=== PATIENT | male | born 1970 | race Caucasian/White ===

== ENCOUNTER 2016-05-30 11:37 | Inpatient (IN) | payer BC ==
[2016-05-30 11:38] VITALS: BMI 31.3
[2016-05-30] MEDS ORDERED: Albuterol-Ipratrop 3 mg / 0.5 (3 ml) UD ONE ×2 (11:45→20:19)
[2016-05-30] MEDS ORDERED: Sodium Chloride 0.9% 1,000 ML IV STA (12:03)
[2016-05-30] MEDS ORDERED: Sodium Chloride 0.9% 1,000 ML ONE (12:06)
--- NOTE | 2016-05-30 12:09 | C.PDOC ---
History Of Present Illness Patient is a 46 y/o male, whose PMHx includes asthma, and diabetes, presents to the ED for evaluation of increased shortness of breath associated with cough for the last 2 weeks but worse today. Pt reports being seen by patcher who prescribed Prednisone, Albuterol, nebulizer treatment without any relief. Patient denies any lower extremity pain/swelling, recent travel, recent surgery , chest pain, fever, chills, or any other associated symptoms at this time. Patient was at [facility] 2 weeks ago for same. At that time, diagnosed with likely bronchospasm. D dimer at that time negative. He was mildly tachycardic at 110 bpm and afebrile. Today arrives febrile and tachycardic to 130 although took albuterol just prior to arrival. Patient also noted to have FS 400+, states usually 100-200 at baseline. States takes metformin and levemir as usual. Has not checked his fingerstick in 4 days because he "doesn't care when I'm feeling like this." Time Seen by Provider: 05/30/16 11:44 Chief Complaint (Nursing): Shortness Of Breath History Per: Patient History/Exam Limitations: no limitations Onset/Duration Of Symptoms: Days (2 weeks) Current Symptoms Are (Timing): Still Present Exacerbating Factor(s): Coughing Current Respiratory Medications: Albuterol, Prednisone Associated Symptoms: denies: Fever, Chills, Sweating, Chest Pain, Bloody Cough, Heart Racing, Leg/Calf Pain, Ankle/Leg Swelling, Dizziness, Light-headedness, Anxiety, Tingling In Hands Or Face, Musle Spasms In Hands Or Feet Recent travel outside of the [place]: No Additional History Per: Patient Past Medical History Reviewed: Historical Data, Nursing Documentation, Vital Signs Vital Signs: Last Vital Signs Temp 100.5 F H 05/30/16 11:48 Pulse 139 H 05/30/16 11:48 Resp 37 H 05/30/16 12:10 BP 140/86 05/30/16 11:48 Pulse Ox 97 05/30/16 15:12 - Medical History PMH: Asthma, Diabetes, HTN - [facility] Procedures APPLICATION OF SPLINT (10/13/12) INJECT/INFUSE NEC (08/13/13) NEBULIZER THERAPY (07/22/14) Family History: States: No Known Family Hx - Social History Hx Tobacco Use: No Hx Alcohol Use: Yes Hx Substance Use: No - Immunization History Hx Tetanus Toxoid Vaccination: No Hx Influenza Vaccination: Yes Hx Pneumococcal Vaccination: No Review Of Systems Except As Marked, All Systems Reviewed And Found Negative. Constitutional: Negative for: Fever, Chills Cardiovascular: Negative for: Chest Pain, Palpitations, Light Headedness Respiratory: Positive for: Cough, Shortness of Breath. Negative for: Hemoptysis , Wheezing Physical Exam - Physical Exam Additional Physical Exam Comments: Constitutional: In some respiratory distress. Head: Normocephalic. Atraumatic. Eyes: PERRL. ENT: Moist mucous membranes. Neck: Supple. Cardiovascular: Tachycardic. Radial pulse 2+ bilaterally. Chest: No tenderness. Respiratory: Clear to auscultation bilaterally. Tachypneic. Coughing intermittently. GI: Soft. Nontender. Nondistended. Back: No CVA tenderness. Musculoskeletal: No tenderness or swelling of extremities. Skin: No rash. Neurologic: Alert, no focal deficit. ED Course And Treatment - Laboratory Results Result Diagrams: 05/30/16 12:16 05/30/16 12:16 O2 Sat by Pulse Oximetry: 97 Critical Care Time - Critical Care Note Total Time (in mins): 45 Documented critical care: time excludes all time spent performing seperately billable procedures. Medical Decision Making Medical Decision Making: Differential diagnosis: asthma exacerbation vs. PE vs. DKA vs. Pneumonia vs. Bronchospasm Progress note: Labs, chest CT, EKG ordered and reviewed. Patient was treated with IV fluids, and Tylenol 650mg PO in the ED. EKG: Sinus tachycardia at 132bpm. No ST elevation. Normal intervals. Chest CT Findings: Right lung: Diffuse increased prominence of the interstitium with a somewhat mosaic attenuation which may represent underlying pulmonary edema. Mild atelectasis in the right middle lobe. More prominent consolidation and atelectasis in the right lower lobe. 6 millimeter pulmonary nodule the right lower lobe superiorly. Left lung: Diffuse increased prominence of the interstitium with a somewhat mosaic attenuation which may represent underlying pulmonary edema. Linear atelectatic changes within the posterior aspect of the left upper lobe. More focal consolidative changes in atelectasis in the left lower lobe. Trachea thru central airways are patent. No significant axillary adenopathy. Thyroid is grossly preserved. No significant prevascular lymph nodes. Shotty right peritracheal lymph nodes. No significant hilar adenopathy. Trace fluid and/or thickening along the anterior pericardium. Heart is otherwise preserved. Coronary calcifications are noted. Prominent spleen. Small hiatal hernia. Nonobstructive right renal calculi for example a prominent calculus measures 4 millimeters in the upper pole. Degenerative changes in the spine. Impression: 1. Right lung: Diffuse increased prominence of the interstitium with a somewhat mosaic attenuation which may represent underlying pulmonary edema. Mild atelectasis in the right middle lobe. More prominent consolidation and atelectasis in the right lower lobe. 6 millimeter pulmonary nodule the right lower lobe superiorly. 2. Left lung: Diffuse increased prominence of the interstitium with a somewhat mosaic attenuation which may represent underlying pulmonary edema. Linear atelectatic changes within the posterior aspect of the left upper lobe. More focal consolidative changes in atelectasis in the left lower lobe. 3. Trace fluid and/or thickening along the anterior pericardium. Heart is otherwise preserved. 4. Nonobstructive right renal calculi for example a prominent calculus measures 4 millimeters in the upper pole. Will start on antibiotics for consolidations. DKA ruled out. ProBNP normal and patient feels better after 1 L bolus, not worse, unlikely CHF. D dimer at last visit normal, unlikely PE. Patient requires admission, Dr. Knight accepts to medicine investment professional service. Disposition Discussed With : Domingo Knight Doctor Will See Patient In The: Hospital - Disposition Disposition: HOSPITALIZED Disposition Time: 14:13 Condition: GUARDED - POA Core Measure Indicators: Pneumonia - Clinical Impression Clinical Impression: Pneumonia - Scribe Statement The provider has reviewed the documentation as recorded by the Manolo Knight Provider Attestation: All medical record entries made by the Manolo were at my direction and personally dictated by me. I have reviewed the chart and agree that the record accurately reflects my personal performance of the history, physical exam, medical decision making, and the department course for this patient. I have also personally directed, reviewed, and agree with the discharge instructions and disposition.
[2016-05-30 12:28] LABS: CHLORIDE 93 mmol/L (98-107); POTASSIUM 4.3 mmol/L (3.6-5.2); SODIUM 129 mmol/L (132-148)
[2016-05-30 12:30] LABS: AST/SGOT 14 U/L (17-59); BILIRUBIN,TOTAL 0.8 mg/dL (0.2-1.3); CARBON DIOXIDE 20 mmol/L (22-30); GFR AFRICAN-AMERICAN > 60; TOTAL PROTEIN 7.1 g/dL (6.3-8.3)
[2016-05-30 12:31] LABS: ALKALINE PHOSPHATASE 113 U/L (38-126); ALT/SGPT 21 U/L (21-72); BASO % 0.3 % (0.0-2.0); BLOOD UREA NITROGEN 16 mg/dL (9-20); CALCIUM 8.8 mg/dl (8.6-10.4); EOS # 0.1 K/uL (0.0-0.7); EOS % 0.8 % (0.0-4.0); HEMATOCRIT 43.3 % (35.0-51.0); LYMPH # 0.5 K/uL (1.0-4.3); LYMPH % 4.2 % (20.0-40.0); MEAN CELL VOLUME 83.4 fL (80.0-94.0); MEAN CORPUSCULAR HGB CONC 32.4 g/dL (33.0-37.0); MEAN PLATELET VOLUME 7.8 fL (7.2-11.7); MONO # 0.5 K/uL (0.0-0.8); MONO % 4.2 % (0.0-10.0); PLATELET COUNT 181 K/uL (130-400); RED CELL DISTRIBUTION WIDTH 14.3 % (11.5-14.5); WHITE BLOOD COUNT 11.6 K/uL (4.8-10.8)
[2016-05-30 12:37] LABS: ABG ALLEN TEST A; DRAW SITE RRA
[2016-05-30 12:40] LABS: INR 0.9
[2016-05-30 12:51] LABS: GLUCOSE,RANDOM 508 mg/dL (75-110)
[2016-05-30 13:08] LABS: BASOPHIL 1 % (0-2); NEUTROPHIL 87 % (50-75); TOTAL CELLS COUNTED 100
[2016-05-30 13:20] LABS: RBC URINE 5 /hpf (0-3); URINE BILIRUBIN NEGATIVE (NEGATIVE); URINE BLOOD 1+ (NEGATIVE); URINE COLOR Yellow (YELLOW); URINE GLUCOSE (UA) 3+ mg/dL (Normal); URINE KETONE 1+ mg/dL (NEGATIVE); URINE LEUKOCYTE ESTERASE NEG Leu/uL (Negative); URINE PROTEIN 1+ mg/dL (NEGATIVE); URINE UROBILINOGEN NORMAL mg/dL (0.2-1.0); WBC URINE 1 /hpf (0-5)
--- NOTE | 2016-05-30 14:03 | CT ---
CT chest History: Dyspnea. Right-sided chest pain. Comparison: None available. Technique: Multiple contiguous axial images were performed through the chest without the use of intravenous contrast. Subsequently, sagittal and coronal reformatted images were obtained. Findings: Right lung: Diffuse increased prominence of the interstitium with a somewhat mosaic attenuation which may represent underlying pulmonary edema. Mild atelectasis in the right middle lobe. More prominent consolidation and atelectasis in the right lower lobe. 6 millimeter pulmonary nodule the right lower lobe superiorly. Left lung: Diffuse increased prominence of the interstitium with a somewhat mosaic attenuation which may represent underlying pulmonary edema. Linear atelectatic changes within the posterior aspect of the left upper lobe. More focal consolidative changes in atelectasis in the left lower lobe. Trachea thru central airways are patent. No significant axillary adenopathy. Thyroid is grossly preserved. No significant prevascular lymph nodes. Shotty right peritracheal lymph nodes. No significant hilar adenopathy. Trace fluid and/or thickening along the anterior pericardium. Heart is otherwise preserved. Coronary calcifications are noted. Prominent spleen. Small hiatal hernia. Nonobstructive right renal calculi for example a prominent calculus measures 4 millimeters in the upper pole. Degenerative changes in the spine. Impression: 1. Right lung: Diffuse increased prominence of the interstitium with a somewhat mosaic attenuation which may represent underlying pulmonary edema. Mild atelectasis in the right middle lobe. More prominent consolidation and atelectasis in the right lower lobe. 6 millimeter pulmonary nodule the right lower lobe superiorly. 2. Left lung: Diffuse increased prominence of the interstitium with a somewhat mosaic attenuation which may represent underlying pulmonary edema. Linear atelectatic changes within the posterior aspect of the left upper lobe. More focal consolidative changes in atelectasis in the left lower lobe. 3. Trace fluid and/or thickening along the anterior pericardium. Heart is otherwise preserved. 4. Nonobstructive right renal calculi for example a prominent calculus measures 4 millimeters in the upper pole.
[2016-05-30] MEDS ORDERED: Azithromycin 500 MG in Sodium Chloride 0.9% 250 ML IVPB STA (14:22)
[2016-05-30] MEDS: Azithromycin 500mg/250ML NS 250 ML IVPB SCH (15:44)
[2016-05-30] MEDS ORDERED: Enoxaparin 40 mg Syringe ONE (15:47)
[2016-05-30] MEDS ORDERED: Pantoprazole 40 mg EC Tab PO ONE (15:47)
[2016-05-30] MEDS: Pantoprazole 40 mg EC Tab PO SCH (16:00)
[2016-05-30] MEDS: Enoxaparin 40 mg Syringe SC SCH (16:00)
[2016-05-30] MEDS: (Novolog) Insulin Aspart, Recombinant 100 u/ml 10 ml vial SC SCH ×2 (16:01→22:34)
[2016-05-30] MEDS ORDERED: (Novolog) Insulin Aspart, Recombinant 100 u/ml 10 ml vial ONE (16:04)
--- NOTE | 2016-05-30 17:35 | CP.PCM.HP ---
History of Present Illness - History of Present Illness History of Present Illness: 46-year-old male patient whose past medical histories includes asthma, diabetes presents to the ED for evaluation of increased shortness of breath associated with cough for the last 2 weeks but worse today. Patient reports being seen by boiler out who prescribed prednisone, albuterol, nebulizer treatment without any relief. Patient denies any lower extremity pain/swelling, recent travel, recent surgery, chest pain, fever, chills or any other associated symptoms at this time. [facility]. At that time, diagnosed with likely bronchospasm. D dimer at that time negative. He was mildly tachycardic at 110 bpm and afebrile. Today he arrives febrile and tachycardic to 130 although took albuterol just prior to arrival. Patient also noted to have FS 400+, states usually 110s-100 at baseline. States takes metformin and Levemir as usual. Has not checked his fingerstick in 4 days because he does not care when I am feeling like this. Present on Admission - Present on Admission Any Indicators Present on Admission: No Past Patient History - Past Social History Smoking Status: Never Smoked - CARDIAC Hx Hypertension: Yes - PULMONARY Hx Asthma: Yes - ENDOCRINE/METABOLIC Hx Diabetes Mellitus Type 2: Yes - PSYCHIATRIC Hx Substance Use: No Meds Home Medications: Home Medication List Medication Instructions Recorded Confirmed Type Azithromycin [Zithromax] 1,200 mg PO QWK #8 tab 06/07/16 Rx Efavirenz/Emtricitabine/Teno 1 tab PO DAILY #30 tab 06/07/16 Rx [Atripla 600 MG-200 MG-300 MG] Insulin Aspart, Recombinant 14 unit SC AC #0 unit 06/07/16 Rx [Novolog] Insulin Glargine, Recombina 50 unit SC HS #2 packet 06/07/16 Rx [Lantus] SITagliptin [Januvia] 100 mg PO DAILY #30 tab 06/07/16 Rx Fluconazole [Diflucan] 100 mg PO DAILY #30 tab 06/10/16 Rx Fludrocortisone [Florinef] 0.1 mg PO BID #60 tab 06/10/16 Rx Mag&Al/Simet/Diphen/Lido [First 2 ml PO Q6H #1 bottle 06/10/16 Rx Magic Mouthwash] Sulfamethoxazole/Trimethoprim 1 tab PO DAILY #30 tab 06/10/16 Rx [Bactrim DS 800 mg-160 mg] metFORMIN [glucOPHAGE] 500 mg PO BID #60 tab 06/10/16 Rx Allergies/Adverse Reactions: Allergies Allergy/AdvReac Type Severity Reaction Status Date / Time iodine Allergy RASH Verified 05/19/16 13:15 Results - Vital Signs Recent Vital Signs: Last Vital Signs Temp 100.5 F H 05/30/16 11:48 Pulse 139 H 05/30/16 11:48 Resp 37 H 05/30/16 12:10 BP 140/86 05/30/16 11:48 Pulse Ox 97 05/30/16 15:23 - Labs Result Diagrams: 06/10/16 08:33 06/10/16 08:33 Labs: Laboratory Results - last 24 hr 05/30/16 15:58 POC Glucose (mg/dL) 484 H* Assessment & Plan - Assessment and Plan (Free Text) Plan: pulmnodule work up as out pt as pt has 6mm nodule needs owkr up and made aware coul dbe cncerr rocephin zithromax solumedrol/advair/duoneb iv lasix cardio pulm geovany same gi and dvt prophylxis
[2016-05-30] MEDS ORDERED: MethylPREDNISolone 40 mg Vial ONE (19:26)
[2016-05-30] MEDS: MethylPREDNISolone 40 mg Vial IVP SCH ×2 (19:28→23:00)
[2016-05-30] MEDS: Fluticasone-Salmeterol 250-50mcg Diskus INH SCH (19:38)
[2016-05-30] MEDS: Albuterol-Ipratrop 3 mg / 0.5 (3 ml) UD INH SCH (20:23)
[2016-05-30] MEDS ORDERED: (Novolog) Insulin Aspart, Recombinant 100 u/ml 10 ml vial SC ONE (23:14)
[2016-05-31] MEDS: (Novolog) Insulin Aspart, Recombinant 100 u/ml 10 ml vial SC SCH ×5 (01:44→21:42)
[2016-05-31] MEDS: Albuterol-Ipratrop 3 mg / 0.5 (3 ml) UD INH SCH ×4 (01:54→19:16)
[2016-05-31] MEDS: MethylPREDNISolone 40 mg Vial IVP SCH ×3 (06:05→21:40)
--- NOTE | 2016-05-31 08:15 | CP.PCM.PN ---
Subjective - Date & Time of Evaluation Date of Evaluation: 05/31/16 Time of Evaluation: 08:25 - Subjective Subjective: Dr. Ghassan Knight service: Patient seen and examined in room. He complains of chronic cough and chronic asthma for which he sees a pulmonoligst in [place]. He has a scheduled appointment tomorrow for as well. He is here for worsening cough and shortness of breath. He also complains of wheezing and chest tightness. He has nebulizer treatment at home and a albuterol inhaler. He says the coughing is worse at night. He denies any history of intubation or ICU admission due to asthma. Objective - Vital Signs/Intake and Output Vital Signs (last 24 hours): Temp Pulse Resp BP Pulse Ox 98.1 F 101 H 20 155/81 H 96 05/31/16 05:00 05/31/16 05:00 05/31/16 05:00 05/31/16 05:00 05/31/16 05:00 - Medications Medications: Current Medications Albuterol/Ipratropium (Duoneb 3 Mg/0.5 Mg (3 Ml) Ud) 3 ml INH RQ6 [facility] Last Admin: 05/31/16 01:54 Dose: 3 ml Enoxaparin Sodium (Lovenox) 40 mg SC DAILY [facility] Last Admin: 05/30/16 16:00 Dose: 40 mg Furosemide (Lasix) 40 mg IVP DAILY [facility] Azithromycin (Zithromax 500mg In Ns Addvantage) 250 mls @ 167 mls/hr IVPB Q24H [facility] Last Admin: 05/30/16 15:44 Dose: Not Given Ceftriaxone Sodium 1 gm/ (Dextrose) 100 mls @ 50 mls/30 min IVPB DAILY [facility] Insulin Aspart (Novolog) 0 unit SC Q6 [facility] PRN Reason: Protocol Last Admin: 05/31/16 06:05 Dose: 4 unit Methylprednisolone (Solu-Medrol) 40 mg IVP Q8 [facility] Last Admin: 05/31/16 06:05 Dose: 40 mg Pantoprazole Sodium (Protonix Ec Tab) 40 mg PO DAILY [facility] Last Admin: 05/30/16 16:00 Dose: 40 mg Pneumococcal Polyvalent Vaccine (Pneumovax 23 Vaccine) 0.5 ml IM .ONCE ONE Stop: 06/02/16 10:01 Fluticasone/Salmeterol (Advair Diskus 250/50) 1 puff INH RQ12 [facility] Last Admin: 05/30/16 19:38 Dose: 1 puff - Labs Labs: PT 10.4 SECONDS (9.7-12.2) 05/30/16 12:16 INR 0.9 05/30/16 12:16 APTT 25 SECONDS (21-34) 05/30/16 12:16 - Constitutional Appears: Non-toxic, No Acute Distress - Head Exam Head Exam: ATRAUMATIC, NORMAL INSPECTION - Eye Exam Eye Exam: Normal appearance - Respiratory Exam Respiratory Exam: Decreased Breath Sounds, Clear to Ausculation Bilateral. absent: Rales, Rhonchi, Wheezes - Cardiovascular Exam Cardiovascular Exam: REGULAR RHYTHM, RRR, +S1, +S2. absent: Gallop, Rubs - GI/Abdominal Exam GI & Abdominal Exam: Soft, Normal Bowel Sounds. absent: Tenderness - Extremities Exam Extremities Exam: Normal Inspection. absent: Pedal Edema - Back Exam Back Exam: NORMAL INSPECTION - Psychiatric Exam Psychiatric exam: Normal Affect, Normal Mood - Skin Skin Exam: Normal Color Assessment and Plan - Assessment and Plan (Free Text) Assessment: Assessment: 1. Pneumonia - pulmonary edma CT scan shows infiltrates or pulmonary edema most likely not cardiac, since his BNP is wnl. Dr. Gan consulted Patient on IV antibiotics for now 2. Chronic Asthma Continue current inhaled Adviar, Singular, and Doneb 3ml q6H, continue IV steroids, patient will follow up with Dr. Gan after discharge 3. Uncontrolled DM Increased Metformin to 1000mg bid and also added Lantus 20 units HS, his hbg a1c is 13.5. Dr. Joanna Linares is consulted, diet education and counseling. continue accu checks with medium protocol sliding scale insulin. 4. Prophylatic measure Lovenox and protonix
[2016-05-31] MEDS: Enoxaparin 40 mg Syringe SC SCH (09:35)
[2016-05-31] MEDS: Pantoprazole 40 mg EC Tab PO SCH (09:35)
[2016-05-31] MEDS ORDERED: cefTRIAXone IV 1 gm in Dextros 1 GM in Dextrose 5% In Water 50 ML IVPB SCH (10:00)
[2016-05-31] MEDS: cefTRIAXone IV 1 gm in Dextros 50 ML IVPB SCH (10:55)
[2016-05-31] MEDS ORDERED: (Novolog) Insulin Aspart, Recombinant 100 u/ml 10 ml vial SC SCH ×3 (11:30→14:25)
[2016-05-31] MEDS: Promethazine/Cod 6.25mg-10mg/5ml Syr UD PO PRN ×2 (12:25→21:41)
--- NOTE | 2016-05-31 13:47 | CP.PCM.PN ---
Subjective - Date & Time of Evaluation Date of Evaluation: 05/31/16 Time of Evaluation: 08:45 - Subjective Subjective: Pt is a 46yo M concerned about a 6 mm pulmonary nodule seen on CT and also concerned that prior treatment of his asthma is not sufficient and specificaly that steroid use in prior treatment is aggravating his sugar values and worsening his DM. Patient currently complains of cough sometime productive and sometimes not with congestion that has persisted for 2 weeks since a prior visit to the [place] ED for simaler symptoms. Pt has a history of allergy testing showing allergies to a variety of triggers such as dust, dog, cats, etc. Asthma exacerbations used to be limited to Sep-November but are now continual. Patient denies SOB, fevers and chills, chest pain, papitations, and abdominal pain. PSH: lower back surgery PMH: DM, HtN, asthma Smoking hx: none Objective - Vital Signs/Intake and Output Vital Signs (last 24 hours): Temp Pulse Resp BP Pulse Ox 98.1 F 106 H 20 126/84 97 05/31/16 07:07 05/31/16 07:07 05/31/16 07:07 05/31/16 07:07 05/31/16 07:07 - Medications Medications: Current Medications Albuterol/Ipratropium (Duoneb 3 Mg/0.5 Mg (3 Ml) Ud) 3 ml INH RQ6 [facility] Last Admin: 05/31/16 08:37 Dose: 3 ml Enoxaparin Sodium (Lovenox) 40 mg SC DAILY [facility] Last Admin: 05/31/16 09:35 Dose: 40 mg Azithromycin (Zithromax 500mg In Ns Addvantage) 250 mls @ 167 mls/hr IVPB Q24H [facility] Last Admin: 05/30/16 15:44 Dose: Not Given Ceftriaxone Sodium (Rocephin Iv 1 Gm Duplex) 50 mls @ 50 mls/30 min IVPB Q24H [facility] Last Admin: 05/31/16 10:55 Dose: 50 mls/30 min Insulin Aspart (Novolog) 0 unit SC ACHS [facility] PRN Reason: Protocol Last Admin: 05/31/16 12:18 Dose: 10 unit Insulin Glargine (Lantus) 20 unit SC HS [facility] Metformin HCl (Glucophage) 1,000 mg PO BIDCC [facility] Methylprednisolone (Solu-Medrol) 40 mg IVP Q8 [facility] Last Admin: 05/31/16 06:05 Dose: 40 mg Montelukast Sodium (Singulair) 10 mg PO HS [facility] Pantoprazole Sodium (Protonix Ec Tab) 40 mg PO DAILY [facility] Last Admin: 05/31/16 09:35 Dose: 40 mg Pneumococcal Polyvalent Vaccine (Pneumovax 23 Vaccine) 0.5 ml IM .ONCE ONE Stop: 06/02/16 10:01 Promethazine HCl/Codeine (Phenergan/Codeine Oral Syrup) 5 ml PO Q4 PRN PRN Reason: Cough Last Admin: 05/31/16 12:25 Dose: 5 ml Fluticasone/Salmeterol (Advair Diskus 250/50) 1 puff INH RQ12 [facility] Last Admin: 05/30/16 19:38 Dose: 1 puff - Labs Labs: PT 10.4 SECONDS (9.7-12.2) 05/30/16 12:16 INR 0.9 05/30/16 12:16 APTT 25 SECONDS (21-34) 05/30/16 12:16
--- NOTE | 2016-05-31 13:50 | CP.PCM.CON ---
History of Present Illness - History of Present Illness History of Present Illness: Pt is a 46yo M concerned about a 6 mm pulmonary nodule seen on CT and also concerned that prior treatment of his asthma is not sufficient and specifically that steroid use in prior treatment is aggravating his sugar values and worsening his DM. Patient currently complains of cough sometime productive and sometimes not with congestion that has persisted for 2 weeks since a prior visit to the [facility] for similar symptoms. Pt has a history of allergy testing showing allergies to a variety of triggers such as dust, dog, cats, etc. Asthma exacerbations used to be limited to Sep-November but are now continual. Patient denies SOB, fevers and chills, chest pain, palpitations, and abdominal pain. PSH: lower back surgery PMH: DM, HtN, asthma Smoking hx: none Review of Systems - Constitutional Constitutional: absent: Chills, Fever - Cardiovascular Cardiovascular: absent: Chest Pain, Leg Edema - Respiratory Respiratory: Cough, Chest Congestion, Excessive Mucous Production (mostly non- productive). absent: Dyspnea, Hemoptysis - Gastrointestinal Gastrointestinal: absent: Abdominal Pain Past Patient History - Past Medical History & Family History Past Medical History?: Yes - Past Social History Smoking Status: Never Smoked - CARDIAC Hx Cardiac Disorders: Yes Hx Hypertension: Yes - PULMONARY Hx Respiratory Disorders: Yes Hx Asthma: Yes - NEUROLOGICAL Hx Neurological Disorder: No - HEENT Hx HEENT Problems: No - RENAL Hx Chronic Kidney Disease: No - ENDOCRINE/METABOLIC Hx Endocrine Disorders: Yes Hx Diabetes Mellitus Type 2: Yes - HEMATOLOGICAL/ONCOLOGICAL Hx Blood Disorders: No - INTEGUMENTARY Hx Dermatological Problems: No - MUSCULOSKELETAL/RHEUMATOLOGICAL Hx Musculoskeletal Disorders: No Hx Falls: No - GASTROINTESTINAL Hx Gastrointestinal Disorders: No - GENITOURINARY/GYNECOLOGICAL Hx Genitourinary Disorders: No - PSYCHIATRIC Hx Psychophysiologic Disorder: No Hx Substance Use: No - SURGICAL HISTORY Hx Surgeries: No - ANESTHESIA Hx Anesthesia: No Meds Allergies/Adverse Reactions: Allergies Allergy/AdvReac Type Severity Reaction Status Date / Time iodine Allergy RASH Verified 05/19/16 13:15 - Medications Medications: Current Medications Albuterol/Ipratropium (Duoneb 3 Mg/0.5 Mg (3 Ml) Ud) 3 ml INH RQ6 [facility] Last Admin: 05/31/16 08:37 Dose: 3 ml Enoxaparin Sodium (Lovenox) 40 mg SC DAILY [facility] Last Admin: 05/31/16 09:35 Dose: 40 mg Azithromycin (Zithromax 500mg In Ns Addvantage) 250 mls @ 167 mls/hr IVPB Q24H [facility] Last Admin: 05/30/16 15:44 Dose: Not Given Ceftriaxone Sodium (Rocephin Iv 1 Gm Duplex) 50 mls @ 50 mls/30 min IVPB Q24H [facility] Last Admin: 05/31/16 10:55 Dose: 50 mls/30 min Insulin Aspart (Novolog) 0 unit SC ACHS [facility] PRN Reason: Protocol Last Admin: 05/31/16 12:18 Dose: 10 unit Insulin Glargine (Lantus) 20 unit SC HS [facility] Metformin HCl (Glucophage) 1,000 mg PO BIDCC [facility] Methylprednisolone (Solu-Medrol) 40 mg IVP Q8 [facility] Last Admin: 05/31/16 06:05 Dose: 40 mg Montelukast Sodium (Singulair) 10 mg PO HS [facility] Pantoprazole Sodium (Protonix Ec Tab) 40 mg PO DAILY [facility] Last Admin: 05/31/16 09:35 Dose: 40 mg Pneumococcal Polyvalent Vaccine (Pneumovax 23 Vaccine) 0.5 ml IM .ONCE ONE Stop: 06/02/16 10:01 Promethazine HCl/Codeine (Phenergan/Codeine Oral Syrup) 5 ml PO Q4 PRN PRN Reason: Cough Last Admin: 05/31/16 12:25 Dose: 5 ml Fluticasone/Salmeterol (Advair Diskus 250/50) 1 puff INH RQ12 [facility] Last Admin: 05/30/16 19:38 Dose: 1 puff Physical Exam - Constitutional Appears: Well, No Acute Distress - Head Exam Head Exam: ATRAUMATIC, NORMOCEPHALIC - Respiratory Exam Respiratory Exam: Rales, NORMAL BREATHING PATTERN. absent: Clear to Auscultation Bilateral, Rhonchi, Wheezes - Cardiovascular Exam Cardiovascular Exam: Tachycardia, +S1, +S2. absent: Systolic Murmur - Extremities Exam Extremities exam: Positive for: pedal edema (no leg edema) - Neurological Exam Neurological exam: Alert, Oriented x3 - Psychiatric Exam Psychiatric exam: Normal Affect, Normal Mood - Skin Skin Exam: Dry, Intact, Normal Color, Warm Results - Vital Signs Recent Vital Signs: Last Vital Signs Temp 98.1 F 05/31/16 07:07 Pulse 106 H 05/31/16 07:07 Resp 20 05/31/16 07:07 BP 126/84 05/31/16 07:07 Pulse Ox 97 05/31/16 07:07 - Labs Result Diagrams: 06/02/16 06:30 06/02/16 06:30 Labs: Laboratory Results - last 24 hr 05/30/16 05/30/16 05/30/16 15:58 17:43 21:52 POC Glucose (mg/dL) 484 H* 431 H* 440 H* Hemoglobin A1c 05/31/16 05/31/16 05/31/16 01:32 05:57 11:20 POC Glucose (mg/dL) 369 H 343 H Hemoglobin A1c 13.5 H 05/31/16 11:42 POC Glucose (mg/dL) 439 H* Hemoglobin A1c Assessment & Plan (1) Asthma exacerbation Assessment and Plan: 05-30-[address]: R: Increased prominence of interstitial with mosaic pattern suggestive of pulmonary edema, middle and lower lobe consolidation/atelectasis, 6mm pulmonary nodule; L: Increased prominence of interstitial with mosaic pattern suggestive of pulmonary edema, L lobe consolidations Recommend follow-up screening to look for nodule growth CBC with differential; follow eosinophil count IgE labs Mycoplasma and Legionella serology and labs Continue Advair, Duoneb, solumedrol Continue diphenhydramine and begin phenergan/codeine Begin Singlair Continue Rocephin and Zithromax Continue to monitor for SOB, fevers, and productive cough Status: Chronic Priority: High (2) Nodule of right lung Status: Acute Priority: Low
[2016-05-31 14:01] LABS: BASO % 0.4 % (0.0-2.0); HEMATOCRIT 44.2 % (35.0-51.0); LYMPH # 0.4 K/uL (1.0-4.3); LYMPH % 3.5 % (20.0-40.0); MEAN CELL VOLUME 84.9 fL (80.0-94.0); MEAN CORPUSCULAR HEMOGLOBIN 27.2 pg (27.0-31.0); MEAN CORPUSCULAR HGB CONC 32.1 g/dL (33.0-37.0); MEAN PLATELET VOLUME 7.9 fL (7.2-11.7); MONO # 0.4 K/uL (0.0-0.8); MONO % 3.3 % (0.0-10.0); PLATELET COUNT 185 K/uL (130-400); RED CELL DISTRIBUTION WIDTH 14.4 % (11.5-14.5); WHITE BLOOD COUNT 12.2 K/uL (4.8-10.8)
[2016-05-31] MEDS: Fluticasone-Salmeterol 250-50mcg Diskus INH SCH ×2 (14:07→19:16)
[2016-05-31 14:09] LABS: CHLORIDE 94 mmol/L (98-107)
[2016-05-31 14:10] LABS: POTASSIUM 4.9 mmol/L (3.6-5.2); SODIUM 128 mmol/L (132-148)
[2016-05-31 14:12] LABS: ALB/GLOB RATIO 0.9 (1.0-2.1); ALKALINE PHOSPHATASE 95 U/L (38-126); AST/SGOT 13 U/L (17-59); BILIRUBIN,TOTAL 0.5 mg/dL (0.2-1.3); BLOOD UREA NITROGEN 21 mg/dL (9-20); CARBON DIOXIDE 17 mmol/L (22-30); GFR AFRICAN-AMERICAN > 60; TOTAL PROTEIN 7.2 g/dL (6.3-8.3)
[2016-05-31 14:13] LABS: ALT/SGPT 17 U/L (21-72); CALCIUM 8.8 mg/dl (8.6-10.4); MAGNESIUM 1.7 mg/dL (1.6-2.3); PHOSPHOROUS 4.4 mg/dL (2.5-4.5)
[2016-05-31] MEDS ORDERED: (Novolin R) Insulin Human Regular 100 units/ml vial SC ONE (14:23)
[2016-05-31 14:44] LABS: NEUTROPHIL 91 % (50-75); TOTAL CELLS COUNTED 100
[2016-05-31 14:47] LABS: GLUCOSE,RANDOM 609 mg/dL (75-110)
[2016-05-31] MEDS: Sodium Chloride 0.9% 1,000 ML IV SCH (16:43)
[2016-05-31] MEDS: Azithromycin 500mg/250ML NS 250 ML IVPB SCH (16:44)
--- NOTE | 2016-05-31 17:52 | CON ---
DATE: 05/31/2016 ROOM: 651. HISTORY OF PRESENT ILLNESS: This is a 46-year-old male with known history of type 2 insulin-requirin g diabetes, presenting here with progressive shortness of breath and with acute exacerbation of asthm atic bronchitis and is now being referred for diabetic evaluation and management because of recent hy perglycemic accelerations especially with the intercurrent IV steroid therapy as given. PAST MEDICAL HISTORY: History of type 2 insulin-requiring diabetes on a combination of Levemir and m etformin therapy as noted, history of hypertensive cardiovascular disease and dyslipidemia, history o f chronic asthma that was apparently worse in the last year or so with a recent exacerbation about 2 weeks ago and was seen at the [facility] Emergency Room and sent home. However, at this time 2 weeks later, he has had recurrence of the same and progressive shortness of breath prompting this evaluation and admission in [facility] He has been on oral steroids on the outpatient as noted. FAMILY HISTORY: Positive for hypertension and heart disease. 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 No known subs tance use. He has a supportive family otherwise. REVIEW OF SYSTEMS: As mentioned above, admits to generalized body weakness with easy fatigability an d tiredness and suboptimal energy level. Also, admits to episodic dizziness and lightheadedness. No chest pains or palpitations, but admits to progressive shortness of breath initially on exertion and then at rest with paroxysmal nocturnal dyspnea. His oral intake has been variable with nausea, dysp epsia and vague upper abdominal pains. Also, admits to marked polyuria and nocturia over the last fe w days as noted. PHYSICAL EXAMINATION: GENERAL: This is an average built male in no apparent distress. VITAL SIGNS: Blood pressure of 140/70, pulse of 100 beats per minute and regular, temperature 100, r espirations 20. Height is 5 feet 6 inches, weight is 180 pounds. HEENT: Head normocephalic. Eyes anicteric with pink conjunctivae. Fundoscopy not possible at this time. Ears, nose and throat otherwise normal. NECK: Supple. Thyroid gland is normal size. No carotid bruits or cervical adenopathy. CARDIOPULMONARY: Some adynamic precordium. S1, S2 is rapid and regular. LUNGS: Show scattered rhonchi. ABDOMEN: Flat, soft with positive bowel sounds. EXTREMITIES: No peripheral edema. Pulses are +2 bilaterally. LABORATORY DATA: The glucose levels today have ranged from 343 to 369 and 439 mg/dL. His chemistrie s showed a BUN of 21, sodium 128, potassium 4.9, chloride 94, CO2 17, glucose 609 and creatinine 0.9. His hemoglobin A1c is 13.5%, which is quite elevated and indicative of very poor outpatient metabol ic control of his diabetic condition even prior to this admission. ASSESSMENT: This is a 46-year-old male with uncontrolled and decompensated type 2 insulin-requiring diabetes, presenting here with acute exacerbation of asthmatic bronchitis and a recent pulmonary nodu le. He has been started on IV steroid therapy with expected marked hyperglycemic accelerations. Als o, biochemical evidence of dehydration with prerenal azotemia and spurious hyponatremia and also rakesh y metabolic acidosis as noted thereof. PLAN OF MANAGEMENT: We will start him right away on vigorous IV hydration with normal saline at 1000 mL to run at 125 mL per hour on a continuous maintenance infusion and will obtain serial chemistries and supplement accordingly as needed. This will be given to replenish his fluid and electrolyte los ses from the increased osmotic diuresis from the recent marked hyperglycemic accelerations as noted t hereof. We will also start him on a more physiologic insulin regimen with a combination of a basal a nd bolus insulin dosing with Lantus to be given as 30 units subQ at bedtime daily to start tonight. We will also add NovoLog and give 14 units subQ t.i.d. before meals to start at dinnertime today as o rdered. We will modify the coverage scale to obviate hypoglycemia and detailed orders have been give n. We will obtain serial chemistries and supplement accordingly as needed. We will also initiate di abetic education and dietary instructions at the time of this admission as he clearly will have to go home on insulin therapy considering the markedly elevated A1c levels and the recent metabolic decomp ensation. We will obtain baseline thyroid studies and a lipid panel and also serial chemistries and will supplement accordingly as needed. We will follow. Joanna Linares MD cc: [id number] TT: 05/31/2016 17:51:41 Confirmation # [id number] Dictation # [id number] mn
--- NOTE | 2016-05-31 18:34 | CARD ---
APPROVED REPORT EKG Measurement Heart [id number] <Conclusion> Sinus tachycardia Early repolarization. Abnormal ECG
--- NOTE | 2016-05-31 18:56 | CP.PCM.PN ---
Subjective - Date & Time of Evaluation Date of Evaluation: 05/31/16 Time of Evaluation: 15:20 - Subjective Subjective: clinicaly same Objective - Vital Signs/Intake and Output Vital Signs (last 24 hours): Temp Pulse Resp BP Pulse Ox 98 F 115 H 20 146/90 96 05/31/16 16:43 05/31/16 16:43 05/31/16 16:43 05/31/16 16:43 05/31/16 16:43 Intake and Output: 05/31/16 05/31/16 06:59 18:59 Intake Total 450 Balance 450 - Medications Medications: Current Medications Albuterol/Ipratropium (Duoneb 3 Mg/0.5 Mg (3 Ml) Ud) 3 ml INH RQ6 [facility] Last Admin: 05/31/16 14:09 Dose: 3 ml Enoxaparin Sodium (Lovenox) 40 mg SC DAILY [facility] Last Admin: 05/31/16 09:35 Dose: 40 mg Azithromycin (Zithromax 500mg In Ns Addvantage) 250 mls @ 167 mls/hr IVPB Q24H [facility] Last Admin: 05/31/16 16:44 Dose: 167 mls/hr Ceftriaxone Sodium (Rocephin Iv 1 Gm Duplex) 50 mls @ 50 mls/30 min IVPB Q24H [facility] Last Admin: 05/31/16 10:55 Dose: 50 mls/30 min Sodium Chloride (Sodium Chloride 0.9%) 1,000 mls @ 125 mls/hr IV .Q8H [facility] Last Admin: 05/31/16 16:43 Dose: 125 mls/hr Insulin Aspart (Novolog) 14 unit SC AC [facility] Last Admin: 05/31/16 16:41 Dose: 14 unit Insulin Aspart (Novolog) 0 unit SC ACHS [facility] PRN Reason: Protocol Last Admin: 05/31/16 16:42 Dose: 6 unit Insulin Glargine (Lantus) 30 unit SC HS [facility] Metformin HCl (Glucophage) 1,000 mg PO BIDCC [facility] Last Admin: 05/31/16 16:49 Dose: 1,000 mg Methylprednisolone (Solu-Medrol) 40 mg IVP Q8 [facility] Last Admin: 05/31/16 14:35 Dose: 40 mg Montelukast Sodium (Singulair) 10 mg PO HS [facility] Pantoprazole Sodium (Protonix Ec Tab) 40 mg PO DAILY [facility] Last Admin: 05/31/16 09:35 Dose: 40 mg Pneumococcal Polyvalent Vaccine (Pneumovax 23 Vaccine) 0.5 ml IM .ONCE ONE Stop: 06/02/16 10:01 Promethazine HCl/Codeine (Phenergan/Codeine Oral Syrup) 5 ml PO Q4 PRN PRN Reason: Cough Last Admin: 05/31/16 12:25 Dose: 5 ml Fluticasone/Salmeterol (Advair Diskus 250/50) 1 puff INH RQ12 [facility] Last Admin: 05/31/16 14:07 Dose: 1 puff - Labs Labs: 05/31/16 13:54 05/31/16 13:54 PT 10.4 SECONDS (9.7-12.2) 05/30/16 12:16 INR 0.9 05/30/16 12:16 APTT 25 SECONDS (21-34) 05/30/16 12:16 - Constitutional Appears: Well - Head Exam Head Exam: ATRAUMATIC, NORMAL INSPECTION, NORMOCEPHALIC - Eye Exam Eye Exam: EOMI, Normal appearance, PERRL Pupil Exam: NORMAL ACCOMODATION, PERRL - ENT Exam ENT Exam: Mucous Membranes Moist, Normal Exam - Neck Exam Neck Exam: Full ROM, Normal Inspection. absent: Lymphadenopathy - Respiratory Exam Respiratory Exam: Decreased Breath Sounds - Cardiovascular Exam Cardiovascular Exam: REGULAR RHYTHM, +S1, +S2 - GI/Abdominal Exam GI & Abdominal Exam: Soft, Diminished Bowel Sounds - Rectal Exam Rectal Exam: Deferred Assessment and Plan - Assessment and Plan (Free Text) Plan: geovany rocephin zithromax iv lasix follwoupwith consultation labs and med reviewed
[2016-05-31] MEDS ORDERED: (Lantus) Insulin Glargine, Recombinant SC SCH ×3 (22:00)
--- NOTE | 2016-05-31 22:42 | CP.PCM.CON ---
History of Present Illness - History of Present Illness History of Present Illness: 46 Male admitted for dyspnea likely secondary to Asthma Check ECHO and ProBNP Will follow Review Of Systems Except As Marked, All Systems Reviewed And Found Negative. Constitutional: Negative for: Fever, Chills Cardiovascular: Negative for: Chest Pain, Palpitations, Light Headedness Respiratory: Positive for:Shortness of Breath. Negative for: Hemoptysis, Wheezing Physical Exam - Physical Exam Additional Physical Exam Comments: Constitutional: In some respiratory distress. Head: Normocephalic. Atraumatic. Eyes: PERRL. ENT: Moist mucous membranes. Neck: Supple. Cardiovascular: Tachycardic. Radial pulse 2+ bilaterally. Chest: No tenderness. Respiratory: Clear to auscultation bilaterally. GI: Soft. Nontender. Nondistended. Back: No CVA tenderness. Musculoskeletal: No tenderness or swelling of extremities. Skin: No rash. Neurologic: Alert, no focal deficit. Past Patient History - Past Medical History & Family History Past Medical History?: Yes - Past Social History Smoking Status: Never Smoked - CARDIAC Hx Cardiac Disorders: Yes Hx Hypertension: Yes - PULMONARY Hx Respiratory Disorders: Yes Hx Asthma: Yes - NEUROLOGICAL Hx Neurological Disorder: No - HEENT Hx HEENT Problems: No - RENAL Hx Chronic Kidney Disease: No - ENDOCRINE/METABOLIC Hx Endocrine Disorders: Yes Hx Diabetes Mellitus Type 2: Yes - HEMATOLOGICAL/ONCOLOGICAL Hx Blood Disorders: No - INTEGUMENTARY Hx Dermatological Problems: No - MUSCULOSKELETAL/RHEUMATOLOGICAL Hx Musculoskeletal Disorders: No Hx Falls: No - GASTROINTESTINAL Hx Gastrointestinal Disorders: No - GENITOURINARY/GYNECOLOGICAL Hx Genitourinary Disorders: No - PSYCHIATRIC Hx Psychophysiologic Disorder: No Hx Substance Use: No - SURGICAL HISTORY Hx Surgeries: No - ANESTHESIA Hx Anesthesia: No Meds Home Medications: Home Medication List Medication Instructions Recorded Confirmed Type Azithromycin [Zithromax] 1,200 mg PO QWK #8 tab 06/07/16 Rx Efavirenz/Emtricitabine/Teno 1 tab PO DAILY #30 tab 06/07/16 Rx [Atripla 600 MG-200 MG-300 MG] Insulin Aspart, Recombinant 14 unit SC AC #0 unit 06/07/16 Rx [Novolog] Insulin Glargine, Recombina 50 unit SC HS #2 packet 06/07/16 Rx [Lantus] SITagliptin [Januvia] 100 mg PO DAILY #30 tab 06/07/16 Rx metFORMIN [glucOPHAGE] 500 mg PO BID #30 tab 06/07/16 Rx Allergies/Adverse Reactions: Allergies Allergy/AdvReac Type Severity Reaction Status Date / Time iodine Allergy RASH Verified 05/19/16 13:15 - Medications Medications: Current Medications Albuterol/Ipratropium (Duoneb 3 Mg/0.5 Mg (3 Ml) Ud) 3 ml INH RQ6 [facility] Last Admin: 05/31/16 19:16 Dose: 3 ml Enoxaparin Sodium (Lovenox) 40 mg SC DAILY [facility] Last Admin: 05/31/16 09:35 Dose: 40 mg Azithromycin (Zithromax 500mg In Ns Addvantage) 250 mls @ 167 mls/hr IVPB Q24H [facility] Last Admin: 05/31/16 16:44 Dose: 167 mls/hr Ceftriaxone Sodium (Rocephin Iv 1 Gm Duplex) 50 mls @ 50 mls/30 min IVPB Q24H [facility] Last Admin: 05/31/16 10:55 Dose: 50 mls/30 min Sodium Chloride (Sodium Chloride 0.9%) 1,000 mls @ 125 mls/hr IV .Q8H [facility] Last Admin: 05/31/16 16:43 Dose: 125 mls/hr Insulin Aspart (Novolog) 14 unit SC AC [facility] Last Admin: 05/31/16 16:41 Dose: 14 unit Insulin Aspart (Novolog) 0 unit SC ACHS [facility] PRN Reason: Protocol Last Admin: 05/31/16 21:42 Dose: Not Given Insulin Glargine (Lantus) 30 unit SC HS [facility] Last Admin: 05/31/16 21:41 Dose: 30 units Metformin HCl (Glucophage) 1,000 mg PO BIDCC [facility] Last Admin: 05/31/16 16:49 Dose: 1,000 mg Methylprednisolone (Solu-Medrol) 40 mg IVP Q8 [facility] Last Admin: 05/31/16 21:40 Dose: 40 mg Montelukast Sodium (Singulair) 10 mg PO HS [facility] Last Admin: 05/31/16 21:41 Dose: 10 mg Pantoprazole Sodium (Protonix Ec Tab) 40 mg PO DAILY [facility] Last Admin: 05/31/16 09:35 Dose: 40 mg Pneumococcal Polyvalent Vaccine (Pneumovax 23 Vaccine) 0.5 ml IM .ONCE ONE Stop: 06/02/16 10:01 Promethazine HCl/Codeine (Phenergan/Codeine Oral Syrup) 5 ml PO Q4 PRN PRN Reason: Cough Last Admin: 05/31/16 21:41 Dose: 5 ml Fluticasone/Salmeterol (Advair Diskus 250/50) 1 puff INH RQ12 [facility] Last Admin: 05/31/16 19:16 Dose: 1 puff Results - Vital Signs Recent Vital Signs: Last Vital Signs Temp 99 F 05/31/16 22:06 Pulse 108 H 05/31/16 22:06 Resp 20 05/31/16 22:06 BP 142/81 05/31/16 22:06 Pulse Ox 96 05/31/16 22:06 - Labs Result Diagrams: 06/08/16 06:11 06/08/16 06:11 Labs: Laboratory Results - last 24 hr 05/31/16 05/31/16 05/31/16 01:32 05:57 11:20 WBC RBC Hgb Hct MCV MCH MCHC RDW Plt Count MPV Neut % (Auto) Lymph % (Auto) [place] % (Auto) Eos % (Auto) Baso % (Auto) Neut # Lymph # [place] # Eos # Baso # Neutrophils % (Manual) Band Neutrophils % Lymphocytes % (Manual) Monocytes % (Manual) Platelet Estimate Ovalocytes Sodium Potassium Chloride Carbon Dioxide Anion Gap BUN Creatinine Est GFR ( Amer) Est GFR (Non-Af Amer) POC Glucose (mg/dL) 369 H 343 H Random Glucose Hemoglobin A1c 13.5 H Calcium Phosphorus Magnesium Total Bilirubin AST ALT Alkaline Phosphatase Total Protein Albumin Globulin Albumin/Globulin Ratio Ur L.pneumophila Ag Mycoplasma pneumon IgM 05/31/16 05/31/16 05/31/16 11:42 13:05 13:54 WBC 12.2 H RBC 5.21 Hgb 14.2 Hct 44.2 MCV 84.9 MCH 27.2 MCHC 32.1 L RDW 14.4 Plt Count 185 MPV 7.9 Neut % (Auto) 92.8 H Lymph % (Auto) 3.5 L [place] % (Auto) 3.3 Eos % (Auto) 0.0 Baso % (Auto) 0.4 Neut # 11.3 H Lymph # 0.4 L [place] # 0.4 Eos # 0.0 Baso # 0.0 Neutrophils % (Manual) 91 H Band Neutrophils % 1 Lymphocytes % (Manual) 6 L Monocytes % (Manual) 2 Platelet Estimate Normal Ovalocytes Slight Sodium 128 L Potassium 4.9 Chloride 94 L Carbon Dioxide 17 L Anion Gap 22 H BUN 21 H Creatinine 0.9 Est GFR ( Amer) > 60 Est GFR (Non-Af Amer) > 60 POC Glucose (mg/dL) 439 H* Random Glucose 609 H* Hemoglobin A1c Calcium 8.8 Phosphorus 4.4 Magnesium 1.7 Total Bilirubin 0.5 AST 13 L ALT 17 L Alkaline Phosphatase 95 Total Protein 7.2 Albumin 3.5 Globulin 3.7 Albumin/Globulin Ratio 0.9 L Ur L.pneumophila Ag Negative Mycoplasma pneumon IgM Negative 05/31/16 05/31/16 16:30 21:18 WBC RBC Hgb Hct MCV MCH MCHC RDW Plt Count MPV Neut % (Auto) Lymph % (Auto) [place] % (Auto) Eos % (Auto) Baso % (Auto) Neut # Lymph # [place] # Eos # Baso # Neutrophils % (Manual) Band Neutrophils % Lymphocytes % (Manual) Monocytes % (Manual) Platelet Estimate Ovalocytes Sodium Potassium Chloride Carbon Dioxide Anion Gap BUN Creatinine Est GFR ( Amer) Est GFR (Non-Af Amer) POC Glucose (mg/dL) 428 H* 260 H Random Glucose Hemoglobin A1c Calcium Phosphorus Magnesium Total Bilirubin AST ALT Alkaline Phosphatase Total Protein Albumin Globulin Albumin/Globulin Ratio Ur L.pneumophila Ag Mycoplasma pneumon IgM Assessment & Plan - Assessment and Plan (Free Text) Assessment: (1) Tachycardia Status: On Cardizem Improving (2) Pneumonia Assessment & Plan: Mgt as per pulmonary Status: Acute (3) Asthma exacerbation Status: Chronic (4) Nodule of right lung Status: Acute (5) HIV (human immunodeficiency virus infection) Status: Acute
[2016-06-01] MEDS: Albuterol-Ipratrop 3 mg / 0.5 (3 ml) UD INH SCH ×4 (01:08→19:04)
[2016-06-01] MEDS: Sodium Chloride 0.9% 1,000 ML IV SCH ×5 (02:36→21:36)
[2016-06-01] MEDS: MethylPREDNISolone 40 mg Vial IVP SCH ×2 (06:13→14:11)
[2016-06-01 06:18] LABS: BASO % 0.3 % (0.0-2.0); HEMATOCRIT 40.9 % (35.0-51.0); LYMPH # 0.5 K/uL (1.0-4.3); LYMPH % 4.4 % (20.0-40.0); MEAN CELL VOLUME 84.2 fL (80.0-94.0); MEAN CORPUSCULAR HEMOGLOBIN 27.7 pg (27.0-31.0); MEAN CORPUSCULAR HGB CONC 32.9 g/dL (33.0-37.0); MEAN PLATELET VOLUME 7.7 fL (7.2-11.7); MONO # 0.6 K/uL (0.0-0.8); MONO % 4.9 % (0.0-10.0); PLATELET COUNT 172 K/uL (130-400); RED CELL DISTRIBUTION WIDTH 14.3 % (11.5-14.5); WHITE BLOOD COUNT 12.3 K/uL (4.8-10.8)
[2016-06-01 06:35] LABS: CHLORIDE 95 mmol/L (98-107)
[2016-06-01 06:36] LABS: POTASSIUM 4.7 mmol/L (3.6-5.2); SODIUM 136 mmol/L (132-148)
[2016-06-01 06:37] LABS: GFR AFRICAN-AMERICAN > 60
[2016-06-01 06:38] LABS: ALKALINE PHOSPHATASE 74 U/L (38-126); ALT/SGPT 18 U/L (21-72); AST/SGOT 12 U/L (17-59); BILIRUBIN,TOTAL 0.7 mg/dL (0.2-1.3); BLOOD UREA NITROGEN 21 mg/dL (9-20); CARBON DIOXIDE 25 mmol/L (22-30); GLUCOSE,RANDOM 328 mg/dL (75-110); TOTAL PROTEIN 6.4 g/dL (6.3-8.3)
[2016-06-01 06:39] LABS: CALCIUM 8.1 mg/dl (8.6-10.4); MAGNESIUM 1.8 mg/dL (1.6-2.3); PHOSPHOROUS 4.7 mg/dL (2.5-4.5)
[2016-06-01] MEDS: Fluticasone-Salmeterol 250-50mcg Diskus INH SCH ×2 (07:48→19:04)
[2016-06-01 08:17] LABS: NEUTROPHIL 94 % (50-75); TOTAL CELLS COUNTED 100
[2016-06-01] MEDS: (Novolog) Insulin Aspart, Recombinant 100 u/ml 10 ml vial SC SCH ×7 (08:17→21:46)
[2016-06-01] MEDS: cefTRIAXone IV 1 gm in Dextros 50 ML IVPB SCH (09:52)
[2016-06-01] MEDS: Pantoprazole 40 mg EC Tab PO SCH (09:52)
[2016-06-01] MEDS: Enoxaparin 40 mg Syringe SC SCH (09:53)
--- NOTE | 2016-06-01 10:29 | CP.PCM.PN ---
Subjective - Date & Time of Evaluation Date of Evaluation: 06/01/16 Time of Evaluation: 14:00 - Subjective Subjective: clinically same Objective - Vital Signs/Intake and Output Vital Signs (last 24 hours): Temp Pulse Resp BP Pulse Ox 98.0 F 96 H 18 150/80 95 06/01/16 07:07 06/01/16 07:07 06/01/16 07:07 06/01/16 07:07 06/01/16 07:07 Intake and Output: 06/01/16 06/01/16 06:59 18:59 Intake Total 2300 Balance 2300 - Medications Medications: Current Medications Albuterol/Ipratropium (Duoneb 3 Mg/0.5 Mg (3 Ml) Ud) 3 ml INH RQ6 [facility] Last Admin: 06/01/16 07:48 Dose: 3 ml Enoxaparin Sodium (Lovenox) 40 mg SC DAILY [facility] Last Admin: 06/01/16 09:53 Dose: 40 mg Azithromycin (Zithromax 500mg In Ns Addvantage) 250 mls @ 167 mls/hr IVPB Q24H [facility] Last Admin: 05/31/16 16:44 Dose: 167 mls/hr Ceftriaxone Sodium (Rocephin Iv 1 Gm Duplex) 50 mls @ 50 mls/30 min IVPB Q24H [facility] Last Admin: 06/01/16 09:52 Dose: 50 mls/30 min Sodium Chloride (Sodium Chloride 0.9%) 1,000 mls @ 125 mls/hr IV .Q8H [facility] Last Admin: 06/01/16 09:56 Dose: Not Given Insulin Aspart (Novolog) 14 unit SC AC [facility] Last Admin: 06/01/16 08:17 Dose: 14 unit Insulin Aspart (Novolog) 0 unit SC ACHS [facility] PRN Reason: Protocol Last Admin: 06/01/16 08:19 Dose: 4 unit Insulin Glargine (Lantus) 30 unit SC HS [facility] Last Admin: 05/31/16 21:41 Dose: 30 units Metformin HCl (Glucophage) 1,000 mg PO BIDCC [facility] Last Admin: 06/01/16 08:42 Dose: 1,000 mg Methylprednisolone (Solu-Medrol) 40 mg IVP Q8 [facility] Last Admin: 06/01/16 06:13 Dose: 40 mg Montelukast Sodium (Singulair) 10 mg PO HS [facility] Last Admin: 05/31/16 21:41 Dose: 10 mg Pantoprazole Sodium (Protonix Ec Tab) 40 mg PO DAILY [facility] Last Admin: 06/01/16 09:52 Dose: 40 mg Pneumococcal Polyvalent Vaccine (Pneumovax 23 Vaccine) 0.5 ml IM .ONCE ONE Stop: 06/02/16 10:01 Promethazine HCl/Codeine (Phenergan/Codeine Oral Syrup) 5 ml PO Q4 PRN PRN Reason: Cough Last Admin: 05/31/16 21:41 Dose: 5 ml Fluticasone/Salmeterol (Advair Diskus 250/50) 1 puff INH RQ12 [facility] Last Admin: 06/01/16 07:48 Dose: 1 puff - Labs Labs: 06/01/16 06:07 06/01/16 06:07 PT 10.4 SECONDS (9.7-12.2) 05/30/16 12:16 INR 0.9 05/30/16 12:16 APTT 25 SECONDS (21-34) 05/30/16 12:16 - Constitutional Appears: Well - Head Exam Head Exam: ATRAUMATIC, NORMAL INSPECTION, NORMOCEPHALIC - Eye Exam Eye Exam: EOMI, Normal appearance, PERRL Pupil Exam: NORMAL ACCOMODATION, PERRL - ENT Exam ENT Exam: Mucous Membranes Moist, Normal Exam - Neck Exam Neck Exam: Full ROM, Normal Inspection. absent: Lymphadenopathy - Respiratory Exam Respiratory Exam: Decreased Breath Sounds - Cardiovascular Exam Cardiovascular Exam: REGULAR RHYTHM, +S1, +S2 - GI/Abdominal Exam GI & Abdominal Exam: Soft, Diminished Bowel Sounds - Rectal Exam Rectal Exam: Deferred Assessment and Plan - Assessment and Plan (Free Text) Plan: geovany same pt stil has ocugh coti iv roecphine izthormax iv antibiotic as ordered diclucan and als on steroid folowuptih dr. strauss and pulm
--- NOTE | 2016-06-01 15:08 | CP.PCM.PN ---
Subjective - Date & Time of Evaluation Date of Evaluation: 06/01/16 Time of Evaluation: 10:15 - Subjective Subjective: Pt was seen and examined at bedside in no acute distress. Overall he feels "ok. " Cough persists, is non-productive, and is exacerbated by stress. Pt denies fevers and chills, SOB, sputum, chest pain, and palpitations. Objective - Vital Signs/Intake and Output Vital Signs (last 24 hours): Temp Pulse Resp BP Pulse Ox 98.0 F 103 H 18 150/80 95 06/01/16 07:07 06/01/16 08:00 06/01/16 07:07 06/01/16 07:07 06/01/16 07:07 Intake and Output: 06/01/16 06/01/16 06:59 18:59 Intake Total 2300 Balance 2300 - Medications Medications: Current Medications Albuterol/Ipratropium (Duoneb 3 Mg/0.5 Mg (3 Ml) Ud) 3 ml INH RQ6 [facility] Last Admin: 06/01/16 13:39 Dose: 3 ml Enoxaparin Sodium (Lovenox) 40 mg SC DAILY [facility] Last Admin: 06/01/16 09:53 Dose: 40 mg Ceftriaxone Sodium (Rocephin Iv 1 Gm Duplex) 50 mls @ 50 mls/30 min IVPB Q24H [facility] Last Admin: 06/01/16 09:52 Dose: 50 mls/30 min Sodium Chloride (Sodium Chloride 0.9%) 1,000 mls @ 125 mls/hr IV .Q8H [facility] Last Admin: 06/01/16 09:56 Dose: Not Given Azithromycin 500 mg/ Sodium (Chloride) 250 mls @ 167 mls/hr IVPB Q24H [facility] Insulin Aspart (Novolog) 14 unit SC AC [facility] Last Admin: 06/01/16 12:32 Dose: 14 unit Insulin Aspart (Novolog) 0 unit SC ACHS [facility] PRN Reason: Protocol Last Admin: 06/01/16 12:34 Dose: 4 unit Insulin Glargine (Lantus) 30 unit SC HS [facility] Last Admin: 05/31/16 21:41 Dose: 30 units Metformin HCl (Glucophage) 1,000 mg PO BIDCC [facility] Last Admin: 06/01/16 08:42 Dose: 1,000 mg Methylprednisolone (Solu-Medrol) 40 mg IVP Q8 [facility] Last Admin: 06/01/16 14:11 Dose: 40 mg Montelukast Sodium (Singulair) 10 mg PO HS [facility] Last Admin: 05/31/16 21:41 Dose: 10 mg Pantoprazole Sodium (Protonix Ec Tab) 40 mg PO DAILY [facility] Last Admin: 06/01/16 09:52 Dose: 40 mg Pneumococcal Polyvalent Vaccine (Pneumovax 23 Vaccine) 0.5 ml IM .ONCE ONE Stop: 06/02/16 10:01 Promethazine HCl/Codeine (Phenergan/Codeine Oral Syrup) 5 ml PO Q4 PRN PRN Reason: Cough Last Admin: 05/31/16 21:41 Dose: 5 ml Fluticasone/Salmeterol (Advair Diskus 250/50) 1 puff INH RQ12 [facility] Last Admin: 06/01/16 07:48 Dose: 1 puff - Labs Labs: 06/01/16 06:07 06/01/16 06:07 PT 10.4 SECONDS (9.7-12.2) 05/30/16 12:16 INR 0.9 05/30/16 12:16 APTT 25 SECONDS (21-34) 05/30/16 12:16 - Constitutional Appears: Well, No Acute Distress - Head Exam Head Exam: ATRAUMATIC, NORMOCEPHALIC - Respiratory Exam Respiratory Exam: Rhonchi (bilateral LL), NORMAL BREATHING PATTERN. absent: Decreased Breath Sounds, Clear to Ausculation Bilateral, Prolonged Expiratory Phase, Rales, Wheezes, Respiratory Distress - Cardiovascular Exam Cardiovascular Exam: Tachycardia, +S1, +S2. absent: Murmur - Neurological Exam Neurological Exam: Alert, Awake, Oriented x3 - Psychiatric Exam Psychiatric exam: Normal Affect, Normal Mood - Skin Skin Exam: Dry, Intact, Normal Color, Warm Assessment and Plan (1) Asthma exacerbation Assessment & Plan: 05-30-[address]: R: Increased prominence of interstitial with mosaic pattern suggestive of pulmonary edema, middle and lower lobe consolidation/atelectasis, 6mm pulmonary nodule; L: Increased prominence of interstitial with mosaic pattern suggestive of pulmonary edema, L lobe consolidations Recommend follow-up screening to look for nodule growth Ordered ECHO follow results Mycoplasma and Legionella serology and labs negative CBC with differential; eosinophil count normal IgE labs normal result of 10 Continue Advair, Duoneb, solumedrol Continue diphenhydramine and begin phenergan/codeine Begin [place] Continue Rocephin and Zithromax Continue to monitor for SOB, fevers, and productive cough Status: Chronic (2) Nodule of right lung Status: Acute
[2016-06-01] MEDS: Azithromycin 500 MG in Sodium Chloride 0.9% 250 ML IVPB SCH (15:56)
[2016-06-01] MEDS: Promethazine/Cod 6.25mg-10mg/5ml Syr UD PO PRN ×2 (16:04→21:44)
--- NOTE | 2016-06-01 17:38 | CP.PCM.PN ---
Subjective - Date & Time of Evaluation Date of Evaluation: 06/01/16 Time of Evaluation: 08:00 - Subjective Subjective: Medicine Progress Note- Dr. Karine Knight's service: Patient seen and examined at bedside this AM. Patient states he is breathing better compared to admission. He has respiratory treatment on this AM and has no complaints. He admits cough has improved. Denies chest pain, fevers, chills, nausea. Objective - Vital Signs/Intake and Output Vital Signs (last 24 hours): Temp Pulse Resp BP Pulse Ox 98.3 F 109 H 20 156/95 H 95 06/01/16 16:47 06/01/16 16:47 06/01/16 16:47 06/01/16 16:47 06/01/16 16:47 Intake and Output: 06/01/16 06/01/16 06:59 18:59 Intake Total 2300 1300 Balance 2300 1300 - Medications Medications: Current Medications Albuterol/Ipratropium (Duoneb 3 Mg/0.5 Mg (3 Ml) Ud) 3 ml INH RQ6 [facility] Last Admin: 06/01/16 13:39 Dose: 3 ml Enoxaparin Sodium (Lovenox) 40 mg SC DAILY [facility] Last Admin: 06/01/16 09:53 Dose: 40 mg Ceftriaxone Sodium (Rocephin Iv 1 Gm Duplex) 50 mls @ 50 mls/30 min IVPB Q24H [facility] Last Admin: 06/01/16 09:52 Dose: 50 mls/30 min Sodium Chloride (Sodium Chloride 0.9%) 1,000 mls @ 125 mls/hr IV .Q8H [facility] Last Admin: 06/01/16 16:18 Dose: Not Given Azithromycin 500 mg/ Sodium (Chloride) 250 mls @ 167 mls/hr IVPB Q24H [facility] Last Admin: 06/01/16 15:56 Dose: 167 mls/hr Insulin Aspart (Novolog) 14 unit SC AC [facility] Last Admin: 06/01/16 12:32 Dose: 14 unit Insulin Aspart (Novolog) 0 unit SC ACHS [facility] PRN Reason: Protocol Last Admin: 06/01/16 12:34 Dose: 4 unit Insulin Glargine (Lantus) 40 unit SC HS [facility] Metformin HCl (Glucophage) 1,000 mg PO BIDCC [facility] Last Admin: 06/01/16 16:00 Dose: 1,000 mg Methylprednisolone (Solu-Medrol) 40 mg IVP Q8 [facility] Last Admin: 06/01/16 14:11 Dose: 40 mg Montelukast Sodium (Singulair) 10 mg PO HS [facility] Last Admin: 05/31/16 21:41 Dose: 10 mg Pantoprazole Sodium (Protonix Ec Tab) 40 mg PO DAILY [facility] Last Admin: 06/01/16 09:52 Dose: 40 mg Pneumococcal Polyvalent Vaccine (Pneumovax 23 Vaccine) 0.5 ml IM .ONCE ONE Stop: 06/02/16 10:01 Promethazine HCl/Codeine (Phenergan/Codeine Oral Syrup) 5 ml PO Q4 PRN PRN Reason: Cough Last Admin: 06/01/16 16:04 Dose: 5 ml Fluticasone/Salmeterol (Advair Diskus 250/50) 1 puff INH RQ12 [facility] Last Admin: 06/01/16 07:48 Dose: 1 puff - Labs Labs: 06/01/16 06:07 06/01/16 06:07 PT 10.4 SECONDS (9.7-12.2) 05/30/16 12:16 INR 0.9 05/30/16 12:16 APTT 25 SECONDS (21-34) 05/30/16 12:16 - Constitutional Appears: No Acute Distress - Head Exam Head Exam: NORMAL INSPECTION, NORMOCEPHALIC - Eye Exam Eye Exam: EOMI, Normal appearance - ENT Exam ENT Exam: Mucous Membranes Moist - Respiratory Exam Respiratory Exam: Clear to Ausculation Bilateral, NORMAL BREATHING PATTERN - Cardiovascular Exam Cardiovascular Exam: REGULAR RHYTHM, +S1, +S2 - GI/Abdominal Exam GI & Abdominal Exam: Soft. absent: Distended, Tenderness - Extremities Exam Extremities Exam: Full ROM, Normal Capillary Refill - Neurological Exam Neurological Exam: Alert, Awake, Oriented x3 - Psychiatric Exam Psychiatric exam: Normal Mood - Skin Skin Exam: Dry, Warm Assessment and Plan (1) Pneumonia Assessment & Plan: CT scan shows infiltrates or pulmonary edema Dr. Gan consulted- help appreciated Rocephin IVPB Azithromycin IVPB Status: Acute (2) Asthma exacerbation Assessment & Plan: Continue current management: Advair Singular Duoneb 3ml q6H Decrease IV steroids from 40 mg IVP 8H to Q12H. Patient will follow up with Dr. Gan after discharge Status: Chronic (3) Uncontrolled diabetes mellitus Assessment & Plan: Hgb a1c is 13.5. Endo-Dr. Joanna Linares is consulted diet education and counseling. Metformin to 1000mg BID added Lantus 20 units HS added Novolog 14 units AC continue accu checks with medium protocol sliding scale insulin. Status: Acute (4) Prophylactic measure Assessment & Plan: Lovenox SC daily Protonix daily All management as per Dr. Karine Knight. Status: Acute
[2016-06-01] MEDS ORDERED: MethylPREDNISolone 40 mg Vial IVP SCH (17:45)
[2016-06-01] MEDS: (Lantus) Insulin Glargine, Recombinant SC SCH (21:37)
--- NOTE | 2016-06-01 22:20 | CP.PCM.PN ---
Subjective - Date & Time of Evaluation Date of Evaluation: 06/01/16 Time of Evaluation: 11:10 - Subjective Subjective: Patient seen and evaluated Normal proBNP Unlikely CHF Pulmonay mgt Review Of Systems Except As Marked, All Systems Reviewed And Found Negative. Constitutional: Negative for: Fever, Chills Cardiovascular: Negative for: Chest Pain, Palpitations, Light Headedness Respiratory: Positive for:Shortness of Breath. Negative for: Hemoptysis, Wheezing Physical Exam - Physical Exam Additional Physical Exam Comments: Constitutional: In some respiratory distress. Head: Normocephalic. Atraumatic. Eyes: PERRL. ENT: Moist mucous membranes. Neck: Supple. Cardiovascular: Tachycardic. Radial pulse 2+ bilaterally. Chest: No tenderness. Respiratory: Clear to auscultation bilaterally. GI: Soft. Nontender. Nondistended. Back: No CVA tenderness. Musculoskeletal: No tenderness or swelling of extremities. Skin: No rash. Neurologic: Alert, no focal deficit. Objective - Vital Signs/Intake and Output Vital Signs (last 24 hours): Temp Pulse Resp BP Pulse Ox 98.3 F 109 H 20 156/95 H 95 06/01/16 16:47 06/01/16 16:47 06/01/16 16:47 06/01/16 16:47 06/01/16 16:47 Intake and Output: 06/01/16 06/02/16 18:59 06:59 Intake Total 1300 Balance 1300 - Medications Medications: Current Medications Albuterol/Ipratropium (Duoneb 3 Mg/0.5 Mg (3 Ml) Ud) 3 ml INH RQ6 [facility] Last Admin: 06/01/16 19:04 Dose: 3 ml Enoxaparin Sodium (Lovenox) 40 mg SC DAILY [facility] Last Admin: 06/01/16 09:53 Dose: 40 mg Fluconazole (Diflucan) 100 mg PO DAILY [facility] Last Admin: 06/01/16 21:43 Dose: 100 mg Ceftriaxone Sodium (Rocephin Iv 1 Gm Duplex) 50 mls @ 50 mls/30 min IVPB Q24H [facility] Last Admin: 06/01/16 09:52 Dose: 50 mls/30 min Sodium Chloride (Sodium Chloride 0.9%) 1,000 mls @ 125 mls/hr IV .Q8H [facility] Last Admin: 06/01/16 21:36 Dose: 125 mls/hr Azithromycin 500 mg/ Sodium (Chloride) 250 mls @ 167 mls/hr IVPB Q24H [facility] Last Admin: 06/01/16 15:56 Dose: 167 mls/hr Insulin Aspart (Novolog) 14 unit SC AC [facility] Last Admin: 06/01/16 18:07 Dose: 14 unit Insulin Aspart (Novolog) 0 unit SC ACHS [facility] PRN Reason: Protocol Last Admin: 06/01/16 21:46 Dose: Not Given Insulin Glargine (Lantus) 40 unit SC HS [facility] Last Admin: 06/01/16 21:37 Dose: 40 units Metformin HCl (Glucophage) 1,000 mg PO BIDCC [facility] Last Admin: 06/01/16 16:00 Dose: 1,000 mg Methylprednisolone (Solu-Medrol) 40 mg IVP Q12H [facility] Montelukast Sodium (Singulair) 10 mg PO HS [facility] Last Admin: 06/01/16 21:55 Dose: 10 mg Pantoprazole Sodium (Protonix Ec Tab) 40 mg PO DAILY [facility] Last Admin: 06/01/16 09:52 Dose: 40 mg Pneumococcal Polyvalent Vaccine (Pneumovax 23 Vaccine) 0.5 ml IM .ONCE ONE Stop: 06/02/16 10:01 Promethazine HCl/Codeine (Phenergan/Codeine Oral Syrup) 5 ml PO Q4 PRN PRN Reason: Cough Last Admin: 06/01/16 21:44 Dose: 5 ml Fluticasone/Salmeterol (Advair Diskus 250/50) 1 puff INH RQ12 [facility] Last Admin: 06/01/16 19:04 Dose: 1 puff - Labs Labs: 06/01/16 06:07 06/01/16 06:07 PT 10.4 SECONDS (9.7-12.2) 05/30/16 12:16 INR 0.9 05/30/16 12:16 APTT 25 SECONDS (21-34) 05/30/16 12:16 Assessment and Plan - Assessment and Plan (Free Text) Assessment: (1) Tachycardia Status: On Cardizem Improving (2) Pneumonia Assessment & Plan: Mgt as per pulmonary Status: Acute (3) Asthma exacerbation Status: Chronic (4) Nodule of right lung Status: Acute (5) HIV (human immunodeficiency virus infection) Status: Acute
--- NOTE | 2016-06-01 22:44 | CARD ---
APPROVED REPORT EXAM: Two-dimensional and M-mode echocardiogram with Doppler and color Doppler. Other Information Quality : AverageRhythm : NSR INDICATION Dyspnea RISK FACTORS Hypertension Diabetes M-Mode DIMENSIONS RVDd1.08 (2.1-3.2cm)Left Atrium (MM)4.46 (2.5-4.0cm) IVSd0.83 (0.7-1.1cm)Aortic Root3.25 (2.2-3.7cm) LVDd4.06 (4.0-5.6cm)Aortic Cusp Exc.2.40 (1.5-2.0cm) PWd1.21 (0.7-1.1cm)FS (%) 31 % LVDs2.81 (2.0-3.8cm)LVEF (%)59 (>50%) Aortic Valve AoV Peak Vnkbbdnm253.8cm/Delilah Peak GR.7mmHg Mitral Valve MV E Szgtejqv83.5cm/sMV A Jgvqxnxf195.3cm/sE/A ratio0.7 TDI E/Lateral E'0.0E/Medial E'0.0 Tricuspid Valve TR Peak Ziytafoh328kw/sTR Peak Gr.[id number] LEFT VENTRICLE The left ventricle is normal size. There is normal left ventricular wall thickness. Left ventricle systolic function is normal. The Ejection Fraction is 65-70%. There is normal LV segmental wall motion. Transmitral Doppler flow pattern is Grade I-abnormal relaxation pattern. There is no ventricular septal defect visualized. RIGHT VENTRICLE The right ventricle is normal size. The right ventricular systolic function is normal. ATRIA The left atrium size is normal. The right atrium size is normal. AORTIC VALVE The aortic valve is tri-cuspid. No aortic regurgitation is present. There is no aortic valvular stenosis. MITRAL VALVE The mitral valve is normal in structure. There is no evidence of mitral valve prolapse. There is no mitral valve regurgitation noted. TRICUSPID VALVE The tricuspid valve is normal in structure. There is trace tricuspid regurgitation. Right ventricular systolic pressure is estimated at less than 30 mmHg. There is no pulmonary hypertension. PULMONIC VALVE The pulmonary valve is normal in structure. There is no pulmonic valvular regurgitation. GREAT VESSELS The IVC is normal in size and collapses >50% with inspiration. PERICARDIAL EFFUSION There is no pericardial effusion. <Conclusion> Left ventricle systolic function is normal. The Ejection Fraction is 65-70%. Transmitral Doppler flow pattern is Grade I-abnormal relaxation pattern.
[2016-06-02] MEDS: Albuterol-Ipratrop 3 mg / 0.5 (3 ml) UD INH SCH ×4 (01:43→19:13)
[2016-06-02] MEDS: MethylPREDNISolone 40 mg Vial IVP SCH ×2 (02:01→14:14)
[2016-06-02] MEDS: Promethazine/Cod 6.25mg-10mg/5ml Syr UD PO PRN ×3 (03:14→20:50)
[2016-06-02] MEDS: Sodium Chloride 0.9% 1,000 ML IV SCH ×4 (05:37→18:30)
[2016-06-02 06:39] LABS: BASO % 0.2 % (0.0-2.0); EOS % 0.1 % (0.0-4.0); HEMATOCRIT 39.8 % (35.0-51.0); LYMPH # 0.3 K/uL (1.0-4.3); LYMPH % 3.2 % (20.0-40.0); MEAN CELL VOLUME 83.9 fL (80.0-94.0); MEAN CORPUSCULAR HEMOGLOBIN 27.8 pg (27.0-31.0); MEAN CORPUSCULAR HGB CONC 33.1 g/dL (33.0-37.0); MEAN PLATELET VOLUME 7.8 fL (7.2-11.7); MONO # 0.4 K/uL (0.0-0.8); MONO % 3.9 % (0.0-10.0); NRBC % 0.1 % (0.0-2.0); PLATELET COUNT 149 K/uL (130-400); RED CELL DISTRIBUTION WIDTH 14.4 % (11.5-14.5); WHITE BLOOD COUNT 9.8 K/uL (4.8-10.8)
[2016-06-02] MEDS: Fluticasone-Salmeterol 250-50mcg Diskus INH SCH (07:28)
[2016-06-02 07:31] LABS: CHLORIDE 100 mmol/L (98-107); SODIUM 134 mmol/L (132-148)
[2016-06-02 07:32] LABS: POTASSIUM 4.4 mmol/L (3.6-5.2)
[2016-06-02 07:33] LABS: BILIRUBIN,TOTAL 0.6 mg/dL (0.2-1.3); GFR AFRICAN-AMERICAN > 60
[2016-06-02 07:34] LABS: ALB/GLOB RATIO 0.9 (1.0-2.1); ALKALINE PHOSPHATASE 65 U/L (38-126); AST/SGOT 12 U/L (17-59); BLOOD UREA NITROGEN 16 mg/dL (9-20); CARBON DIOXIDE 24 mmol/L (22-30); GLUCOSE,RANDOM 292 mg/dL (75-110)
[2016-06-02 07:35] LABS: ALT/SGPT 13 U/L (21-72); CALCIUM 8.3 mg/dl (8.6-10.4); MAGNESIUM 1.8 mg/dL (1.6-2.3)
--- NOTE | 2016-06-02 07:44 | PN ---
DATE: 06/01/2016 This is a 46-year-old male with , has got bronchitis and started on transient IV steroids with Solu-Medrol 40 mg every 8 hours at bedtime daily to start tonight. hypoglycemia. We will continue the current insulin drip at this time. He was with once the IV s teroids are tapered down and discontinued. We will also initiate diabetic education and dietary inst ructions at the time of this admission, to include insulin self-administration will continue wi th the oral hypoglycemic therapy 1 g b.i.d. as ordered . Joanna Linares MD cc: [phone] TT: 06/01/2016 18:27:36 Confirmation # [id number] Dictation # [id number]
--- NOTE | 2016-06-02 07:47 | CP.PCM.PN ---
<Bronson Up - Last Filed: 06/02/16 15:03> Subjective - Date & Time of Evaluation Date of Evaluation: 06/02/16 Time of Evaluation: 07:00 - Subjective Subjective: Medicine Note- Dr. Knight's service Patient was seen and examined at bedside. Patient reports that he still has a chronic dry cough and that he feels it hasn't really changed much from admission. Otherwise, he has no acute complaints. No events overnight, per nursing. Objective - Vital Signs/Intake and Output Vital Signs (last 24 hours): Temp Pulse Resp BP Pulse Ox 98.3 F 79 20 140/82 95 06/01/16 23:10 06/02/16 04:20 06/01/16 23:10 06/01/16 23:10 06/01/16 23:10 Intake and Output: 06/02/16 06/02/16 06:59 18:59 Intake Total 2175 Output Total 2125 Balance 50 - Medications Medications: Current Medications Albuterol/Ipratropium (Duoneb 3 Mg/0.5 Mg (3 Ml) Ud) 3 ml INH RQ6 [facility] Last Admin: 06/02/16 07:28 Dose: 3 ml Enoxaparin Sodium (Lovenox) 40 mg SC DAILY [facility] Last Admin: 06/01/16 09:53 Dose: 40 mg Fluconazole (Diflucan) 100 mg PO DAILY [facility] Last Admin: 06/01/16 21:43 Dose: 100 mg Ceftriaxone Sodium (Rocephin Iv 1 Gm Duplex) 50 mls @ 50 mls/30 min IVPB Q24H [facility] Last Admin: 06/01/16 09:52 Dose: 50 mls/30 min Sodium Chloride (Sodium Chloride 0.9%) 1,000 mls @ 125 mls/hr IV .Q8H [facility] Last Admin: 06/02/16 05:37 Dose: 125 mls/hr Azithromycin 500 mg/ Sodium (Chloride) 250 mls @ 167 mls/hr IVPB Q24H [facility] Last Admin: 06/01/16 15:56 Dose: 167 mls/hr Insulin Aspart (Novolog) 14 unit SC AC [facility] Last Admin: 06/01/16 18:07 Dose: 14 unit Insulin Aspart (Novolog) 0 unit SC ACHS [facility] PRN Reason: Protocol Last Admin: 06/01/16 21:46 Dose: Not Given Insulin Glargine (Lantus) 40 unit SC [facility] Last Admin: 06/01/16 21:37 Dose: 40 units Metformin HCl (Glucophage) 1,000 mg PO BIDCC [facility] Last Admin: 06/01/16 16:00 Dose: 1,000 mg Methylprednisolone (Solu-Medrol) 40 mg IVP Q12H [facility] Last Admin: 06/02/16 02:01 Dose: 40 mg Montelukast Sodium (Singulair) 10 mg PO [facility] Last Admin: 06/01/16 21:55 Dose: 10 mg Pantoprazole Sodium (Protonix Ec Tab) 40 mg PO DAILY [facility] Last Admin: 06/01/16 09:52 Dose: 40 mg Pneumococcal Polyvalent Vaccine (Pneumovax 23 Vaccine) 0.5 ml IM .ONCE ONE Stop: 06/02/16 10:01 Promethazine HCl/Codeine (Phenergan/Codeine Oral Syrup) 5 ml PO Q4 PRN PRN Reason: Cough Last Admin: 06/02/16 03:14 Dose: 5 ml Fluticasone/Salmeterol (Advair Diskus 250/50) 1 puff INH RQ12 [facility] Last Admin: 06/02/16 07:28 Dose: 1 puff - Labs Labs: 06/02/16 06:30 06/02/16 06:30 PT 10.4 SECONDS (9.7-12.2) 05/30/16 12:16 INR 0.9 05/30/16 12:16 APTT 25 SECONDS (21-34) 05/30/16 12:16 - Constitutional Appears: Non-toxic, No Acute Distress - Head Exam Head Exam: ATRAUMATIC, NORMAL INSPECTION, NORMOCEPHALIC - Eye Exam Pupil Exam: NORMAL ACCOMODATION, PERRL - ENT Exam ENT Exam: Mucous Membranes Moist - Respiratory Exam Respiratory Exam: Clear to Ausculation Bilateral, NORMAL BREATHING PATTERN. absent: Prolonged Expiratory Phase, Rales, Rhonchi, Wheezes - Cardiovascular Exam Cardiovascular Exam: REGULAR RHYTHM, +S1, +S2 - GI/Abdominal Exam GI & Abdominal Exam: Soft, Normal Bowel Sounds. absent: Tenderness, Diminished Bowel Sounds, Hypoactive Bowel Sounds - Extremities Exam Extremities Exam: Normal Capillary Refill, Normal Inspection - Neurological Exam Neurological Exam: Alert, Awake, Oriented x3 - Psychiatric Exam Psychiatric exam: Normal Affect, Normal Mood - Skin Skin Exam: Dry, Intact, Normal Color, Warm Assessment and Plan - Assessment and Plan (Free Text) Assessment: (1) Pneumonia Assessment & Plan: CT scan - R lung- diffuse increased prominence of the interstitium with a somewhat moisaic attenuation- may be pulmonary edema. mild atelectasis in RLL. 6mm pulm nodule in R LL superiorly. L lung- diffuse increased prominence of the interstitium with a somewhat mosaic attenuation which may represent underlying pulmonary edema. More focal consolidative changes in atelectasis in LLL. Trace fluid/thickening along anterior pericardium. WBC- 9.8 Dr. Gan consulted- help appreciated consult cardio- Dr. Johnathon Chowdhury IVPB day #3 Azithromycin IVPB day #3 echo- 05/31/16- LV systolic function is normal, EF is 65-70% BNP normal Legionella and Mycoplasma negative Status: Acute (2) Asthma exacerbation Assessment & Plan: Continue current management: Advair Singulair 10mg Duoneb 3ml q6H Continue IV steroids at 40mg IVP Q12h Patient will follow up with Dr. Gna after discharge Status: Chronic (3) HIV positive Assessment & Plan: HIV 1 and 2 antibody screen- reactive Consult ID- Dr. Pena (4) Uncontrolled diabetes mellitus Assessment & Plan: Hgb a1c is 13.5. Endo-Dr. Joanna Linares is consulted diet education and counseling. Metformin to 1000mg BID Continue Lantus 40U HS Continue Novolog 14U AC continue accu checks with medium protocol sliding scale insulin. Status: Acute (5) Prophylactic measure Assessment & Plan: Lovenox SC daily Protonix daily All management as per Dr. Karine Knight. Status: Acute <Domingo Knight S - Last Filed: 06/02/16 21:55> Objective - Vital Signs/Intake and Output Vital Signs (last 24 hours): Temp Pulse Resp BP Pulse Ox 98.4 F 113 H 20 171/97 H 96 06/02/16 15:48 06/02/16 15:48 06/02/16 15:48 06/02/16 15:48 06/02/16 15:48 Intake and Output: 06/02/16 06/03/16 18:59 06:59 Intake Total 1300 Output Total 1200 Balance 100 - Medications Medications: Current Medications Albuterol/Ipratropium (Duoneb 3 Mg/0.5 Mg (3 Ml) Ud) 3 ml INH RQ6 [facility] Last Admin: 06/02/16 19:13 Dose: 3 ml Efavirenz/Emtricitabine/Tenofovir (Atripla 600 Mg-200 Mg-300 Mg) 1 tab PO DAILY [facility] Enoxaparin Sodium (Lovenox) 40 mg SC DAILY [facility] Last Admin: 06/02/16 10:57 Dose: 40 mg Fluconazole (Diflucan) 100 mg PO DAILY [facility] Last Admin: 06/02/16 10:57 Dose: 100 mg Azithromycin 500 mg/ Sodium (Chloride) 250 mls @ 167 mls/hr IVPB Q24H [facility] Last Admin: 06/02/16 16:58 Dose: 167 mls/hr Sodium Chloride (Sodium Chloride 0.9%) 1,000 mls @ 75 mls/hr IV .[id number] [facility] Last Admin: 06/02/16 18:30 Dose: 75 mls/hr Ceftriaxone Sodium 2 gm/ (Sodium Chloride) 100 mls @ 100 mls/hr IVPB Q24H [facility] Insulin Aspart (Novolog) 14 unit SC AC [facility] Last Admin: 06/02/16 17:46 Dose: 14 unit Insulin Aspart (Novolog) 0 unit SC ACHS [facility] PRN Reason: Protocol Last Admin: 06/02/16 17:49 Dose: Not Given Insulin Glargine (Lantus) 40 unit SC HS [facility] Last Admin: 06/01/16 21:37 Dose: 40 units Metformin HCl (Glucophage) 1,000 mg PO BIDCC [facility] Last Admin: 06/02/16 17:46 Dose: 1,000 mg Methylprednisolone (Solu-Medrol) 40 mg IVP Q12H [facility] Last Admin: 06/02/16 14:14 Dose: 40 mg Montelukast Sodium (Singulair) 10 mg PO HS [facility] Last Admin: 06/01/16 21:55 Dose: 10 mg Pantoprazole Sodium (Protonix Ec Tab) 40 mg PO DAILY [facility] Last Admin: 06/02/16 10:57 Dose: 40 mg Pneumococcal Polyvalent Vaccine (Pneumovax 23 Vaccine) 0.5 ml IM .ONCE ONE Stop: 06/04/16 10:01 Promethazine HCl/Codeine (Phenergan/Codeine Oral Syrup) 5 ml PO Q4 PRN PRN Reason: Cough Last Admin: 06/02/16 20:50 Dose: 5 ml Trimethoprim/Sulfamethoxazole (Bactrim Ds Tab) 1 tab PO Q6H [facility] Last Admin: 06/02/16 20:50 Dose: 1 tab - Labs Labs: 06/02/16 06:30 06/02/16 06:30 PT 10.4 SECONDS (9.7-12.2) 05/30/16 12:16 INR 0.9 05/30/16 12:16 APTT 25 SECONDS (21-34) 05/30/16 12:16 Attending/Attestation - Attestation I have personally seen and examined this patient.: Yes I have fully participated in the care of the patient.: Yes I have reviewed all pertinent clinical information, including history, physical exam and plan: Yes Notes (Text): 06/02/16 21:55 case seen and discussed with staff and resident mx as ordered
[2016-06-02] MEDS: (Novolog) Insulin Aspart, Recombinant 100 u/ml 10 ml vial SC SCH ×7 (08:25→22:24)
[2016-06-02 08:43] LABS: NEUTROPHIL 85 % (50-75); TOTAL CELLS COUNTED 100
[2016-06-02] MEDS ORDERED: Pneumococcal 23-Valent Vaccine IM ONE (10:00)
[2016-06-02] MEDS: Enoxaparin 40 mg Syringe SC SCH (10:57)
[2016-06-02] MEDS: Pantoprazole 40 mg EC Tab PO SCH (10:57)
[2016-06-02] MEDS: cefTRIAXone IV 1 gm in Dextros 50 ML IVPB SCH (10:58)
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
[2016-06-02] MEDS: Azithromycin 500 MG in Sodium Chloride 0.9% 250 ML IVPB SCH (16:58)
--- NOTE | 2016-06-02 17:19 | PN ---
DATE: 06/02/2016 ROOM: 651. SUBJECTIVE: This is a 46-year-old male with acute exacerbation of asthmatic bronchitis and currently on IV steroid therapy with supervening hyperglycemic accelerations as expected thereof, and the late glucose levels today have ranged from 253-272 mg/dL. It was 327 at bedtime last night. The late t chemistry showed a BUN of 16, sodium 134, potassium 4.4, chloride 100, CO2 24, glucose 292, and cre atinine 0.6. So, at this time, we will continue the modified basal and bolus insulin regimen to allow for dose equ ilibration and keep him on the NovoLog at 14 units subcutaneous t.i.d. before meals as ordered. We w ill also continue the basal insulin with Lantus given as 40 units subcutaneous at bedtime daily as gi nils. We will continue the low-dose correction scale using NovoLog insulin as ordered. We will titra te incrementally as indicated to optimize metabolic control. As his IV steroids are tapered down and discontinued, then we will adjust his insulin dose regimen accordingly. We will follow. Joanna Linares MD cc: [id number] TT: 06/02/2016 17:18:31 Confirmation # [id number] Dictation # [id number] terra
--- NOTE | 2016-06-02 18:07 | CP.PCM.PN ---
Subjective - Date & Time of Evaluation Date of Evaluation: 06/02/16 Time of Evaluation: 14:00 - Subjective Subjective: clinically same Objective - Vital Signs/Intake and Output Vital Signs (last 24 hours): Temp Pulse Resp BP Pulse Ox 98.4 F 113 H 20 171/97 H 96 06/02/16 15:48 06/02/16 15:48 06/02/16 15:48 06/02/16 15:48 06/02/16 15:48 Intake and Output: 06/02/16 06/02/16 06:59 18:59 Intake Total 2175 1300 Output Total 2125 1200 Balance 50 100 - Medications Medications: Current Medications Albuterol/Ipratropium (Duoneb 3 Mg/0.5 Mg (3 Ml) Ud) 3 ml INH RQ6 [facility] Last Admin: 06/02/16 13:11 Dose: 3 ml Enoxaparin Sodium (Lovenox) 40 mg SC DAILY [facility] Last Admin: 06/02/16 10:57 Dose: 40 mg Fluconazole (Diflucan) 100 mg PO DAILY [facility] Last Admin: 06/02/16 10:57 Dose: 100 mg Ceftriaxone Sodium (Rocephin Iv 1 Gm Duplex) 50 mls @ 50 mls/30 min IVPB Q24H [facility] Last Admin: 06/02/16 10:58 Dose: 50 mls/30 min Azithromycin 500 mg/ Sodium (Chloride) 250 mls @ 167 mls/hr IVPB Q24H [facility] Last Admin: 06/02/16 16:58 Dose: 167 mls/hr Sodium Chloride (Sodium Chloride 0.9%) 1,000 mls @ 75 mls/hr IV .[id number] [facility] Insulin Aspart (Novolog) 14 unit SC AC [facility] Last Admin: 06/02/16 17:46 Dose: 14 unit Insulin Aspart (Novolog) 0 unit SC ACHS [facility] PRN Reason: Protocol Last Admin: 06/02/16 17:49 Dose: Not Given Insulin Glargine (Lantus) 40 unit SC HS [facility] Last Admin: 06/01/16 21:37 Dose: 40 units Metformin HCl (Glucophage) 1,000 mg PO BIDCC [facility] Last Admin: 06/02/16 17:46 Dose: 1,000 mg Methylprednisolone (Solu-Medrol) 40 mg IVP Q12H [facility] Last Admin: 06/02/16 14:14 Dose: 40 mg Montelukast Sodium (Singulair) 10 mg PO HS [facility] Last Admin: 06/01/16 21:55 Dose: 10 mg Pantoprazole Sodium (Protonix Ec Tab) 40 mg PO DAILY [facility] Last Admin: 06/02/16 10:57 Dose: 40 mg Pneumococcal Polyvalent Vaccine (Pneumovax 23 Vaccine) 0.5 ml IM .ONCE ONE Stop: 06/04/16 10:01 Promethazine HCl/Codeine (Phenergan/Codeine Oral Syrup) 5 ml PO Q4 PRN PRN Reason: Cough Last Admin: 06/02/16 08:39 Dose: 5 ml - Labs Labs: 06/02/16 06:30 06/02/16 06:30 PT 10.4 SECONDS (9.7-12.2) 05/30/16 12:16 INR 0.9 05/30/16 12:16 APTT 25 SECONDS (21-34) 05/30/16 12:16 - Constitutional Appears: Well - Head Exam Head Exam: ATRAUMATIC, NORMAL INSPECTION, NORMOCEPHALIC - Eye Exam Eye Exam: EOMI, Normal appearance, PERRL Pupil Exam: NORMAL ACCOMODATION, PERRL - ENT Exam ENT Exam: Mucous Membranes Moist, Normal Exam - Neck Exam Neck Exam: Full ROM, Normal Inspection. absent: Lymphadenopathy - Respiratory Exam Respiratory Exam: Decreased Breath Sounds - Cardiovascular Exam Cardiovascular Exam: REGULAR RHYTHM, +S1, +S2 - GI/Abdominal Exam GI & Abdominal Exam: Soft, Diminished Bowel Sounds - Rectal Exam Rectal Exam: Deferred Assessment and Plan (1) Nodule of right lung Status: Acute (2) Pneumonia Status: Acute (3) Prophylactic measure Status: Acute (4) Uncontrolled diabetes mellitus Status: Acute (5) Cough due to bronchospasm Status: Acute (6) Asthma exacerbation Status: Chronic (7) HIV (human immunodeficiency virus infection) Status: Acute - Assessment and Plan (Free Text) Plan: hiv postive pt hs oral thrush c onsult pulm consult cardio consult myco and legionella neg geovany iv antibitoc as ordered followup ith 6mm nodule as ordered
--- NOTE | 2016-06-02 18:29 | CP.PCM.CON ---
History of Present Illness - History of Present Illness History of Present Illness: 46 y/o male, whose PMHx includes asthma, and diabetes, presents to the ED for evaluation of increased shortness of breath associated with cough for the last 2 weeks Pt reports being seen by project manager process development who prescribed Prednisone, Albuterol, nebulizer treatment without any relief. . Patient was at [facility] 2 weeks ago for same. At that time, diagnosed with likely bronchospasm. Referred for ID eval of + HIV test in setting of pneumonia ? 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 [employer] - Medical History PMH: Asthma, Diabetes, HTN - [facility] Procedures APPLICATION OF SPLINT (10/13/12) INJECT/INFUSE NEC (08/13/13) NEBULIZER THERAPY (07/22/14) Review of Systems - Constitutional Constitutional: Malaise - EENT Eyes: absent: As Per HPI, Blind Spots, Blurred Vision, Change in Vision, Decreased Night Vision, Diplopia, Discharge, Dry Eye, Exophthalmos, Floaters, Irritation, Itchy Eyes, Loss of Peripheral Vision, Pain, Photophobia, Requires Corrective Lenses, Sees Flashes, Spots in Vision, Tunnel Vision, Other Visual Disturbances, Loss of Vision, Other Ears: absent: As Per HPI, Decreased Hearing, Ear Discharge, Ear Pain, Tinnitus, Abnormal Hearing, Disequilibrium, Dizziness, Other Nose/Mouth/Throat: absent: As Per HPI, Epistaxis, Nasal Congestion, Nasal Discharge, Nasal Obstruction, Nasal Trauma, Nose Pain, Post Nasal Drip, Sinus Pain, Sinus Pressure, Bleeding Gums, Change in Voice, Dental Pain, Dry Mouth, Dysphagia, Halitosis, Hoarsness, Lip Swelling, Mouth Lesions, Mouth Pain, Odynophagia, Sore Throat, Throat Swelling, Tongue Swelling, Facial Pain, Neck Pain, Neck Mass, Other - Cardiovascular Cardiovascular: absent: As Per HPI, Acrocyanosis, Chest Pain, Chest Pain at Rest , Chest Pain with Activity, Claudication, Diaphoresis, Dyspnea, Dyspnea on Exertion, Edema, Irregular Heart Rhythm, Pain Radiating to Arm/Neck/Jaw, Leg Edema, Leg Ulcers, Lightheadedness, Orthopnea, Palpitations, Paroxysmal Nocturnal Dyspnea, Pedal Edema, Radiating Pain, Rapid Heart Rate, Slow Heart Rate, Syncope, Other - Respiratory Respiratory: As Per HPI, Cough, Dyspnea, Dyspnea on Exertion. absent: Hemoptysis - Gastrointestinal Gastrointestinal: absent: As Per HPI, Abdominal Pain, Belching, Bloating, Change in Bowel Habits, Change in Stool Character, Coffee Ground Emesis, Constipation, Cramping, Diarrhea, Dyspepsia, Dysphagia, Early Satiety, Excessive Flatus, Fecal Incontinence, Heartburn, Hematemesis, Hematochezia, Loose Stools, Melena, Nausea, Odynophagia, Temesmus, Vomiting, Other - Genitourinary Genitourinary: absent: As Per HPI, Change in Urinary Stream, Difficulty Urinating, Dysuria, Flank Pain, Hematuria, Pyuria, Nocturia, Urinary Incontinence, Urinary Frequency, Urinary Hesitance, Urinary Urgency, Voiding Freq/Small Amts, Freq UTI, Hx Renal/Bladder Calculi, Hx /Renal Surgery, Bladder Distension, Other - Musculoskeletal Musculoskeletal: absent: As Per HPI, Abnormal Gait, Arthralgias, Atrophy, Back Pain, Deformity, Joint Swelling, Limited Range of Motion, Loss of Height, Muscle Cramps, Muscle Weakness, Myalgias, Neck Pain, Numbness, Radiating Pain into Limb, Stiffness, Tingling, Other - Integumentary Integumentary: absent: As Per HPI, Acne, Alopecia, Bleeding Lesions, Change in Hair, Change in Nails, Change in Pigmentation, Changing Lesions, Dry Skin, Erythema, Furuncle, Hirsutism, Lesions, New Lesions, Non-Healing Lesions, Photosensitivity, Pruritus, Rash, Skin Pain, Skin Ulcer, Sores, Striae, Swelling , Unusual Bruising, Wounds, Jaundice, Other - Neurological Neurological: absent: As Per HPI, Abnormal Gait, Abnormal Hearing, Abnormal Movements, Abnormal Speech, Behavioral Changes, Burning Sensations, Confusion, Convulsions, Disequilibrium, Dizziness, Numbness, Focal Weakness, Frequent Falls , Headaches, Lack of Coordination, Loss of Vision, Memory Loss, Paresthesias, Radicular Pain, Restless Legs, Sensory Deficit, Syncope, Tingling, Tremor, Vertigo, Weakness, Other Visual Disturbances, Other - Psychiatric Psychiatric: absent: As Per HPI, Abnormal Sleep Pattern, Anhedonia, Anxiety, Auditory Hallucinations, Behavioral Changes, Change in Appetite, Change in Libido, Confusion, Depression, Difficulty Concentrating, Hallucinations, Homicidal Ideation, Hopelessness, Irritability, Memory Loss, Mood Swings, Panic Attacks, Paranoia, Suicidal Ideation, Visual Hallucinations, Tactile Hallucinations, Other - Endocrine Endocrine: As Per HPI - Hematologic/Lymphatic Hematologic: absent: As Per HPI, Easy Bleeding, Easy Bruising, Lymphadenopathy, Other Past Patient History - Past Medical History & Family History Past Medical History?: Yes - Past Social History Smoking Status: Never Smoked - CARDIAC Hx Cardiac Disorders: Yes Hx Hypertension: Yes - PULMONARY Hx Respiratory Disorders: Yes Hx Asthma: Yes - NEUROLOGICAL Hx Neurological Disorder: No - HEENT Hx HEENT Problems: No - RENAL Hx Chronic Kidney Disease: No - ENDOCRINE/METABOLIC Hx Endocrine Disorders: Yes Hx Diabetes Mellitus Type 2: Yes - HEMATOLOGICAL/ONCOLOGICAL Hx Blood Disorders: No - INTEGUMENTARY Hx Dermatological Problems: No - MUSCULOSKELETAL/RHEUMATOLOGICAL Hx Musculoskeletal Disorders: No Hx Falls: No - GASTROINTESTINAL Hx Gastrointestinal Disorders: No - GENITOURINARY/GYNECOLOGICAL Hx Genitourinary Disorders: No - PSYCHIATRIC Hx Psychophysiologic Disorder: No Hx Substance Use: No - SURGICAL HISTORY Hx Surgeries: No - ANESTHESIA Hx Anesthesia: No Meds Allergies/Adverse Reactions: Allergies Allergy/AdvReac Type Severity Reaction Status Date / Time iodine Allergy RASH Verified 05/19/16 13:15 - Medications Medications: Current Medications Albuterol/Ipratropium (Duoneb 3 Mg/0.5 Mg (3 Ml) Ud) 3 ml INH RQ6 [facility] Last Admin: 06/02/16 13:11 Dose: 3 ml Enoxaparin Sodium (Lovenox) 40 mg SC DAILY [facility] Last Admin: 06/02/16 10:57 Dose: 40 mg Fluconazole (Diflucan) 100 mg PO DAILY [facility] Last Admin: 06/02/16 10:57 Dose: 100 mg Ceftriaxone Sodium (Rocephin Iv 1 Gm Duplex) 50 mls @ 50 mls/30 min IVPB Q24H [facility] Last Admin: 06/02/16 10:58 Dose: 50 mls/30 min Azithromycin 500 mg/ Sodium (Chloride) 250 mls @ 167 mls/hr IVPB Q24H [facility] Last Admin: 06/02/16 16:58 Dose: 167 mls/hr Sodium Chloride (Sodium Chloride 0.9%) 1,000 mls @ 75 mls/hr IV .[id number] [facility] Insulin Aspart (Novolog) 14 unit SC AC [facility] Last Admin: 06/02/16 17:46 Dose: 14 unit Insulin Aspart (Novolog) 0 unit SC [facility] PRN Reason: Protocol Last Admin: 06/02/16 17:49 Dose: Not Given Insulin Glargine (Lantus) 40 unit SC [facility] Last Admin: 06/01/16 21:37 Dose: 40 units Metformin HCl (Glucophage) 1,000 mg PO BIDCC [facility] Last Admin: 06/02/16 17:46 Dose: 1,000 mg Methylprednisolone (Solu-Medrol) 40 mg IVP Q12H [facility] Last Admin: 06/02/16 14:14 Dose: 40 mg Montelukast Sodium (Singulair) 10 mg PO [facility] Last Admin: 06/01/16 21:55 Dose: 10 mg Pantoprazole Sodium (Protonix Ec Tab) 40 mg PO DAILY [facility] Last Admin: 06/02/16 10:57 Dose: 40 mg Pneumococcal Polyvalent Vaccine (Pneumovax 23 Vaccine) 0.5 ml IM .ONCE ONE Stop: 06/04/16 10:01 Promethazine HCl/Codeine (Phenergan/Codeine Oral Syrup) 5 ml PO Q4 PRN PRN Reason: Cough Last Admin: 06/02/16 08:39 Dose: 5 ml Physical Exam - Constitutional Appears: In Acute Distress Additional comments: anxious - Head Exam Head Exam: ATRAUMATIC, NORMAL INSPECTION, NORMOCEPHALIC - Eye Exam Eye Exam: PERRL. absent: Scleral icterus - ENT Exam ENT Exam: Mucous Membranes Dry, Normal External Ear Exam - Neck Exam Neck exam: Negative for: Lymphadenopathy, Thyromegaly - Respiratory Exam Respiratory Exam: Decreased Breath Sounds, Rales, Rhonchi - Cardiovascular Exam Cardiovascular Exam: Tachycardia, REGULAR RHYTHM, +S1, +S2 - GI/Abdominal Exam GI & Abdominal Exam: Diminished Bowel Sounds, Soft. absent: Guarding, Rigid, Tenderness - Rectal Exam Rectal Exam: Deferred - Exam Exam: NORMAL INSPECTION - Back Exam Back exam: absent: CVA tenderness (L), CVA tenderness (R) - Neurological Exam Neurological exam: Alert, CN II-XII Intact, Oriented x3, Reflexes Normal - Psychiatric Exam Psychiatric exam: Anxious, Depressed - Skin Skin Exam: Dry, Intact Results - Vital Signs Recent Vital Signs: Last Vital Signs Temp 98.4 F 06/02/16 15:48 Pulse 113 H 06/02/16 15:48 Resp 20 04/12/17 15:48 BP 171/97 H 06/02/16 15:48 Pulse Ox 96 06/02/16 15:48 - Labs Result Diagrams: 06/02/16 06:30 06/02/16 06:30 Labs: Laboratory Results - last 24 hr 06/01/16 06/02/16 06/02/16 21:09 06:14 06:30 WBC 9.8 RBC 4.74 Hgb 13.2 Hct 39.8 MCV 83.9 MCH 27.8 MCHC 33.1 RDW 14.4 Plt Count 149 MPV 7.8 Neut % (Auto) 92.6 H Lymph % (Auto) 3.2 L [place] % (Auto) 3.9 Eos % (Auto) 0.1 Baso % (Auto) 0.2 Neut # 9.0 H Lymph # 0.3 L [place] # 0.4 Eos # 0.0 Baso # 0.0 Neutrophils % (Manual) 85 H Band Neutrophils % 6 H Lymphocytes % (Manual) 3 L Monocytes % (Manual) 6 Platelet Estimate Normal Ovalocytes Slight Sodium 134 Potassium 4.4 Chloride 100 Carbon Dioxide 24 Anion Gap 15 BUN 16 Creatinine 0.6 L Est GFR ( Amer) > 60 Est GFR (Non-Af Amer) > 60 POC Glucose (mg/dL) 327 H 272 H Random Glucose 292 H Calcium 8.3 L Magnesium 1.8 Total Bilirubin 0.6 AST 12 L ALT 13 L D Alkaline Phosphatase 65 Total Protein 6.0 L Albumin 2.9 L Globulin 3.2 Albumin/Globulin Ratio 0.9 L HIV 1&2 Antibody Screen Reactive H 06/02/16 11:19 WBC RBC Hgb Hct MCV MCH MCHC RDW Plt Count MPV Neut % (Auto) Lymph % (Auto) [place] % (Auto) Eos % (Auto) Baso % (Auto) Neut # Lymph # [place] # Eos # Baso # Neutrophils % (Manual) Band Neutrophils % Lymphocytes % (Manual) Monocytes % (Manual) Platelet Estimate Ovalocytes Sodium Potassium Chloride Carbon Dioxide Anion Gap BUN Creatinine Est GFR ( Amer) Est GFR (Non-Af Amer) POC Glucose (mg/dL) 253 H Random Glucose Calcium Magnesium Total Bilirubin AST ALT Alkaline Phosphatase Total Protein Albumin Globulin Albumin/Globulin Ratio HIV 1&2 Antibody Screen Assessment & Plan (1) Nodule of right lung Status: Acute Priority: Low (2) Pneumonia Status: Acute (3) Uncontrolled diabetes mellitus Status: Acute (4) Cough due to bronchospasm Status: Acute (5) Asthma exacerbation Status: Chronic Priority: High - Assessment and Plan (Free Text) Assessment: await t cell subsets add bactrim PO may need bronchoscopy
[2016-06-02] MEDS ORDERED: Tmp-Smz 800 mg-160 mg DS Tab PO SCH (18:45)
[2016-06-02] MEDS: Promethazine DM 6.25 mg-15 mg/5 ml Syrup PO SCH (22:23)
[2016-06-02] MEDS: cefTRIAXone 2 GM in Sodium Chloride 0.9% 100 ML IVPB SCH (22:24)
[2016-06-02] MEDS: (Lantus) Insulin Glargine, Recombinant SC SCH (22:30)
--- NOTE | 2016-06-02 22:50 | CP.PCM.PN ---
Subjective - Date & Time of Evaluation Date of Evaluation: 06/02/16 Time of Evaluation: 16:15 - Subjective Subjective: Patient with improved breathing ECHO: Normal EF Pro BNP normal Non cardiac dyspnea medical management Review Of Systems Except As Marked, All Systems Reviewed And Found Negative. Constitutional: Negative for: Fever, Chills Cardiovascular: Negative for: Chest Pain, Palpitations, Light Headedness Respiratory: Positive for:Shortness of Breath. Negative for: Hemoptysis, Wheezing Physical Exam - Physical Exam Additional Physical Exam Comments: Constitutional: In some respiratory distress. Head: Normocephalic. Atraumatic. Eyes: PERRL. ENT: Moist mucous membranes. Neck: Supple. Cardiovascular: Tachycardic. Radial pulse 2+ bilaterally. Chest: No tenderness. Respiratory: Clear to auscultation bilaterally. GI: Soft. Nontender. Nondistended. Back: No CVA tenderness. Musculoskeletal: No tenderness or swelling of extremities. Skin: No rash. Neurologic: Alert, no focal deficit. Objective - Vital Signs/Intake and Output Vital Signs (last 24 hours): Temp Pulse Resp BP Pulse Ox 98.4 F 113 H 20 171/97 H 96 06/02/16 15:48 06/02/16 15:48 06/02/16 15:48 06/02/16 15:48 06/02/16 15:48 Intake and Output: 06/02/16 06/03/16 18:59 06:59 Intake Total 1300 Output Total 1200 Balance 100 - Medications Medications: Current Medications Albuterol/Ipratropium (Duoneb 3 Mg/0.5 Mg (3 Ml) Ud) 3 ml INH RQ6 [facility] Last Admin: 06/02/16 19:13 Dose: 3 ml Efavirenz/Emtricitabine/Tenofovir (Atripla 600 Mg-200 Mg-300 Mg) 1 tab PO DAILY [facility] Enoxaparin Sodium (Lovenox) 40 mg SC DAILY [facility] Last Admin: 06/02/16 10:57 Dose: 40 mg Fluconazole (Diflucan) 100 mg PO DAILY [facility] Last Admin: 06/02/16 10:57 Dose: 100 mg Azithromycin 500 mg/ Sodium (Chloride) 250 mls @ 167 mls/hr IVPB Q24H [facility] Last Admin: 06/02/16 16:58 Dose: 167 mls/hr Sodium Chloride (Sodium Chloride 0.9%) 1,000 mls @ 75 mls/hr IV .[id number] [facility] Last Admin: 06/02/16 18:30 Dose: 75 mls/hr Ceftriaxone Sodium 2 gm/ (Sodium Chloride) 100 mls @ 100 mls/hr IVPB Q24H [facility] Last Admin: 06/02/16 22:24 Dose: 100 mls/hr Insulin Aspart (Novolog) 14 unit SC AC [facility] Last Admin: 06/02/16 17:46 Dose: 14 unit Insulin Aspart (Novolog) 0 unit SC ACHS [facility] PRN Reason: Protocol Last Admin: 06/02/16 22:24 Dose: Not Given Insulin Glargine (Lantus) 40 unit SC HS [facility] Last Admin: 06/02/16 22:30 Dose: Not Given Metformin HCl (Glucophage) 1,000 mg PO BIDCC [facility] Last Admin: 06/02/16 17:46 Dose: 1,000 mg Methylprednisolone (Solu-Medrol) 40 mg IVP Q12H [facility] Last Admin: 06/02/16 14:14 Dose: 40 mg Montelukast Sodium (Singulair) 10 mg PO [facility] Last Admin: 06/02/16 22:29 Dose: 10 mg Pantoprazole Sodium (Protonix Ec Tab) 40 mg PO DAILY [facility] Last Admin: 06/02/16 10:57 Dose: 40 mg Pneumococcal Polyvalent Vaccine (Pneumovax 23 Vaccine) 0.5 ml IM .ONCE ONE Stop: 06/04/16 10:01 Promethazine HCl/Codeine (Phenergan/Codeine Oral Syrup) 5 ml PO Q4 PRN PRN Reason: Cough Last Admin: 06/02/16 20:50 Dose: 5 ml Promethazine HCl/Dextromethorphan (Phenergan Dm Syrup) 5 ml PO Q6H [facility] Stop: 06/07/16 22:01 Last Admin: 06/02/16 22:23 Dose: Not Given Trimethoprim/Sulfamethoxazole (Bactrim Ds Tab) 1 tab PO Q6H [facility] Last Admin: 06/02/16 20:50 Dose: 1 tab - Labs Labs: 06/02/16 06:30 06/02/16 06:30 PT 10.4 SECONDS (9.7-12.2) 05/30/16 12:16 INR 0.9 05/30/16 12:16 APTT 25 SECONDS (21-34) 05/30/16 12:16 Assessment and Plan - Assessment and Plan (Free Text) Assessment: (1) Tachycardia Status: On Cardizem Improving (2) Pneumonia Assessment & Plan: Mgt as per pulmonary Status: Acute (3) Asthma exacerbation Status: Chronic (4) Nodule of right lung Status: Acute (5) HIV (human immunodeficiency virus infection) Status: Acute
[2016-06-03] MEDS: Albuterol-Ipratrop 3 mg / 0.5 (3 ml) UD INH SCH ×4 (01:51→19:52)
[2016-06-03] MEDS: Promethazine/Cod 6.25mg-10mg/5ml Syr UD PO PRN ×4 (02:29→20:35)
[2016-06-03] MEDS: Tmp-Smz 800 mg-160 mg DS Tab PO SCH ×4 (02:30→21:55)
[2016-06-03] MEDS: MethylPREDNISolone 40 mg Vial IVP SCH ×2 (02:30→14:27)
[2016-06-03] MEDS: Promethazine DM 6.25 mg-15 mg/5 ml Syrup PO SCH ×4 (04:00→21:58)
[2016-06-03] MEDS: Sodium Chloride 0.9% 1,000 ML IV SCH ×2 (06:25→20:33)
[2016-06-03 06:28] LABS: BASO % 0.2 % (0.0-2.0); EOS % 0.3 % (0.0-4.0); HEMATOCRIT 41.7 % (35.0-51.0); LYMPH # 0.4 K/uL (1.0-4.3); LYMPH % 5.2 % (20.0-40.0); MEAN CELL VOLUME 83.8 fL (80.0-94.0); MEAN CORPUSCULAR HEMOGLOBIN 27.4 pg (27.0-31.0); MEAN CORPUSCULAR HGB CONC 32.7 g/dL (33.0-37.0); MEAN PLATELET VOLUME 7.8 fL (7.2-11.7); MONO # 0.3 K/uL (0.0-0.8); MONO % 4.7 % (0.0-10.0); PLATELET COUNT 141 K/uL (130-400); WHITE BLOOD COUNT 7.1 K/uL (4.8-10.8)
[2016-06-03 07:39] LABS: CHLORIDE 103 mmol/L (98-107); POTASSIUM 4.3 mmol/L (3.6-5.2); SODIUM 135 mmol/L (132-148)
[2016-06-03 07:41] LABS: BILIRUBIN,TOTAL 0.5 mg/dL (0.2-1.3); CARBON DIOXIDE 23 mmol/L (22-30); GFR AFRICAN-AMERICAN > 60
[2016-06-03 07:42] LABS: ALB/GLOB RATIO 0.9 (1.0-2.1); ALKALINE PHOSPHATASE 55 U/L (38-126); ALT/SGPT 13 U/L (21-72); AST/SGOT 15 U/L (17-59); BLOOD UREA NITROGEN 14 mg/dL (9-20); CALCIUM 8.4 mg/dl (8.6-10.4); GLUCOSE,RANDOM 198 mg/dL (75-110); TOTAL PROTEIN 6.2 g/dL (6.3-8.3)
[2016-06-03 08:25] LABS: EOSINOPHIL 2 % (0-4); NEUTROPHIL 81 % (50-75); TOTAL CELLS COUNTED 100
[2016-06-03] MEDS: (Novolog) Insulin Aspart, Recombinant 100 u/ml 10 ml vial SC SCH ×7 (08:40→21:57)
[2016-06-03] MEDS: Pantoprazole 40 mg EC Tab PO SCH (09:58)
[2016-06-03] MEDS: Efavirenz/Emtricitabine/Teno 1 TAB PO SCH (09:59)
[2016-06-03] MEDS: Enoxaparin 40 mg Syringe SC SCH (09:59)
--- NOTE | 2016-06-03 10:38 | CP.PCM.PN ---
<Bronson Up - Last Filed: 06/03/16 15:02> Subjective - Date & Time of Evaluation Date of Evaluation: 06/03/16 Time of Evaluation: 09:00 - Subjective Subjective: Medicine Note- Dr. Knight's service Patient was seen and examined at bedside. Patient reports his cough appears slightly improved from previous day. Patient is anxious about his newly diagnosed HIV. Answered questions about treatment plan. No events overnight per nursing. Objective - Vital Signs/Intake and Output Vital Signs (last 24 hours): Temp Pulse Resp BP Pulse Ox 98.5 F 111 H 17 160/90 H 95 06/03/16 07:15 06/03/16 08:00 06/03/16 07:15 06/03/16 07:40 06/03/16 07:15 Intake and Output: 06/03/16 06/03/16 06:59 18:59 Intake Total 1800 Output Total 1600 Balance 200 - Medications Medications: Current Medications Albuterol/Ipratropium (Duoneb 3 Mg/0.5 Mg (3 Ml) Ud) 3 ml INH RQ6 [facility] Last Admin: 06/03/16 07:17 Dose: 3 ml Efavirenz/Emtricitabine/Tenofovir (Atripla 600 Mg-200 Mg-300 Mg) 1 tab PO DAILY [facility] Last Admin: 06/03/16 09:59 Dose: 1 tab Enoxaparin Sodium (Lovenox) 40 mg SC DAILY [facility] Last Admin: 06/03/16 09:59 Dose: 40 mg Fluconazole (Diflucan) 100 mg PO DAILY [facility] Last Admin: 06/03/16 09:58 Dose: 100 mg Azithromycin 500 mg/ Sodium (Chloride) 250 mls @ 167 mls/hr IVPB Q24H [facility] Last Admin: 06/02/16 16:58 Dose: 167 mls/hr Sodium Chloride (Sodium Chloride 0.9%) 1,000 mls @ 75 mls/hr IV .[id number] [facility] Last Admin: 06/03/16 06:25 Dose: 75 mls/hr Ceftriaxone Sodium 2 gm/ (Sodium Chloride) 100 mls @ 100 mls/hr IVPB Q24H [facility] Last Admin: 06/02/16 22:24 Dose: 100 mls/hr Insulin Aspart (Novolog) 14 unit SC AC [facility] Last Admin: 06/03/16 08:40 Dose: 14 unit Insulin Aspart (Novolog) 0 unit SC [facility] PRN Reason: Protocol Last Admin: 06/03/16 08:41 Dose: Not Given Insulin Glargine (Lantus) 40 unit SC [facility] Last Admin: 06/02/16 22:30 Dose: Not Given Metformin HCl (Glucophage) 1,000 mg PO BIDCC [facility] Last Admin: 06/03/16 08:41 Dose: 1,000 mg Methylprednisolone (Solu-Medrol) 40 mg IVP Q12H [facility] Last Admin: 06/03/16 02:30 Dose: 40 mg Montelukast Sodium (Singulair) 10 mg PO [facility] Last Admin: 06/02/16 22:29 Dose: 10 mg Pantoprazole Sodium (Protonix Ec Tab) 40 mg PO DAILY [facility] Last Admin: 06/03/16 09:58 Dose: 40 mg Pneumococcal Polyvalent Vaccine (Pneumovax 23 Vaccine) 0.5 ml IM .ONCE ONE Stop: 06/04/16 10:01 Promethazine HCl/Codeine (Phenergan/Codeine Oral Syrup) 5 ml PO Q4 PRN PRN Reason: Cough Last Admin: 06/03/16 08:48 Dose: 5 ml Promethazine HCl/Dextromethorphan (Phenergan Dm Syrup) 5 ml PO Q6H [facility] Stop: 06/07/16 22:01 Last Admin: 06/03/16 04:00 Dose: Not Given Trimethoprim/Sulfamethoxazole (Bactrim Ds Tab) 1 tab PO Q6H [facility] Last Admin: 06/03/16 09:58 Dose: 1 tab - Labs Labs: 06/03/16 06:05 06/03/16 06:05 PT 10.4 SECONDS (9.7-12.2) 05/30/16 12:16 INR 0.9 05/30/16 12:16 APTT 25 SECONDS (21-34) 05/30/16 12:16 - Constitutional Appears: Non-toxic, No Acute Distress - Head Exam Head Exam: ATRAUMATIC, NORMAL INSPECTION, NORMOCEPHALIC - Eye Exam Pupil Exam: NORMAL ACCOMODATION, PERRL - ENT Exam ENT Exam: Mucous Membranes Moist - Neck Exam Neck Exam: Normal Inspection - Respiratory Exam Respiratory Exam: Clear to Ausculation Bilateral, NORMAL BREATHING PATTERN. absent: Prolonged Expiratory Phase, Rales, Rhonchi, Wheezes - Cardiovascular Exam Cardiovascular Exam: REGULAR RHYTHM, +S1, +S2 - GI/Abdominal Exam GI & Abdominal Exam: Soft, Normal Bowel Sounds. absent: Tenderness, Diminished Bowel Sounds, Hernia, Hyperactive Bowel Sounds, Hypoactive Bowel Sounds - Extremities Exam Extremities Exam: Normal Capillary Refill, Normal Inspection - Neurological Exam Neurological Exam: Alert, Awake, Oriented x3 - Psychiatric Exam Psychiatric exam: Normal Affect, Normal Mood - Skin Skin Exam: Dry, Intact, Normal Color, Warm Assessment and Plan - Assessment and Plan (Free Text) Assessment: (1) Pneumonia Assessment & Plan: CT scan - R lung- diffuse increased prominence of the interstitium with a somewhat moisaic attenuation- may be pulmonary edema. mild atelectasis in RLL. 6mm pulm nodule in R LL superiorly. L lung- diffuse increased prominence of the interstitium with a somewhat mosaic attenuation which may represent underlying pulmonary edema. More focal consolidative changes in atelectasis in LLL. Trace fluid/thickening along anterior pericardium. WBC- 9.8 Dr. Gan consulted- help appreciated consult cardio- Dr. Johnathon Chowdhury IVPB day #4 Azithromycin IVPB day #4 Started on Bactrim DS 1 tab PO Q6h day #1 Continue Singulair 10mg PO HS echo- 05/31/16- LV systolic function is normal, EF is 65-70% BNP normal Legionella and Mycoplasma negative Status: Acute (2) Asthma exacerbation Assessment & Plan: Continue current management: Advair Singulair 10mg Duoneb 3ml q6H Continue IV steroids at 40mg IVP Q12h Patient will follow up with Dr. Gan after discharge Status: Chronic (3) HIV positive Assessment & Plan: HIV 1 and 2 antibody screen- reactive Consult ID- Dr. Pena f/u HIV 1/2 AG/ab f/U CD3/CD4/CD8 Started on Atripla 600/200/300mg 1 tab PO Daily Started on Bactrim DS 1 tab PO Q6h day #1 (4) Uncontrolled diabetes mellitus Assessment & Plan: Hgb a1c is 13.5. Endo-Dr. Joanna Linares is consulted diet education and counseling. Metformin to 1000mg BID Continue Lantus 40U HS Continue Novolog 14U AC continue accu checks with medium protocol sliding scale insulin. Status: Acute (5) Oral Thrush Assessment & Plan: Diflucan 100mg PO Daily Status: Acute (6) Prophylactic measure Assessment & Plan: Lovenox SC daily Protonix daily All management as per Dr. Karine Knight. Status: Acute <Domingo Knight S - Last Filed: 06/03/16 19:09> Subjective - Date & Time of Evaluation Date of Evaluation: 06/03/16 Objective - Vital Signs/Intake and Output Vital Signs (last 24 hours): Temp Pulse Resp BP Pulse Ox 98.5 F 112 H 20 134/91 H 93 L 06/03/16 15:41 06/03/16 15:41 06/03/16 15:41 06/03/16 15:41 06/03/16 15:41 Intake and Output: 06/03/16 06/04/16 18:59 06:59 Intake Total 1100 Balance 1100 - Medications Medications: Current Medications Albuterol/Ipratropium (Duoneb 3 Mg/0.5 Mg (3 Ml) Ud) 3 ml INH RQ6 [facility] Last Admin: 06/03/16 13:08 Dose: 3 ml Efavirenz/Emtricitabine/Tenofovir (Atripla 600 Mg-200 Mg-300 Mg) 1 tab PO DAILY [facility] Last Admin: 06/03/16 09:59 Dose: 1 tab Enoxaparin Sodium (Lovenox) 40 mg SC DAILY [facility] Last Admin: 06/03/16 09:59 Dose: 40 mg Fluconazole (Diflucan) 100 mg PO DAILY [facility] Last Admin: 06/03/16 09:58 Dose: 100 mg Azithromycin 500 mg/ Sodium (Chloride) 250 mls @ 167 mls/hr IVPB Q24H [facility] Last Admin: 06/03/16 16:39 Dose: 167 mls/hr Sodium Chloride (Sodium Chloride 0.9%) 1,000 mls @ 75 mls/hr IV .[id number] [facility] Last Admin: 06/03/16 06:25 Dose: 75 mls/hr Ceftriaxone Sodium 2 gm/ (Sodium Chloride) 100 mls @ 100 mls/hr IVPB Q24H [facility] Last Admin: 06/02/16 22:24 Dose: 100 mls/hr Insulin Aspart (Novolog) 14 unit SC AC [facility] Last Admin: 06/03/16 16:46 Dose: 14 unit Insulin Aspart (Novolog) 0 unit SC ACHS [facility] PRN Reason: Protocol Last Admin: 06/03/16 16:46 Dose: Not Given Insulin Glargine (Lantus) 50 unit SC [facility] Metformin HCl (Glucophage) 1,000 mg PO BIDCC [facility] Last Admin: 06/03/16 08:41 Dose: 1,000 mg Methylprednisolone (Solu-Medrol) 40 mg IVP Q12H [facility] Last Admin: 06/03/16 14:27 Dose: 40 mg Montelukast Sodium (Singulair) 10 mg PO HS [facility] Last Admin: 06/02/16 22:29 Dose: 10 mg Pantoprazole Sodium (Protonix Ec Tab) 40 mg PO DAILY [facility] Last Admin: 06/03/16 09:58 Dose: 40 mg Pneumococcal Polyvalent Vaccine (Pneumovax 23 Vaccine) 0.5 ml IM .ONCE ONE Stop: 06/04/16 10:01 Promethazine HCl/Codeine (Phenergan/Codeine Oral Syrup) 5 ml PO Q4 PRN PRN Reason: Cough Last Admin: 06/03/16 12:53 Dose: 5 ml Promethazine HCl/Dextromethorphan (Phenergan Dm Syrup) 5 ml PO Q6H [facility] Stop: 06/07/16 22:01 Last Admin: 06/03/16 16:41 Dose: 5 ml Sitagliptin Phosphate (Januvia) 100 mg PO DAILY [facility] Trimethoprim/Sulfamethoxazole (Bactrim Ds Tab) 1 tab PO Q6H [facility] Last Admin: 06/03/16 14:34 Dose: 1 tab - Labs Labs: 06/03/16 06:05 06/03/16 06:05 PT 10.4 SECONDS (9.7-12.2) 05/30/16 12:16 INR 0.9 05/30/16 12:16 APTT 25 SECONDS (21-34) 05/30/16 12:16 Assessment and Plan (1) Nodule of right lung Status: Acute (2) Pneumonia Status: Acute (3) Prophylactic measure Status: Acute (4) Uncontrolled diabetes mellitus Status: Acute (5) Cough due to bronchospasm Status: Acute (6) Asthma exacerbation Status: Chronic (7) HIV (human immunodeficiency virus infection) Status: Acute Attending/Attestation - Attestation I have personally seen and examined this patient.: Yes I have fully participated in the care of the patient.: Yes I have reviewed all pertinent clinical information, including history, physical exam and plan: Yes Notes (Text): 06/03/16 19:09 case seen and discussed with staff and resident mx as discussed..
--- NOTE | 2016-06-03 13:58 | CP.PCM.PN ---
Subjective - Date & Time of Evaluation Date of Evaluation: 06/03/16 Time of Evaluation: 08:20 - Subjective Subjective: Pt was seen and examined at bedside. Complains of continued cough with a little yellow sputum produced. Pt denies SOB, chest pain, palpitations, hemoptosis, and fever or chills Objective - Vital Signs/Intake and Output Vital Signs (last 24 hours): Temp Pulse Resp BP Pulse Ox 98.5 F 111 H 17 160/90 H 95 06/03/16 07:15 06/03/16 08:00 06/03/16 07:15 06/03/16 07:40 06/03/16 07:15 Intake and Output: 06/03/16 06/03/16 06:59 18:59 Intake Total 1800 Output Total 1600 Balance 200 - Medications Medications: Current Medications Albuterol/Ipratropium (Duoneb 3 Mg/0.5 Mg (3 Ml) Ud) 3 ml INH RQ6 [facility] Last Admin: 06/03/16 13:08 Dose: 3 ml Efavirenz/Emtricitabine/Tenofovir (Atripla 600 Mg-200 Mg-300 Mg) 1 tab PO DAILY [facility] Last Admin: 06/03/16 09:59 Dose: 1 tab Enoxaparin Sodium (Lovenox) 40 mg SC DAILY [facility] Last Admin: 06/03/16 09:59 Dose: 40 mg Fluconazole (Diflucan) 100 mg PO DAILY [facility] Last Admin: 06/03/16 09:58 Dose: 100 mg Azithromycin 500 mg/ Sodium (Chloride) 250 mls @ 167 mls/hr IVPB Q24H [facility] Last Admin: 06/02/16 16:58 Dose: 167 mls/hr Sodium Chloride (Sodium Chloride 0.9%) 1,000 mls @ 75 mls/hr IV .[id number] [facility] Last Admin: 06/03/16 06:25 Dose: 75 mls/hr Ceftriaxone Sodium 2 gm/ (Sodium Chloride) 100 mls @ 100 mls/hr IVPB Q24H [facility] Last Admin: 06/02/16 22:24 Dose: 100 mls/hr Insulin Aspart (Novolog) 14 unit SC AC [facility] Last Admin: 06/03/16 12:48 Dose: 14 unit Insulin Aspart (Novolog) 0 unit SC ACHS [facility] PRN Reason: Protocol Last Admin: 06/03/16 08:41 Dose: Not Given Insulin Glargine (Lantus) 40 unit SC [facility] Last Admin: 06/02/16 22:30 Dose: Not Given Metformin HCl (Glucophage) 1,000 mg PO BIDCC [facility] Last Admin: 06/03/16 08:41 Dose: 1,000 mg Methylprednisolone (Solu-Medrol) 40 mg IVP Q12H [facility] Last Admin: 06/03/16 02:30 Dose: 40 mg Montelukast Sodium (Singulair) 10 mg PO [facility] Last Admin: 06/02/16 22:29 Dose: 10 mg Pantoprazole Sodium (Protonix Ec Tab) 40 mg PO DAILY [facility] Last Admin: 06/03/16 09:58 Dose: 40 mg Pneumococcal Polyvalent Vaccine (Pneumovax 23 Vaccine) 0.5 ml IM .ONCE ONE Stop: 06/04/16 10:01 Promethazine HCl/Codeine (Phenergan/Codeine Oral Syrup) 5 ml PO Q4 PRN PRN Reason: Cough Last Admin: 06/03/16 12:53 Dose: 5 ml Promethazine HCl/Dextromethorphan (Phenergan Dm Syrup) 5 ml PO Q6H [facility] Stop: 06/07/16 22:01 Last Admin: 06/03/16 10:00 Dose: Not Given Trimethoprim/Sulfamethoxazole (Bactrim Ds Tab) 1 tab PO Q6H [facility] Last Admin: 06/03/16 09:58 Dose: 1 tab - Labs Labs: 06/03/16 06:05 06/03/16 06:05 PT 10.4 SECONDS (9.7-12.2) 05/30/16 12:16 INR 0.9 05/30/16 12:16 APTT 25 SECONDS (21-34) 05/30/16 12:16 - Constitutional Appears: Well, No Acute Distress - Head Exam Head Exam: ATRAUMATIC, NORMOCEPHALIC - Respiratory Exam Respiratory Exam: Rhonchi (RLL), NORMAL BREATHING PATTERN. absent: Clear to Ausculation Bilateral, Prolonged Expiratory Phase, Rales, Wheezes, Respiratory Distress - Cardiovascular Exam Cardiovascular Exam: Tachycardia, +S1, +S2. absent: Murmur - Neurological Exam Neurological Exam: Alert, Awake, Oriented x3 - Psychiatric Exam Psychiatric exam: Anxious (consistent with recent HIV diagnosis), Depressed, Normal Affect, Normal Mood - Skin Skin Exam: Dry, Intact, Normal Color, Warm Assessment and Plan (1) Asthma exacerbation Assessment & Plan: 05-30-[address]: R: Increased prominence of interstitial with mosaic pattern suggestive of pulmonary edema, middle and lower lobe consolidation/atelectasis, 6mm pulmonary nodule; L: Increased prominence of interstitial with mosaic pattern suggestive of pulmonary edema, L lobe consolidations Recommend follow-up screening to look for nodule growth 06-02-16 ECHO: EF between 65-70%, normal ventricular function, grade 1 abnormal relaxation pattern 06-02-16 Positive HIV test Mycoplasma and Legionella serology and labs negative CBC with differential; eosinophil count normal IgE labs normal result of 10 Continue Duoneb, solumedrol Continue phenergan/codeine Continue Singlair Continue Rocephin and Zithromax Begin HIV management in accordance with ID (Started on Atripla 600/200/300mg 1 tab PO Daily, Started on Bactrim DS 1 tab PO Q6h day #1); PCP unlikely based on clinical exam CD3, CD4, and CD8 testing in progress; will follow result Continue to monitor for SOB, fevers, and productive cough Status: Chronic (2) Nodule of right lung Status: Acute
[2016-06-03] MEDS: Azithromycin 500 MG in Sodium Chloride 0.9% 250 ML IVPB SCH (16:39)
--- NOTE | 2016-06-03 17:21 | CP.PCM.PN ---
Subjective - Date & Time of Evaluation Date of Evaluation: 06/03/16 Time of Evaluation: 09:00 - Subjective Subjective: still coughing and short of breath denies fever alert/ oriented anxious viral load and T cells pending Objective - Vital Signs/Intake and Output Vital Signs (last 24 hours): Temp Pulse Resp BP Pulse Ox 98.5 F 112 H 20 134/91 H 93 L 06/03/16 15:41 06/03/16 15:41 06/03/16 15:41 06/03/16 15:41 06/03/16 15:41 Intake and Output: 06/03/16 06/03/16 06:59 18:59 Intake Total 1800 1100 Output Total 1600 Balance 200 1100 - Medications Medications: Current Medications Albuterol/Ipratropium (Duoneb 3 Mg/0.5 Mg (3 Ml) Ud) 3 ml INH RQ6 [facility] Last Admin: 06/03/16 13:08 Dose: 3 ml Efavirenz/Emtricitabine/Tenofovir (Atripla 600 Mg-200 Mg-300 Mg) 1 tab PO DAILY [facility] Last Admin: 06/03/16 09:59 Dose: 1 tab Enoxaparin Sodium (Lovenox) 40 mg SC DAILY [facility] Last Admin: 06/03/16 09:59 Dose: 40 mg Fluconazole (Diflucan) 100 mg PO DAILY [facility] Last Admin: 06/03/16 09:58 Dose: 100 mg Azithromycin 500 mg/ Sodium (Chloride) 250 mls @ 167 mls/hr IVPB Q24H [facility] Last Admin: 06/03/16 16:39 Dose: 167 mls/hr Sodium Chloride (Sodium Chloride 0.9%) 1,000 mls @ 75 mls/hr IV .[id number] [facility] Last Admin: 06/03/16 06:25 Dose: 75 mls/hr Ceftriaxone Sodium 2 gm/ (Sodium Chloride) 100 mls @ 100 mls/hr IVPB Q24H [facility] Last Admin: 06/02/16 22:24 Dose: 100 mls/hr Insulin Aspart (Novolog) 14 unit SC AC [facility] Last Admin: 06/03/16 16:46 Dose: 14 unit Insulin Aspart (Novolog) 0 unit SC ACHS [facility] PRN Reason: Protocol Last Admin: 06/03/16 16:46 Dose: Not Given Insulin Glargine (Lantus) 50 unit SC HS [facility] Metformin HCl (Glucophage) 1,000 mg PO BIDCC [facility] Last Admin: 06/03/16 08:41 Dose: 1,000 mg Methylprednisolone (Solu-Medrol) 40 mg IVP Q12H [facility] Last Admin: 06/03/16 14:27 Dose: 40 mg Montelukast Sodium (Singulair) 10 mg PO [facility] Last Admin: 06/02/16 22:29 Dose: 10 mg Pantoprazole Sodium (Protonix Ec Tab) 40 mg PO DAILY [facility] Last Admin: 06/03/16 09:58 Dose: 40 mg Pneumococcal Polyvalent Vaccine (Pneumovax 23 Vaccine) 0.5 ml IM .ONCE ONE Stop: 06/04/16 10:01 Promethazine HCl/Codeine (Phenergan/Codeine Oral Syrup) 5 ml PO Q4 PRN PRN Reason: Cough Last Admin: 06/03/16 12:53 Dose: 5 ml Promethazine HCl/Dextromethorphan (Phenergan Dm Syrup) 5 ml PO Q6H [facility] Stop: 06/07/16 22:01 Last Admin: 06/03/16 16:41 Dose: 5 ml Sitagliptin Phosphate (Januvia) 100 mg PO DAILY [facility] Trimethoprim/Sulfamethoxazole (Bactrim Ds Tab) 1 tab PO Q6H [facility] Last Admin: 06/03/16 14:34 Dose: 1 tab - Labs Labs: 06/03/16 06:05 06/03/16 06:05 PT 10.4 SECONDS (9.7-12.2) 05/30/16 12:16 INR 0.9 05/30/16 12:16 APTT 25 SECONDS (21-34) 05/30/16 12:16 - Constitutional Appears: Non-toxic, Chronically Ill - Head Exam Head Exam: NORMOCEPHALIC - Eye Exam Eye Exam: PERRL. absent: Scleral icterus - ENT Exam ENT Exam: Mucous Membranes Dry - Neck Exam Neck Exam: absent: Lymphadenopathy - Respiratory Exam Respiratory Exam: Decreased Breath Sounds, Rales, Rhonchi - Cardiovascular Exam Cardiovascular Exam: Tachycardia, REGULAR RHYTHM, +S1, +S2 - GI/Abdominal Exam GI & Abdominal Exam: Distended, Soft. absent: Tenderness - Rectal Exam Rectal Exam: Deferred - Exam Exam: NORMAL INSPECTION - Extremities Exam Extremities Exam: absent: Calf Tenderness, Pedal Edema - Back Exam Back Exam: absent: CVA tenderness (L), CVA tenderness (R) - Neurological Exam Neurological Exam: Alert, Awake, Oriented x3 - Psychiatric Exam Psychiatric exam: Anxious, Depressed - Skin Skin Exam: Dry, Intact Assessment and Plan (1) Nodule of right lung Status: Acute (2) Pneumonia Status: Acute (3) Uncontrolled diabetes mellitus Status: Acute (4) Cough due to bronchospasm Status: Acute (5) Asthma exacerbation Status: Chronic
--- NOTE | 2016-06-03 18:50 | CP.PCM.PN ---
Subjective - Date & Time of Evaluation Date of Evaluation: 06/03/16 Time of Evaluation: 14:00 - Subjective Subjective: c/o ocugh Objective - Vital Signs/Intake and Output Vital Signs (last 24 hours): Temp Pulse Resp BP Pulse Ox 98.5 F 112 H 20 134/91 H 93 L 06/03/16 15:41 06/03/16 15:41 06/03/16 15:41 06/03/16 15:41 06/03/16 15:41 Intake and Output: 06/03/16 06/03/16 06:59 18:59 Intake Total 1800 1100 Output Total 1600 Balance 200 1100 - Medications Medications: Current Medications Albuterol/Ipratropium (Duoneb 3 Mg/0.5 Mg (3 Ml) Ud) 3 ml INH RQ6 [facility] Last Admin: 06/03/16 13:08 Dose: 3 ml Efavirenz/Emtricitabine/Tenofovir (Atripla 600 Mg-200 Mg-300 Mg) 1 tab PO DAILY [facility] Last Admin: 06/03/16 09:59 Dose: 1 tab Enoxaparin Sodium (Lovenox) 40 mg SC DAILY [facility] Last Admin: 06/03/16 09:59 Dose: 40 mg Fluconazole (Diflucan) 100 mg PO DAILY [facility] Last Admin: 06/03/16 09:58 Dose: 100 mg Azithromycin 500 mg/ Sodium (Chloride) 250 mls @ 167 mls/hr IVPB Q24H [facility] Last Admin: 06/03/16 16:39 Dose: 167 mls/hr Sodium Chloride (Sodium Chloride 0.9%) 1,000 mls @ 75 mls/hr IV .[id number] [facility] Last Admin: 06/03/16 06:25 Dose: 75 mls/hr Ceftriaxone Sodium 2 gm/ (Sodium Chloride) 100 mls @ 100 mls/hr IVPB Q24H [facility] Last Admin: 06/02/16 22:24 Dose: 100 mls/hr Insulin Aspart (Novolog) 14 unit SC AC [facility] Last Admin: 06/03/16 16:46 Dose: 14 unit Insulin Aspart (Novolog) 0 unit SC ACHS [facility] PRN Reason: Protocol Last Admin: 06/03/16 16:46 Dose: Not Given Insulin Glargine (Lantus) 50 unit SC HS [facility] Metformin HCl (Glucophage) 1,000 mg PO BIDCC [facility] Last Admin: 06/03/16 08:41 Dose: 1,000 mg Methylprednisolone (Solu-Medrol) 40 mg IVP Q12H [facility] Last Admin: 06/03/16 14:27 Dose: 40 mg Montelukast Sodium (Singulair) 10 mg PO HS [facility] Last Admin: 06/02/16 22:29 Dose: 10 mg Pantoprazole Sodium (Protonix Ec Tab) 40 mg PO DAILY [facility] Last Admin: 06/03/16 09:58 Dose: 40 mg Pneumococcal Polyvalent Vaccine (Pneumovax 23 Vaccine) 0.5 ml IM .ONCE ONE Stop: 06/04/16 10:01 Promethazine HCl/Codeine (Phenergan/Codeine Oral Syrup) 5 ml PO Q4 PRN PRN Reason: Cough Last Admin: 06/03/16 12:53 Dose: 5 ml Promethazine HCl/Dextromethorphan (Phenergan Dm Syrup) 5 ml PO Q6H [facility] Stop: 06/07/16 22:01 Last Admin: 06/03/16 16:41 Dose: 5 ml Sitagliptin Phosphate (Januvia) 100 mg PO DAILY [facility] Trimethoprim/Sulfamethoxazole (Bactrim Ds Tab) 1 tab PO Q6H [facility] Last Admin: 06/03/16 14:34 Dose: 1 tab - Labs Labs: 06/03/16 06:05 06/03/16 06:05 PT 10.4 SECONDS (9.7-12.2) 05/30/16 12:16 INR 0.9 05/30/16 12:16 APTT 25 SECONDS (21-34) 05/30/16 12:16 Assessment and Plan (1) Asthma exacerbation Status: Chronic (2) Cough due to bronchospasm Status: Acute (3) Pneumonia Status: Acute (4) Prophylactic measure Status: Acute (5) Nodule of right lung Status: Acute (6) Uncontrolled diabetes mellitus Status: Acute (7) HIV (human immunodeficiency virus infection) Status: Acute - Assessment and Plan (Free Text) Plan: id cnsult for pneumolni an adhhiv mx geovany pulm and cardio followup colnti iv steroid adn iv antibitoic
--- NOTE | 2016-06-03 19:12 | PN ---
DATE: 06/03/2016 LOCATION: Room 651. This is a 46-year-old male with recent acute exacerbation of asthmatic bronchitis with persistent bro nchorrhea and respiratory insufficiency and has been started on IV steroid therapy with supervening h yperglycemic accelerations as noted thereof. His latest chemistries include a BUN of 14, sodium 135, potassium 4.3, chloride 103, CO2 23, glucose 198 and creatinine 0.6. His glucose levels have ranged from 205 to 279 mg/dL. So at this time, we will modify his basal insulin and increase Lantus to 50 units subQ at bedtime daily to start tonight. We will also continue the NovoLog given as 14 units ortez bQ t.i.d. before meals as ordered. We will continue the low-dose correction scale using NovoLog insu haven as given a.c. and at bedtime. We will continue also the oral hypoglycemic drug therapy with metf ormin given as 1000 mg b.i.d. We will add Januvia given as 100 mg once daily in the morning as order ed. We will obtain serial chemistries and supplement accordingly as needed. We will follow. Joanna Linares MD cc: [phone] TT: 06/03/2016 19:11:58 Confirmation # [id number] Dictation # [id number] jn
[2016-06-03] MEDS: cefTRIAXone 2 GM in Sodium Chloride 0.9% 100 ML IVPB SCH (20:27)
[2016-06-03] MEDS ORDERED: (Lantus) Insulin Glargine, Recombinant SC SCH (22:00)
[2016-06-04] MEDS: Albuterol-Ipratrop 3 mg / 0.5 (3 ml) UD INH SCH ×4 (01:47→19:38)
[2016-06-04] MEDS: Tmp-Smz 800 mg-160 mg DS Tab PO SCH ×4 (02:36→22:18)
[2016-06-04] MEDS: MethylPREDNISolone 40 mg Vial IVP SCH (02:37)
[2016-06-04] MEDS: Promethazine/Cod 6.25mg-10mg/5ml Syr UD PO PRN ×5 (02:37→22:21)
[2016-06-04] MEDS: Promethazine DM 6.25 mg-15 mg/5 ml Syrup PO SCH (04:07)
[2016-06-04 06:23] LABS: BASO % 0.3 % (0.0-2.0); EOS # 0.1 K/uL (0.0-0.7); EOS % 0.8 % (0.0-4.0); HEMATOCRIT 43.1 % (35.0-51.0); LYMPH # 0.3 K/uL (1.0-4.3); LYMPH % 4.9 % (20.0-40.0); MEAN CELL VOLUME 83.5 fL (80.0-94.0); MEAN CORPUSCULAR HEMOGLOBIN 27.7 pg (27.0-31.0); MEAN CORPUSCULAR HGB CONC 33.1 g/dL (33.0-37.0); MEAN PLATELET VOLUME 7.8 fL (7.2-11.7); MONO # 0.4 K/uL (0.0-0.8); MONO % 5.4 % (0.0-10.0); PLATELET COUNT 124 K/uL (130-400); RED CELL DISTRIBUTION WIDTH 13.9 % (11.5-14.5); WHITE BLOOD COUNT 6.8 K/uL (4.8-10.8)
[2016-06-04 07:27] LABS: CHLORIDE 104 mmol/L (98-107)
[2016-06-04 07:28] LABS: POTASSIUM 4.2 mmol/L (3.6-5.2); SODIUM 134 mmol/L (132-148)
[2016-06-04] MEDS: (Novolog) Insulin Aspart, Recombinant 100 u/ml 10 ml vial SC SCH ×7 (07:30→22:19)
[2016-06-04 07:31] LABS: ALB/GLOB RATIO 0.9 (1.0-2.1); ALKALINE PHOSPHATASE 58 U/L (38-126); ALT/SGPT 16 U/L (21-72); AST/SGOT 12 U/L (17-59); BILIRUBIN,TOTAL 0.5 mg/dL (0.2-1.3); BLOOD UREA NITROGEN 15 mg/dL (9-20); CALCIUM 8.5 mg/dl (8.6-10.4); CARBON DIOXIDE 21 mmol/L (22-30); GFR AFRICAN-AMERICAN > 60; GLUCOSE,RANDOM 148 mg/dL (75-110); TOTAL PROTEIN 6.6 g/dL (6.3-8.3)
[2016-06-04 08:25] LABS: NEUTROPHIL 84 % (50-75); TOTAL CELLS COUNTED 100
[2016-06-04 08:26] LABS: LARGE PLATELETS PRESENT
[2016-06-04] MEDS ORDERED: Pneumococcal 23-Valent Vaccine IM ONE (10:00)
[2016-06-04 10:14] LABS: MAGNESIUM 1.9 mg/dL (1.6-2.3); PHOSPHOROUS 3.3 mg/dL (2.5-4.5)
[2016-06-04] MEDS: Efavirenz/Emtricitabine/Teno 1 TAB PO SCH (10:54)
[2016-06-04] MEDS: Pantoprazole 40 mg EC Tab PO SCH (10:55)
[2016-06-04] MEDS: Enoxaparin 40 mg Syringe SC SCH (10:55)
--- NOTE | 2016-06-04 10:57 | CP.PCM.PN ---
Subjective - Date & Time of Evaluation Date of Evaluation: 06/04/16 Time of Evaluation: 08:00 - Subjective Subjective: Patient seen and examined. Cough and shortness of breath much improved Afebrile in no acute distress Denies any chest pain Seen by infectious disease Objective - Vital Signs/Intake and Output Vital Signs (last 24 hours): Temp Pulse Resp BP Pulse Ox 98.7 F 110 H 20 143/93 H 94 L 06/04/16 08:20 06/04/16 08:20 06/04/16 08:20 06/04/16 08:20 06/04/16 08:20 Intake and Output: 06/04/16 06/04/16 06:59 18:59 Intake Total 600 Output Total 600 Balance 0 - Medications Medications: Current Medications Albuterol/Ipratropium (Duoneb 3 Mg/0.5 Mg (3 Ml) Ud) 3 ml INH RQ6 [facility] Last Admin: 06/04/16 08:08 Dose: 3 ml Efavirenz/Emtricitabine/Tenofovir (Atripla 600 Mg-200 Mg-300 Mg) 1 tab PO DAILY [facility] Last Admin: 06/03/16 09:59 Dose: 1 tab Enoxaparin Sodium (Lovenox) 40 mg SC DAILY [facility] Last Admin: 06/03/16 09:59 Dose: 40 mg Fluconazole (Diflucan) 100 mg PO DAILY [facility] Last Admin: 06/03/16 09:58 Dose: 100 mg Azithromycin 500 mg/ Sodium (Chloride) 250 mls @ 167 mls/hr IVPB Q24H [facility] Last Admin: 06/03/16 16:39 Dose: 167 mls/hr Sodium Chloride (Sodium Chloride 0.9%) 1,000 mls @ 75 mls/hr IV .[id number] [facility] Last Admin: 06/03/16 20:33 Dose: 75 mls/hr Ceftriaxone Sodium 2 gm/ (Sodium Chloride) 100 mls @ 100 mls/hr IVPB Q24H [facility] Last Admin: 06/03/16 20:27 Dose: 100 mls/hr Insulin Aspart (Novolog) 14 unit SC AC [facility] Last Admin: 06/04/16 08:41 Dose: 14 unit Insulin Aspart (Novolog) 0 unit SC ACHS [facility] PRN Reason: Protocol Last Admin: 06/04/16 07:30 Dose: Not Given Insulin Glargine (Lantus) 50 unit SC [facility] Last Admin: 06/03/16 21:55 Dose: 50 units Metformin HCl (Glucophage) 1,000 mg PO BIDCC [facility] Last Admin: 06/04/16 08:41 Dose: 1,000 mg Methylprednisolone (Solu-Medrol) 40 mg IVP Q12H [facility] Last Admin: 06/04/16 02:37 Dose: 40 mg Montelukast Sodium (Singulair) 10 mg PO [facility] Last Admin: 06/03/16 21:54 Dose: 10 mg Pantoprazole Sodium (Protonix Ec Tab) 40 mg PO DAILY [facility] Last Admin: 06/03/16 09:58 Dose: 40 mg Pneumococcal Polyvalent Vaccine (Pneumovax 23 Vaccine) 0.5 ml IM .ONCE ONE Stop: 06/05/16 10:01 Promethazine HCl/Codeine (Phenergan/Codeine Oral Syrup) 5 ml PO Q4 PRN PRN Reason: Cough Last Admin: 06/04/16 08:41 Dose: 5 ml Promethazine HCl/Dextromethorphan (Phenergan Dm Syrup) 5 ml PO Q6H [facility] Stop: 06/07/16 22:01 Last Admin: 06/04/16 04:07 Dose: Not Given Sitagliptin Phosphate (Januvia) 100 mg PO DAILY [facility] Trimethoprim/Sulfamethoxazole (Bactrim Ds Tab) 1 tab PO Q6H [facility] Last Admin: 06/04/16 08:53 Dose: 1 tab - Labs Labs: 06/04/16 06:13 06/04/16 06:13 PT 10.4 SECONDS (9.7-12.2) 05/30/16 12:16 INR 0.9 05/30/16 12:16 APTT 25 SECONDS (21-34) 05/30/16 12:16 - Head Exam Head Exam: ATRAUMATIC, NORMOCEPHALIC - Eye Exam Eye Exam: Normal appearance - ENT Exam ENT Exam: Mucous Membranes Moist - Neck Exam Neck Exam: Normal Inspection - Respiratory Exam Respiratory Exam: Rales - Cardiovascular Exam Cardiovascular Exam: REGULAR RHYTHM - GI/Abdominal Exam GI & Abdominal Exam: Soft, Normal Bowel Sounds - Extremities Exam Extremities Exam: Normal Inspection - Neurological Exam Neurological Exam: Alert, Oriented x3 Assessment and Plan (1) Pneumonia Assessment & Plan: Continue antibiotics as per infectious disease and follow up chest x-ray Stop intravenous steroids and start by mouth prednisone Status: Acute (2) Asthma exacerbation Status: Chronic (3) Nodule of right lung Status: Acute (4) HIV (human immunodeficiency virus infection) Status: Acute
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
--- NOTE | 2016-06-04 12:55 | PN ---
DATE: 06/04/2016 ROOM: 651 This is a 46-year-old male with recent acute exacerbation of COPD and asthmatic bronchitis, currently on IV steroid therapy with supervening hyperglycemic accelerations as noted thereof. His glycemic levels are fluctuating, but much improved at this time and have ranged from 172-239 mg/d L. It was 173-209 last night at bedtime. His latest chemistry showed a BUN of 15, sodium 134, potas sium 4.2, chloride 104, CO2 21, glucose 148 and creatinine 0.7. His hemoglobin A1c is 13.5%, which i s clearly elevated and indicative of suboptimal metabolic control of his diabetic condition even prio r to this admission. So at this time, he is still undergoing IV steroid therapy for control of his bronchospasm and underl yuval pneumonia as noted thereof. So for now, we will continue the same basal and bolus insulin regim en to allow for dose equilibration and keep him on the metformin at 1000 mg b.i.d. with Lantus at 50 units subQ at bedtime daily and NovoLog at 14 units subQ t.i.d. before meals. ADDENDUM: He has been taken off IV steroid therapy and switched over to prednisone at 20 mg once griffin ly as ordered. So over the next few hours, we will be titrating and lowering his insulin regimen acc ordingly. We will follow. Joanna Linares MD cc: [phone] TT: 06/04/2016 12:55:02 Confirmation # [id number] Dictation # [id number] en
--- NOTE | 2016-06-04 13:18 | RAD ---
HISTORY: pneumonia COMPARISON: . Comparison made with CT scan chest dated 05/30/2016. TECHNIQUE: Chest PA and lateral FINDINGS: LUNGS: Poor inspiration with low lung volumes, mild crowded bronchovascular markings and mild bibasilar atelectasis. . Previously described coarse interstitial markings less well seen on this exam as compared to high-resolution CT scan. Questionable tiny left-sided effusion PLEURA: No significant pleural effusion identified. No pneumothorax apparent. CARDIOVASCULAR: Normal. OSSEOUS STRUCTURES: Minor multilevel degenerative spondylosis of the thoracic spine. . VISUALIZED UPPER ABDOMEN: Normal. OTHER FINDINGS: None. IMPRESSION: Poor inspiration with low lung volumes, mild crowded bronchovascular markings and mild bibasilar atelectasis. . Previously described coarse interstitial markings less well seen on this exam as compared to high-resolution CT scan. Questionable tiny left-sided effusion
--- NOTE | 2016-06-04 13:30 | CP.PCM.PN ---
Subjective - Date & Time of Evaluation Date of Evaluation: 06/04/16 Time of Evaluation: 10:20 - Subjective Subjective: clinically same Objective - Vital Signs/Intake and Output Vital Signs (last 24 hours): Temp Pulse Resp BP Pulse Ox 98.7 F 110 H 20 143/93 H 94 L 06/04/16 08:20 06/04/16 08:20 06/04/16 08:20 06/04/16 08:20 06/04/16 08:20 Intake and Output: 06/04/16 06/04/16 06:59 18:59 Intake Total 600 Output Total 600 Balance 0 - Medications Medications: Current Medications Albuterol/Ipratropium (Duoneb 3 Mg/0.5 Mg (3 Ml) Ud) 3 ml INH RQ6 [facility] Last Admin: 06/04/16 13:22 Dose: 3 ml Efavirenz/Emtricitabine/Tenofovir (Atripla 600 Mg-200 Mg-300 Mg) 1 tab PO DAILY [facility] Last Admin: 06/04/16 10:54 Dose: 1 tab Enoxaparin Sodium (Lovenox) 40 mg SC DAILY [facility] Last Admin: 06/04/16 10:55 Dose: 40 mg Fluconazole (Diflucan) 100 mg PO DAILY [facility] Last Admin: 06/04/16 10:55 Dose: 100 mg Azithromycin 500 mg/ Sodium (Chloride) 250 mls @ 167 mls/hr IVPB Q24H [facility] Last Admin: 06/03/16 16:39 Dose: 167 mls/hr Sodium Chloride (Sodium Chloride 0.9%) 1,000 mls @ 75 mls/hr IV .[id number] [facility] Last Admin: 06/03/16 20:33 Dose: 75 mls/hr Ceftriaxone Sodium 2 gm/ (Sodium Chloride) 100 mls @ 100 mls/hr IVPB Q24H [facility] Last Admin: 06/03/16 20:27 Dose: 100 mls/hr Insulin Aspart (Novolog) 14 unit SC AC [facility] Last Admin: 06/04/16 12:45 Dose: 14 unit Insulin Aspart (Novolog) 0 unit SC ACHS [facility] PRN Reason: Protocol Last Admin: 06/04/16 12:49 Dose: Not Given Insulin Glargine (Lantus) 50 unit SC HS [facility] Last Admin: 06/03/16 21:55 Dose: 50 units Metformin HCl (Glucophage) 1,000 mg PO BIDCC [facility] Last Admin: 06/04/16 08:41 Dose: 1,000 mg Montelukast Sodium (Singulair) 10 mg PO HS [facility] Last Admin: 06/03/16 21:54 Dose: 10 mg Pantoprazole Sodium (Protonix Ec Tab) 40 mg PO DAILY [facility] Last Admin: 06/04/16 10:55 Dose: 40 mg Pneumococcal Polyvalent Vaccine (Pneumovax 23 Vaccine) 0.5 ml IM .ONCE ONE Stop: 06/05/16 10:01 Prednisone (Prednisone Tab) 20 mg PO DAILY [facility] Last Admin: 06/04/16 11:26 Dose: 20 mg Promethazine HCl/Codeine (Phenergan/Codeine Oral Syrup) 5 ml PO Q4 PRN PRN Reason: Cough Last Admin: 06/04/16 08:41 Dose: 5 ml Sitagliptin Phosphate (Januvia) 100 mg PO DAILY [facility] Last Admin: 06/04/16 10:54 Dose: 100 mg Trimethoprim/Sulfamethoxazole (Bactrim Ds Tab) 1 tab PO Q6H [facility] Last Admin: 06/04/16 08:53 Dose: 1 tab - Labs Labs: 06/04/16 06:13 06/04/16 06:13 PT 10.4 SECONDS (9.7-12.2) 05/30/16 12:16 INR 0.9 05/30/16 12:16 APTT 25 SECONDS (21-34) 05/30/16 12:16 - Constitutional Appears: Well - Head Exam Head Exam: ATRAUMATIC, NORMAL INSPECTION, NORMOCEPHALIC - Eye Exam Eye Exam: EOMI, Normal appearance, PERRL Pupil Exam: NORMAL ACCOMODATION, PERRL - ENT Exam ENT Exam: Mucous Membranes Moist, Normal Exam - Neck Exam Neck Exam: Full ROM, Normal Inspection. absent: Lymphadenopathy - Respiratory Exam Respiratory Exam: Decreased Breath Sounds - Cardiovascular Exam Cardiovascular Exam: REGULAR RHYTHM, +S1, +S2 - GI/Abdominal Exam GI & Abdominal Exam: Soft, Diminished Bowel Sounds - Rectal Exam Rectal Exam: Deferred Assessment and Plan (1) Asthma exacerbation Status: Chronic (2) Cough due to bronchospasm Status: Acute (3) Pneumonia Status: Acute (4) Prophylactic measure Status: Acute (5) Nodule of right lung Status: Acute (6) Uncontrolled diabetes mellitus Status: Acute (7) HIV (human immunodeficiency virus infection) Status: Acute - Assessment and Plan (Free Text) Plan: s/p seen by dr. emperatriz armenta same pulm cardio follwoup labs adn med reviewed geovany as ordered
[2016-06-04] MEDS: Sodium Chloride 0.9% 1,000 ML IV SCH ×2 (13:47→13:53)
[2016-06-04] MEDS: Azithromycin 500 MG in Sodium Chloride 0.9% 250 ML IVPB SCH (17:22)
--- NOTE | 2016-06-04 18:24 | CP.PCM.PN ---
Subjective - Date & Time of Evaluation Date of Evaluation: 06/04/16 Time of Evaluation: 08:00 - Subjective Subjective: still SOB needs to cont IV rx rales right base may need FOB await pulm Objective - Vital Signs/Intake and Output Vital Signs (last 24 hours): Temp Pulse Resp BP Pulse Ox 98.2 F 100 H 20 159/105 H 96 06/04/16 16:00 06/04/16 16:00 06/04/16 16:00 06/04/16 16:00 06/04/16 16:00 Intake and Output: 06/04/16 06/04/16 06:59 18:59 Intake Total 600 1100 Output Total 600 Balance 0 1100 - Medications Medications: Current Medications Albuterol/Ipratropium (Duoneb 3 Mg/0.5 Mg (3 Ml) Ud) 3 ml INH RQ6 [facility] Last Admin: 06/04/16 13:22 Dose: 3 ml Efavirenz/Emtricitabine/Tenofovir (Atripla 600 Mg-200 Mg-300 Mg) 1 tab PO DAILY [facility] Last Admin: 06/04/16 10:54 Dose: 1 tab Enoxaparin Sodium (Lovenox) 40 mg SC DAILY [facility] Last Admin: 06/04/16 10:55 Dose: 40 mg Fluconazole (Diflucan) 100 mg PO DAILY [facility] Last Admin: 06/04/16 10:55 Dose: 100 mg Azithromycin 500 mg/ Sodium (Chloride) 250 mls @ 167 mls/hr IVPB Q24H [facility] Last Admin: 06/04/16 17:22 Dose: 167 mls/hr Sodium Chloride (Sodium Chloride 0.9%) 1,000 mls @ 75 mls/hr IV .[id number] [facility] Last Admin: 06/04/16 13:53 Dose: 75 mls/hr Ceftriaxone Sodium 2 gm/ (Sodium Chloride) 100 mls @ 100 mls/hr IVPB Q24H [facility] Last Admin: 06/03/16 20:27 Dose: 100 mls/hr Insulin Aspart (Novolog) 14 unit SC AC [facility] Last Admin: 06/04/16 17:23 Dose: 14 unit Insulin Aspart (Novolog) 0 unit SC ACHS [facility] PRN Reason: Protocol Last Admin: 06/04/16 17:31 Dose: Not Given Insulin Glargine (Lantus) 50 unit SC HS [facility] Last Admin: 06/03/16 21:55 Dose: 50 units Metformin HCl (Glucophage) 1,000 mg PO BIDCC [facility] Last Admin: 06/04/16 17:23 Dose: 1,000 mg Montelukast Sodium (Singulair) 10 mg PO HS [facility] Last Admin: 06/03/16 21:54 Dose: 10 mg Pantoprazole Sodium (Protonix Ec Tab) 40 mg PO DAILY [facility] Last Admin: 06/04/16 10:55 Dose: 40 mg Pneumococcal Polyvalent Vaccine (Pneumovax 23 Vaccine) 0.5 ml IM .ONCE ONE Stop: 06/05/16 10:01 Prednisone (Prednisone Tab) 20 mg PO DAILY [facility] Last Admin: 06/04/16 11:26 Dose: 20 mg Promethazine HCl/Codeine (Phenergan/Codeine Oral Syrup) 5 ml PO Q4 PRN PRN Reason: Cough Last Admin: 06/04/16 17:23 Dose: 5 ml Sitagliptin Phosphate (Januvia) 100 mg PO DAILY [facility] Last Admin: 06/04/16 10:54 Dose: 100 mg Trimethoprim/Sulfamethoxazole (Bactrim Ds Tab) 1 tab PO Q6H [facility] Last Admin: 06/04/16 14:37 Dose: 1 tab - Labs Labs: 06/04/16 06:13 06/04/16 06:13 PT 10.4 SECONDS (9.7-12.2) 05/30/16 12:16 INR 0.9 05/30/16 12:16 APTT 25 SECONDS (21-34) 05/30/16 12:16 - Constitutional Appears: Non-toxic - Head Exam Head Exam: NORMOCEPHALIC - Eye Exam Eye Exam: PERRL. absent: Scleral icterus - ENT Exam ENT Exam: Mucous Membranes Dry - Neck Exam Neck Exam: absent: Lymphadenopathy - Respiratory Exam Respiratory Exam: Decreased Breath Sounds - Cardiovascular Exam Cardiovascular Exam: REGULAR RHYTHM, +S1, +S2 - GI/Abdominal Exam GI & Abdominal Exam: Distended, Soft. absent: Tenderness - Rectal Exam Rectal Exam: Deferred - Exam Exam: NORMAL INSPECTION - Extremities Exam Extremities Exam: absent: Pedal Edema - Back Exam Back Exam: absent: CVA tenderness (L), CVA tenderness (R) - Neurological Exam Neurological Exam: Alert, Awake, Oriented x3 - Psychiatric Exam Psychiatric exam: Normal Mood - Skin Skin Exam: Dry Assessment and Plan (1) Nodule of right lung Status: Acute (2) Pneumonia Status: Acute (3) Uncontrolled diabetes mellitus Status: Acute (4) Cough due to bronchospasm Status: Acute (5) Asthma exacerbation Status: Chronic
[2016-06-04] MEDS: cefTRIAXone 2 GM in Sodium Chloride 0.9% 100 ML IVPB SCH (20:47)
[2016-06-04] MEDS: (Lantus) Insulin Glargine, Recombinant SC SCH (22:18)
[2016-06-05] MEDS: Tmp-Smz 800 mg-160 mg DS Tab PO SCH ×5 (02:20→22:00)
[2016-06-05 07:05] LABS: CHLORIDE 101 mmol/L (98-107); POTASSIUM 3.9 mmol/L (3.6-5.2); SODIUM 134 mmol/L (132-148)
[2016-06-05 07:07] LABS: ALB/GLOB RATIO 0.9 (1.0-2.1); ALKALINE PHOSPHATASE 60 U/L (38-126); AST/SGOT 14 U/L (17-59); BILIRUBIN,TOTAL 0.8 mg/dL (0.2-1.3); CARBON DIOXIDE 25 mmol/L (22-30); GFR AFRICAN-AMERICAN > 60; TOTAL PROTEIN 6.2 g/dL (6.3-8.3)
[2016-06-05 07:08] LABS: ALT/SGPT 18 U/L (21-72); BLOOD UREA NITROGEN 16 mg/dL (9-20); CALCIUM 8.2 mg/dl (8.6-10.4); GLUCOSE,RANDOM 143 mg/dL (75-110)
[2016-06-05 07:16] LABS: BASO % 0.4 % (0.0-2.0); EOS # 0.2 K/uL (0.0-0.7); EOS % 3.3 % (0.0-4.0); HEMATOCRIT 44.1 % (35.0-51.0); LYMPH # 0.6 K/uL (1.0-4.3); LYMPH % 8.7 % (20.0-40.0); MEAN CELL VOLUME 83.6 fL (80.0-94.0); MEAN CORPUSCULAR HEMOGLOBIN 27.5 pg (27.0-31.0); MEAN CORPUSCULAR HGB CONC 32.9 g/dL (33.0-37.0); MEAN PLATELET VOLUME 8.2 fL (7.2-11.7); MONO # 0.5 K/uL (0.0-0.8); MONO % 7.5 % (0.0-10.0); NRBC % 0.2 % (0.0-2.0); PLATELET COUNT 107 K/uL (130-400); RED CELL DISTRIBUTION WIDTH 14.3 % (11.5-14.5); WHITE BLOOD COUNT 6.4 K/uL (4.8-10.8)
[2016-06-05] MEDS ORDERED: (Novolog) Insulin Aspart, Recombinant 100 u/ml 10 ml vial SC SCH (07:30)
[2016-06-05] MEDS: (Novolog) Insulin Aspart, Recombinant 100 u/ml 10 ml vial SC SCH ×4 (08:05→21:36)
[2016-06-05 09:21] LABS: % CD3 (MATURE T CELL) 67 Percent (57-85)
[2016-06-05 09:23] LABS: EOSINOPHIL 3 % (0-4); NEUTROPHIL 83 % (50-75); TOTAL CELLS COUNTED 100
[2016-06-05] MEDS ORDERED: Pneumococcal 23-Valent Vaccine IM ONE (10:00)
--- NOTE | 2016-06-05 10:23 | CP.PCM.PN ---
Subjective - Date & Time of Evaluation Date of Evaluation: 06/05/16 Time of Evaluation: 10:00 - Subjective Subjective: clinically same Objective - Vital Signs/Intake and Output Vital Signs (last 24 hours): Temp Pulse Resp BP Pulse Ox 98.3 F 94 H 18 117/62 98 06/05/16 08:14 06/05/16 08:14 06/05/16 08:14 06/05/16 08:14 06/05/16 08:14 Intake and Output: 06/05/16 06/05/16 06:59 18:59 Intake Total 240 Balance 240 - Medications Medications: Current Medications Efavirenz/Emtricitabine/Tenofovir (Atripla 600 Mg-200 Mg-300 Mg) 1 tab PO DAILY [facility] Last Admin: 06/04/16 10:54 Dose: 1 tab Enoxaparin Sodium (Lovenox) 40 mg SC DAILY [facility] Last Admin: 06/04/16 10:55 Dose: 40 mg Fluconazole (Diflucan) 100 mg PO DAILY [facility] Last Admin: 06/04/16 10:55 Dose: 100 mg Azithromycin 500 mg/ Sodium (Chloride) 250 mls @ 167 mls/hr IVPB Q24H [facility] Last Admin: 06/04/16 17:22 Dose: 167 mls/hr Ceftriaxone Sodium 2 gm/ (Sodium Chloride) 100 mls @ 100 mls/hr IVPB Q24H [facility] Last Admin: 06/04/16 20:47 Dose: 100 mls/hr Insulin Aspart (Novolog) 0 unit SC ACHS [facility] PRN Reason: Protocol Last Admin: 06/05/16 08:05 Dose: Not Given Insulin Aspart (Novolog) 8 unit SC AC [facility] Insulin Glargine (Lantus) 30 unit SC HS [facility] Last Admin: 06/04/16 22:18 Dose: Not Given Metformin HCl (Glucophage) 1,000 mg PO BIDCC [facility] Last Admin: 06/05/16 08:20 Dose: 1,000 mg Montelukast Sodium (Singulair) 10 mg PO HS [facility] Last Admin: 06/04/16 22:17 Dose: 10 mg Pantoprazole Sodium (Protonix Ec Tab) 40 mg PO DAILY [facility] Last Admin: 06/04/16 10:55 Dose: 40 mg Prednisone (Prednisone Tab) 20 mg PO DAILY [facility] Last Admin: 06/04/16 11:26 Dose: 20 mg Promethazine HCl/Codeine (Phenergan/Codeine Oral Syrup) 5 ml PO Q4 PRN PRN Reason: Cough Last Admin: 06/04/16 22:21 Dose: 5 ml Sitagliptin Phosphate (Januvia) 100 mg PO DAILY [facility] Last Admin: 06/04/16 10:54 Dose: 100 mg Trimethoprim/Sulfamethoxazole (Bactrim Ds Tab) 1 tab PO Q6H [facility] Last Admin: 06/05/16 02:20 Dose: 1 tab - Labs Labs: 06/05/16 06:28 06/05/16 06:28 PT 10.4 SECONDS (9.7-12.2) 05/30/16 12:16 INR 0.9 05/30/16 12:16 APTT 25 SECONDS (21-34) 05/30/16 12:16 - Constitutional Appears: Well - Head Exam Head Exam: ATRAUMATIC, NORMAL INSPECTION, NORMOCEPHALIC - Eye Exam Eye Exam: EOMI, Normal appearance, PERRL Pupil Exam: NORMAL ACCOMODATION, PERRL - ENT Exam ENT Exam: Mucous Membranes Moist, Normal Exam - Neck Exam Neck Exam: Full ROM, Normal Inspection. absent: Lymphadenopathy - Respiratory Exam Respiratory Exam: Decreased Breath Sounds - Cardiovascular Exam Cardiovascular Exam: REGULAR RHYTHM, +S1, +S2 - GI/Abdominal Exam GI & Abdominal Exam: Soft, Diminished Bowel Sounds - Rectal Exam Rectal Exam: Deferred Assessment and Plan (1) Nodule of right lung Status: Acute (2) Pneumonia Status: Acute (3) Prophylactic measure Status: Acute (4) Uncontrolled diabetes mellitus Status: Acute (5) Cough due to bronchospasm Status: Acute (6) Asthma exacerbation Status: Chronic (7) HIV (human immunodeficiency virus infection) Status: Acute
[2016-06-05] MEDS: Efavirenz/Emtricitabine/Teno 1 TAB PO SCH (10:58)
[2016-06-05] MEDS: Pantoprazole 40 mg EC Tab PO SCH (10:58)
[2016-06-05] MEDS: Promethazine/Cod 6.25mg-10mg/5ml Syr UD PO PRN ×2 (10:59→17:54)
[2016-06-05] MEDS: Enoxaparin 40 mg Syringe SC SCH (10:59)
--- NOTE | 2016-06-05 13:11 | PN ---
DATE: 06/05/2016 ROOM: 651 This is a 46-year-old male with recent acute exacerbation of asthmatic bronchitis and has been switch ed over now from IV steroids to oral steroid therapy as noted. His insulin regimen also has been tap ered down and his glucose levels today have improved and have ranged from 96 to 146 and 184 mg/dL. H is latest chemistries include a BUN of 16, sodium 134, potassium 3.9, chloride 101, CO2 25, glucose 1 43 and creatinine 0.8. So, at this time, we will continue the modified basal and bolus insulin regim en to allow for dose equilibration and keep him on the Lantus given as 30 units subQ at bedtime daily as ordered. We will also continue the low-dose correction scale using NovoLog insulin as given. Hi s NovoLog 8 units before meals was actually held today and we will observe his glycemic fluctuations and restart him on a much lower dose as indicated. We will continue also the Januvia given as 100 mg daily and metformin 1000 mg b.i.d. We will titrate incrementally as indicated to optimize metabolic control. We will follow. Joanna Linares MD cc: [id number] TT: 06/05/2016 13:11:27 Confirmation # [id number] Dictation # [id number]
--- NOTE | 2016-06-05 13:21 | CP.PCM.PN ---
Subjective - Date & Time of Evaluation Date of Evaluation: 06/05/16 Time of Evaluation: 07:00 - Subjective Subjective: CD4 < 20 likely infected over 7 years may need FOB/BAL poor prognosis consider pulm re-eval Objective - Vital Signs/Intake and Output Vital Signs (last 24 hours): Temp Pulse Resp BP Pulse Ox 98.3 F 94 H 18 117/62 98 06/05/16 08:14 06/05/16 08:14 06/05/16 08:14 06/05/16 08:14 06/05/16 08:14 Intake and Output: 06/05/16 06/05/16 06:59 18:59 Intake Total 240 Balance 240 - Medications Medications: Current Medications Efavirenz/Emtricitabine/Tenofovir (Atripla 600 Mg-200 Mg-300 Mg) 1 tab PO DAILY [facility] Last Admin: 06/05/16 10:58 Dose: 1 tab Enoxaparin Sodium (Lovenox) 40 mg SC DAILY [facility] Last Admin: 06/05/16 10:59 Dose: 40 mg Fluconazole (Diflucan) 100 mg PO DAILY [facility] Last Admin: 06/05/16 10:58 Dose: 100 mg Azithromycin 500 mg/ Sodium (Chloride) 250 mls @ 167 mls/hr IVPB Q24H [facility] Last Admin: 06/04/16 17:22 Dose: 167 mls/hr Ceftriaxone Sodium 2 gm/ (Sodium Chloride) 100 mls @ 100 mls/hr IVPB Q24H [facility] Last Admin: 06/04/16 20:47 Dose: 100 mls/hr Insulin Aspart (Novolog) 0 unit SC ACHS [facility] PRN Reason: Protocol Last Admin: 06/05/16 12:21 Dose: Not Given Insulin Aspart (Novolog) 8 unit SC AC [facility] Last Admin: 06/05/16 08:22 Dose: Not Given Insulin Glargine (Lantus) 30 unit SC HS [facility] Last Admin: 06/04/16 22:18 Dose: Not Given Metformin HCl (Glucophage) 1,000 mg PO BIDCC [facility] Last Admin: 06/05/16 08:20 Dose: 1,000 mg Montelukast Sodium (Singulair) 10 mg PO HS [facility] Last Admin: 06/04/16 22:17 Dose: 10 mg Pantoprazole Sodium (Protonix Ec Tab) 40 mg PO DAILY [facility] Last Admin: 06/05/16 10:58 Dose: 40 mg Prednisone (Prednisone Tab) 20 mg PO DAILY [facility] Last Admin: 06/05/16 10:58 Dose: 20 mg Promethazine HCl/Codeine (Phenergan/Codeine Oral Syrup) 5 ml PO Q4 PRN PRN Reason: Cough Last Admin: 06/05/16 10:59 Dose: 5 ml Sitagliptin Phosphate (Januvia) 100 mg PO DAILY [facility] Last Admin: 06/05/16 10:58 Dose: 100 mg Trimethoprim/Sulfamethoxazole (Bactrim Ds Tab) 1 tab PO Q6H [facility] Last Admin: 06/05/16 09:58 Dose: 1 tab - Labs Labs: 06/05/16 06:28 06/05/16 06:28 PT 10.4 SECONDS (9.7-12.2) 05/30/16 12:16 INR 0.9 05/30/16 12:16 APTT 25 SECONDS (21-34) 05/30/16 12:16 - Constitutional Appears: Toxic, In Acute Distress - Head Exam Head Exam: NORMOCEPHALIC - Eye Exam Eye Exam: PERRL. absent: Scleral icterus - ENT Exam ENT Exam: Mucous Membranes Dry, Normal External Ear Exam - Neck Exam Neck Exam: absent: Lymphadenopathy - Respiratory Exam Respiratory Exam: Decreased Breath Sounds, Rales, Rhonchi - Cardiovascular Exam Cardiovascular Exam: REGULAR RHYTHM, +S1, +S2 - GI/Abdominal Exam GI & Abdominal Exam: Distended, Soft. absent: Tenderness - Rectal Exam Rectal Exam: Deferred - Exam Exam: NORMAL INSPECTION - Extremities Exam Extremities Exam: absent: Calf Tenderness, Pedal Edema - Back Exam Back Exam: absent: CVA tenderness (L), CVA tenderness (R) Assessment and Plan (1) Nodule of right lung Status: Acute (2) Pneumonia Status: Acute (3) Uncontrolled diabetes mellitus Status: Acute (4) Cough due to bronchospasm Status: Acute (5) Asthma exacerbation Status: Chronic
[2016-06-05] MEDS: cefTRIAXone 2 GM in Sodium Chloride 0.9% 100 ML IVPB SCH (17:50)
--- NOTE | 2016-06-05 20:02 | CP.PCM.PN ---
Subjective - Date & Time of Evaluation Date of Evaluation: 06/05/16 Time of Evaluation: 19:35 - Subjective Subjective: Patient seen and examined. Lying comfortably in no acute distress Patient states this is much improved Chest x-ray reviewed from yesterday Afebrile no Chest pain Objective - Vital Signs/Intake and Output Vital Signs (last 24 hours): Temp Pulse Resp BP Pulse Ox 99.4 F 132 H 22 145/102 H 94 L 06/05/16 15:36 06/05/16 15:36 06/05/16 15:36 06/05/16 15:36 06/05/16 15:36 - Medications Medications: Current Medications Diltiazem HCl (Cardizem) 30 mg PO Q8 [facility] Last Admin: 06/05/16 17:45 Dose: 30 mg Efavirenz/Emtricitabine/Tenofovir (Atripla 600 Mg-200 Mg-300 Mg) 1 tab PO DAILY [facility] Last Admin: 06/05/16 10:58 Dose: 1 tab Enoxaparin Sodium (Lovenox) 40 mg SC DAILY [facility] Last Admin: 06/05/16 10:59 Dose: 40 mg Fluconazole (Diflucan) 100 mg PO DAILY [facility] Last Admin: 06/05/16 10:58 Dose: 100 mg Azithromycin 500 mg/ Sodium (Chloride) 250 mls @ 167 mls/hr IVPB Q24H [facility] Last Admin: 06/04/16 17:22 Dose: 167 mls/hr Ceftriaxone Sodium 2 gm/ (Sodium Chloride) 100 mls @ 100 mls/hr IVPB Q24H [facility] Last Admin: 06/05/16 17:50 Dose: 100 mls/hr Insulin Aspart (Novolog) 0 unit SC ACHS [facility] PRN Reason: Protocol Last Admin: 06/05/16 17:00 Dose: 4 unit Insulin Aspart (Novolog) 8 unit SC AC [facility] Last Admin: 06/05/16 08:22 Dose: Not Given Insulin Glargine (Lantus) 30 unit SC HS [facility] Last Admin: 06/04/16 22:18 Dose: Not Given Metformin HCl (Glucophage) 1,000 mg PO BIDCC [facility] Last Admin: 06/05/16 17:46 Dose: 1,000 mg Montelukast Sodium (Singulair) 10 mg PO HS [facility] Last Admin: 06/04/16 22:17 Dose: 10 mg Pantoprazole Sodium (Protonix Ec Tab) 40 mg PO DAILY [facility] Last Admin: 06/05/16 10:58 Dose: 40 mg Prednisone (Prednisone Tab) 20 mg PO DAILY [facility] Last Admin: 06/05/16 10:58 Dose: 20 mg Promethazine HCl/Codeine (Phenergan/Codeine Oral Syrup) 5 ml PO Q4 PRN PRN Reason: Cough Last Admin: 06/05/16 17:54 Dose: 5 ml Sitagliptin Phosphate (Januvia) 100 mg PO DAILY [facility] Last Admin: 06/05/16 10:58 Dose: 100 mg Trimethoprim/Sulfamethoxazole (Bactrim Ds Tab) 1 tab PO Q6H [facility] Last Admin: 06/05/16 17:45 Dose: 1 tab - Labs Labs: 06/05/16 06:28 06/05/16 06:28 PT 10.4 SECONDS (9.7-12.2) 05/30/16 12:16 INR 0.9 05/30/16 12:16 APTT 25 SECONDS (21-34) 05/30/16 12:16 - Constitutional Appears: No Acute Distress - Head Exam Head Exam: ATRAUMATIC, NORMOCEPHALIC - Eye Exam Eye Exam: Normal appearance - ENT Exam ENT Exam: Mucous Membranes Moist - Neck Exam Neck Exam: Normal Inspection - Respiratory Exam Respiratory Exam: Clear to Ausculation Bilateral - Cardiovascular Exam Cardiovascular Exam: REGULAR RHYTHM - GI/Abdominal Exam GI & Abdominal Exam: Soft, Normal Bowel Sounds - Extremities Exam Extremities Exam: Normal Inspection - Neurological Exam Neurological Exam: Alert, Oriented x3 Assessment and Plan (1) Pneumonia Assessment & Plan: Chest x-ray with improving infiltrate Continue antibiotics per ID Continue nebulizer treatment taper Steroids Status: Acute (2) Asthma exacerbation Status: Chronic (3) Nodule of right lung Status: Acute (4) HIV (human immunodeficiency virus infection) Status: Acute
--- NOTE | 2016-06-05 20:35 | CP.PCM.PN ---
Subjective - Date & Time of Evaluation Date of Evaluation: 06/05/16 Time of Evaluation: 18:00 - Subjective Subjective: Patient with tachycardia HR ranging in 120s Will add Cardizem 30 Q8 Review Of Systems Except As Marked, All Systems Reviewed And Found Negative. Constitutional: Negative for: Fever, Chills Cardiovascular: Negative for: Chest Pain, Palpitations, Light Headedness Respiratory: Positive for:Shortness of Breath. Negative for: Hemoptysis, Wheezing Physical Exam - Physical Exam Additional Physical Exam Comments: Constitutional: In some respiratory distress. Head: Normocephalic. Atraumatic. Eyes: PERRL. ENT: Moist mucous membranes. Neck: Supple. Cardiovascular: Tachycardic. Radial pulse 2+ bilaterally. Chest: No tenderness. Respiratory: Clear to auscultation bilaterally. GI: Soft. Nontender. Nondistended. Back: No CVA tenderness. Musculoskeletal: No tenderness or swelling of extremities. Skin: No rash. Neurologic: Alert, no focal deficit. Objective - Vital Signs/Intake and Output Vital Signs (last 24 hours): Temp Pulse Resp BP Pulse Ox 99.4 F 128 H 22 145/102 H 94 L 06/05/16 15:36 06/05/16 17:00 06/05/16 15:36 06/05/16 15:36 06/05/16 15:36 - Medications Medications: Current Medications Diltiazem HCl (Cardizem) 30 mg PO Q8 [facility] Last Admin: 06/05/16 17:45 Dose: 30 mg Efavirenz/Emtricitabine/Tenofovir (Atripla 600 Mg-200 Mg-300 Mg) 1 tab PO DAILY [facility] Last Admin: 06/05/16 10:58 Dose: 1 tab Enoxaparin Sodium (Lovenox) 40 mg SC DAILY [facility] Last Admin: 06/05/16 10:59 Dose: 40 mg Fluconazole (Diflucan) 100 mg PO DAILY [facility] Last Admin: 06/05/16 10:58 Dose: 100 mg Azithromycin 500 mg/ Sodium (Chloride) 250 mls @ 167 mls/hr IVPB Q24H [facility] Last Admin: 06/04/16 17:22 Dose: 167 mls/hr Ceftriaxone Sodium 2 gm/ (Sodium Chloride) 100 mls @ 100 mls/hr IVPB Q24H [facility] Last Admin: 06/05/16 17:50 Dose: 100 mls/hr Insulin Aspart (Novolog) 0 unit SC ACHS [facility] PRN Reason: Protocol Last Admin: 06/05/16 17:00 Dose: 4 unit Insulin Aspart (Novolog) 8 unit SC AC [facility] Last Admin: 06/05/16 08:22 Dose: Not Given Insulin Glargine (Lantus) 30 unit SC HS [facility] Last Admin: 06/04/16 22:18 Dose: Not Given Metformin HCl (Glucophage) 1,000 mg PO BIDCC [facility] Last Admin: 06/05/16 17:46 Dose: 1,000 mg Montelukast Sodium (Singulair) 10 mg PO HS [facility] Last Admin: 06/04/16 22:17 Dose: 10 mg Pantoprazole Sodium (Protonix Ec Tab) 40 mg PO DAILY [facility] Last Admin: 06/05/16 10:58 Dose: 40 mg Prednisone (Prednisone Tab) 20 mg PO DAILY [facility] Last Admin: 06/05/16 10:58 Dose: 20 mg Promethazine HCl/Codeine (Phenergan/Codeine Oral Syrup) 5 ml PO Q4 PRN PRN Reason: Cough Last Admin: 06/05/16 17:54 Dose: 5 ml Sitagliptin Phosphate (Januvia) 100 mg PO DAILY [facility] Last Admin: 06/05/16 10:58 Dose: 100 mg Trimethoprim/Sulfamethoxazole (Bactrim Ds Tab) 1 tab PO Q6H [facility] Last Admin: 06/05/16 17:45 Dose: 1 tab - Labs Labs: 06/05/16 06:28 06/05/16 06:28 PT 10.4 SECONDS (9.7-12.2) 05/30/16 12:16 INR 0.9 05/30/16 12:16 APTT 25 SECONDS (21-34) 05/30/16 12:16 Assessment and Plan - Assessment and Plan (Free Text) Assessment: (1) Tachycardia Status: On Cardizem Improving (2) Pneumonia Assessment & Plan: Mgt as per pulmonary Status: Acute (3) Asthma exacerbation Status: Chronic (4) Nodule of right lung Status: Acute (5) HIV (human immunodeficiency virus infection) Status: Acute
[2016-06-05] MEDS: Azithromycin 500 MG in Sodium Chloride 0.9% 250 ML IVPB SCH (21:54)
[2016-06-05] MEDS: (Lantus) Insulin Glargine, Recombinant SC SCH (22:05)
[2016-06-06] MEDS: Tmp-Smz 800 mg-160 mg DS Tab PO SCH ×4 (03:00→22:00)
[2016-06-06 06:23] LABS: BASO % 0.4 % (0.0-2.0); EOS # 0.2 K/uL (0.0-0.7); EOS % 4.3 % (0.0-4.0); HEMATOCRIT 44.4 % (35.0-51.0); LYMPH # 0.5 K/uL (1.0-4.3); LYMPH % 10.8 % (20.0-40.0); MEAN CELL VOLUME 83.8 fL (80.0-94.0); MEAN CORPUSCULAR HEMOGLOBIN 27.5 pg (27.0-31.0); MEAN CORPUSCULAR HGB CONC 32.8 g/dL (33.0-37.0); MEAN PLATELET VOLUME 7.5 fL (7.2-11.7); MONO # 0.4 K/uL (0.0-0.8); MONO % 7.5 % (0.0-10.0); NRBC % 0.1 % (0.0-2.0); RED CELL DISTRIBUTION WIDTH 13.9 % (11.5-14.5); WHITE BLOOD COUNT 5.1 K/uL (4.8-10.8)
[2016-06-06 06:39] LABS: CHLORIDE 101 mmol/L (98-107); POTASSIUM 4.2 mmol/L (3.6-5.2); SODIUM 133 mmol/L (132-148)
[2016-06-06 06:41] LABS: ALB/GLOB RATIO 0.9 (1.0-2.1); AST/SGOT 11 U/L (17-59); BILIRUBIN,TOTAL 0.7 mg/dL (0.2-1.3); CARBON DIOXIDE 23 mmol/L (22-30); GFR AFRICAN-AMERICAN > 60; TOTAL PROTEIN 6.5 g/dL (6.3-8.3)
[2016-06-06 06:42] LABS: ALKALINE PHOSPHATASE 63 U/L (38-126); ALT/SGPT 15 U/L (21-72); BLOOD UREA NITROGEN 19 mg/dL (9-20); CALCIUM 8.1 mg/dl (8.6-10.4); GLUCOSE,RANDOM 118 mg/dL (75-110)
[2016-06-06] MEDS: (Novolog) Insulin Aspart, Recombinant 100 u/ml 10 ml vial SC SCH ×4 (07:56→21:38)
--- NOTE | 2016-06-06 09:34 | CP.PCM.PN ---
Subjective - Date & Time of Evaluation Date of Evaluation: 06/06/16 Time of Evaluation: 17:00 - Subjective Subjective: clinically same cough improved Objective - Vital Signs/Intake and Output Vital Signs (last 24 hours): Temp Pulse Resp BP Pulse Ox 98.3 F 122 H 20 132/78 97 06/06/16 07:29 06/06/16 07:29 06/06/16 07:29 06/06/16 07:29 06/05/16 23:10 Intake and Output: 06/06/16 06/06/16 06:59 18:59 Intake Total 1270 Output Total 400 Balance 870 - Medications Medications: Current Medications Diltiazem HCl (Cardizem) 30 mg PO Q8 [facility] Last Admin: 06/06/16 05:27 Dose: 30 mg Efavirenz/Emtricitabine/Tenofovir (Atripla 600 Mg-200 Mg-300 Mg) 1 tab PO DAILY [facility] Last Admin: 06/05/16 10:58 Dose: 1 tab Enoxaparin Sodium (Lovenox) 40 mg SC DAILY [facility] Last Admin: 06/05/16 10:59 Dose: 40 mg Fluconazole (Diflucan) 100 mg PO DAILY [facility] Last Admin: 06/05/16 10:58 Dose: 100 mg Azithromycin 500 mg/ Sodium (Chloride) 250 mls @ 167 mls/hr IVPB Q24H [facility] Last Admin: 06/05/16 21:54 Dose: 167 mls/hr Ceftriaxone Sodium 2 gm/ (Sodium Chloride) 100 mls @ 100 mls/hr IVPB Q24H [facility] Last Admin: 06/05/16 17:50 Dose: 100 mls/hr Insulin Aspart (Novolog) 0 unit SC ACHS [facility] PRN Reason: Protocol Last Admin: 06/06/16 07:56 Dose: Not Given Insulin Aspart (Novolog) 8 unit SC AC [facility] Last Admin: 06/05/16 08:22 Dose: Not Given Insulin Glargine (Lantus) 30 unit SC HS [facility] Last Admin: 06/05/16 22:05 Dose: 30 unit Metformin HCl (Glucophage) 1,000 mg PO BIDCC [facility] Last Admin: 06/06/16 08:50 Dose: 1,000 mg Montelukast Sodium (Singulair) 10 mg PO HS [facility] Last Admin: 06/05/16 22:00 Dose: 10 mg Pantoprazole Sodium (Protonix Ec Tab) 40 mg PO DAILY [facility] Last Admin: 06/05/16 10:58 Dose: 40 mg Prednisone (Prednisone Tab) 20 mg PO DAILY [facility] Last Admin: 06/05/16 10:58 Dose: 20 mg Promethazine HCl/Codeine (Phenergan/Codeine Oral Syrup) 5 ml PO Q4 PRN PRN Reason: Cough Last Admin: 06/05/16 17:54 Dose: 5 ml Sitagliptin Phosphate (Januvia) 100 mg PO DAILY [facility] Last Admin: 06/05/16 10:58 Dose: 100 mg Trimethoprim/Sulfamethoxazole (Bactrim Ds Tab) 1 tab PO Q6H [facility] Last Admin: 06/06/16 03:00 Dose: 1 tab - Labs Labs: 06/06/16 06:00 06/06/16 06:00 PT 10.4 SECONDS (9.7-12.2) 05/30/16 12:16 INR 0.9 05/30/16 12:16 APTT 25 SECONDS (21-34) 05/30/16 12:16 - Constitutional Appears: Well - Head Exam Head Exam: ATRAUMATIC, NORMAL INSPECTION, NORMOCEPHALIC - Eye Exam Eye Exam: EOMI, Normal appearance, PERRL Pupil Exam: NORMAL ACCOMODATION, PERRL - ENT Exam ENT Exam: Mucous Membranes Moist, Normal Exam - Neck Exam Neck Exam: Full ROM, Normal Inspection. absent: Lymphadenopathy - Respiratory Exam Respiratory Exam: Decreased Breath Sounds, Rales - Cardiovascular Exam Cardiovascular Exam: REGULAR RHYTHM, +S1, +S2 - GI/Abdominal Exam GI & Abdominal Exam: Distended, Soft, Diminished Bowel Sounds - Rectal Exam Rectal Exam: Deferred Assessment and Plan (1) Asthma exacerbation Status: Chronic (2) Cough due to bronchospasm Status: Acute (3) Pneumonia Status: Acute (4) Prophylactic measure Status: Acute (5) Nodule of right lung Status: Acute (6) Uncontrolled diabetes mellitus Status: Acute (7) HIV (human immunodeficiency virus infection) Status: Acute - Assessment and Plan (Free Text) Plan: discharge on hold as pt may need bal as still coughing geovany same folow up with consultations
[2016-06-06] MEDS: Efavirenz/Emtricitabine/Teno 1 TAB PO SCH (10:45)
[2016-06-06] MEDS: Pantoprazole 40 mg EC Tab PO SCH (10:45)
[2016-06-06] MEDS: Enoxaparin 40 mg Syringe SC SCH (10:47)
[2016-06-06] MEDS: Promethazine/Cod 6.25mg-10mg/5ml Syr UD PO PRN (12:51)
[2016-06-06] MEDS: Azithromycin 500 MG in Sodium Chloride 0.9% 250 ML IVPB SCH (15:52)
--- NOTE | 2016-06-06 17:45 | PN ---
DATE: 06/06/2016 ROOM: 651 This is a 46-year-old male with uncontrolled type 2 insulin-requiring diabetes and has been switched over from IV steroids to oral steroids at this time with improved glycemic profile as noted. His lat est chemistries showed a BUN of 19, sodium 133, potassium 4.2, chloride 101, CO2 23, glucose 118 and creatinine 0.8. His glucose levels have ranged from 116-233 mg/dL. At this time, we will continue t he same basal and bolus insulin regimen as given to allow for dose equilibration and keep him on Henry Log at the lower dose of 6 units subQ t.i.d. before meals as ordered. We will continue the Lantus gi nils as 30 units subQ at bedtime daily as ordered. We will continue the low-dose correction scale usi ng NovoLog insulin as given. We will follow and advise accordingly. Joanna Linares MD cc: [id number] TT: 06/06/2016 17:44:44 Confirmation # [id number] Dictation # [id number] terra
[2016-06-06] MEDS: cefTRIAXone 2 GM in Sodium Chloride 0.9% 100 ML IVPB SCH (19:16)
--- NOTE | 2016-06-06 20:20 | CP.PCM.PN ---
Subjective - Date & Time of Evaluation Date of Evaluation: 06/06/16 Time of Evaluation: 10:05 - Subjective Subjective: Patient seen and examined. Lying comfortably in no acute distress Patient states this is much improved Chest x-ray reviewed from yesterday Afebrile no Chest pain Objective - Vital Signs/Intake and Output Vital Signs (last 24 hours): Temp Pulse Resp BP Pulse Ox 99.4 F 132 H 22 145/102 H 94 L 06/05/16 15:36 06/05/16 15:36 06/05/16 15:36 06/05/16 15:36 06/05/16 15:36 - Medications Medications: Current Medications Diltiazem HCl (Cardizem) 30 mg PO Q8 [facility] Last Admin: 06/05/16 17:45 Dose: 30 mg Efavirenz/Emtricitabine/Tenofovir (Atripla 600 Mg-200 Mg-300 Mg) 1 tab PO DAILY [facility] Last Admin: 06/05/16 10:58 Dose: 1 tab Enoxaparin Sodium (Lovenox) 40 mg SC DAILY [facility] Last Admin: 06/05/16 10:59 Dose: 40 mg Fluconazole (Diflucan) 100 mg PO DAILY [facility] Last Admin: 06/05/16 10:58 Dose: 100 mg Azithromycin 500 mg/ Sodium (Chloride) 250 mls @ 167 mls/hr IVPB Q24H [facility] Last Admin: 06/04/16 17:22 Dose: 167 mls/hr Ceftriaxone Sodium 2 gm/ (Sodium Chloride) 100 mls @ 100 mls/hr IVPB Q24H [facility] Last Admin: 06/05/16 17:50 Dose: 100 mls/hr Insulin Aspart (Novolog) 0 unit SC ACHS [facility] PRN Reason: Protocol Last Admin: 06/05/16 17:00 Dose: 4 unit Insulin Aspart (Novolog) 8 unit SC AC [facility] Last Admin: 06/05/16 08:22 Dose: Not Given Insulin Glargine (Lantus) 30 unit SC HS [facility] Last Admin: 06/04/16 22:18 Dose: Not Given Metformin HCl (Glucophage) 1,000 mg PO BIDCC [facility] Last Admin: 06/05/16 17:46 Dose: 1,000 mg Montelukast Sodium (Singulair) 10 mg PO HS [facility] Last Admin: 06/04/16 22:17 Dose: 10 mg Pantoprazole Sodium (Protonix Ec Tab) 40 mg PO DAILY [facility] Last Admin: 06/05/16 10:58 Dose: 40 mg Prednisone (Prednisone Tab) 20 mg PO DAILY [facility] Last Admin: 06/05/16 10:58 Dose: 20 mg Promethazine HCl/Codeine (Phenergan/Codeine Oral Syrup) 5 ml PO Q4 PRN PRN Reason: Cough Last Admin: 06/05/16 17:54 Dose: 5 ml Sitagliptin Phosphate (Januvia) 100 mg PO DAILY [facility] Last Admin: 06/05/16 10:58 Dose: 100 mg Trimethoprim/Sulfamethoxazole (Bactrim Ds Tab) 1 tab PO Q6H [facility] Last Admin: 06/05/16 17:45 Dose: 1 tab - Labs Labs: 06/05/16 06:28 06/05/16 06:28 PT 10.4 SECONDS (9.7-12.2) 05/30/16 12:16 INR 0.9 05/30/16 12:16 APTT 25 SECONDS (21-34) 05/30/16 12:16 - Constitutional Appears: No Acute Distress - Head Exam Head Exam: ATRAUMATIC, NORMOCEPHALIC - Eye Exam Eye Exam: Normal appearance - ENT Exam ENT Exam: Mucous Membranes Moist - Neck Exam Neck Exam: Normal Inspection - Respiratory Exam Respiratory Exam: Clear to Ausculation Bilateral - Cardiovascular Exam Cardiovascular Exam: REGULAR RHYTHM - GI/Abdominal Exam GI & Abdominal Exam: Soft, Normal Bowel Sounds - Extremities Exam Extremities Exam: Normal Inspection - Neurological Exam Neurological Exam: Alert, Oriented x3 Objective - Vital Signs/Intake and Output Vital Signs (last 24 hours): Temp Pulse Resp BP Pulse Ox 97.9 F 117 H 20 134/85 96 06/06/16 15:53 06/06/16 15:53 06/06/16 15:53 06/06/16 15:53 06/06/16 15:53 - Medications Medications: Current Medications Diltiazem HCl (Cardizem) 90 mg PO Q8 [facility] Efavirenz/Emtricitabine/Tenofovir (Atripla 600 Mg-200 Mg-300 Mg) 1 tab PO DAILY [facility] Last Admin: 06/06/16 10:45 Dose: 1 tab Fluconazole (Diflucan) 100 mg PO DAILY [facility] Last Admin: 06/06/16 10:47 Dose: 100 mg Azithromycin 500 mg/ Sodium (Chloride) 250 mls @ 167 mls/hr IVPB Q24H [facility] Last Admin: 06/06/16 15:52 Dose: 167 mls/hr Ceftriaxone Sodium 2 gm/ (Sodium Chloride) 100 mls @ 100 mls/hr IVPB Q24H [facility] Last Admin: 06/06/16 19:16 Dose: 100 mls/hr Insulin Aspart (Novolog) 6 unit SC AC [facility] Insulin Aspart (Novolog) 0 unit SC ACHS [facility] PRN Reason: Protocol Last Admin: 06/06/16 18:05 Dose: 2 unit Insulin Glargine (Lantus) 30 unit SC HS [facility] Last Admin: 06/05/16 22:05 Dose: 30 unit Metformin HCl (Glucophage) 1,000 mg PO BIDCC [facility] Last Admin: 06/06/16 17:30 Dose: 1,000 mg Montelukast Sodium (Singulair) 10 mg PO HS [facility] Last Admin: 06/05/16 22:00 Dose: 10 mg Pantoprazole Sodium (Protonix Ec Tab) 40 mg PO DAILY [facility] Last Admin: 06/06/16 10:45 Dose: 40 mg Prednisone (Prednisone Tab) 20 mg PO DAILY [facility] Last Admin: 06/06/16 10:45 Dose: 20 mg Promethazine HCl/Codeine (Phenergan/Codeine Oral Syrup) 5 ml PO Q4 PRN PRN Reason: Cough Last Admin: 06/06/16 12:51 Dose: 5 ml Sitagliptin Phosphate (Januvia) 100 mg PO DAILY [facility] Last Admin: 06/06/16 10:45 Dose: 100 mg Trimethoprim/Sulfamethoxazole (Bactrim Ds Tab) 1 tab PO Q6H [facility] Last Admin: 06/06/16 14:43 Dose: 1 tab - Labs Labs: 06/06/16 06:00 06/06/16 06:00 PT 10.4 SECONDS (9.7-12.2) 05/30/16 12:16 INR 0.9 05/30/16 12:16 APTT 25 SECONDS (21-34) 05/30/16 12:16 Assessment and Plan - Assessment and Plan (Free Text) Assessment: (1) Tachycardia Status: On Cardizem (2) Pneumonia Assessment & Plan: Chest x-ray with improving infiltrate Continue antibiotics per ID Continue nebulizer treatment taper Steroids Status: Acute (3) Asthma exacerbation Status: Chronic (4) Nodule of right lung Status: Acute (5) HIV (human immunodeficiency virus infection) Status: Acute
[2016-06-06] MEDS: (Lantus) Insulin Glargine, Recombinant SC SCH (22:08)
[2016-06-07] MEDS: Tmp-Smz 800 mg-160 mg DS Tab PO SCH ×3 (02:43→14:23)
--- NOTE | 2016-06-07 07:03 | CP.PCM.PN ---
<Dion Washington H - Last Filed: 06/07/16 16:23> Subjective - Date & Time of Evaluation Date of Evaluation: 06/07/16 Time of Evaluation: 09:00 - Subjective Subjective: Dr. Knight service: Patient seen and evaluated in room. Patient reports he is coughing less and physicaly feels better. He does have some concern of being short breath when not using nasal canula. Patient reports that he becomes short of breath and light headed. He is also complaining about painful swallowing which has worsened. Objective - Vital Signs/Intake and Output Vital Signs (last 24 hours): Temp Pulse Resp BP Pulse Ox 98.1 F 97 H 20 113/70 96 06/07/16 06:01 06/07/16 06:01 06/07/16 06:01 06/07/16 06:01 06/07/16 06:01 - Medications Medications: Current Medications Diltiazem HCl (Cardizem) 90 mg PO Q8 [facility] Last Admin: 06/07/16 06:03 Dose: 90 mg Efavirenz/Emtricitabine/Tenofovir (Atripla 600 Mg-200 Mg-300 Mg) 1 tab PO DAILY [facility] Last Admin: 06/06/16 10:45 Dose: 1 tab Fluconazole (Diflucan) 100 mg PO DAILY [facility] Last Admin: 06/06/16 10:47 Dose: 100 mg Azithromycin 500 mg/ Sodium (Chloride) 250 mls @ 167 mls/hr IVPB Q24H [facility] Last Admin: 06/06/16 15:52 Dose: 167 mls/hr Ceftriaxone Sodium 2 gm/ (Sodium Chloride) 100 mls @ 100 mls/hr IVPB Q24H [facility] Last Admin: 06/06/16 19:16 Dose: 100 mls/hr Insulin Aspart (Novolog) 6 unit SC AC [facility] Insulin Aspart (Novolog) 0 unit SC ACHS [facility] PRN Reason: Protocol Last Admin: 06/06/16 21:38 Dose: Not Given Insulin Glargine (Lantus) 30 unit SC [facility] Last Admin: 06/06/16 22:08 Dose: 30 unit Metformin HCl (Glucophage) 1,000 mg PO BIDCC [facility] Last Admin: 06/06/16 17:30 Dose: 1,000 mg Montelukast Sodium (Singulair) 10 mg PO [facility] Last Admin: 06/06/16 22:06 Dose: 10 mg Pantoprazole Sodium (Protonix Ec Tab) 40 mg PO DAILY [facility] Last Admin: 06/06/16 10:45 Dose: 40 mg Prednisone (Prednisone Tab) 20 mg PO DAILY [facility] Last Admin: 06/06/16 10:45 Dose: 20 mg Promethazine HCl/Codeine (Phenergan/Codeine Oral Syrup) 5 ml PO Q4 PRN PRN Reason: Cough Last Admin: 06/06/16 12:51 Dose: 5 ml Sitagliptin Phosphate (Januvia) 100 mg PO DAILY [facility] Last Admin: 06/06/16 10:45 Dose: 100 mg Trimethoprim/Sulfamethoxazole (Bactrim Ds Tab) 1 tab PO Q6H [facility] Last Admin: 06/07/16 02:43 Dose: 1 tab - Labs Labs: 06/06/16 06:00 06/06/16 06:00 PT 10.4 SECONDS (9.7-12.2) 05/30/16 12:16 INR 0.9 05/30/16 12:16 APTT 25 SECONDS (21-34) 05/30/16 12:16 - Constitutional Appears: Non-toxic, No Acute Distress - Head Exam Head Exam: NORMAL INSPECTION - Eye Exam Eye Exam: Normal appearance, PERRL Pupil Exam: NORMAL ACCOMODATION - Respiratory Exam Respiratory Exam: Clear to Ausculation Bilateral. absent: Rales, Rhonchi, Wheezes - Cardiovascular Exam Cardiovascular Exam: Tachycardia, REGULAR RHYTHM, RRR, +S1, +S2. absent: Gallop , Rubs - GI/Abdominal Exam GI & Abdominal Exam: Soft, Normal Bowel Sounds. absent: Tenderness - Extremities Exam Extremities Exam: Normal Inspection. absent: Calf Tenderness - Neurological Exam Neurological Exam: Alert, Awake, Oriented x3 - Psychiatric Exam Psychiatric exam: Depressed, Normal Affect - Skin Skin Exam: Dry, Normal Color, Warm Assessment and Plan - Assessment and Plan (Free Text) Assessment: Dyspnea Patient O2 saturation is around 88% on room air. Have ordered V/Q scan to consider PE. Thrombocytopenia Platlet is now 56, consulted Dr. Meneses for Heme/Onc, stopped Protonix and started Pecid, consider this could be a combination of HIV and also ITP as well. Patient was on Lovenox. Odynophagia GI consulted, have orderd for magic mouth was swish and swallow. Patient may need EGD for esphagitis. (1) Pneumonia Assessment & Plan: 06/07: Repeat CXR, see emr for complete read, follow up Dr. Gan and Dr. Pena. 06/04: Patient being treated with IV Zithromax day 5 and Rocephin IV day 5, PO Bactrim for possible PCP pneumonia Previous note: CT scan - R lung- diffuse increased prominence of the interstitium with a somewhat moisaic attenuation- may be pulmonary edema. mild atelectasis in RLL. 6mm pulm nodule in R LL superiorly. L lung- diffuse increased prominence of the interstitium with a somewhat mosaic attenuation which may represent underlying pulmonary edema. More focal consolidative changes in atelectasis in LLL. Trace fluid/thickening along anterior pericardium. WBC- 9.8 Dr. Gan consulted- help appreciated consult cardio- Dr. Johnathon Chowdhury IVPB day #4 Azithromycin IVPB day #4 Started on Bactrim DS 1 tab PO Q6h day #1 Continue Singulair 10mg PO HS echo- 05/31/16- LV systolic function is normal, EF is 65-70% BNP normal Legionella and Mycoplasma negative Status: Acute (2) Asthma exacerbation Assessment & Plan: Continue current management: Advair Singulair 10mg Duoneb 3ml q6H Continue IV steroids at 40mg IVP Q12h Patient will follow up with Dr. Gan after discharge Status: Chronic (3) HIV positive Assessment & Plan: 06/07: CD4 count below 20, patient on Atripla and also IV bactrim and Zithromax. Hepatitis panel is negative. Viral load is pending. 06/04: Viral load and CD count is still pending, continue Atripla therapy, LFTs are low, have orderd for Hepatitis panel. Previous note: HIV 1 and 2 antibody screen- reactive Consult ID- Dr. Pena f/u HIV 1/2 AG/ab f/U CD3/CD4/CD8 Started on Atripla 600/200/300mg 1 tab PO Daily Started on Bactrim DS 1 tab PO Q6h day #1 (4) Uncontrolled diabetes mellitus Assessment & Plan: 06/04: Continue with current mangement Hgb a1c is 13.5. Endo-Dr. Joanna Linares is consulted diet education and counseling. Metformin to 1000mg BID Continue Lantus 40U HS Continue Novolog 14U AC continue accu checks with medium protocol sliding scale insulin. Status: Acute (5) Oral Thrush Assessment & Plan: 06/04: continue Diflucanc Previous note: Diflucan 100mg PO Daily Status: Acute (6) Prophylactic measure Assessment & Plan: Lovenox SC daily Protonix daily All management as per Dr. Karine Knight. Status: Acute <Domingo Knight - Last Filed: 06/07/16 19:34> Objective - Vital Signs/Intake and Output Vital Signs (last 24 hours): Temp Pulse Resp BP Pulse Ox 98.2 F 114 H 20 112/77 94 L 06/07/16 15:11 06/07/16 16:00 06/07/16 15:11 06/07/16 15:11 06/07/16 15:11 - Medications Medications: Current Medications Benzocaine (Orajel) 0 MM TID [facility] Last Admin: 06/07/16 18:25 Dose: Not Given Diltiazem HCl (Cardizem) 90 mg PO Q8 [facility] Last Admin: 06/07/16 13:21 Dose: 90 mg Efavirenz/Emtricitabine/Tenofovir (Atripla 600 Mg-200 Mg-300 Mg) 1 tab PO DAILY [facility] Last Admin: 06/07/16 09:55 Dose: 1 tab Famotidine (Pepcid) 20 mg PO BID [facility] Last Admin: 06/07/16 17:48 Dose: 20 mg Fluconazole (Diflucan) 100 mg PO DAILY [facility] Last Admin: 06/07/16 09:56 Dose: 100 mg Azithromycin 500 mg/ Sodium (Chloride) 250 mls @ 167 mls/hr IVPB Q24H [facility] Last Admin: 06/07/16 15:03 Dose: 167 mls/hr Ceftriaxone Sodium 2 gm/ (Sodium Chloride) 100 mls @ 100 mls/hr IVPB Q24H [facility] Last Admin: 06/07/16 18:36 Dose: 100 mls/hr Trimethoprim/Sulfamethoxazole (160 mg/ Dextrose) 250 mls @ 250 mls/hr IVPB Q6H [facility] Insulin Aspart (Novolog) 6 unit SC AC [facility] Last Admin: 06/07/16 17:48 Dose: 6 unit Insulin Aspart (Novolog) 0 unit SC ACHS [facility] PRN Reason: Protocol Last Admin: 06/07/16 17:48 Dose: 2 unit Insulin Glargine (Lantus) 20 unit SC HS [facility] Metformin HCl (Glucophage) 1,000 mg PO BIDCC [facility] Last Admin: 06/07/16 17:48 Dose: 1,000 mg Montelukast Sodium (Singulair) 10 mg PO HS [facility] Last Admin: 06/06/16 22:06 Dose: 10 mg Prednisone (Prednisone Tab) 20 mg PO DAILY [facility] Last Admin: 06/07/16 09:57 Dose: 20 mg Promethazine HCl/Codeine (Phenergan/Codeine Oral Syrup) 5 ml PO Q4 PRN PRN Reason: Cough Last Admin: 06/06/16 12:51 Dose: 5 ml Saliva Substitute (First Magic Mouthwash) 2 ml PO Q6H [facility] Last Admin: 06/07/16 18:21 Dose: 2 ml Sitagliptin Phosphate (Januvia) 100 mg PO DAILY [facility] Last Admin: 06/07/16 09:56 Dose: 100 mg Trimethoprim/Sulfamethoxazole (Bactrim Ds Tab) 1 tab PO Q6H [facility] Last Admin: 06/07/16 14:23 Dose: 1 tab - Labs Labs: 06/07/16 07:08 06/07/16 07:08 PT 10.4 SECONDS (9.7-12.2) 05/30/16 12:16 INR 0.9 05/30/16 12:16 APTT 25 SECONDS (21-34) 05/30/16 12:16 Assessment and Plan (1) Nodule of right lung Status: Acute (2) Pneumonia Status: Acute (3) Prophylactic measure Status: Acute (4) Uncontrolled diabetes mellitus Status: Acute (5) Cough due to bronchospasm Status: Acute (6) Asthma exacerbation Status: Chronic (7) HIV (human immunodeficiency virus infection) Status: Acute Attending/Attestation - Attestation I have personally seen and examined this patient.: Yes I have fully participated in the care of the patient.: Yes I have reviewed all pertinent clinical information, including history, physical exam and plan: Yes Notes (Text): 06/07/16 19:34 cASE SEEN AND DISCUSSED RANJANA ROBERTO RESIDENT
[2016-06-07 07:30] LABS: BASO % 0.9 % (0.0-2.0); EOS # 0.2 K/uL (0.0-0.7); EOS % 4.2 % (0.0-4.0); HEMATOCRIT 42.7 % (35.0-51.0); LYMPH # 0.4 K/uL (1.0-4.3); LYMPH % 10.2 % (20.0-40.0); MEAN CELL VOLUME 82.8 fL (80.0-94.0); MEAN CORPUSCULAR HEMOGLOBIN 27.4 pg (27.0-31.0); MEAN CORPUSCULAR HGB CONC 33.1 g/dL (33.0-37.0); MEAN PLATELET VOLUME 7.8 fL (7.2-11.7); MONO # 0.4 K/uL (0.0-0.8); MONO % 8.7 % (0.0-10.0); NRBC % 0.1 % (0.0-2.0); WHITE BLOOD COUNT 4.2 K/uL (4.8-10.8)
[2016-06-07 07:39] LABS: CHLORIDE 102 mmol/L (98-107)
[2016-06-07 07:40] LABS: POTASSIUM 4.3 mmol/L (3.6-5.2); SODIUM 131 mmol/L (132-148)
[2016-06-07 07:43] LABS: ALB/GLOB RATIO 0.9 (1.0-2.1); ALKALINE PHOSPHATASE 57 U/L (38-126); ALT/SGPT 12 U/L (21-72); AST/SGOT 13 U/L (17-59); BILIRUBIN,TOTAL 0.5 mg/dL (0.2-1.3); BLOOD UREA NITROGEN 20 mg/dL (9-20); CALCIUM 8.5 mg/dl (8.6-10.4); CARBON DIOXIDE 20 mmol/L (22-30); GFR AFRICAN-AMERICAN > 60; GLUCOSE,RANDOM 149 mg/dL (75-110); TOTAL PROTEIN 6.3 g/dL (6.3-8.3)
[2016-06-07] MEDS: (Novolog) Insulin Aspart, Recombinant 100 u/ml 10 ml vial SC SCH ×7 (07:49→21:31)
[2016-06-07] MEDS: Efavirenz/Emtricitabine/Teno 1 TAB PO SCH (09:55)
[2016-06-07] MEDS: Pantoprazole 40 mg EC Tab PO SCH (09:57)
--- NOTE | 2016-06-07 12:40 | CP.PCM.PN ---
Subjective - Date & Time of Evaluation Date of Evaluation: 06/07/16 Time of Evaluation: 09:00 - Subjective Subjective: improving rx in progress Objective - Vital Signs/Intake and Output Vital Signs (last 24 hours): Temp Pulse Resp BP Pulse Ox 98.1 F 97 H 17 124/81 95 06/07/16 07:15 06/07/16 08:05 06/07/16 07:15 06/07/16 07:15 06/07/16 07:15 - Medications Medications: Current Medications Diltiazem HCl (Cardizem) 90 mg PO Q8 [facility] Last Admin: 06/07/16 06:03 Dose: 90 mg Efavirenz/Emtricitabine/Tenofovir (Atripla 600 Mg-200 Mg-300 Mg) 1 tab PO DAILY [facility] Last Admin: 06/07/16 09:55 Dose: 1 tab Fluconazole (Diflucan) 100 mg PO DAILY [facility] Last Admin: 06/07/16 09:56 Dose: 100 mg Azithromycin 500 mg/ Sodium (Chloride) 250 mls @ 167 mls/hr IVPB Q24H [facility] Last Admin: 06/06/16 15:52 Dose: 167 mls/hr Ceftriaxone Sodium 2 gm/ (Sodium Chloride) 100 mls @ 100 mls/hr IVPB Q24H [facility] Last Admin: 06/06/16 19:16 Dose: 100 mls/hr Insulin Aspart (Novolog) 6 unit SC AC [facility] Last Admin: 06/07/16 07:54 Dose: 6 unit Insulin Aspart (Novolog) 0 unit SC ACHS [facility] PRN Reason: Protocol Last Admin: 06/07/16 07:49 Dose: Not Given Insulin Glargine (Lantus) 30 unit SC HS [facility] Last Admin: 06/06/16 22:08 Dose: 30 unit Metformin HCl (Glucophage) 1,000 mg PO BIDCC [facility] Last Admin: 06/07/16 07:54 Dose: 1,000 mg Montelukast Sodium (Singulair) 10 mg PO HS [facility] Last Admin: 06/06/16 22:06 Dose: 10 mg Pantoprazole Sodium (Protonix Ec Tab) 40 mg PO DAILY [facility] Last Admin: 06/07/16 09:57 Dose: 40 mg Prednisone (Prednisone Tab) 20 mg PO DAILY [facility] Last Admin: 06/07/16 09:57 Dose: 20 mg Promethazine HCl/Codeine (Phenergan/Codeine Oral Syrup) 5 ml PO Q4 PRN PRN Reason: Cough Last Admin: 06/06/16 12:51 Dose: 5 ml Sitagliptin Phosphate (Januvia) 100 mg PO DAILY [facility] Last Admin: 06/07/16 09:56 Dose: 100 mg Trimethoprim/Sulfamethoxazole (Bactrim Ds Tab) 1 tab PO Q6H [facility] Last Admin: 06/07/16 09:56 Dose: 1 tab - Labs Labs: 06/07/16 07:08 06/07/16 07:08 PT 10.4 SECONDS (9.7-12.2) 05/30/16 12:16 INR 0.9 05/30/16 12:16 APTT 25 SECONDS (21-34) 05/30/16 12:16 - Constitutional Appears: Non-toxic, Cachectic, Chronically Ill - Head Exam Head Exam: NORMOCEPHALIC - Eye Exam Eye Exam: PERRL. absent: Scleral icterus - ENT Exam ENT Exam: Mucous Membranes Dry, Normal External Ear Exam - Neck Exam Neck Exam: absent: Lymphadenopathy, Thyromegaly - Respiratory Exam Respiratory Exam: Decreased Breath Sounds, Rhonchi - Cardiovascular Exam Cardiovascular Exam: REGULAR RHYTHM, +S1, +S2 - GI/Abdominal Exam GI & Abdominal Exam: Distended, Soft. absent: Tenderness - Rectal Exam Rectal Exam: Deferred Assessment and Plan (1) Nodule of right lung Status: Acute (2) Pneumonia Status: Acute (3) Uncontrolled diabetes mellitus Status: Acute (4) Cough due to bronchospasm Status: Acute (5) Asthma exacerbation Status: Chronic
--- NOTE | 2016-06-07 13:13 | CP.PCM.PN ---
Subjective - Date & Time of Evaluation Date of Evaluation: 06/07/16 Time of Evaluation: 10:40 - Subjective Subjective: cough improving Objective - Vital Signs/Intake and Output Vital Signs (last 24 hours): Temp Pulse Resp BP Pulse Ox 98.1 F 97 H 17 124/81 95 06/07/16 07:15 06/07/16 08:05 06/07/16 07:15 06/07/16 07:15 06/07/16 07:15 - Medications Medications: Current Medications Diltiazem HCl (Cardizem) 90 mg PO Q8 [facility] Last Admin: 06/07/16 06:03 Dose: 90 mg Efavirenz/Emtricitabine/Tenofovir (Atripla 600 Mg-200 Mg-300 Mg) 1 tab PO DAILY [facility] Last Admin: 06/07/16 09:55 Dose: 1 tab Fluconazole (Diflucan) 100 mg PO DAILY [facility] Last Admin: 06/07/16 09:56 Dose: 100 mg Azithromycin 500 mg/ Sodium (Chloride) 250 mls @ 167 mls/hr IVPB Q24H [facility] Last Admin: 06/06/16 15:52 Dose: 167 mls/hr Ceftriaxone Sodium 2 gm/ (Sodium Chloride) 100 mls @ 100 mls/hr IVPB Q24H [facility] Last Admin: 06/06/16 19:16 Dose: 100 mls/hr Insulin Aspart (Novolog) 6 unit SC AC [facility] Last Admin: 06/07/16 07:54 Dose: 6 unit Insulin Aspart (Novolog) 0 unit SC ACHS [facility] PRN Reason: Protocol Last Admin: 06/07/16 07:49 Dose: Not Given Insulin Glargine (Lantus) 30 unit SC HS [facility] Last Admin: 06/06/16 22:08 Dose: 30 unit Metformin HCl (Glucophage) 1,000 mg PO BIDCC [facility] Last Admin: 06/07/16 07:54 Dose: 1,000 mg Montelukast Sodium (Singulair) 10 mg PO HS [facility] Last Admin: 06/06/16 22:06 Dose: 10 mg Pantoprazole Sodium (Protonix Ec Tab) 40 mg PO DAILY [facility] Last Admin: 06/07/16 09:57 Dose: 40 mg Prednisone (Prednisone Tab) 20 mg PO DAILY [facility] Last Admin: 06/07/16 09:57 Dose: 20 mg Promethazine HCl/Codeine (Phenergan/Codeine Oral Syrup) 5 ml PO Q4 PRN PRN Reason: Cough Last Admin: 06/06/16 12:51 Dose: 5 ml Sitagliptin Phosphate (Januvia) 100 mg PO DAILY [facility] Last Admin: 06/07/16 09:56 Dose: 100 mg Trimethoprim/Sulfamethoxazole (Bactrim Ds Tab) 1 tab PO Q6H [facility] Last Admin: 06/07/16 09:56 Dose: 1 tab - Labs Labs: 06/07/16 07:08 06/07/16 07:08 PT 10.4 SECONDS (9.7-12.2) 05/30/16 12:16 INR 0.9 05/30/16 12:16 APTT 25 SECONDS (21-34) 05/30/16 12:16 - Constitutional Appears: Well - Head Exam Head Exam: ATRAUMATIC, NORMAL INSPECTION, NORMOCEPHALIC - Eye Exam Eye Exam: EOMI, Normal appearance, PERRL Pupil Exam: NORMAL ACCOMODATION, PERRL - ENT Exam ENT Exam: Mucous Membranes Moist, Normal Exam - Neck Exam Neck Exam: Full ROM, Normal Inspection. absent: Lymphadenopathy - Respiratory Exam Respiratory Exam: Decreased Breath Sounds - Cardiovascular Exam Cardiovascular Exam: REGULAR RHYTHM, +S1, +S2 - GI/Abdominal Exam GI & Abdominal Exam: Soft, Diminished Bowel Sounds - Rectal Exam Rectal Exam: Deferred Assessment and Plan (1) Asthma exacerbation Status: Chronic (2) Cough due to bronchospasm Status: Acute (3) Pneumonia Status: Acute (4) Prophylactic measure Status: Acute (5) Nodule of right lung Status: Acute (6) Uncontrolled diabetes mellitus Status: Acute (7) HIV (human immunodeficiency virus infection) Status: Acute - Assessment and Plan (Free Text) Plan: continue same meds as ordered f/u Dr. matty awan
[2016-06-07] MEDS ORDERED: Enoxaparin 40 mg Syringe SC SCH (13:30)
[2016-06-07 13:35] LABS: ABG ALLEN TEST A; CARBOXYHEMOGLOBIN 1.1 % (0.5-1.5); DRAW SITE RRA; HHB 6.3 % (0.0-5.0); METHEMOGLOBIN 0.6 % (0.0-3.0)
[2016-06-07] MEDS ORDERED: Enoxaparin 80 mg Syringe SC STA (14:06)
[2016-06-07] MEDS ORDERED: Sulfamethoxazole/Trimethoprim 160 MG in Dextrose 5% In Water 250 ML IVPB SCH (14:30)
--- NOTE | 2016-06-07 14:40 | CP.PCM.PN ---
Subjective - Date & Time of Evaluation Date of Evaluation: 06/07/16 Time of Evaluation: 13:20 - Subjective Subjective: Pt seen and examined at beside breathing comfortably only sometimes requiring NC. Pt complains of SOB only with activity and only occasional need for NC. Pt denies cough, gross SOB, chest pain, and fevers or chills. Objective - Vital Signs/Intake and Output Vital Signs (last 24 hours): Temp Pulse Resp BP Pulse Ox 98.1 F 97 H 17 124/81 95 06/07/16 07:15 06/07/16 08:05 06/07/16 07:15 06/07/16 07:15 06/07/16 07:15 - Medications Medications: Current Medications Diltiazem HCl (Cardizem) 90 mg PO Q8 [facility] Last Admin: 06/07/16 13:21 Dose: 90 mg Efavirenz/Emtricitabine/Tenofovir (Atripla 600 Mg-200 Mg-300 Mg) 1 tab PO DAILY [facility] Last Admin: 06/07/16 09:55 Dose: 1 tab Fluconazole (Diflucan) 100 mg PO DAILY [facility] Last Admin: 06/07/16 09:56 Dose: 100 mg Azithromycin 500 mg/ Sodium (Chloride) 250 mls @ 167 mls/hr IVPB Q24H [facility] Last Admin: 06/06/16 15:52 Dose: 167 mls/hr Ceftriaxone Sodium 2 gm/ (Sodium Chloride) 100 mls @ 100 mls/hr IVPB Q24H [facility] Last Admin: 06/06/16 19:16 Dose: 100 mls/hr Trimethoprim/Sulfamethoxazole (160 mg/ Dextrose) 250 mls @ 250 mls/hr IVPB Q6H [facility] Insulin Aspart (Novolog) 6 unit SC AC [facility] Last Admin: 06/07/16 13:24 Dose: 6 unit Insulin Aspart (Novolog) 0 unit SC ACHS [facility] PRN Reason: Protocol Insulin Glargine (Lantus) 30 unit SC HS [facility] Last Admin: 06/06/16 22:08 Dose: 30 unit Metformin HCl (Glucophage) 1,000 mg PO BIDCC [facility] Last Admin: 06/07/16 07:54 Dose: 1,000 mg Montelukast Sodium (Singulair) 10 mg PO HS [facility] Last Admin: 06/06/16 22:06 Dose: 10 mg Pantoprazole Sodium (Protonix Ec Tab) 40 mg PO DAILY [facility] Last Admin: 06/07/16 09:57 Dose: 40 mg Prednisone (Prednisone Tab) 20 mg PO DAILY [facility] Last Admin: 06/07/16 09:57 Dose: 20 mg Promethazine HCl/Codeine (Phenergan/Codeine Oral Syrup) 5 ml PO Q4 PRN PRN Reason: Cough Last Admin: 06/06/16 12:51 Dose: 5 ml Sitagliptin Phosphate (Januvia) 100 mg PO DAILY [facility] Last Admin: 06/07/16 09:56 Dose: 100 mg Trimethoprim/Sulfamethoxazole (Bactrim Ds Tab) 1 tab PO Q6H [facility] Last Admin: 06/07/16 14:23 Dose: 1 tab - Labs Labs: 06/07/16 07:08 06/07/16 07:08 PT 10.4 SECONDS (9.7-12.2) 05/30/16 12:16 INR 0.9 05/30/16 12:16 APTT 25 SECONDS (21-34) 05/30/16 12:16 - Constitutional Appears: Well, No Acute Distress - Head Exam Head Exam: ATRAUMATIC, NORMOCEPHALIC - Respiratory Exam Respiratory Exam: Rhonchi (bilat LL), NORMAL BREATHING PATTERN. absent: Decreased Breath Sounds, Clear to Ausculation Bilateral, Prolonged Expiratory Phase, Rales, Wheezes, Respiratory Distress - Cardiovascular Exam Cardiovascular Exam: +S1, +S2. absent: Murmur - Neurological Exam Neurological Exam: Alert, Awake, Oriented x3 - Psychiatric Exam Psychiatric exam: Normal Affect, Normal Mood - Skin Skin Exam: Dry, Intact, Normal Color, Warm Assessment and Plan (1) Pneumonia Assessment & Plan: 05-30-[address]: R: Increased prominence of interstitial with mosaic pattern suggestive of pulmonary edema, middle and lower lobe consolidation/atelectasis, 6mm pulmonary nodule; L: Increased prominence of interstitial with mosaic pattern suggestive of pulmonary edema, L lobe consolidations Recommend follow-up screening to look for nodule growth 06-02-16 ECHO: EF between 65-70%, normal ventricular function, grade 1 abnormal relaxation pattern 06-02-16 Positive HIV test 06-04-16 CXR: mild crowded broncovascular markings, mild bibasilar atelectasis, course interstitial markings less well seen when compared to CT, questionable tiny left sided effusion 06-07-16 CXR will follow results Mycoplasma and Legionella serology and labs negative Hepatitis and Cryptococcus negative IgE labs normal result of 10 Continue solumedrol tapering Continue phenergan/codeine Continue [place] Continue Rocephin and Zithromax Begin HIV management in accordance with ID (Continue Atripla 600/200/300mg 1 tab PO Daily and Bactrim DS 1 tab PO Q6h); PCP unlikely based on clinical exam Recommend follow up for continued HIV management CD3, CD4, and CD8 testing in progress; will follow result Continue to monitor for SOB, fevers, and productive cough Status: Acute (2) Asthma exacerbation Status: Chronic (3) Nodule of right lung Status: Acute (4) HIV (human immunodeficiency virus infection) Status: Acute
[2016-06-07] MEDS: Azithromycin 500 MG in Sodium Chloride 0.9% 250 ML IVPB SCH (15:03)
--- NOTE | 2016-06-07 15:20 | RAD ---
Chest x-ray two views History: Pleural effusions. Comparison: 06/04/2016 Findings: Ill-defined consolidative airspace opacities at both lung bases ; right greater than left. Trace left pleural effusion. Venous congestion. Mild cardiomegaly. Degenerative changes in the spine. Loss of height of several mid thoracic vertebral bodies. Impression: Ill-defined consolidative airspace opacities at both lung bases ; right greater than left. Trace left pleural effusion. Venous congestion.
--- NOTE | 2016-06-07 16:15 | CP.PCM.CON ---
<Ishmael Brown - Last Filed: 06/07/16 16:48> History of Present Illness - History of Present Illness History of Present Illness: PGY4 GI Fellow Consult Note Patient is a 46yo male with PMHx significant for asthma, diabetes (a1c 13.5) who presented to the hospital with complaint of worsening shortness of breath. He complained that for the two weeks leading up to admission he suffered with persistent cough and SOB which worsened acutely in the 24 hours before presentation to the ED. CT scan of the chest on admission revealed a diffuse, bilateral infiltrative process in the lungs and he was initiated on broad spectrum antibiotic therapy for penumonia as well as being given IV solumedrol for suspected underlying asthma exacerbation. Given the severity of his pneumonia, further work up included HIV screening which was positive with an absolute CD4 count of less than 20. Patient was unaware of this diagnosis prior to the discovery on this admission. The infectious disease service has been following this patient and the patient was initiated on HAART during this admission. Our service has been consulted for odynophagia. He states that approximately one week ago he developed pain while eating. On swallowing, he described a burning sensation that begins in the upper throat and travels down to his chest as any food bolus passes. He did not have these symptoms prior to admission. He did noticed white plaques in his mouth and was treated with one week of Diflucan 100mg PO QD but denies any improvement in his odynophagia. Denies dysphagia. Denies any regurgitation of food and does not feel nauseated. Also admits to painful oral sores. PMHx: See HPI PSHx: Lower back surgery FHx: Mother - Pancreatic cancer; many family members with diabetes Social: Denies tobacco, EtOH or illicit drug use Endo: EGD/Colonoscopy performed at [facility] 2-3 years ago - unremarkable per patient Review of Systems - Constitutional Constitutional: absent: Anorexia, Chills, Fever, Weight Loss - EENT Eyes: absent: Change in Vision Nose/Mouth/Throat: Mouth Lesions, Mouth Pain, Odynophagia, Sore Throat - Cardiovascular Cardiovascular: Dyspnea on Exertion. absent: Chest Pain, Palpitations - Respiratory Respiratory: Cough, Dyspnea on Exertion. absent: Excessive Mucous Production - Gastrointestinal Gastrointestinal: Odynophagia. absent: Abdominal Pain, Belching, Bloating, Constipation, Cramping, Diarrhea, Dysphagia, Hematemesis, Hematochezia, Loose Stools, Melena, Nausea, Vomiting - Genitourinary Genitourinary: absent: Dysuria, Urinary Frequency, Urinary Urgency - Musculoskeletal Musculoskeletal: absent: Back Pain, Neck Pain - Integumentary Integumentary: absent: New Lesions, Rash - Neurological Neurological: absent: Dizziness, Numbness, Focal Weakness - Psychiatric Psychiatric: absent: Anxiety, Depression - Endocrine Endocrine: absent: Polydipsia, Polyphagia, Polyuria - Hematologic/Lymphatic Hematologic: absent: Easy Bleeding, Easy Bruising, Lymphadenopathy Past Patient History - Past Medical History & Family History Past Medical History?: Yes - Past Social History Smoking Status: Never Smoked - CARDIAC Hx Cardiac Disorders: Yes Hx Hypertension: Yes - PULMONARY Hx Respiratory Disorders: Yes Hx Asthma: Yes - NEUROLOGICAL Hx Neurological Disorder: No - HEENT Hx HEENT Problems: No - RENAL Hx Chronic Kidney Disease: No - ENDOCRINE/METABOLIC Hx Endocrine Disorders: Yes Hx Diabetes Mellitus Type 2: Yes - HEMATOLOGICAL/ONCOLOGICAL Hx Blood Disorders: No - INTEGUMENTARY Hx Dermatological Problems: No - MUSCULOSKELETAL/RHEUMATOLOGICAL Hx Musculoskeletal Disorders: No Hx Falls: No - GASTROINTESTINAL Hx Gastrointestinal Disorders: No - GENITOURINARY/GYNECOLOGICAL Hx Genitourinary Disorders: No - PSYCHIATRIC Hx Psychophysiologic Disorder: No Hx Substance Use: No - SURGICAL HISTORY Hx Surgeries: No - ANESTHESIA Hx Anesthesia: No Meds Home Medications: Home Medication List Medication Instructions Recorded Confirmed Type Azithromycin [Zithromax] 1,200 mg PO QWK #8 tab 06/07/16 Rx Efavirenz/Emtricitabine/Teno 1 tab PO DAILY #30 tab 06/07/16 Rx [Atripla 600 MG-200 MG-300 MG] Insulin Aspart, Recombinant 14 unit SC AC #0 unit 06/07/16 Rx [Novolog] Insulin Glargine, Recombina 50 unit SC HS #2 packet 06/07/16 Rx [Lantus] SITagliptin [Januvia] 100 mg PO DAILY #30 tab 06/07/16 Rx metFORMIN [glucOPHAGE] 500 mg PO BID #30 tab 06/07/16 Rx Allergies/Adverse Reactions: Allergies Allergy/AdvReac Type Severity Reaction Status Date / Time iodine Allergy RASH Verified 05/19/16 13:15 - Medications Medications: Current Medications Diltiazem HCl (Cardizem) 90 mg PO Q8 [facility] Last Admin: 06/07/16 13:21 Dose: 90 mg Efavirenz/Emtricitabine/Tenofovir (Atripla 600 Mg-200 Mg-300 Mg) 1 tab PO DAILY [facility] Last Admin: 06/07/16 09:55 Dose: 1 tab Famotidine (Pepcid) 20 mg PO BID [facility] Fluconazole (Diflucan) 100 mg PO DAILY [facility] Last Admin: 06/07/16 09:56 Dose: 100 mg Azithromycin 500 mg/ Sodium (Chloride) 250 mls @ 167 mls/hr IVPB Q24H [facility] Last Admin: 06/07/16 15:03 Dose: 167 mls/hr Ceftriaxone Sodium 2 gm/ (Sodium Chloride) 100 mls @ 100 mls/hr IVPB Q24H [facility] Last Admin: 06/06/16 19:16 Dose: 100 mls/hr Trimethoprim/Sulfamethoxazole (160 mg/ Dextrose) 250 mls @ 250 mls/hr IVPB Q6H [facility] Insulin Aspart (Novolog) 6 unit SC AC [facility] Last Admin: 06/07/16 13:24 Dose: 6 unit Insulin Aspart (Novolog) 0 unit SC ACHS [facility] PRN Reason: Protocol Metformin HCl (Glucophage) 1,000 mg PO BIDCC [facility] Last Admin: 06/07/16 07:54 Dose: 1,000 mg Montelukast Sodium (Singulair) 10 mg PO HS [facility] Last Admin: 06/06/16 22:06 Dose: 10 mg Prednisone (Prednisone Tab) 20 mg PO DAILY [facility] Last Admin: 06/07/16 09:57 Dose: 20 mg Promethazine HCl/Codeine (Phenergan/Codeine Oral Syrup) 5 ml PO Q4 PRN PRN Reason: Cough Last Admin: 06/06/16 12:51 Dose: 5 ml Saliva Substitute (First Magic Mouthwash) 2 ml PO Q6H [facility] Sitagliptin Phosphate (Januvia) 100 mg PO DAILY [facility] Last Admin: 06/07/16 09:56 Dose: 100 mg Trimethoprim/Sulfamethoxazole (Bactrim Ds Tab) 1 tab PO Q6H [facility] Last Admin: 06/07/16 14:23 Dose: 1 tab Physical Exam - Constitutional Appears: Non-toxic, No Acute Distress - Eye Exam Eye Exam: EOMI, PERRL - ENT Exam ENT Exam: Mucous Membranes Moist Additional comments: apthous ulceration on right inferior/posterior gum line - Respiratory Exam Respiratory Exam: Rales. absent: Clear to Auscultation Bilateral, Rhonchi, Wheezes - Cardiovascular Exam Cardiovascular Exam: RRR, +S1, +S2 - GI/Abdominal Exam GI & Abdominal Exam: Normal Bowel Sounds, Soft. absent: Distended, Firm, Guarding, Rigid, Tenderness - Extremities Exam Extremities exam: Positive for: normal inspection. Negative for: pedal edema - Neurological Exam Neurological exam: Alert, CN II-XII Intact, Oriented x3 - Psychiatric Exam Psychiatric exam: Normal Affect, Normal Mood - Skin Skin Exam: Dry, Warm Results - Vital Signs Recent Vital Signs: Last Vital Signs Temp 98.1 F 06/07/16 07:15 Pulse 97 H 06/07/16 08:05 Resp 17 06/07/16 07:15 BP 124/81 06/07/16 07:15 Pulse Ox 95 06/07/16 07:15 - Labs Result Diagrams: 06/07/16 07:08 06/07/16 07:08 Labs: Laboratory Results - last 24 hr 06/02/16 06/06/16 06/06/16 06:30 17:07 21:20 WBC RBC Hgb Hct MCV MCH MCHC RDW Plt Count MPV Neut % (Auto) Lymph % (Auto) [place] % (Auto) Eos % (Auto) Baso % (Auto) Neut # Lymph # [place] # Eos # Baso # Puncture Site pCO2 pO2 HCO3 ABG pH ABG Total CO2 ABG O2 Saturation ABG Base Excess ABG Hemoglobin ABG Carboxyhemoglobin POC ABG HHb (Measured) ABG Methemoglobin Edilberto Test Hgb O2 Saturation Sodium Potassium Chloride Carbon Dioxide Anion Gap BUN Creatinine Est GFR ( Amer) Est GFR (Non-Af Amer) POC Glucose (mg/dL) 324 H 244 H Random Glucose Calcium Total Bilirubin AST ALT Alkaline Phosphatase Total Protein Albumin Globulin Albumin/Globulin Ratio HIV-1 Antibody Positive H HIV-2 Antibody Negative HIV 1&2 Ag/Ab, 4th Gen Reactive H 06/07/16 06/07/16 06/07/16 06:17 07:08 11:32 WBC 4.2 L RBC 5.15 Hgb 14.1 Hct 42.7 MCV 82.8 MCH 27.4 MCHC 33.1 RDW 14.0 Plt Count 54 L MPV 7.8 Neut % (Auto) 76.0 H Lymph % (Auto) 10.2 L [place] % (Auto) 8.7 Eos % (Auto) 4.2 H Baso % (Auto) 0.9 Neut # 3.2 Lymph # 0.4 L [place] # 0.4 Eos # 0.2 Baso # 0.0 Puncture Site pCO2 pO2 HCO3 ABG pH ABG Total CO2 ABG O2 Saturation ABG Base Excess ABG Hemoglobin ABG Carboxyhemoglobin POC ABG HHb (Measured) ABG Methemoglobin Edilberto Test Hgb O2 Saturation Sodium 131 L Potassium 4.3 Chloride 102 Carbon Dioxide 20 L Anion Gap 13 BUN 20 Creatinine 0.8 Est GFR ( Amer) > 60 Est GFR (Non-Af Amer) > 60 POC Glucose (mg/dL) 159 H 133 H Random Glucose 149 H Calcium 8.5 L Total Bilirubin 0.5 AST 13 L ALT 12 L Alkaline Phosphatase 57 Total Protein 6.3 Albumin 3.0 L Globulin 3.4 Albumin/Globulin Ratio 0.9 L HIV-1 Antibody HIV-2 Antibody HIV 1&2 Ag/Ab, 4th Gen 06/07/16 13:20 WBC RBC Hgb Hct MCV MCH MCHC RDW Plt Count MPV Neut % (Auto) Lymph % (Auto) [place] % (Auto) Eos % (Auto) Baso % (Auto) Neut # Lymph # [place] # Eos # Baso # Puncture Site Rra pCO2 31 L pO2 60 L HCO3 21.7 ABG pH 7.41 ABG Total CO2 20.6 L ABG O2 Saturation 93.6 L ABG Base Excess -3.9 L ABG Hemoglobin 14.8 ABG Carboxyhemoglobin 1.1 POC ABG HHb (Measured) 6.3 H ABG Methemoglobin 0.6 Edilberto Test A Hgb O2 Saturation 92.0 L Sodium Potassium Chloride Carbon Dioxide Anion Gap BUN Creatinine Est GFR ( Amer) Est GFR (Non-Af Amer) POC Glucose (mg/dL) Random Glucose Calcium Total Bilirubin AST ALT Alkaline Phosphatase Total Protein Albumin Globulin Albumin/Globulin Ratio HIV-1 Antibody HIV-2 Antibody HIV 1&2 Ag/Ab, 4th Gen Assessment & Plan - Assessment and Plan (Free Text) Assessment: Patient is a 46yo male with PMHx significant for asthma, diabetes (a1c 13.5) who presented to the hospital with complaint of worsening shortness of breath. Our service has been consulted for odynophagia. -Newly diagnosed HIV, now on HAART -Odynophagia -B/L Pneumonia -Poorly controlled diabetes mellitus, A1c 13.5 -Immunocompromised state Plan: -Patient has multiple risk factors for infectious causes of esophagitis - HIV/ immunocompromised state, poorly controlled diabetes, inhaled corticosteroid use -Would benefit from EGD to evaluate mucosa, biopsy/brushings to R/O fungal/viral /opportunistic infections (G[place], HSV, CMV); would require pulmonary optimization prior to procedure -Recommend tight glycemic control -Orajel 7.5% apply to MM TIDPRN for apthous ulcer pain -Low microbial diet recommended given immunocompromised state -Appreciate ID recommendations; pt on ART and PCP/MAC ppx given low CD4 count -Will follow - Date & Time Date: 06/07/16 Time: 16:22 <Dima Davis - Last Filed: 06/07/16 17:00> Meds - Medications Medications: Current Medications Benzocaine (Anbesol) 0 ml MM TID [facility] Diltiazem HCl (Cardizem) 90 mg PO Q8 [facility] Last Admin: 06/07/16 13:21 Dose: 90 mg Efavirenz/Emtricitabine/Tenofovir (Atripla 600 Mg-200 Mg-300 Mg) 1 tab PO DAILY [facility] Last Admin: 06/07/16 09:55 Dose: 1 tab Famotidine (Pepcid) 20 mg PO BID [facility] Fluconazole (Diflucan) 100 mg PO DAILY [facility] Last Admin: 06/07/16 09:56 Dose: 100 mg Azithromycin 500 mg/ Sodium (Chloride) 250 mls @ 167 mls/hr IVPB Q24H [facility] Last Admin: 06/07/16 15:03 Dose: 167 mls/hr Ceftriaxone Sodium 2 gm/ (Sodium Chloride) 100 mls @ 100 mls/hr IVPB Q24H [facility] Last Admin: 06/06/16 19:16 Dose: 100 mls/hr Trimethoprim/Sulfamethoxazole (160 mg/ Dextrose) 250 mls @ 250 mls/hr IVPB Q6H [facility] Insulin Aspart (Novolog) 6 unit SC AC [facility] Last Admin: 06/07/16 13:24 Dose: 6 unit Insulin Aspart (Novolog) 0 unit SC ACHS [facility] PRN Reason: Protocol Insulin Glargine (Lantus) 20 unit SC HS [facility] Metformin HCl (Glucophage) 1,000 mg PO BIDCC [facility] Last Admin: 06/07/16 07:54 Dose: 1,000 mg Montelukast Sodium (Singulair) 10 mg PO HS [facility] Last Admin: 06/06/16 22:06 Dose: 10 mg Prednisone (Prednisone Tab) 20 mg PO DAILY [facility] Last Admin: 06/07/16 09:57 Dose: 20 mg Promethazine HCl/Codeine (Phenergan/Codeine Oral Syrup) 5 ml PO Q4 PRN PRN Reason: Cough Last Admin: 06/06/16 12:51 Dose: 5 ml Saliva Substitute (First Magic Mouthwash) 2 ml PO Q6H [facility] Sitagliptin Phosphate (Januvia) 100 mg PO DAILY [facility] Last Admin: 06/07/16 09:56 Dose: 100 mg Trimethoprim/Sulfamethoxazole (Bactrim Ds Tab) 1 tab PO Q6H [facility] Last Admin: 06/07/16 14:23 Dose: 1 tab Results - Vital Signs Recent Vital Signs: Last Vital Signs Temp 98.2 F 06/07/16 15:11 Pulse 111 H 06/07/16 15:11 Resp 20 06/07/16 15:11 BP 112/77 06/07/16 15:11 Pulse Ox 94 L 06/07/16 15:11 - Labs Result Diagrams: 06/07/16 07:08 06/07/16 07:08 Labs: Laboratory Results - last 24 hr 06/02/16 06/06/16 06/06/16 06:30 17:07 21:20 WBC RBC Hgb Hct MCV MCH MCHC RDW Plt Count MPV Neut % (Auto) Lymph % (Auto) [place] % (Auto) Eos % (Auto) Baso % (Auto) Neut # Lymph # [place] # Eos # Baso # Puncture Site pCO2 pO2 HCO3 ABG pH ABG Total CO2 ABG O2 Saturation ABG Base Excess ABG Hemoglobin ABG Carboxyhemoglobin POC ABG HHb (Measured) ABG Methemoglobin Edilberto Test Hgb O2 Saturation Sodium Potassium Chloride Carbon Dioxide Anion Gap BUN Creatinine Est GFR ( Amer) Est GFR (Non-Af Amer) POC Glucose (mg/dL) 324 H 244 H Random Glucose Calcium Total Bilirubin AST ALT Alkaline Phosphatase Total Protein Albumin Globulin Albumin/Globulin Ratio HIV-1 Antibody Positive H HIV-2 Antibody Negative HIV 1&2 Ag/Ab, 4th Gen Reactive H 06/07/16 06/07/16 06/07/16 06:17 07:08 11:32 WBC 4.2 L RBC 5.15 Hgb 14.1 Hct 42.7 MCV 82.8 MCH 27.4 MCHC 33.1 RDW 14.0 Plt Count 54 L MPV 7.8 Neut % (Auto) 76.0 H Lymph % (Auto) 10.2 L [place] % (Auto) 8.7 Eos % (Auto) 4.2 H Baso % (Auto) 0.9 Neut # 3.2 Lymph # 0.4 L [place] # 0.4 Eos # 0.2 Baso # 0.0 Puncture Site pCO2 pO2 HCO3 ABG pH ABG Total CO2 ABG O2 Saturation ABG Base Excess ABG Hemoglobin ABG Carboxyhemoglobin POC ABG HHb (Measured) ABG Methemoglobin Edilberto Test Hgb O2 Saturation Sodium 131 L Potassium 4.3 Chloride 102 Carbon Dioxide 20 L Anion Gap 13 BUN 20 Creatinine 0.8 Est GFR ( Amer) > 60 Est GFR (Non-Af Amer) > 60 POC Glucose (mg/dL) 159 H 133 H Random Glucose 149 H Calcium 8.5 L Total Bilirubin 0.5 AST 13 L ALT 12 L Alkaline Phosphatase 57 Total Protein 6.3 Albumin 3.0 L Globulin 3.4 Albumin/Globulin Ratio 0.9 L HIV-1 Antibody HIV-2 Antibody HIV 1&2 Ag/Ab, 4th Gen 06/07/16 06/07/16 13:20 16:03 WBC RBC Hgb Hct MCV MCH MCHC RDW Plt Count MPV Neut % (Auto) Lymph % (Auto) [place] % (Auto) Eos % (Auto) Baso % (Auto) Neut # Lymph # [place] # Eos # Baso # Puncture Site Rra pCO2 31 L pO2 60 L HCO3 21.7 ABG pH 7.41 ABG Total CO2 20.6 L ABG O2 Saturation 93.6 L ABG Base Excess -3.9 L ABG Hemoglobin 14.8 ABG Carboxyhemoglobin 1.1 POC ABG HHb (Measured) 6.3 H ABG Methemoglobin 0.6 Edilberto Test A Hgb O2 Saturation 92.0 L Sodium Potassium Chloride Carbon Dioxide Anion Gap BUN Creatinine Est GFR ( Amer) Est GFR (Non-Af Amer) POC Glucose (mg/dL) 196 H Random Glucose Calcium Total Bilirubin AST ALT Alkaline Phosphatase Total Protein Albumin Globulin Albumin/Globulin Ratio HIV-1 Antibody HIV-2 Antibody HIV 1&2 Ag/Ab, 4th Gen Attending/Attestation - Attestation I have personally seen and examined this patient.: Yes I have fully participated in the care of the patient.: Yes I have reviewed all pertinent clinical information: Yes Notes (Text): Patient seen and examined with GI fellow. Agree with his note as documented above with the following additions/exceptions. This is a 46 year old male with h/o asthma, poorly controlled DM who is admitted with worsening shortness of breath/cough. He is newly diagnosed with HIV/AIDS (CD4<20). He complains of new onset odynophagia. He is tolerating PO without nausea or vomiting. He reports prior history of EGD 2-3 years ago that showed gastritis. He was started on fluconazole therapy with no significant improvement. He has oral aphthous ulcer, by chart review had oral thrush. He is at risk for opportunistic infections including CMV/HSV/candidiasis. ID following and he has been initiated on antiretroviral therapy. He has complained of persistent dyspnea on exertion and was hypoxic upon ambulating this morning, with plan for V/Q scan per primary team to r/o PE. He would benefit from luminal evaluation of esophagus given persistent odynophagia in immunocompromised patient. This can be arranged pending pulmonary work up/optimization. Will continue to monitor and make recommendations pending clinical course. 06/07/16 16:55
--- NOTE | 2016-06-07 16:49 | NM ---
COMPARISON: June 07, 2016. Chest x-ray TECHNIQUE: 6.1 mCi technetium 99-m Xe-133 Gas. 3.8 mCI technetium 99-m MAA administered intravenously. FINDINGS: VENTILATION COMPONENT: Diminished ventilation at the lung bases right greater than left PERFUSION COMPONENT: Heterogeneous distribution of radionuclide. No geographic, segmental, lobar abnormalities apparent on the present examination. IMPRESSION: Low probability ventilation perfusion scan for pulmonary embolism.
--- NOTE | 2016-06-07 17:20 | CP.PCM.CON ---
<Ki So - Last Filed: 06/07/16 17:14> History of Present Illness - History of Present Illness History of Present Illness: Cardiology Consultation Note Dr. Green CC: Orthostatic Hypotension HPI: This is a 46 year old male with a PMH significant for asthma, diabetes, and HIV presenting for cardiac evaluation of shortness of breath and orthostatic hypotension. Orthostatic vitals obtained by the nursing staff reveal lying BP (133/88), sitting BP (132/88), and standing BP (98/66) this afternoon. The patient was admitted on 05/30/16 for SOB with cough for two weeks. Patient was worked-up for PNA vs asthma exacerbation and found to be HIV positive. The patient reports a 5 day history of dizziness with standing and walking and reports that this has never happened before. the patient denies any syncopal events. The patient notes that he has been able to walk long distances without SOB. No issues with ADLs/IADLs. No history of cardiopulmonary issues. Presently, the patient reports SOB. The patient denies CP, N/V/D, and dysuria. 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 absent: Chest Pain, Chest Pain at Rest, Chest Pain with Activity, Dyspnea on Exertion, Edema, Irregular Heart Rhythm, Leg Edema, Lightheadedness, Orthopnea, Palpitations, Paroxysmal Nocturnal Dyspnea, Rapid Heart Rate, Slow Heart Rate, Syncope - Respiratory Respiratory: Dyspnea. absent: Cough, Dyspnea on Exertion - Gastrointestinal Gastrointestinal: absent: Abdominal Pain - Genitourinary Genitourinary: absent: Change in Urinary Stream - Musculoskeletal Musculoskeletal: absent: Stiffness, Tingling - Integumentary Integumentary: absent: Lesions, Rash, Wounds - Neurological Neurological: absent: Syncope, Tingling, Tremor, Vertigo, Weakness - Endocrine Endocrine: absent: Cold Intolorance, Heat Intolorance Past Patient History - Past Medical History & Family History Past Medical History?: Yes - Past Social History Smoking Status: Never Smoked - CARDIAC Hx Cardiac Disorders: Yes Hx Hypertension: Yes - PULMONARY Hx Respiratory Disorders: Yes Hx Asthma: Yes - NEUROLOGICAL Hx Neurological Disorder: No - HEENT Hx HEENT Problems: No - RENAL Hx Chronic Kidney Disease: No - ENDOCRINE/METABOLIC Hx Endocrine Disorders: Yes Hx Diabetes Mellitus Type 2: Yes - HEMATOLOGICAL/ONCOLOGICAL Hx Blood Disorders: No - INTEGUMENTARY Hx Dermatological Problems: No - MUSCULOSKELETAL/RHEUMATOLOGICAL Hx Musculoskeletal Disorders: No Hx Falls: No - GASTROINTESTINAL Hx Gastrointestinal Disorders: No - GENITOURINARY/GYNECOLOGICAL Hx Genitourinary Disorders: No - PSYCHIATRIC Hx Psychophysiologic Disorder: No Hx Substance Use: No - SURGICAL HISTORY Hx Surgeries: No - ANESTHESIA Hx Anesthesia: No Meds Home Medications: Home Medication List Medication Instructions Recorded Confirmed Type Azithromycin [Zithromax] 1,200 mg PO QWK #8 tab 06/07/16 Rx Efavirenz/Emtricitabine/Teno 1 tab PO DAILY #30 tab 06/07/16 Rx [Atripla 600 MG-200 MG-300 MG] Insulin Aspart, Recombinant 14 unit SC AC #0 unit 06/07/16 Rx [Novolog] Insulin Glargine, Recombina 50 unit SC HS #2 packet 06/07/16 Rx [Lantus] SITagliptin [Januvia] 100 mg PO DAILY #30 tab 06/07/16 Rx metFORMIN [glucOPHAGE] 500 mg PO BID #30 tab 06/07/16 Rx Allergies/Adverse Reactions: Allergies Allergy/AdvReac Type Severity Reaction Status Date / Time iodine Allergy RASH Verified 05/19/16 13:15 - Medications Medications: Current Medications Benzocaine (Anbesol) 0 ml MM TID [facility] Diltiazem HCl (Cardizem) 90 mg PO Q8 [facility] Last Admin: 06/07/16 13:21 Dose: 90 mg Efavirenz/Emtricitabine/Tenofovir (Atripla 600 Mg-200 Mg-300 Mg) 1 tab PO DAILY [facility] Last Admin: 06/07/16 09:55 Dose: 1 tab Famotidine (Pepcid) 20 mg PO BID [facility] Fluconazole (Diflucan) 100 mg PO DAILY [facility] Last Admin: 06/07/16 09:56 Dose: 100 mg Azithromycin 500 mg/ Sodium (Chloride) 250 mls @ 167 mls/hr IVPB Q24H [facility] Last Admin: 06/07/16 15:03 Dose: 167 mls/hr Ceftriaxone Sodium 2 gm/ (Sodium Chloride) 100 mls @ 100 mls/hr IVPB Q24H [facility] Last Admin: 06/06/16 19:16 Dose: 100 mls/hr Trimethoprim/Sulfamethoxazole (160 mg/ Dextrose) 250 mls @ 250 mls/hr IVPB Q6H [facility] Insulin Aspart (Novolog) 6 unit SC AC [facility] Last Admin: 06/07/16 13:24 Dose: 6 unit Insulin Aspart (Novolog) 0 unit SC ACHS [facility] PRN Reason: Protocol Insulin Glargine (Lantus) 20 unit SC [facility] Metformin HCl (Glucophage) 1,000 mg PO BIDCC [facility] Last Admin: 06/07/16 07:54 Dose: 1,000 mg Montelukast Sodium (Singulair) 10 mg PO [facility] Last Admin: 06/06/16 22:06 Dose: 10 mg Prednisone (Prednisone Tab) 20 mg PO DAILY [facility] Last Admin: 06/07/16 09:57 Dose: 20 mg Promethazine HCl/Codeine (Phenergan/Codeine Oral Syrup) 5 ml PO Q4 PRN PRN Reason: Cough Last Admin: 06/06/16 12:51 Dose: 5 ml Saliva Substitute (First Magic Mouthwash) 2 ml PO Q6H [facility] Sitagliptin Phosphate (Januvia) 100 mg PO DAILY [facility] Last Admin: 06/07/16 09:56 Dose: 100 mg Trimethoprim/Sulfamethoxazole (Bactrim Ds Tab) 1 tab PO Q6H [facility] Last Admin: 06/07/16 14:23 Dose: 1 tab Physical Exam - Constitutional Appears: Well, No Acute Distress - Head Exam Head Exam: ATRAUMATIC, NORMAL INSPECTION, NORMOCEPHALIC - Eye Exam Eye Exam: EOMI, Normal appearance Pupil Exam: NORMAL ACCOMODATION - Respiratory Exam Respiratory Exam: Clear to Auscultation Bilateral, NORMAL BREATHING PATTERN. absent: Rales, Rhonchi, Wheezes, Respiratory Distress - Cardiovascular Exam Cardiovascular Exam: REGULAR RHYTHM, RRR, +S1, +S2. absent: Diastolic murmur, Systolic Murmur - GI/Abdominal Exam GI & Abdominal Exam: Normal Bowel Sounds, Soft. absent: Tenderness - Extremities Exam Extremities exam: Positive for: normal capillary refill, normal inspection, pedal pulses present. Negative for: pedal edema, tenderness - Neurological Exam Neurological exam: Alert, CN II-XII Intact, Oriented x3 - Skin Skin Exam: Dry, Intact, Normal Color, Warm Results - Vital Signs Recent Vital Signs: Last Vital Signs Temp 98.2 F 06/07/16 15:11 Pulse 111 H 06/07/16 15:11 Resp 20 06/07/16 15:11 BP 112/77 06/07/16 15:11 Pulse Ox 94 L 06/07/16 15:11 - Labs Result Diagrams: 06/07/16 07:08 06/07/16 07:08 Labs: Laboratory Results - last 24 hr 06/02/16 06/06/16 06/06/16 06:30 17:07 21:20 WBC RBC Hgb Hct MCV MCH MCHC RDW Plt Count MPV Neut % (Auto) Lymph % (Auto) [place] % (Auto) Eos % (Auto) Baso % (Auto) Neut # Lymph # [place] # Eos # Baso # Puncture Site pCO2 pO2 HCO3 ABG pH ABG Total CO2 ABG O2 Saturation ABG Base Excess ABG Hemoglobin ABG Carboxyhemoglobin POC ABG HHb (Measured) ABG Methemoglobin Edilberto Test Hgb O2 Saturation Sodium Potassium Chloride Carbon Dioxide Anion Gap BUN Creatinine Est GFR ( Amer) Est GFR (Non-Af Amer) POC Glucose (mg/dL) 324 H 244 H Random Glucose Calcium Total Bilirubin AST ALT Alkaline Phosphatase Total Protein Albumin Globulin Albumin/Globulin Ratio HIV-1 Antibody Positive H HIV-2 Antibody Negative HIV 1&2 Ag/Ab, 4th Gen Reactive H 06/07/16 06/07/16 06/07/16 06:17 07:08 11:32 WBC 4.2 L RBC 5.15 Hgb 14.1 Hct 42.7 MCV 82.8 MCH 27.4 MCHC 33.1 RDW 14.0 Plt Count 54 L MPV 7.8 Neut % (Auto) 76.0 H Lymph % (Auto) 10.2 L [place] % (Auto) 8.7 Eos % (Auto) 4.2 H Baso % (Auto) 0.9 Neut # 3.2 Lymph # 0.4 L [place] # 0.4 Eos # 0.2 Baso # 0.0 Puncture Site pCO2 pO2 HCO3 ABG pH ABG Total CO2 ABG O2 Saturation ABG Base Excess ABG Hemoglobin ABG Carboxyhemoglobin POC ABG HHb (Measured) ABG Methemoglobin Edilberto Test Hgb O2 Saturation Sodium 131 L Potassium 4.3 Chloride 102 Carbon Dioxide 20 L Anion Gap 13 BUN 20 Creatinine 0.8 Est GFR ( Amer) > 60 Est GFR (Non-Af Amer) > 60 POC Glucose (mg/dL) 159 H 133 H Random Glucose 149 H Calcium 8.5 L Total Bilirubin 0.5 AST 13 L ALT 12 L Alkaline Phosphatase 57 Total Protein 6.3 Albumin 3.0 L Globulin 3.4 Albumin/Globulin Ratio 0.9 L HIV-1 Antibody HIV-2 Antibody HIV 1&2 Ag/Ab, 4th Gen 06/07/16 06/07/16 13:20 16:03 WBC RBC Hgb Hct MCV MCH MCHC RDW Plt Count MPV Neut % (Auto) Lymph % (Auto) [place] % (Auto) Eos % (Auto) Baso % (Auto) Neut # Lymph # [place] # Eos # Baso # Puncture Site Rra pCO2 31 L pO2 60 L HCO3 21.7 ABG pH 7.41 ABG Total CO2 20.6 L ABG O2 Saturation 93.6 L ABG Base Excess -3.9 L ABG Hemoglobin 14.8 ABG Carboxyhemoglobin 1.1 POC ABG HHb (Measured) 6.3 H ABG Methemoglobin 0.6 Edilberto Test A Hgb O2 Saturation 92.0 L Sodium Potassium Chloride Carbon Dioxide Anion Gap BUN Creatinine Est GFR ( Amer) Est GFR (Non-Af Amer) POC Glucose (mg/dL) 196 H Random Glucose Calcium Total Bilirubin AST ALT Alkaline Phosphatase Total Protein Albumin Globulin Albumin/Globulin Ratio HIV-1 Antibody HIV-2 Antibody HIV 1&2 Ag/Ab, 4th Gen Assessment & Plan (1) Orthostatic hypotension Assessment and Plan: Orthostatic Vital Signs - lying BP 133/88 - sitting BP 132/88 - standing BP 98/66 05/31/16 Echo- LV EF 65-70%, grade I abnormal relaxation pattern 05/30/16 EKG- Sinus tachycardia, early repolarization, physiologic axis, normal intervals, no ST/T wave changes Tilt Table Test ordered for 06/08/16 at 4pm Repeat EKG in AM Orthostatic Vitals Signs in AM Continue Diltiazem 90mg po q8 1L NS Bolus ordered Case Discussed with Dr. Norma So PGY1 Status: Acute - Date & Time Date: 06/07/16 Time: 17:24 <Samara Green - Last Filed: 06/07/16 19:34> Meds - Medications Medications: Current Medications Benzocaine (Orajel) 0 MM TID [facility] Last Admin: 06/07/16 18:25 Dose: Not Given Diltiazem HCl (Cardizem) 90 mg PO Q8 [facility] Last Admin: 06/07/16 13:21 Dose: 90 mg Efavirenz/Emtricitabine/Tenofovir (Atripla 600 Mg-200 Mg-300 Mg) 1 tab PO DAILY [facility] Last Admin: 06/07/16 09:55 Dose: 1 tab Famotidine (Pepcid) 20 mg PO BID [facility] Last Admin: 06/07/16 17:48 Dose: 20 mg Fluconazole (Diflucan) 100 mg PO DAILY [facility] Last Admin: 06/07/16 09:56 Dose: 100 mg Azithromycin 500 mg/ Sodium (Chloride) 250 mls @ 167 mls/hr IVPB Q24H [facility] Last Admin: 06/07/16 15:03 Dose: 167 mls/hr Ceftriaxone Sodium 2 gm/ (Sodium Chloride) 100 mls @ 100 mls/hr IVPB Q24H [facility] Last Admin: 06/07/16 18:36 Dose: 100 mls/hr Trimethoprim/Sulfamethoxazole (160 mg/ Dextrose) 250 mls @ 250 mls/hr IVPB Q6H [facility] Insulin Aspart (Novolog) 6 unit SC AC [facility] Last Admin: 06/07/16 17:48 Dose: 6 unit Insulin Aspart (Novolog) 0 unit SC ACHS [facility] PRN Reason: Protocol Last Admin: 06/07/16 17:48 Dose: 2 unit Insulin Glargine (Lantus) 20 unit SC HS [facility] Metformin HCl (Glucophage) 1,000 mg PO BIDCC [facility] Last Admin: 06/07/16 17:48 Dose: 1,000 mg Montelukast Sodium (Singulair) 10 mg PO HS [facility] Last Admin: 06/06/16 22:06 Dose: 10 mg Prednisone (Prednisone Tab) 20 mg PO DAILY [facility] Last Admin: 06/07/16 09:57 Dose: 20 mg Promethazine HCl/Codeine (Phenergan/Codeine Oral Syrup) 5 ml PO Q4 PRN PRN Reason: Cough Last Admin: 06/06/16 12:51 Dose: 5 ml Saliva Substitute (First Magic Mouthwash) 2 ml PO Q6H [facility] Last Admin: 06/07/16 18:21 Dose: 2 ml Sitagliptin Phosphate (Januvia) 100 mg PO DAILY [facility] Last Admin: 06/07/16 09:56 Dose: 100 mg Trimethoprim/Sulfamethoxazole (Bactrim Ds Tab) 1 tab PO Q6H [facility] Last Admin: 06/07/16 14:23 Dose: 1 tab Results - Vital Signs Recent Vital Signs: Last Vital Signs Temp 98.2 F 06/07/16 15:11 Pulse 114 H 06/07/16 16:00 Resp 20 06/07/16 15:11 BP 112/77 06/07/16 15:11 Pulse Ox 94 L 06/07/16 15:11 - Labs Result Diagrams: 06/07/16 07:08 06/07/16 07:08 Labs: Laboratory Results - last 24 hr 06/02/16 06/06/16 06/07/16 06:30 21:20 06:17 WBC RBC Hgb Hct MCV MCH MCHC RDW Plt Count MPV Neut % (Auto) Lymph % (Auto) [place] % (Auto) Eos % (Auto) Baso % (Auto) Neut # Lymph # [place] # Eos # Baso # Puncture Site pCO2 pO2 HCO3 ABG pH ABG Total CO2 ABG O2 Saturation ABG Base Excess ABG Hemoglobin ABG Carboxyhemoglobin POC ABG HHb (Measured) ABG Methemoglobin Edilberto Test Hgb O2 Saturation Sodium Potassium Chloride Carbon Dioxide Anion Gap BUN Creatinine Est GFR ( Amer) Est GFR (Non-Af Amer) POC Glucose (mg/dL) 244 H 159 H Random Glucose Calcium Total Bilirubin AST ALT Alkaline Phosphatase Total Protein Albumin Globulin Albumin/Globulin Ratio HIV-1 Antibody Positive H HIV-2 Antibody Negative HIV 1&2 Ag/Ab, 4th Gen Reactive H 06/07/16 06/07/16 06/07/16 07:08 11:32 13:20 WBC 4.2 L RBC 5.15 Hgb 14.1 Hct 42.7 MCV 82.8 MCH 27.4 MCHC 33.1 RDW 14.0 Plt Count 54 L MPV 7.8 Neut % (Auto) 76.0 H Lymph % (Auto) 10.2 L [place] % (Auto) 8.7 Eos % (Auto) 4.2 H Baso % (Auto) 0.9 Neut # 3.2 Lymph # 0.4 L [place] # 0.4 Eos # 0.2 Baso # 0.0 Puncture Site Rra pCO2 31 L pO2 60 L HCO3 21.7 ABG pH 7.41 ABG Total CO2 20.6 L ABG O2 Saturation 93.6 L ABG Base Excess -3.9 L ABG Hemoglobin 14.8 ABG Carboxyhemoglobin 1.1 POC ABG HHb (Measured) 6.3 H ABG Methemoglobin 0.6 Edilberto Test A Hgb O2 Saturation 92.0 L Sodium 131 L Potassium 4.3 Chloride 102 Carbon Dioxide 20 L Anion Gap 13 BUN 20 Creatinine 0.8 Est GFR ( Amer) > 60 Est GFR (Non-Af Amer) > 60 POC Glucose (mg/dL) 133 H Random Glucose 149 H Calcium 8.5 L Total Bilirubin 0.5 AST 13 L ALT 12 L Alkaline Phosphatase 57 Total Protein 6.3 Albumin 3.0 L Globulin 3.4 Albumin/Globulin Ratio 0.9 L HIV-1 Antibody HIV-2 Antibody HIV 1&2 Ag/Ab, 4th Gen 06/07/16 16:03 WBC RBC Hgb Hct MCV MCH MCHC RDW Plt Count MPV Neut % (Auto) Lymph % (Auto) [place] % (Auto) Eos % (Auto) Baso % (Auto) Neut # Lymph # [place] # Eos # Baso # Puncture Site pCO2 pO2 HCO3 ABG pH ABG Total CO2 ABG O2 Saturation ABG Base Excess ABG Hemoglobin ABG Carboxyhemoglobin POC ABG HHb (Measured) ABG Methemoglobin Edilberto Test Hgb O2 Saturation Sodium Potassium Chloride Carbon Dioxide Anion Gap BUN Creatinine Est GFR ( Amer) Est GFR (Non-Af Amer) POC Glucose (mg/dL) 196 H Random Glucose Calcium Total Bilirubin AST ALT Alkaline Phosphatase Total Protein Albumin Globulin Albumin/Globulin Ratio HIV-1 Antibody HIV-2 Antibody HIV 1&2 Ag/Ab, 4th Gen Attending/Attestation - Attestation I have personally seen and examined this patient.: Yes I have fully participated in the care of the patient.: Yes I have reviewed all pertinent clinical information: Yes Notes (Text): 06/07/16 19:34 Tilt table test continue IV hydration
[2016-06-07] MEDS ORDERED: Sodium Chloride 0.9% 1,000 ML IV ONE (17:32)
[2016-06-07] MEDS: Mag&Al/Simet/Diphen/Lido 237 ML KIT PO SCH ×2 (18:21→21:28)
[2016-06-07] MEDS: Benzocaine Gel 7.5% MM SCH ×2 (18:21→18:25)
[2016-06-07] MEDS: cefTRIAXone 2 GM in Sodium Chloride 0.9% 100 ML IVPB SCH (18:36)
[2016-06-07] MEDS: Sulfamethoxazole/Trimethoprim 160 MG in Dextrose 5% In Water 250 ML IVPB SCH (20:28)
[2016-06-07] MEDS: (Lantus) Insulin Glargine, Recombinant SC SCH (21:28)
--- NOTE | 2016-06-07 22:19 | CP.PCM.CON ---
History of Present Illness - History of Present Illness History of Present Illness: 46 year old male with a history of asthma, DM, recently diagnosed HIV, admitted with shortness of breath and hypotension, found to have thrombocytopenia. The patient is currently undergoing treatment for pneumonia. He is unaware of having blood problems in the past and denies abnormal bleeding and bruising. He does have occasional subjective fevers and fatigue. Review of his blood work shows he was admitted with normal blood counts with a mild leukopenia and anemia, and plt elba at 54,000. Past medical history: asthma, DM, recently diagnosed HIV Past surgical history: Back surgery Family history: Mother had pancreatic cancer Social history: Denies tobacco, alcohol, and illicit drug use. Allergies: Iodine Review of systems: All remaining review of systems including HEENT, cardiovascular, respiratory, gastrointestinal, genitourinary, musculoskeletal, dermatologic, neurologic, and psychiatric are negative unless mentioned in the HPI. Past Patient History - Past Medical History & Family History Past Medical History?: Yes - Past Social History Smoking Status: Never Smoked - CARDIAC Hx Cardiac Disorders: Yes Hx Hypertension: Yes - PULMONARY Hx Respiratory Disorders: Yes Hx Asthma: Yes - NEUROLOGICAL Hx Neurological Disorder: No - HEENT Hx HEENT Problems: No - RENAL Hx Chronic Kidney Disease: No - ENDOCRINE/METABOLIC Hx Endocrine Disorders: Yes Hx Diabetes Mellitus Type 2: Yes - HEMATOLOGICAL/ONCOLOGICAL Hx Blood Disorders: No - INTEGUMENTARY Hx Dermatological Problems: No - MUSCULOSKELETAL/RHEUMATOLOGICAL Hx Musculoskeletal Disorders: No Hx Falls: No - GASTROINTESTINAL Hx Gastrointestinal Disorders: No - GENITOURINARY/GYNECOLOGICAL Hx Genitourinary Disorders: No - PSYCHIATRIC Hx Psychophysiologic Disorder: No Hx Substance Use: No - SURGICAL HISTORY Hx Surgeries: No - ANESTHESIA Hx Anesthesia: No Meds Home Medications: Home Medication List Medication Instructions Recorded Confirmed Type Azithromycin [Zithromax] 1,200 mg PO QWK #8 tab 06/07/16 Rx Efavirenz/Emtricitabine/Teno 1 tab PO DAILY #30 tab 06/07/16 Rx [Atripla 600 MG-200 MG-300 MG] Insulin Aspart, Recombinant 14 unit SC AC #0 unit 06/07/16 Rx [Novolog] Insulin Glargine, Recombina 50 unit SC HS #2 packet 06/07/16 Rx [Lantus] SITagliptin [Januvia] 100 mg PO DAILY #30 tab 04/17/17 Rx metFORMIN [glucOPHAGE] 500 mg PO BID #30 tab 06/07/16 Rx Allergies/Adverse Reactions: Allergies Allergy/AdvReac Type Severity Reaction Status Date / Time iodine Allergy RASH Verified 05/19/16 13:15 - Medications Medications: Current Medications Benzocaine (Orajel) 0 MM TID [facility] Last Admin: 06/07/16 18:25 Dose: Not Given Diltiazem HCl (Cardizem) 90 mg PO Q8 [facility] Last Admin: 06/07/16 21:28 Dose: 90 mg Efavirenz/Emtricitabine/Tenofovir (Atripla 600 Mg-200 Mg-300 Mg) 1 tab PO DAILY [facility] Last Admin: 06/07/16 09:55 Dose: 1 tab Famotidine (Pepcid) 20 mg PO BID [facility] Last Admin: 06/07/16 17:48 Dose: 20 mg Fluconazole (Diflucan) 100 mg PO DAILY [facility] Last Admin: 06/07/16 09:56 Dose: 100 mg Azithromycin 500 mg/ Sodium (Chloride) 250 mls @ 167 mls/hr IVPB Q24H [facility] Last Admin: 06/07/16 15:03 Dose: 167 mls/hr Ceftriaxone Sodium 2 gm/ (Sodium Chloride) 100 mls @ 100 mls/hr IVPB Q24H [facility] Last Admin: 06/07/16 18:36 Dose: 100 mls/hr Trimethoprim/Sulfamethoxazole (160 mg/ Dextrose) 250 mls @ 250 mls/hr IVPB Q6H [facility] Last Admin: 06/07/16 20:28 Dose: 250 mls/hr Insulin Aspart (Novolog) 6 unit SC AC [facility] Last Admin: 06/07/16 17:48 Dose: 6 unit Insulin Aspart (Novolog) 0 unit SC ACHS [facility] PRN Reason: Protocol Last Admin: 06/07/16 21:31 Dose: Not Given Insulin Glargine (Lantus) 20 unit SC HS [facility] Last Admin: 06/07/16 21:28 Dose: 20 units Metformin HCl (Glucophage) 1,000 mg PO BIDCC [facility] Last Admin: 06/07/16 17:48 Dose: 1,000 mg Montelukast Sodium (Singulair) 10 mg PO HS [facility] Last Admin: 06/07/16 21:28 Dose: 10 mg Prednisone (Prednisone Tab) 20 mg PO DAILY [facility] Last Admin: 06/07/16 09:57 Dose: 20 mg Promethazine HCl/Codeine (Phenergan/Codeine Oral Syrup) 5 ml PO Q4 PRN PRN Reason: Cough Last Admin: 06/06/16 12:51 Dose: 5 ml Saliva Substitute (First Magic Mouthwash) 2 ml PO Q6H [facility] Last Admin: 06/07/16 21:28 Dose: 2 ml Sitagliptin Phosphate (Januvia) 100 mg PO DAILY [facility] Last Admin: 06/07/16 09:56 Dose: 100 mg Trimethoprim/Sulfamethoxazole (Bactrim Ds Tab) 1 tab PO Q6H [facility] Last Admin: 06/07/16 14:23 Dose: 1 tab Physical Exam - Head Exam Head Exam: ATRAUMATIC - Eye Exam Eye Exam: Normal appearance - ENT Exam ENT Exam: Mucous Membranes Dry - Respiratory Exam Respiratory Exam: NORMAL BREATHING PATTERN - Cardiovascular Exam Cardiovascular Exam: +S1, +S2 - GI/Abdominal Exam GI & Abdominal Exam: Normal Bowel Sounds - Extremities Exam Extremities exam: Positive for: normal inspection - Neurological Exam Neurological exam: Oriented x3 - Psychiatric Exam Psychiatric exam: Normal Affect, Normal Mood - Skin Skin Exam: Warm Results - Vital Signs Recent Vital Signs: Last Vital Signs Temp 98.2 F 06/07/16 15:11 Pulse 114 H 06/07/16 16:00 Resp 20 06/07/16 15:11 BP 112/77 06/07/16 15:11 Pulse Ox 94 L 06/07/16 15:11 - Labs Result Diagrams: 06/08/16 06:11 06/08/16 06:11 Labs: Laboratory Results - last 24 hr 06/02/16 06/07/16 06/07/16 06:30 06:17 07:08 WBC 4.2 L RBC 5.15 Hgb 14.1 Hct 42.7 MCV 82.8 MCH 27.4 MCHC 33.1 RDW 14.0 Plt Count 54 L MPV 7.8 Neut % (Auto) 76.0 H Lymph % (Auto) 10.2 L [place] % (Auto) 8.7 Eos % (Auto) 4.2 H Baso % (Auto) 0.9 Neut # 3.2 Lymph # 0.4 L [place] # 0.4 Eos # 0.2 Baso # 0.0 PT INR APTT Puncture Site pCO2 pO2 HCO3 ABG pH ABG Total CO2 ABG O2 Saturation ABG Base Excess ABG Hemoglobin ABG Carboxyhemoglobin POC ABG HHb (Measured) ABG Methemoglobin Edilberto Test Hgb O2 Saturation Sodium 131 L Potassium 4.3 Chloride 102 Carbon Dioxide 20 L Anion Gap 13 BUN 20 Creatinine 0.8 Est GFR ( Amer) > 60 Est GFR (Non-Af Amer) > 60 POC Glucose (mg/dL) 159 H Random Glucose 149 H Calcium 8.5 L Total Bilirubin 0.5 AST 13 L ALT 12 L Alkaline Phosphatase 57 Total Protein 6.3 Albumin 3.0 L Globulin 3.4 Albumin/Globulin Ratio 0.9 L HIV-1 Antibody Positive H HIV-2 Antibody Negative HIV 1&2 Ag/Ab, 4th Gen Reactive H 06/07/16 06/07/16 06/07/16 11:32 13:20 16:03 WBC RBC Hgb Hct MCV MCH MCHC RDW Plt Count MPV Neut % (Auto) Lymph % (Auto) [place] % (Auto) Eos % (Auto) Baso % (Auto) Neut # Lymph # [place] # Eos # Baso # PT INR APTT Puncture Site Rra pCO2 31 L pO2 60 L HCO3 21.7 ABG pH 7.41 ABG Total CO2 20.6 L ABG O2 Saturation 93.6 L ABG Base Excess -3.9 L ABG Hemoglobin 14.8 ABG Carboxyhemoglobin 1.1 POC ABG HHb (Measured) 6.3 H ABG Methemoglobin 0.6 Edilberto Test A Hgb O2 Saturation 92.0 L Sodium Potassium Chloride Carbon Dioxide Anion Gap BUN Creatinine Est GFR ( Amer) Est GFR (Non-Af Amer) POC Glucose (mg/dL) 133 H 196 H Random Glucose Calcium Total Bilirubin AST ALT Alkaline Phosphatase Total Protein Albumin Globulin Albumin/Globulin Ratio HIV-1 Antibody HIV-2 Antibody HIV 1&2 Ag/Ab, 4th Gen 06/07/16 06/07/16 21:10 21:19 WBC RBC Hgb Hct MCV MCH MCHC RDW Plt Count MPV Neut % (Auto) Lymph % (Auto) [place] % (Auto) Eos % (Auto) Baso % (Auto) Neut # Lymph # [place] # Eos # Baso # PT 11.3 INR 1.0 APTT 30 Puncture Site pCO2 pO2 HCO3 ABG pH ABG Total CO2 ABG O2 Saturation ABG Base Excess ABG Hemoglobin ABG Carboxyhemoglobin POC ABG HHb (Measured) ABG Methemoglobin Edilberto Test Hgb O2 Saturation Sodium Potassium Chloride Carbon Dioxide Anion Gap BUN Creatinine Est GFR ( Amer) Est GFR (Non-Af Amer) POC Glucose (mg/dL) 98 Random Glucose Calcium Total Bilirubin AST ALT Alkaline Phosphatase Total Protein Albumin Globulin Albumin/Globulin Ratio HIV-1 Antibody HIV-2 Antibody HIV 1&2 Ag/Ab, 4th Gen Assessment & Plan (1) Pancytopenia Assessment and Plan: CBC was normal on admission may be related with acute infection and HIV anemia of HIV, chronic disease pt received lovenox but timing does not fit with HIT will continue to monitor, no transfusion indication Thank you for this interesting consult Status: Acute
--- NOTE | 2016-06-07 22:51 | CP.PCM.PN ---
Subjective - Date & Time of Evaluation Date of Evaluation: 06/07/16 Time of Evaluation: 13:00 - Subjective Subjective: Patient tachycardia predominantly due to asthma and medications Responding to Cardizem Increase the dosage as needed Review Of Systems Except As Marked, All Systems Reviewed And Found Negative. Constitutional: Negative for: Fever, Chills Cardiovascular: Negative for: Chest Pain, Palpitations, Light Headedness Respiratory: Positive for:Shortness of Breath. Negative for: Hemoptysis, Wheezing Physical Exam - Physical Exam Additional Physical Exam Comments: Constitutional: In some respiratory distress. Head: Normocephalic. Atraumatic. Eyes: PERRL. ENT: Moist mucous membranes. Neck: Supple. Cardiovascular: Tachycardic. Radial pulse 2+ bilaterally. Chest: No tenderness. Respiratory: Clear to auscultation bilaterally. GI: Soft. Nontender. Nondistended. Back: No CVA tenderness. Musculoskeletal: No tenderness or swelling of extremities. Skin: No rash. Neurologic: Alert, no focal deficit. Objective - Vital Signs/Intake and Output Vital Signs (last 24 hours): Temp Pulse Resp BP Pulse Ox 98.2 F 114 H 20 112/77 94 L 06/07/16 15:11 06/07/16 16:00 06/07/16 15:11 06/07/16 15:11 06/07/16 15:11 - Medications Medications: Current Medications Benzocaine (Orajel) 0 MM TID [facility] Last Admin: 06/07/16 18:25 Dose: Not Given Diltiazem HCl (Cardizem) 90 mg PO Q8 [facility] Last Admin: 06/07/16 21:28 Dose: 90 mg Efavirenz/Emtricitabine/Tenofovir (Atripla 600 Mg-200 Mg-300 Mg) 1 tab PO DAILY [facility] Last Admin: 06/07/16 09:55 Dose: 1 tab Famotidine (Pepcid) 20 mg PO BID [facility] Last Admin: 06/07/16 17:48 Dose: 20 mg Fluconazole (Diflucan) 100 mg PO DAILY [facility] Last Admin: 06/07/16 09:56 Dose: 100 mg Azithromycin 500 mg/ Sodium (Chloride) 250 mls @ 167 mls/hr IVPB Q24H [facility] Last Admin: 06/07/16 15:03 Dose: 167 mls/hr Ceftriaxone Sodium 2 gm/ (Sodium Chloride) 100 mls @ 100 mls/hr IVPB Q24H [facility] Last Admin: 06/07/16 18:36 Dose: 100 mls/hr Trimethoprim/Sulfamethoxazole (160 mg/ Dextrose) 250 mls @ 250 mls/hr IVPB Q6H [facility] Last Admin: 06/07/16 20:28 Dose: 250 mls/hr Insulin Aspart (Novolog) 6 unit SC AC [facility] Last Admin: 06/07/16 17:48 Dose: 6 unit Insulin Aspart (Novolog) 0 unit SC ACHS [facility] PRN Reason: Protocol Last Admin: 06/07/16 21:31 Dose: Not Given Insulin Glargine (Lantus) 20 unit SC HS [facility] Last Admin: 06/07/16 21:28 Dose: 20 units Metformin HCl (Glucophage) 1,000 mg PO BIDCC [facility] Last Admin: 06/07/16 17:48 Dose: 1,000 mg Montelukast Sodium (Singulair) 10 mg PO HS [facility] Last Admin: 06/07/16 21:28 Dose: 10 mg Prednisone (Prednisone Tab) 20 mg PO DAILY [facility] Last Admin: 06/07/16 09:57 Dose: 20 mg Promethazine HCl/Codeine (Phenergan/Codeine Oral Syrup) 5 ml PO Q4 PRN PRN Reason: Cough Last Admin: 06/06/16 12:51 Dose: 5 ml Saliva Substitute (First Magic Mouthwash) 2 ml PO Q6H [facility] Last Admin: 06/07/16 21:28 Dose: 2 ml Sitagliptin Phosphate (Januvia) 100 mg PO DAILY [facility] Last Admin: 06/07/16 09:56 Dose: 100 mg Trimethoprim/Sulfamethoxazole (Bactrim Ds Tab) 1 tab PO Q6H [facility] Last Admin: 06/07/16 14:23 Dose: 1 tab - Labs Labs: 06/07/16 07:08 06/07/16 07:08 PT 11.3 SECONDS (9.7-12.2) 06/07/16 21:10 INR 1.0 06/07/16 21:10 APTT 30 SECONDS (21-34) 06/07/16 21:10 Assessment and Plan - Assessment and Plan (Free Text) Assessment: (1) Tachycardia Status: On Cardizem Improved (2) Pneumonia Assessment & Plan: Mgt as per pulmonary Status: Acute (3) Asthma exacerbation Status: Chronic (4) Nodule of right lung Status: Acute (5) HIV (human immunodeficiency virus infection) Status: Acute
[2016-06-08] MEDS: Sulfamethoxazole/Trimethoprim 160 MG in Dextrose 5% In Water 250 ML IVPB SCH ×4 (02:07→20:50)
[2016-06-08] MEDS: Mag&Al/Simet/Diphen/Lido 237 ML KIT PO SCH ×4 (02:39→21:34)
[2016-06-08 06:16] LABS: BASO % 1.2 % (0.0-2.0); EOS # 0.2 K/uL (0.0-0.7); EOS % 4.1 % (0.0-4.0); HEMATOCRIT 40.5 % (35.0-51.0); LYMPH # 0.5 K/uL (1.0-4.3); MEAN CELL VOLUME 83.7 fL (80.0-94.0); MEAN CORPUSCULAR HEMOGLOBIN 27.5 pg (27.0-31.0); MEAN CORPUSCULAR HGB CONC 32.9 g/dL (33.0-37.0); MEAN PLATELET VOLUME 7.9 fL (7.2-11.7); MONO # 0.4 K/uL (0.0-0.8); MONO % 9.4 % (0.0-10.0); NRBC % 0.1 % (0.0-2.0); RED CELL DISTRIBUTION WIDTH 13.7 % (11.5-14.5); WHITE BLOOD COUNT 3.9 K/uL (4.8-10.8)
[2016-06-08 06:26] LABS: CHLORIDE 101 mmol/L (98-107); SODIUM 130 mmol/L (132-148)
[2016-06-08 06:27] LABS: POTASSIUM 4.1 mmol/L (3.6-5.2)
[2016-06-08 06:29] LABS: ALB/GLOB RATIO 0.8 (1.0-2.1); ALKALINE PHOSPHATASE 55 U/L (38-126); AST/SGOT 18 U/L (17-59); BILIRUBIN,TOTAL 0.7 mg/dL (0.2-1.3); BLOOD UREA NITROGEN 17 mg/dL (9-20); CARBON DIOXIDE 22 mmol/L (22-30); GFR AFRICAN-AMERICAN > 60; GLUCOSE,RANDOM 115 mg/dL (75-110); TOTAL PROTEIN 6.1 g/dL (6.3-8.3)
[2016-06-08 06:30] LABS: ALT/SGPT 17 U/L (21-72); CALCIUM 7.9 mg/dl (8.6-10.4); MAGNESIUM 1.6 mg/dL (1.6-2.3)
--- NOTE | 2016-06-08 07:40 | CP.PCM.PN ---
<Ishmael Brown - Last Filed: 06/08/16 08:12> Subjective - Date & Time of Evaluation Date of Evaluation: 06/08/16 Time of Evaluation: 07:05 - Subjective Subjective: PGY4 GI Fellow Progress Note Patient seen and examined bedside this morning. The patient has a bag of [employer] at bedside along with other snacks. States that he continues to "force food down" and admits to persistent odynophagia. No nausea, vomiting, abdominal pain. 12 system ROS performed and negative except where stated. Objective - Vital Signs/Intake and Output Vital Signs (last 24 hours): Temp Pulse Resp BP Pulse Ox 98 F 93 H 20 121/78 96 06/08/16 05:51 06/08/16 05:51 06/08/16 05:51 06/08/16 05:51 06/08/16 05:51 - Medications Medications: Current Medications Benzocaine (Orajel) 0 MM TID [facility] Last Admin: 06/07/16 18:25 Dose: Not Given Diltiazem HCl (Cardizem) 90 mg PO Q8 [facility] Last Admin: 06/08/16 05:46 Dose: 90 mg Efavirenz/Emtricitabine/Tenofovir (Atripla 600 Mg-200 Mg-300 Mg) 1 tab PO DAILY [facility] Last Admin: 06/07/16 09:55 Dose: 1 tab Famotidine (Pepcid) 20 mg PO BID [facility] Last Admin: 06/07/16 17:48 Dose: 20 mg Fluconazole (Diflucan) 100 mg PO DAILY [facility] Last Admin: 06/07/16 09:56 Dose: 100 mg Azithromycin 500 mg/ Sodium (Chloride) 250 mls @ 167 mls/hr IVPB Q24H [facility] Last Admin: 06/07/16 15:03 Dose: 167 mls/hr Ceftriaxone Sodium 2 gm/ (Sodium Chloride) 100 mls @ 100 mls/hr IVPB Q24H [facility] Last Admin: 06/07/16 18:36 Dose: 100 mls/hr Trimethoprim/Sulfamethoxazole (160 mg/ Dextrose) 250 mls @ 250 mls/hr IVPB Q6H [facility] Last Admin: 06/08/16 02:07 Dose: 250 mls/hr Insulin Aspart (Novolog) 6 unit SC AC [facility] Last Admin: 06/07/16 17:48 Dose: 6 unit Insulin Aspart (Novolog) 0 unit SC ACHS [facility] PRN Reason: Protocol Last Admin: 06/07/16 21:31 Dose: Not Given Insulin Glargine (Lantus) 20 unit SC [facility] Last Admin: 06/07/16 21:28 Dose: 20 units Metformin HCl (Glucophage) 1,000 mg PO BIDCC [facility] Last Admin: 06/07/16 17:48 Dose: 1,000 mg Montelukast Sodium (Singulair) 10 mg PO [facility] Last Admin: 06/07/16 21:28 Dose: 10 mg Prednisone (Prednisone Tab) 20 mg PO DAILY [facility] Last Admin: 06/07/16 09:57 Dose: 20 mg Promethazine HCl/Codeine (Phenergan/Codeine Oral Syrup) 5 ml PO Q4 PRN PRN Reason: Cough Last Admin: 06/06/16 12:51 Dose: 5 ml Saliva Substitute (First Magic Mouthwash) 2 ml PO Q6H [facility] Last Admin: 06/08/16 02:39 Dose: 2 ml Sitagliptin Phosphate (Januvia) 100 mg PO DAILY [facility] Last Admin: 06/07/16 09:56 Dose: 100 mg Trimethoprim/Sulfamethoxazole (Bactrim Ds Tab) 1 tab PO Q6H [facility] Last Admin: 06/07/16 14:23 Dose: 1 tab - Labs Labs: 06/08/16 06:11 06/08/16 06:11 PT 11.3 SECONDS (9.7-12.2) 06/07/16 21:10 INR 1.0 06/07/16 21:10 APTT 30 SECONDS (21-34) 06/07/16 21:10 - Constitutional Appears: Non-toxic, No Acute Distress - Eye Exam Eye Exam: EOMI, PERRL - ENT Exam ENT Exam: Mucous Membranes Moist - Respiratory Exam Respiratory Exam: Clear to Ausculation Bilateral. absent: Rales, Rhonchi, Wheezes - Cardiovascular Exam Cardiovascular Exam: RRR, +S1, +S2 - GI/Abdominal Exam GI & Abdominal Exam: Soft, Normal Bowel Sounds. absent: Distended, Firm, Guarding, Rigid, Tenderness, Organomegaly - Extremities Exam Extremities Exam: Normal Inspection. absent: Pedal Edema - Neurological Exam Neurological Exam: Alert, Awake, Oriented x3 - Psychiatric Exam Psychiatric exam: Normal Affect, Normal Mood - Skin Skin Exam: Dry, Warm Assessment and Plan - Assessment and Plan (Free Text) Assessment: Patient is a 46yo male with PMHx significant for asthma, diabetes (a1c 13.5) who presented to the hospital with complaint of worsening shortness of breath. Our service has been consulted for odynophagia. -Newly diagnosed HIV, now on HAART -Odynophagia -B/L Pneumonia -Poorly controlled diabetes mellitus, A1c 13.5 -Immunocompromised state Plan: -Hypoxia noted on blood gas from yesterday; suspect 2/2 ongoing pneumonia -V/Q scan reviewed and showing low probability for PE -Would benefit from EGD once optimized from pulmonary standpoint; can perform tomorrow if cleared -Patient has multiple risk factors for infectious causes of esophagitis - HIV/ immunocompromised state, poorly controlled diabetes, inhaled corticosteroid use - biopsy/brushings to R/O fungal/viral/opportunistic infections (Gayle, HSV, CMV) -Recommend tight glycemic control -Orajel 7.5% apply to MM TIDPRN for apthous ulcer pain -Low microbial diet recommended given immunocompromised state -Appreciate ID recommendations; pt on ART and PCP/MAC ppx given low CD4 count -If plan for EGD tomorrow; NPO past MN <Stefan Page - Last Filed: 06/08/16 08:40> Objective - Vital Signs/Intake and Output Vital Signs (last 24 hours): Temp Pulse Resp BP Pulse Ox 98 F 93 H 20 121/78 96 06/08/16 05:51 06/08/16 05:51 06/08/16 05:51 06/08/16 05:51 06/08/16 05:51 - Medications Medications: Current Medications Benzocaine (Orajel) 0 MM TID [facility] Last Admin: 06/07/16 18:25 Dose: Not Given Diltiazem HCl (Cardizem) 90 mg PO Q8 [facility] Last Admin: 06/08/16 05:46 Dose: 90 mg Efavirenz/Emtricitabine/Tenofovir (Atripla 600 Mg-200 Mg-300 Mg) 1 tab PO DAILY [facility] Last Admin: 06/07/16 09:55 Dose: 1 tab Famotidine (Pepcid) 20 mg PO BID [facility] Last Admin: 06/07/16 17:48 Dose: 20 mg Fluconazole (Diflucan) 100 mg PO DAILY [facility] Last Admin: 06/07/16 09:56 Dose: 100 mg Azithromycin 500 mg/ Sodium (Chloride) 250 mls @ 167 mls/hr IVPB Q24H [facility] Last Admin: 06/07/16 15:03 Dose: 167 mls/hr Ceftriaxone Sodium 2 gm/ (Sodium Chloride) 100 mls @ 100 mls/hr IVPB Q24H [facility] Last Admin: 06/07/16 18:36 Dose: 100 mls/hr Trimethoprim/Sulfamethoxazole (160 mg/ Dextrose) 250 mls @ 250 mls/hr IVPB Q6H [facility] Last Admin: 06/08/16 08:05 Dose: 250 mls/hr Insulin Aspart (Novolog) 6 unit SC AC [facility] Last Admin: 06/08/16 08:05 Dose: 6 unit Insulin Aspart (Novolog) 0 unit SC ACHS [facility] PRN Reason: Protocol Last Admin: 06/08/16 07:46 Dose: Not Given Insulin Glargine (Lantus) 20 unit SC [facility] Last Admin: 06/07/16 21:28 Dose: 20 units Metformin HCl (Glucophage) 1,000 mg PO BIDCC [facility] Last Admin: 06/08/16 08:05 Dose: 1,000 mg Montelukast Sodium (Singulair) 10 mg PO [facility] Last Admin: 06/07/16 21:28 Dose: 10 mg Prednisone (Prednisone Tab) 20 mg PO DAILY [facility] Last Admin: 06/07/16 09:57 Dose: 20 mg Promethazine HCl/Codeine (Phenergan/Codeine Oral Syrup) 5 ml PO Q4 PRN PRN Reason: Cough Last Admin: 06/06/16 12:51 Dose: 5 ml Saliva Substitute (First Magic Mouthwash) 2 ml PO Q6H [facility] Last Admin: 06/08/16 02:39 Dose: 2 ml Sitagliptin Phosphate (Januvia) 100 mg PO DAILY [facility] Last Admin: 06/07/16 09:56 Dose: 100 mg Trimethoprim/Sulfamethoxazole (Bactrim Ds Tab) 1 tab PO Q6H [facility] Last Admin: 06/07/16 14:23 Dose: 1 tab - Labs Labs: 06/08/16 06:11 06/08/16 06:11 PT 11.3 SECONDS (9.7-12.2) 04/17/17 21:10 INR 1.0 06/07/16 21:10 APTT 30 SECONDS (21-34) 06/07/16 21:10 Attending/Attestation - Attestation I have personally seen and examined this patient.: Yes I have fully participated in the care of the patient.: Yes I have reviewed all pertinent clinical information, including history, physical exam and plan: Yes Notes (Text): 06/08/16 08:34 I have seen and examined patient with GI fellow. He is seen resting in chair next to bedside, appears comfortable. No acute events overnight, he denies abdominal pain, nausea, vomiting, fever/chills. He continues to endorse odynophagia and dyspnea on exertion, though both improved compared to yesterday. Review of vitals from today are normal. Asthma DM, uncontrolled Newly diagnosed HIV Pneumonia Odynophagia - Diet as tolerated - Continue with magic mouthwash therapy, consider nystatin swish/swallow for adjunctive treatment - Continue with antibiotic therapy as per medical team - Continue with HAART therapy as per ID, follow up recommendations - Given immunocompromised state, patient with multiple reasons for developing esophagitis. He would benefit from EGD once optimized from pulmonary standpoint. Will continue to monitor patient clinical course, oxygen requirements.
[2016-06-08] MEDS: (Novolog) Insulin Aspart, Recombinant 100 u/ml 10 ml vial SC SCH ×7 (07:46→22:00)
--- NOTE | 2016-06-08 07:54 | CP.PCM.PN ---
<Ki So - Last Filed: 06/08/16 16:59> Subjective - Date & Time of Evaluation Date of Evaluation: 06/08/16 Time of Evaluation: 07:53 - Subjective Subjective: Cardiology Progress Note Dr. Green Patient seen and examined at the bedside. No acute distress. No acute events overnight. Nursing staff reports no issues. The patient is resting comfortably in bedside chair at this time. The patient reports no episodes of dizziness/lightheadedness or pre-syncopal symptoms with ambulation this morning. Patient for Tilt Table Test this afternoon (16:00pm. Time confirmed with cath laboratory technician). The patient denies all cardiopulmonary complaints. 12 point review of systems was preformed and the patient denied all complaints at this time. Objective - Vital Signs/Intake and Output Vital Signs (last 24 hours): Temp Pulse Resp BP Pulse Ox 98 F 93 H 20 121/78 96 06/08/16 05:51 06/08/16 05:51 06/08/16 05:51 06/08/16 05:51 06/08/16 05:51 - Medications Medications: Current Medications Benzocaine (Orajel) 0 MM TID [facility] Last Admin: 06/07/16 18:25 Dose: Not Given Diltiazem HCl (Cardizem) 90 mg PO Q8 [facility] Last Admin: 06/08/16 05:46 Dose: 90 mg Efavirenz/Emtricitabine/Tenofovir (Atripla 600 Mg-200 Mg-300 Mg) 1 tab PO DAILY [facility] Last Admin: 06/07/16 09:55 Dose: 1 tab Famotidine (Pepcid) 20 mg PO BID [facility] Last Admin: 06/07/16 17:48 Dose: 20 mg Fluconazole (Diflucan) 100 mg PO DAILY [facility] Last Admin: 06/07/16 09:56 Dose: 100 mg Azithromycin 500 mg/ Sodium (Chloride) 250 mls @ 167 mls/hr IVPB Q24H [facility] Last Admin: 06/07/16 15:03 Dose: 167 mls/hr Ceftriaxone Sodium 2 gm/ (Sodium Chloride) 100 mls @ 100 mls/hr IVPB Q24H [facility] Last Admin: 06/07/16 18:36 Dose: 100 mls/hr Trimethoprim/Sulfamethoxazole (160 mg/ Dextrose) 250 mls @ 250 mls/hr IVPB Q6H [facility] Last Admin: 06/08/16 02:07 Dose: 250 mls/hr Insulin Aspart (Novolog) 6 unit SC AC [facility] Last Admin: 06/07/16 17:48 Dose: 6 unit Insulin Aspart (Novolog) 0 unit SC ACHS [facility] PRN Reason: Protocol Last Admin: 06/08/16 07:46 Dose: Not Given Insulin Glargine (Lantus) 20 unit SC HS [facility] Last Admin: 06/07/16 21:28 Dose: 20 units Metformin HCl (Glucophage) 1,000 mg PO BIDCC [facility] Last Admin: 06/07/16 17:48 Dose: 1,000 mg Montelukast Sodium (Singulair) 10 mg PO HS [facility] Last Admin: 06/07/16 21:28 Dose: 10 mg Prednisone (Prednisone Tab) 20 mg PO DAILY [facility] Last Admin: 06/07/16 09:57 Dose: 20 mg Promethazine HCl/Codeine (Phenergan/Codeine Oral Syrup) 5 ml PO Q4 PRN PRN Reason: Cough Last Admin: 06/06/16 12:51 Dose: 5 ml Saliva Substitute (First Magic Mouthwash) 2 ml PO Q6H [facility] Last Admin: 06/08/16 02:39 Dose: 2 ml Sitagliptin Phosphate (Januvia) 100 mg PO DAILY [facility] Last Admin: 06/07/16 09:56 Dose: 100 mg Trimethoprim/Sulfamethoxazole (Bactrim Ds Tab) 1 tab PO Q6H [facility] Last Admin: 06/07/16 14:23 Dose: 1 tab - Labs Labs: 06/08/16 06:11 06/08/16 06:11 PT 11.3 SECONDS (9.7-12.2) 06/07/16 21:10 INR 1.0 06/07/16 21:10 APTT 30 SECONDS (21-34) 06/07/16 21:10 - Additional Findings Additional findings: - Constitutional Appears: Well, No Acute Distress - Head Exam Head Exam: ATRAUMATIC, NORMAL INSPECTION, NORMOCEPHALIC - Eye Exam Eye Exam: EOMI, Normal appearance Pupil Exam: NORMAL ACCOMODATION - Respiratory Exam Respiratory Exam: Clear to Auscultation Bilateral, NORMAL BREATHING PATTERN. absent: Rales, Rhonchi, Wheezes, Respiratory Distress - Cardiovascular Exam Cardiovascular Exam: REGULAR RHYTHM, RRR, +S1, +S2. absent: Diastolic murmur, Systolic Murmur - GI/Abdominal Exam GI & Abdominal Exam: Normal Bowel Sounds, Soft. absent: Tenderness - Extremities Exam Extremities exam: Positive for: normal capillary refill, normal inspection, pedal pulses present. Negative for: pedal edema, tenderness - Neurological Exam Neurological exam: Alert, CN II-XII Intact, Oriented x3 - Skin Skin Exam: Dry, Intact, Normal Color, Warm Assessment and Plan (1) Orthostatic hypotension Assessment & Plan: Tilt table Test- Positive for vasovagal presyncopal synptoms - patient will be started on Florinef 0.1mg PO BID - PO hydration was encouraged Maintain adequate hydration Orthostatic Vital Signs - lying BP 123/80 - sitting BP 136/83 - standing BP 115/81 06/08/16 EKG- Sinus tachycardia, early repolarization, physiologic axis, normal intervals, no ST changes. T wave abnormality II, III, AVF 05/31/16 Echo- LV EF 65-70%, grade I abnormal relaxation pattern 05/30/16 EKG- Sinus tachycardia, early repolarization, physiologic axis, normal intervals, no ST/T wave changes Continue Diltiazem 90mg po q8 Case Discussed with Dr. Norma So PGY1 Status: c (2) Vasovagal syncope Status: c <Samara Green - Last Filed: 07/15/16 11:05> Objective - Vital Signs/Intake and Output Vital Signs (last 24 hours): Temp Pulse Resp BP Pulse Ox 98.4 F 90 17 120/72 98 06/10/16 09:41 06/10/16 09:41 06/10/16 09:41 06/10/16 09:41 06/10/16 09:41 - Labs Labs: 06/10/16 08:33 06/10/16 08:33 PT 11.3 SECONDS (9.7-12.2) 06/07/16 21:10 INR 1.0 06/07/16 21:10 APTT 30 SECONDS (21-34) 06/07/16 21:10 Attending/Attestation - Attestation I have personally seen and examined this patient.: Yes I have fully participated in the care of the patient.: Yes I have reviewed all pertinent clinical information, including history, physical exam and plan: Yes Notes (Text): 07/15/16 11:00 tilt meds for rate control
--- NOTE | 2016-06-08 08:23 | PN ---
DATE: 06/07/2016 This is a 46-year-old male with recent uncontrolled type 2 insulin requiring diabetes exacerbat ion of COPD and asthmatic bronchitis and supervening hyperglycemic accelerations . His glucose values are fluctuating, but much improved at this time. . His glucose levels have ranged from 133-196 mg/dL . , potassium 4.3, glucose 149, . . At this time, will co ntinue the same basal and bolus insulin regimen to allow for dose equilibration and keep him on the N ovoLog given at 6 units subQ t.i.d. before meals as ordered. Will continue also the Lantus ____ _. Joanna Linares MD cc: [id number] TT: 06/07/2016 17:04:44 Confirmation # [id number] Dictation # [id number] mn
[2016-06-08] MEDS: Benzocaine Gel 7.5% MM SCH ×3 (09:31→18:10)
[2016-06-08] MEDS: Efavirenz/Emtricitabine/Teno 1 TAB PO SCH (09:31)
--- NOTE | 2016-06-08 10:45 | CP.PCM.PN ---
Subjective - Date & Time of Evaluation Date of Evaluation: 06/08/16 Time of Evaluation: 09:00 - Subjective Subjective: Medicine Progress Note- Dr. Knight's Service: Patient seen and examined at bedside this AM. Patient states he was not able to sleep due to anxiety surrounding new diagnosis of HIV. He admits pain with swallowing has not resolved, but it has improved compared to yesterday. Denies chest pain, SOB, fevers, chills, nausea, vomiting. Objective - Vital Signs/Intake and Output Vital Signs (last 24 hours): Temp Pulse Resp BP Pulse Ox 98 F 110 H 18 123/80 93 L 06/08/16 07:50 06/08/16 07:50 06/08/16 07:50 06/08/16 07:50 06/08/16 07:50 - Medications Medications: Current Medications Benzocaine (Orajel) 0 MM TID [facility] Last Admin: 06/08/16 09:31 Dose: 1 applic Diltiazem HCl (Cardizem) 90 mg PO Q8 [facility] Last Admin: 06/08/16 05:46 Dose: 90 mg Efavirenz/Emtricitabine/Tenofovir (Atripla 600 Mg-200 Mg-300 Mg) 1 tab PO DAILY [facility] Last Admin: 06/08/16 09:31 Dose: 1 tab Famotidine (Pepcid) 20 mg PO BID [facility] Last Admin: 06/08/16 09:32 Dose: 20 mg Fluconazole (Diflucan) 100 mg PO DAILY [facility] Last Admin: 06/07/16 09:56 Dose: 100 mg Azithromycin 500 mg/ Sodium (Chloride) 250 mls @ 167 mls/hr IVPB Q24H [facility] Last Admin: 06/07/16 15:03 Dose: 167 mls/hr Ceftriaxone Sodium 2 gm/ (Sodium Chloride) 100 mls @ 100 mls/hr IVPB Q24H [facility] Last Admin: 06/07/16 18:36 Dose: 100 mls/hr Trimethoprim/Sulfamethoxazole (160 mg/ Dextrose) 250 mls @ 250 mls/hr IVPB Q6H [facility] Last Admin: 06/08/16 08:05 Dose: 250 mls/hr Insulin Aspart (Novolog) 6 unit SC AC [facility] Last Admin: 06/08/16 08:05 Dose: 6 unit Insulin Aspart (Novolog) 0 unit SC ACHS [facility] PRN Reason: Protocol Last Admin: 06/08/16 07:46 Dose: Not Given Insulin Glargine (Lantus) 20 unit SC [facility] Last Admin: 06/07/16 21:28 Dose: 20 units Metformin HCl (Glucophage) 1,000 mg PO BIDCC [facility] Last Admin: 06/08/16 08:05 Dose: 1,000 mg Montelukast Sodium (Singulair) 10 mg PO [facility] Last Admin: 06/07/16 21:28 Dose: 10 mg Nystatin (Nystatin Oral Susp) 5 ml PO QID [facility] Prednisone (Prednisone Tab) 20 mg PO DAILY [facility] Last Admin: 06/08/16 09:32 Dose: 20 mg Promethazine HCl/Codeine (Phenergan/Codeine Oral Syrup) 5 ml PO Q4 PRN PRN Reason: Cough Last Admin: 06/06/16 12:51 Dose: 5 ml Saliva Substitute (First Magic Mouthwash) 2 ml PO Q6H [facility] Last Admin: 06/08/16 09:31 Dose: 2 ml Sitagliptin Phosphate (Januvia) 100 mg PO DAILY [facility] Last Admin: 06/08/16 09:31 Dose: 100 mg Trimethoprim/Sulfamethoxazole (Bactrim Ds Tab) 1 tab PO Q6H [facility] Last Admin: 06/07/16 14:23 Dose: 1 tab - Labs Labs: 06/08/16 06:11 06/08/16 06:11 PT 11.3 SECONDS (9.7-12.2) 06/07/16 21:10 INR 1.0 06/07/16 21:10 APTT 30 SECONDS (21-34) 06/07/16 21:10 - Constitutional Appears: No Acute Distress - Head Exam Head Exam: NORMAL INSPECTION, NORMOCEPHALIC - Eye Exam Eye Exam: EOMI, Normal appearance - ENT Exam ENT Exam: Mucous Membranes Moist - Neck Exam Neck Exam: Full ROM - Respiratory Exam Respiratory Exam: Clear to Ausculation Bilateral, NORMAL BREATHING PATTERN - Cardiovascular Exam Cardiovascular Exam: REGULAR RHYTHM, +S1, +S2 - GI/Abdominal Exam GI & Abdominal Exam: Soft. absent: Distended, Tenderness - Extremities Exam Extremities Exam: Full ROM, Normal Inspection - Back Exam Back Exam: NORMAL INSPECTION - Neurological Exam Neurological Exam: Alert, Awake, Oriented x3 - Psychiatric Exam Psychiatric exam: Normal Affect, Normal Mood - Skin Skin Exam: Dry, Normal Color, Warm Additional comments: +tattoos Assessment and Plan - Assessment and Plan (Free Text) Assessment: (1) HIV Diagnosed on this admission ID consult placed- Dr. Pena- help appreciated. CD4 count below 20. Viral load is pending. Patient started on Atripla 600/200/300mg 1 tab PO Daily. Pt also IV Bactrim and Zithromax. Hepatitis panel is negative. Cryptococcus, Legionella and Mycoplasma negative (2) Pneumonia Assessment & Plan: Patient with episode of dyspnea 06/07/16, now resolved. VQ scan done 06/07/16 showed low probability for PE CT scan shows infiltrates and pulmonary edema. Dr. Gan consulted- help appreciated Bactrim IVPB added for possible PCP pneumonia- Day 2 Rocephin IVPB - Day 7 Azithromycin IVPB - Day 8 Cryptococcus, Legionella and Mycoplasma negative Chest CT scan: R lung- diffuse increased prominence of the interstitium with a somewhat moisaic attenuation- may be pulmonary edema. mild atelectasis in RLL. 6mm pulm nodule in R LL superiorly. L lung- diffuse increased prominence of the interstitium with a somewhat mosaic attenuation which may represent underlying pulmonary edema. More focal consolidative changes in atelectasis in LLL. Trace fluid/thickening along anterior pericardium. Status: Acute (3) Thrombocytopenia Assessment & Plan: Platelet 60 this AM. Improved from [address] Meneses from Heme/Onc consulted- help appreciated Stopped Protonix and started Pepcid (4) Odynophagia Assessment & Plan: Dr. Page from GI consulted, have orderd for magic mouth was swish and swallow. As per GI: patient would benefit from EGD once optimized from pulmonary standpoint. Diflucan 100mg PO Daily (5) Asthma exacerbation Assessment & Plan: Continue current management: Advair Singulair 10mg PO HS Duoneb 3ml q6H Off IV steroids Patient will follow up with Dr. Gan after discharge Status: Chronic (6) Uncontrolled diabetes mellitus Assessment & Plan: Hgb A1c is 13.5. Endo-Dr. Joanna Linares is consulted diet education and counseling. Metformin to 1000mg BID Lantus 20 units HS Novolog 6 units AC continue accu checks with medium protocol sliding scale insulin. Status: Acute (7) Prophylactic measure Assessment & Plan: Lovenox SC daily Protonix daily All management as per Dr. Karine Knight.
--- NOTE | 2016-06-08 10:58 | CP.PCM.PN ---
Subjective - Date & Time of Evaluation Date of Evaluation: 06/08/16 Time of Evaluation: 11:20 - Subjective Subjective: cough improving mild hypoxia on excertion Objective - Vital Signs/Intake and Output Vital Signs (last 24 hours): Temp Pulse Resp BP Pulse Ox 98 F 110 H 18 123/80 93 L 06/08/16 07:50 06/08/16 07:50 06/08/16 07:50 06/08/16 07:50 06/08/16 07:50 - Medications Medications: Current Medications Benzocaine (Orajel) 0 MM TID [facility] Last Admin: 06/08/16 09:31 Dose: 1 applic Diltiazem HCl (Cardizem) 90 mg PO Q8 [facility] Last Admin: 06/08/16 05:46 Dose: 90 mg Efavirenz/Emtricitabine/Tenofovir (Atripla 600 Mg-200 Mg-300 Mg) 1 tab PO DAILY [facility] Last Admin: 06/08/16 09:31 Dose: 1 tab Famotidine (Pepcid) 20 mg PO BID [facility] Last Admin: 06/08/16 09:32 Dose: 20 mg Fluconazole (Diflucan) 100 mg PO DAILY [facility] Last Admin: 06/07/16 09:56 Dose: 100 mg Azithromycin 500 mg/ Sodium (Chloride) 250 mls @ 167 mls/hr IVPB Q24H [facility] Last Admin: 06/07/16 15:03 Dose: 167 mls/hr Ceftriaxone Sodium 2 gm/ (Sodium Chloride) 100 mls @ 100 mls/hr IVPB Q24H [facility] Last Admin: 06/07/16 18:36 Dose: 100 mls/hr Trimethoprim/Sulfamethoxazole (160 mg/ Dextrose) 250 mls @ 250 mls/hr IVPB Q6H [facility] Last Admin: 06/08/16 08:05 Dose: 250 mls/hr Insulin Aspart (Novolog) 6 unit SC AC [facility] Last Admin: 06/08/16 08:05 Dose: 6 unit Insulin Aspart (Novolog) 0 unit SC ACHS [facility] PRN Reason: Protocol Last Admin: 06/08/16 07:46 Dose: Not Given Insulin Glargine (Lantus) 20 unit SC HS [facility] Last Admin: 06/07/16 21:28 Dose: 20 units Metformin HCl (Glucophage) 1,000 mg PO BIDCC [facility] Last Admin: 06/08/16 08:05 Dose: 1,000 mg Montelukast Sodium (Singulair) 10 mg PO HS [facility] Last Admin: 06/07/16 21:28 Dose: 10 mg Nystatin (Nystatin Oral Susp) 5 ml PO QID [facility] Prednisone (Prednisone Tab) 20 mg PO DAILY [facility] Last Admin: 06/08/16 09:32 Dose: 20 mg Promethazine HCl/Codeine (Phenergan/Codeine Oral Syrup) 5 ml PO Q4 PRN PRN Reason: Cough Last Admin: 06/06/16 12:51 Dose: 5 ml Saliva Substitute (First Magic Mouthwash) 2 ml PO Q6H [facility] Last Admin: 06/08/16 09:31 Dose: 2 ml Sitagliptin Phosphate (Januvia) 100 mg PO DAILY [facility] Last Admin: 06/08/16 09:31 Dose: 100 mg Trimethoprim/Sulfamethoxazole (Bactrim Ds Tab) 1 tab PO Q6H [facility] Last Admin: 06/07/16 14:23 Dose: 1 tab - Labs Labs: 06/08/16 06:11 06/08/16 06:11 PT 11.3 SECONDS (9.7-12.2) 06/07/16 21:10 INR 1.0 06/07/16 21:10 APTT 30 SECONDS (21-34) 06/07/16 21:10 - Constitutional Appears: Well - Head Exam Head Exam: ATRAUMATIC, NORMAL INSPECTION, NORMOCEPHALIC - Eye Exam Eye Exam: EOMI, Normal appearance, PERRL Pupil Exam: NORMAL ACCOMODATION, PERRL - ENT Exam ENT Exam: Mucous Membranes Moist, Normal Exam - Neck Exam Neck Exam: Full ROM, Normal Inspection. absent: Lymphadenopathy - Respiratory Exam Respiratory Exam: Decreased Breath Sounds - Cardiovascular Exam Cardiovascular Exam: REGULAR RHYTHM, +S1, +S2 - GI/Abdominal Exam GI & Abdominal Exam: Soft, Diminished Bowel Sounds - Rectal Exam Rectal Exam: Deferred Assessment and Plan (1) Asthma exacerbation Status: Chronic (2) Cough due to bronchospasm Status: Acute (3) Pneumonia Status: Acute (4) Prophylactic measure Status: Acute (5) Nodule of right lung Status: Acute (6) Uncontrolled diabetes mellitus Status: Acute (7) HIV (human immunodeficiency virus infection) Status: Acute - Assessment and Plan (Free Text) Plan: Bactrim is added continue antibiotic as ordered continue HAART f/u with Dr. Malik awan
--- NOTE | 2016-06-08 11:19 | CP.PCM.PN ---
Subjective - Date & Time of Evaluation Date of Evaluation: 06/08/16 Time of Evaluation: 08:00 - Subjective Subjective: became hypoxic added IV Bactrim Objective - Vital Signs/Intake and Output Vital Signs (last 24 hours): Temp Pulse Resp BP Pulse Ox 98 F 110 H 18 123/80 93 L 06/08/16 07:50 06/08/16 07:50 06/08/16 07:50 06/08/16 07:50 06/08/16 07:50 - Medications Medications: Current Medications Benzocaine (Orajel) 0 MM TID [facility] Last Admin: 06/08/16 09:31 Dose: 1 applic Diltiazem HCl (Cardizem) 90 mg PO Q8 [facility] Last Admin: 06/08/16 05:46 Dose: 90 mg Efavirenz/Emtricitabine/Tenofovir (Atripla 600 Mg-200 Mg-300 Mg) 1 tab PO DAILY [facility] Last Admin: 06/08/16 09:31 Dose: 1 tab Famotidine (Pepcid) 20 mg PO BID [facility] Last Admin: 06/08/16 09:32 Dose: 20 mg Fluconazole (Diflucan) 100 mg PO DAILY [facility] Last Admin: 06/07/16 09:56 Dose: 100 mg Azithromycin 500 mg/ Sodium (Chloride) 250 mls @ 167 mls/hr IVPB Q24H [facility] Last Admin: 06/07/16 15:03 Dose: 167 mls/hr Ceftriaxone Sodium 2 gm/ (Sodium Chloride) 100 mls @ 100 mls/hr IVPB Q24H [facility] Last Admin: 06/07/16 18:36 Dose: 100 mls/hr Trimethoprim/Sulfamethoxazole (160 mg/ Dextrose) 250 mls @ 250 mls/hr IVPB Q6H [facility] Last Admin: 06/08/16 08:05 Dose: 250 mls/hr Insulin Aspart (Novolog) 6 unit SC AC [facility] Last Admin: 06/08/16 08:05 Dose: 6 unit Insulin Aspart (Novolog) 0 unit SC ACHS [facility] PRN Reason: Protocol Last Admin: 06/08/16 07:46 Dose: Not Given Insulin Glargine (Lantus) 20 unit SC HS [facility] Last Admin: 06/07/16 21:28 Dose: 20 units Metformin HCl (Glucophage) 1,000 mg PO BIDCC [facility] Last Admin: 06/08/16 08:05 Dose: 1,000 mg Montelukast Sodium (Singulair) 10 mg PO HS [facility] Last Admin: 06/07/16 21:28 Dose: 10 mg Nystatin (Nystatin Oral Susp) 5 ml PO QID [facility] Prednisone (Prednisone Tab) 20 mg PO DAILY [facility] Last Admin: 06/08/16 09:32 Dose: 20 mg Promethazine HCl/Codeine (Phenergan/Codeine Oral Syrup) 5 ml PO Q4 PRN PRN Reason: Cough Last Admin: 06/06/16 12:51 Dose: 5 ml Saliva Substitute (First Magic Mouthwash) 2 ml PO Q6H [facility] Last Admin: 06/08/16 09:31 Dose: 2 ml Sitagliptin Phosphate (Januvia) 100 mg PO DAILY [facility] Last Admin: 06/08/16 09:31 Dose: 100 mg Trimethoprim/Sulfamethoxazole (Bactrim Ds Tab) 1 tab PO Q6H [facility] Last Admin: 06/07/16 14:23 Dose: 1 tab - Labs Labs: 06/08/16 06:11 06/08/16 06:11 PT 11.3 SECONDS (9.7-12.2) 06/07/16 21:10 INR 1.0 06/07/16 21:10 APTT 30 SECONDS (21-34) 06/07/16 21:10 - Constitutional Appears: Chronically Ill - Head Exam Head Exam: NORMOCEPHALIC - Eye Exam Eye Exam: absent: Scleral icterus - ENT Exam ENT Exam: Mucous Membranes Dry - Neck Exam Neck Exam: absent: Lymphadenopathy - Respiratory Exam Respiratory Exam: Decreased Breath Sounds, Rhonchi - Cardiovascular Exam Cardiovascular Exam: REGULAR RHYTHM, +S1, +S2 - GI/Abdominal Exam GI & Abdominal Exam: Distended, Soft. absent: Tenderness Assessment and Plan (1) Nodule of right lung Status: Acute (2) Pneumonia Status: Acute (3) Uncontrolled diabetes mellitus Status: Acute (4) Cough due to bronchospasm Status: Acute (5) Asthma exacerbation Status: Chronic
--- NOTE | 2016-06-08 13:09 | CP.PCM.PN ---
Subjective - Date & Time of Evaluation Date of Evaluation: 06/08/16 Time of Evaluation: 12:05 - Subjective Subjective: Some shortness of breath off oxygen Objective - Vital Signs/Intake and Output Vital Signs (last 24 hours): Temp Pulse Resp BP Pulse Ox 98 F 110 H 18 123/80 93 L 06/08/16 07:50 06/08/16 07:50 06/08/16 07:50 06/08/16 07:50 06/08/16 07:50 - Medications Medications: Current Medications Benzocaine (Orajel) 0 MM TID [facility] Last Admin: 06/08/16 09:31 Dose: 1 applic Diltiazem HCl (Cardizem) 90 mg PO Q8 [facility] Last Admin: 06/08/16 05:46 Dose: 90 mg Efavirenz/Emtricitabine/Tenofovir (Atripla 600 Mg-200 Mg-300 Mg) 1 tab PO DAILY [facility] Last Admin: 06/08/16 09:31 Dose: 1 tab Famotidine (Pepcid) 20 mg PO BID [facility] Last Admin: 06/08/16 09:32 Dose: 20 mg Fluconazole (Diflucan) 100 mg PO DAILY [facility] Last Admin: 06/07/16 09:56 Dose: 100 mg Azithromycin 500 mg/ Sodium (Chloride) 250 mls @ 167 mls/hr IVPB Q24H [facility] Last Admin: 06/07/16 15:03 Dose: 167 mls/hr Ceftriaxone Sodium 2 gm/ (Sodium Chloride) 100 mls @ 100 mls/hr IVPB Q24H [facility] Last Admin: 06/07/16 18:36 Dose: 100 mls/hr Trimethoprim/Sulfamethoxazole (160 mg/ Dextrose) 250 mls @ 250 mls/hr IVPB Q6H [facility] Last Admin: 06/08/16 08:05 Dose: 250 mls/hr Insulin Aspart (Novolog) 6 unit SC AC [facility] Last Admin: 06/08/16 12:09 Dose: 6 unit Insulin Aspart (Novolog) 0 unit SC ACHS [facility] PRN Reason: Protocol Last Admin: 06/08/16 12:08 Dose: Not Given Insulin Glargine (Lantus) 20 unit SC HS [facility] Last Admin: 06/07/16 21:28 Dose: 20 units Metformin HCl (Glucophage) 1,000 mg PO BIDCC [facility] Last Admin: 06/08/16 08:05 Dose: 1,000 mg Montelukast Sodium (Singulair) 10 mg PO HS [facility] Last Admin: 06/07/16 21:28 Dose: 10 mg Nystatin (Nystatin Oral Susp) 5 ml PO QID [facility] Prednisone (Prednisone Tab) 20 mg PO DAILY [facility] Last Admin: 06/08/16 09:32 Dose: 20 mg Promethazine HCl/Codeine (Phenergan/Codeine Oral Syrup) 5 ml PO Q4 PRN PRN Reason: Cough Last Admin: 06/06/16 12:51 Dose: 5 ml Saliva Substitute (First Magic Mouthwash) 2 ml PO Q6H [facility] Last Admin: 06/08/16 09:31 Dose: 2 ml Sitagliptin Phosphate (Januvia) 100 mg PO DAILY [facility] Last Admin: 06/08/16 09:31 Dose: 100 mg Trimethoprim/Sulfamethoxazole (Bactrim Ds Tab) 1 tab PO Q6H [facility] Last Admin: 06/07/16 14:23 Dose: 1 tab - Labs Labs: 06/08/16 06:11 06/08/16 06:11 PT 11.3 SECONDS (9.7-12.2) 06/07/16 21:10 INR 1.0 06/07/16 21:10 APTT 30 SECONDS (21-34) 06/07/16 21:10 - Head Exam Head Exam: ATRAUMATIC - Eye Exam Eye Exam: Normal appearance - ENT Exam ENT Exam: Mucous Membranes Dry - Respiratory Exam Respiratory Exam: NORMAL BREATHING PATTERN - Cardiovascular Exam Cardiovascular Exam: +S1, +S2 - GI/Abdominal Exam GI & Abdominal Exam: Normal Bowel Sounds - Extremities Exam Extremities Exam: Normal Inspection Assessment and Plan (1) Pancytopenia Assessment & Plan: suspect related to acute illness and HIV plt count slightly improved f/u anemia w/u no transfusion indication Status: Acute
[2016-06-08] MEDS: Nystatin 100,000 Units/ml Oral Susp 5 ml UD PO SCH ×3 (14:02→21:48)
--- NOTE | 2016-06-08 16:07 | CP.PCM.PN ---
Subjective - Date & Time of Evaluation Date of Evaluation: 06/08/16 Time of Evaluation: 10:00 - Subjective Subjective: Pt seen and examined sitting up in a chair on RA. Pt denies cough SOB, chest pain, palpitations, dizziness with activity, fevers/chills. NC oxygen is helpful but not needed. Pt describes reduced burning pain with swallowing since a Nystatin oral suspension was initiated and improvement of this symptom that originally started on hospital stay day 3. Objective - Vital Signs/Intake and Output Vital Signs (last 24 hours): Temp Pulse Resp BP Pulse Ox 98 F 110 H 18 123/80 93 L 06/08/16 07:50 06/08/16 07:50 06/08/16 07:50 06/08/16 07:50 06/08/16 07:50 - Medications Medications: Current Medications Benzocaine (Orajel) 0 MM TID [facility] Last Admin: 06/08/16 14:02 Dose: Not Given Diltiazem HCl (Cardizem) 90 mg PO Q8 [facility] Last Admin: 06/08/16 14:01 Dose: 90 mg Efavirenz/Emtricitabine/Tenofovir (Atripla 600 Mg-200 Mg-300 Mg) 1 tab PO DAILY [facility] Last Admin: 06/08/16 09:31 Dose: 1 tab Famotidine (Pepcid) 20 mg PO BID [facility] Last Admin: 06/08/16 09:32 Dose: 20 mg Fluconazole (Diflucan) 100 mg PO DAILY [facility] Last Admin: 06/07/16 09:56 Dose: 100 mg Azithromycin 500 mg/ Sodium (Chloride) 250 mls @ 167 mls/hr IVPB Q24H [facility] Last Admin: 06/07/16 15:03 Dose: 167 mls/hr Ceftriaxone Sodium 2 gm/ (Sodium Chloride) 100 mls @ 100 mls/hr IVPB Q24H [facility] Last Admin: 06/07/16 18:36 Dose: 100 mls/hr Trimethoprim/Sulfamethoxazole (160 mg/ Dextrose) 250 mls @ 250 mls/hr IVPB Q6H [facility] Last Admin: 06/08/16 14:02 Dose: 250 mls/hr Insulin Aspart (Novolog) 6 unit SC AC [facility] Last Admin: 06/08/16 12:09 Dose: 6 unit Insulin Aspart (Novolog) 0 unit SC ACHS [facility] PRN Reason: Protocol Last Admin: 06/08/16 12:08 Dose: Not Given Insulin Glargine (Lantus) 20 unit SC [facility] Last Admin: 06/07/16 21:28 Dose: 20 units Metformin HCl (Glucophage) 1,000 mg PO BIDCC [facility] Last Admin: 06/08/16 08:05 Dose: 1,000 mg Montelukast Sodium (Singulair) 10 mg PO [facility] Last Admin: 06/07/16 21:28 Dose: 10 mg Nystatin (Nystatin Oral Susp) 5 ml PO QID [facility] Last Admin: 06/08/16 14:02 Dose: 5 ml Prednisone (Prednisone Tab) 20 mg PO DAILY [facility] Last Admin: 06/08/16 09:32 Dose: 20 mg Promethazine HCl/Codeine (Phenergan/Codeine Oral Syrup) 5 ml PO Q4 PRN PRN Reason: Cough Last Admin: 06/06/16 12:51 Dose: 5 ml Saliva Substitute (First Magic Mouthwash) 2 ml PO Q6H [facility] Last Admin: 06/08/16 14:46 Dose: 2 ml Sitagliptin Phosphate (Januvia) 100 mg PO DAILY [facility] Last Admin: 06/08/16 09:31 Dose: 100 mg Trimethoprim/Sulfamethoxazole (Bactrim Ds Tab) 1 tab PO Q6H [facility] Last Admin: 06/07/16 14:23 Dose: 1 tab - Labs Labs: 06/08/16 06:11 06/08/16 06:11 PT 11.3 SECONDS (9.7-12.2) 06/07/16 21:10 INR 1.0 06/07/16 21:10 APTT 30 SECONDS (21-34) 06/07/16 21:10 - Constitutional Appears: Well, No Acute Distress - Head Exam Head Exam: ATRAUMATIC, NORMOCEPHALIC - ENT Exam ENT Exam: Mucous Membranes Moist, Normal Exam - Respiratory Exam Respiratory Exam: Clear to Ausculation Bilateral, NORMAL BREATHING PATTERN. absent: Decreased Breath Sounds, Prolonged Expiratory Phase, Rales, Rhonchi, Wheezes, Respiratory Distress - Cardiovascular Exam Cardiovascular Exam: +S1, +S2. absent: Murmur - Neurological Exam Neurological Exam: Alert, Awake, Oriented x3 - Psychiatric Exam Psychiatric exam: Normal Affect, Normal Mood - Skin Skin Exam: Dry, Intact, Normal Color, Warm Assessment and Plan (1) Pneumonia Assessment & Plan: 05-30-[address]: R: Increased prominence of interstitial with mosaic pattern suggestive of pulmonary edema, middle and lower lobe consolidation/atelectasis, 6mm pulmonary nodule; L: Increased prominence of interstitial with mosaic pattern suggestive of pulmonary edema, L lobe consolidations Recommend follow-up screening to look for nodule growth 06-02-16 ECHO: EF between 65-70%, normal ventricular function, grade 1 abnormal relaxation pattern 06-02-16 Positive HIV test 06-04-16 CXR: mild crowded broncovascular markings, mild bibasilar atelectasis, course interstitial markings less well seen when compared to CT, questionable tiny left sided effusion 06-07-16 CXR ill defined consolidate airspace opacities at both lung bases R>L, trace L plural effusion, and venous congestion 06-07-16 VQ scan low probability of pulmonary embolism Mycoplasma and Legionella serology and labs negative Hepatitis and Cryptococcus negative IgE labs normal result of 10 Begin prednisone Continue phenergan/codeine Continue Singlair Continue Rocephin and Zithromax Continue HIV management, change Bactrim to IV(Continue Atripla 600/200/300mg 1 tab PO Daily and Bactrim IV); PCP unlikely based on clinical exam Recommend follow up for continued HIV management Absolute CD4 count <20 Evaluate further before optimization can be confirmed for EGD Continue to monitor for SOB, fevers, and productive cough Status: Acute (2) Asthma exacerbation Status: Chronic (3) Nodule of right lung Status: Acute (4) HIV (human immunodeficiency virus infection) Status: Acute
[2016-06-08] MEDS: Azithromycin 500 MG in Sodium Chloride 0.9% 250 ML IVPB SCH (17:15)
[2016-06-08] MEDS: cefTRIAXone 2 GM in Sodium Chloride 0.9% 100 ML IVPB SCH (19:35)
--- NOTE | 2016-06-08 21:28 | CP.PCM.PN ---
Subjective - Date & Time of Evaluation Date of Evaluation: 06/08/16 Time of Evaluation: 09:30 - Subjective Subjective: Patient seen and evaluated Breathing better Review Of Systems Except As Marked, All Systems Reviewed And Found Negative. Constitutional: Negative for: Fever, Chills Cardiovascular: Negative for: Chest Pain, Palpitations, Light Headedness Respiratory: Positive for:Shortness of Breath. Negative for: Hemoptysis, Wheezing Physical Exam - Physical Exam Additional Physical Exam Comments: Constitutional: In some respiratory distress. Head: Normocephalic. Atraumatic. Eyes: PERRL. ENT: Moist mucous membranes. Neck: Supple. Cardiovascular: Tachycardic. Radial pulse 2+ bilaterally. Chest: No tenderness. Respiratory: Clear to auscultation bilaterally. GI: Soft. Nontender. Nondistended. Back: No CVA tenderness. Musculoskeletal: No tenderness or swelling of extremities. Skin: No rash. Neurologic: Alert, no focal deficit. Objective - Vital Signs/Intake and Output Vital Signs (last 24 hours): Temp Pulse Resp BP Pulse Ox 98.4 F 111 H 20 142/92 H 96 06/08/16 16:21 06/08/16 16:21 06/08/16 16:21 06/08/16 16:21 06/08/16 16:21 - Medications Medications: Current Medications Benzocaine (Orajel) 0 MM TID [facility] Last Admin: 06/08/16 18:10 Dose: 1 applic Diltiazem HCl (Cardizem) 90 mg PO Q8 [facility] Last Admin: 06/08/16 14:01 Dose: 90 mg Efavirenz/Emtricitabine/Tenofovir (Atripla 600 Mg-200 Mg-300 Mg) 1 tab PO DAILY [facility] Last Admin: 06/08/16 09:31 Dose: 1 tab Famotidine (Pepcid) 20 mg PO BID [facility] Last Admin: 06/08/16 17:39 Dose: 20 mg Fluconazole (Diflucan) 100 mg PO DAILY [facility] Last Admin: 06/07/16 09:56 Dose: 100 mg Fludrocortisone Acetate (Florinef) 0.1 mg PO BID [facility] Last Admin: 06/08/16 18:10 Dose: 0.1 mg Azithromycin 500 mg/ Sodium (Chloride) 250 mls @ 167 mls/hr IVPB Q24H [facility] Last Admin: 06/08/16 17:15 Dose: 167 mls/hr Ceftriaxone Sodium 2 gm/ (Sodium Chloride) 100 mls @ 100 mls/hr IVPB Q24H [facility] Last Admin: 06/07/16 18:36 Dose: 100 mls/hr Trimethoprim/Sulfamethoxazole (160 mg/ Dextrose) 250 mls @ 250 mls/hr IVPB Q6H [facility] Last Admin: 06/08/16 14:02 Dose: 250 mls/hr Insulin Aspart (Novolog) 6 unit SC AC [facility] Last Admin: 06/08/16 17:40 Dose: 6 unit Insulin Aspart (Novolog) 0 unit SC ACHS [facility] PRN Reason: Protocol Last Admin: 06/08/16 16:30 Dose: Not Given Insulin Glargine (Lantus) 20 unit SC HS [facility] Last Admin: 06/07/16 21:28 Dose: 20 units Metformin HCl (Glucophage) 1,000 mg PO BIDCC [facility] Last Admin: 06/08/16 17:39 Dose: 1,000 mg Montelukast Sodium (Singulair) 10 mg PO [facility] Last Admin: 06/07/16 21:28 Dose: 10 mg Nystatin (Nystatin Oral Susp) 5 ml PO QID [facility] Last Admin: 06/08/16 17:55 Dose: 5 ml Prednisone (Prednisone Tab) 20 mg PO DAILY [facility] Last Admin: 06/08/16 09:32 Dose: 20 mg Promethazine HCl/Codeine (Phenergan/Codeine Oral Syrup) 5 ml PO Q4 PRN PRN Reason: Cough Last Admin: 06/06/16 12:51 Dose: 5 ml Saliva Substitute (First Magic Mouthwash) 2 ml PO Q6H [facility] Last Admin: 06/08/16 14:46 Dose: 2 ml Sitagliptin Phosphate (Januvia) 100 mg PO DAILY [facility] Last Admin: 06/08/16 09:31 Dose: 100 mg Trimethoprim/Sulfamethoxazole (Bactrim Ds Tab) 1 tab PO Q6H [facility] Last Admin: 06/07/16 14:23 Dose: 1 tab - Labs Labs: 06/08/16 06:11 06/08/16 06:11 PT 11.3 SECONDS (9.7-12.2) 06/07/16 21:10 INR 1.0 06/07/16 21:10 APTT 30 SECONDS (21-34) 06/07/16 21:10 Assessment and Plan - Assessment and Plan (Free Text) Assessment: (1) Tachycardia Status: On Cardizem Improved (2) Pneumonia Assessment & Plan: Mgt as per pulmonary Status: Acute (3) Asthma exacerbation Status: Chronic (4) Nodule of right lung Status: Acute (5) HIV (human immunodeficiency virus infection) Status: Acute
[2016-06-08] MEDS: (Lantus) Insulin Glargine, Recombinant SC SCH (22:30)
[2016-06-09] MEDS: Sulfamethoxazole/Trimethoprim 160 MG in Dextrose 5% In Water 250 ML IVPB SCH ×4 (02:25→21:00)
[2016-06-09] MEDS: Mag&Al/Simet/Diphen/Lido 237 ML KIT PO SCH ×4 (02:26→21:12)
[2016-06-09 06:54] LABS: BASO # 0.1 K/uL (0.0-0.2); BASO % 1.2 % (0.0-2.0); EOS # 0.2 K/uL (0.0-0.7); EOS % 3.3 % (0.0-4.0); HEMATOCRIT 40.3 % (35.0-51.0); LYMPH # 0.6 K/uL (1.0-4.3); LYMPH % 12.3 % (20.0-40.0); MEAN CORPUSCULAR HEMOGLOBIN 27.3 pg (27.0-31.0); MEAN CORPUSCULAR HGB CONC 33.2 g/dL (33.0-37.0); MEAN PLATELET VOLUME 8.2 fL (7.2-11.7); MONO # 0.5 K/uL (0.0-0.8); MONO % 10.1 % (0.0-10.0); RED CELL DISTRIBUTION WIDTH 13.8 % (11.5-14.5); WHITE BLOOD COUNT 4.6 K/uL (4.8-10.8)
--- NOTE | 2016-06-09 07:15 | PN ---
DATE: 06/08/2016 ____ a 46-year-old male with uncontrolled type 2 insulin-requiring diabetes now being followed closel y ____. His glycemic levels are fluctuating, but much improved at this time and he has been switched over now from IV to oral steroid therapy following a recent bout asthmatic bronchitis as noted there of. He is currently on prednisone given as 20 mg once daily as ordered. His glycemic levels are muc h improved at this time and stabilized ____ glycemic ranges of 116-149 mg/dL. It was 98-196 at bedti la last night. ____. Joanna Linares MD cc: [phone] TT: 06/08/2016 16:27:40 Confirmation # [id number] Dictation # [id number]
[2016-06-09 07:22] LABS: CHLORIDE 102 mmol/L (98-107)
[2016-06-09 07:23] LABS: POTASSIUM 4.2 mmol/L (3.6-5.2); SODIUM 131 mmol/L (132-148)
[2016-06-09 07:25] LABS: ALB/GLOB RATIO 0.9 (1.0-2.1); AST/SGOT 17 U/L (17-59); BILIRUBIN,TOTAL 0.2 mg/dL (0.2-1.3); CARBON DIOXIDE 21 mmol/L (22-30); GFR AFRICAN-AMERICAN > 60; TOTAL PROTEIN 6.2 g/dL (6.3-8.3)
[2016-06-09 07:26] LABS: ALKALINE PHOSPHATASE 63 U/L (38-126); ALT/SGPT 18 U/L (21-72); BLOOD UREA NITROGEN 14 mg/dL (9-20); CALCIUM 8.3 mg/dl (8.6-10.4); GLUCOSE,RANDOM 142 mg/dL (75-110); MAGNESIUM 1.9 mg/dL (1.6-2.3)
[2016-06-09] MEDS: (Novolog) Insulin Aspart, Recombinant 100 u/ml 10 ml vial SC SCH ×7 (07:30→22:37)
[2016-06-09 08:13] LABS: FOLATE 8.4 ng/mL
[2016-06-09 08:19] LABS: RETIC% 0.4 % (0.5-1.5)
[2016-06-09] MEDS: Benzocaine Gel 7.5% MM SCH ×3 (09:13→17:53)
[2016-06-09 09:15] LABS: ABG ALLEN TEST POS; ARTERIAL BLOOD HGB O2 SAT 96.1 % (95.0-98.0); CARBOXYHEMOGLOBIN 0.8 % (0.5-1.5); DRAW SITE LRA; METHEMOGLOBIN 1.1 % (0.0-3.0)
[2016-06-09] MEDS: Efavirenz/Emtricitabine/Teno 1 TAB PO SCH (09:15)
--- NOTE | 2016-06-09 09:30 | CP.PCM.PN ---
Subjective - Date & Time of Evaluation Date of Evaluation: 06/09/16 Time of Evaluation: 09:45 - Subjective Subjective: Dr. Knight service: Patient seen and examined in room. He says he is feeling much better, is eating without any pain or diffaculty swallowing. He is also denying any shortness of breath, chest pain, dizziness, wheezing, chest tightness, fever, chills, nausea/vomiting, or diarrhea. Objective - Vital Signs/Intake and Output Vital Signs (last 24 hours): Temp Pulse Resp BP Pulse Ox 98.6 F 88 18 128/86 94 L 06/09/16 07:10 06/09/16 07:30 06/09/16 07:10 06/09/16 07:10 06/09/16 07:10 - Medications Medications: Current Medications Benzocaine (Orajel) 0 MM TID [facility] Last Admin: 06/09/16 09:13 Dose: 1 applic Diltiazem HCl (Cardizem) 90 mg PO Q8 [facility] Last Admin: 06/09/16 05:41 Dose: 90 mg Efavirenz/Emtricitabine/Tenofovir (Atripla 600 Mg-200 Mg-300 Mg) 1 tab PO DAILY [facility] Last Admin: 06/09/16 09:15 Dose: 1 tab Famotidine (Pepcid) 20 mg PO BID [facility] Last Admin: 06/09/16 09:23 Dose: 20 mg Fluconazole (Diflucan) 100 mg PO DAILY [facility] Last Admin: 06/07/16 09:56 Dose: 100 mg Fludrocortisone Acetate (Florinef) 0.1 mg PO BID [facility] Last Admin: 06/09/16 09:14 Dose: 0.1 mg Azithromycin 500 mg/ Sodium (Chloride) 250 mls @ 167 mls/hr IVPB Q24H [facility] Last Admin: 06/08/16 17:15 Dose: 167 mls/hr Ceftriaxone Sodium 2 gm/ (Sodium Chloride) 100 mls @ 100 mls/hr IVPB Q24H [facility] Last Admin: 06/08/16 19:35 Dose: 100 mls/hr Trimethoprim/Sulfamethoxazole (160 mg/ Dextrose) 250 mls @ 250 mls/hr IVPB Q6H [facility] Last Admin: 06/09/16 08:00 Dose: 250 mls/hr Insulin Aspart (Novolog) 6 unit SC AC [facility] Last Admin: 06/09/16 08:00 Dose: 6 unit Insulin Aspart (Novolog) 0 unit SC ACHS [facility] PRN Reason: Protocol Last Admin: 06/09/16 07:30 Dose: Not Given Insulin Glargine (Lantus) 20 unit SC HS [facility] Last Admin: 06/08/16 22:30 Dose: 20 units Metformin HCl (Glucophage) 1,000 mg PO BIDCC [facility] Last Admin: 06/09/16 08:00 Dose: 1,000 mg Montelukast Sodium (Singulair) [address] [facility] Last Admin: 06/08/16 21:48 Dose: 10 mg Nystatin (Nystatin Oral Susp) 5 ml PO QID [facility] Last Admin: 06/08/16 21:48 Dose: 5 ml Prednisone (Prednisone Tab) 20 mg PO DAILY [facility] Last Admin: 06/09/16 09:23 Dose: 20 mg Promethazine HCl/Codeine (Phenergan/Codeine Oral Syrup) 5 ml PO Q4 PRN PRN Reason: Cough Last Admin: 06/06/16 12:51 Dose: 5 ml Saliva Substitute (First Magic Mouthwash) 2 ml PO Q6H [facility] Last Admin: 06/09/16 09:11 Dose: 2 ml Sitagliptin Phosphate (Januvia) 100 mg PO DAILY [facility] Last Admin: 06/09/16 09:23 Dose: 100 mg Trimethoprim/Sulfamethoxazole (Bactrim Ds Tab) 1 tab PO Q6H [facility] Last Admin: 06/07/16 14:23 Dose: 1 tab - Labs Labs: 06/09/16 06:42 06/09/16 06:42 PT 11.3 SECONDS (9.7-12.2) 06/07/16 21:10 INR 1.0 06/07/16 21:10 APTT 30 SECONDS (21-34) 06/07/16 21:10 - Constitutional Appears: Non-toxic, No Acute Distress - Head Exam Head Exam: NORMOCEPHALIC - Eye Exam Eye Exam: Normal appearance Pupil Exam: NORMAL ACCOMODATION - Respiratory Exam Respiratory Exam: Clear to Ausculation Bilateral. absent: Rales, Rhonchi, Wheezes Additional comments: Not on nasal canula - Cardiovascular Exam Cardiovascular Exam: REGULAR RHYTHM, RRR, +S1, +S2. absent: Gallop, Rubs - GI/Abdominal Exam GI & Abdominal Exam: Soft, Normal Bowel Sounds. absent: Tenderness - Extremities Exam Extremities Exam: Normal Inspection. absent: Pedal Edema - Psychiatric Exam Psychiatric exam: Normal Affect, Normal Mood - Skin Skin Exam: Normal Color, Warm Assessment and Plan - Assessment and Plan (Free Text) Assessment: Dyspnea Patient O2 saturation is around 88% on room air. Have ordered V/Q scan to consider PE. Thrombocytopenia Platlet is now 56, consulted Dr. Meneses for Heme/Onc, stopped Protonix and started Pecid, consider this could be a combination of HIV and also ITP as well. Patient was on Lovenox. Odynophagia 06/08: Patient symptoms have improved with Nystatin swish and swallow, he is for EGD tomorrow, most likely will dc after that. GI consulted, have orderd for magic mouth was swish and swallow. Patient may need EGD for esphagitis. (1) Pneumonia Assessment & Plan: 06/07: Repeat CXR, see emr for complete read, follow up Dr. Gan and Dr. Pena. 06/04: Patient being treated with IV Zithromax day 5 and Rocephin IV day 5, PO Bactrim for possible PCP pneumonia Previous note: CT scan - R lung- diffuse increased prominence of the interstitium with a somewhat moisaic attenuation- may be pulmonary edema. mild atelectasis in RLL. 6mm pulm nodule in R LL superiorly. L lung- diffuse increased prominence of the interstitium with a somewhat mosaic attenuation which may represent underlying pulmonary edema. More focal consolidative changes in atelectasis in LLL. Trace fluid/thickening along anterior pericardium. WBC- 9.8 Dr. Gan consulted- help appreciated consult cardio- Dr. Diego Rocephin IVPB day #4 Azithromycin IVPB day #4 Started on Bactrim DS 1 tab PO Q6h day #1 Continue Singulair 10mg PO HS echo- 05/31/16- LV systolic function is normal, EF is 65-70% BNP normal Legionella and Mycoplasma negative Status: Acute (2) Asthma exacerbation Assessment & Plan: Continue current management: Advair Singulair 10mg Duoneb 3ml q6H Continue IV steroids at 40mg IVP Q12h Patient will follow up with Dr. Gan after discharge Status: Chronic (3) HIV positive Assessment & Plan: 4/17: CD4 count below 20, patient on Atripla and also IV bactrim and Zithromax. Hepatitis panel is negative. Viral load is pending. 06/04: Viral load and CD count is still pending, continue Atripla therapy, LFTs are low, have orderd for Hepatitis panel. Previous note: HIV 1 and 2 antibody screen- reactive Consult ID- Dr. Pena f/u HIV 1/2 AG/ab f/U CD3/CD4/CD8 Started on Atripla 600/200/300mg 1 tab PO Daily Started on Bactrim DS 1 tab PO Q6h day #1 (4) Uncontrolled diabetes mellitus Assessment & Plan: 06/04: Continue with current mangement Hgb a1c is 13.5. Endo-Dr. Joanna Linares is consulted diet education and counseling. Metformin to 1000mg BID Continue Lantus 40U HS Continue Novolog 14U AC continue accu checks with medium protocol sliding scale insulin. Status: Acute (5) Oral Thrush Assessment & Plan: 06/04: continue Diflucanc Previous note: Diflucan 100mg PO Daily Status: Acute (6) Prophylactic measure Assessment & Plan: Lovenox SC daily Protonix daily
[2016-06-09] MEDS: Nystatin 100,000 Units/ml Oral Susp 5 ml UD PO SCH ×4 (10:00→21:13)
--- NOTE | 2016-06-09 10:37 | CP.PCM.PN ---
<Ki So - Last Filed: 06/09/16 10:32> Subjective - Date & Time of Evaluation Date of Evaluation: 06/09/16 Time of Evaluation: 10:32 - Subjective Subjective: Cardiology Progress Note Dr. Green Patient seen and examined at the bedside. No acute distress. No acute events overnight. Nursing staff reports no issues. The patient is sitting comfortably in bedside chair at this time. The patient reports feeling better than yesterday. The patient denies all cardiopulmonary complaints: chest pain, palpitations, orthopnea, PND. 12 point review of systems was preformed and the patient denied all complaints at this time. Objective - Vital Signs/Intake and Output Vital Signs (last 24 hours): Temp Pulse Resp BP Pulse Ox 98.6 F 88 18 128/86 94 L 06/09/16 07:10 06/09/16 07:30 06/09/16 07:10 06/09/16 07:10 06/09/16 07:10 - Medications Medications: Current Medications Benzocaine (Orajel) 0 MM TID [facility] Last Admin: 06/09/16 09:13 Dose: 1 applic Diltiazem HCl (Cardizem) 90 mg PO Q8 [facility] Last Admin: 06/09/16 05:41 Dose: 90 mg Efavirenz/Emtricitabine/Tenofovir (Atripla 600 Mg-200 Mg-300 Mg) 1 tab PO DAILY [facility] Last Admin: 06/09/16 09:15 Dose: 1 tab Famotidine (Pepcid) 20 mg PO BID [facility] Last Admin: 06/09/16 09:23 Dose: 20 mg Fluconazole (Diflucan) 100 mg PO DAILY [facility] Last Admin: 06/07/16 09:56 Dose: 100 mg Fludrocortisone Acetate (Florinef) 0.1 mg PO BID [facility] Last Admin: 06/09/16 09:14 Dose: 0.1 mg Azithromycin 500 mg/ Sodium (Chloride) 250 mls @ 167 mls/hr IVPB Q24H [facility] Last Admin: 06/08/16 17:15 Dose: 167 mls/hr Ceftriaxone Sodium 2 gm/ (Sodium Chloride) 100 mls @ 100 mls/hr IVPB Q24H [facility] Last Admin: 06/08/16 19:35 Dose: 100 mls/hr Trimethoprim/Sulfamethoxazole (160 mg/ Dextrose) 250 mls @ 250 mls/hr IVPB Q6H [facility] Last Admin: 06/09/16 08:00 Dose: 250 mls/hr Insulin Aspart (Novolog) 6 unit SC AC [facility] Last Admin: 06/09/16 08:00 Dose: 6 unit Insulin Aspart (Novolog) 0 unit SC ACHS [facility] PRN Reason: Protocol Last Admin: 06/09/16 07:30 Dose: Not Given Insulin Glargine (Lantus) 20 unit SC HS [facility] Last Admin: 06/08/16 22:30 Dose: 20 units Metformin HCl (Glucophage) 1,000 mg PO BIDCC [facility] Last Admin: 06/09/16 08:00 Dose: 1,000 mg Montelukast Sodium (Singulair) 10 mg PO [facility] Last Admin: 06/08/16 21:48 Dose: 10 mg Nystatin (Nystatin Oral Susp) 5 ml PO QID [facility] Last Admin: 06/08/16 21:48 Dose: 5 ml Prednisone (Prednisone Tab) 20 mg PO DAILY [facility] Last Admin: 06/09/16 09:23 Dose: 20 mg Promethazine HCl/Codeine (Phenergan/Codeine Oral Syrup) 5 ml PO Q4 PRN PRN Reason: Cough Last Admin: 06/06/16 12:51 Dose: 5 ml Saliva Substitute (First Magic Mouthwash) 2 ml PO Q6H [facility] Last Admin: 06/09/16 09:11 Dose: 2 ml Sitagliptin Phosphate (Januvia) 100 mg PO DAILY [facility] Last Admin: 06/09/16 09:23 Dose: 100 mg Trimethoprim/Sulfamethoxazole (Bactrim Ds Tab) 1 tab PO Q6H [facility] Last Admin: 06/07/16 14:23 Dose: 1 tab - Labs Labs: 06/09/16 06:42 06/09/16 06:42 PT 11.3 SECONDS (9.7-12.2) 06/07/16 21:10 INR 1.0 06/07/16 21:10 APTT 30 SECONDS (21-34) 06/07/16 21:10 - Constitutional Appears: Chronically Ill - Head Exam Head Exam: ATRAUMATIC, NORMAL INSPECTION, NORMOCEPHALIC - Eye Exam Eye Exam: EOMI, Normal appearance - Neck Exam Neck Exam: Full ROM, Normal Inspection. absent: Lymphadenopathy - Respiratory Exam Respiratory Exam: Clear to Ausculation Bilateral, NORMAL BREATHING PATTERN. absent: Rhonchi, Wheezes - Cardiovascular Exam Cardiovascular Exam: Tachycardia, REGULAR RHYTHM, +S1, +S2. absent: Diastolic murmur, RRR, Murmur - GI/Abdominal Exam GI & Abdominal Exam: Soft, Normal Bowel Sounds. absent: Firm, Guarding, Rigid, Tenderness - Extremities Exam Extremities Exam: Full ROM, Normal Capillary Refill, Normal Inspection. absent : Joint Swelling, Pedal Edema - Back Exam Back Exam: NORMAL INSPECTION. absent: CVA tenderness (L), CVA tenderness (R) - Neurological Exam Neurological Exam: Alert, Awake, CN II-XII Intact, Oriented x3 - Skin Skin Exam: Dry, Intact, Normal Color, Warm Assessment and Plan (1) Orthostatic hypotension Assessment & Plan: Florinef 0.1mg PO BID PO hydration encouraged Repeat Orthostatics ordered Tilt table Test- Positive for vasovagal pre-syncopal symptoms Maintain adequate hydration 06/08/16 EKG- Sinus tachycardia, early repolarization, physiologic axis, normal intervals, no ST changes. T wave abnormality II, III, AVF 05/31/16 Echo- LV EF 65-70%, grade I abnormal relaxation pattern 05/30/16 EKG- Sinus tachycardia, early repolarization, physiologic axis, normal intervals, no ST/T wave changes Continue Diltiazem 90mg po q8 [address] Norma So PGY1 Status: c (2) Vasovagal syncope Status: c <Samara Green - Last Filed: 07/15/16 15:13> Objective - Vital Signs/Intake and Output Vital Signs (last 24 hours): Temp Pulse Resp BP Pulse Ox 98.4 F 90 17 120/72 98 06/10/16 09:41 06/10/16 09:41 06/10/16 09:41 06/10/16 09:41 06/10/16 09:41 - Labs Labs: 06/10/16 08:33 06/10/16 08:33 PT 11.3 SECONDS (9.7-12.2) 06/07/16 21:10 INR 1.0 06/07/16 21:10 APTT 30 SECONDS (21-34) 06/07/16 21:10 Attending/Attestation - Attestation I have personally seen and examined this patient.: Yes I have fully participated in the care of the patient.: Yes I have reviewed all pertinent clinical information, including history, physical exam and plan: Yes Notes (Text): 07/15/16 15:13 Pt will follow up in office pallavi peres
--- NOTE | 2016-06-09 11:12 | CP.PCM.PN ---
<Ishmael Brown - Last Filed: 06/09/16 12:59> Subjective - Date & Time of Evaluation Date of Evaluation: 06/09/16 Time of Evaluation: 10:10 - Subjective Subjective: PGY4 GI Fellow Progress Note Patient seen and examined bedside this morning. He is sitting bedside and is comfortable with no complaints. No issues overnight. States that he has been tolerating food/liquid with less discomfort since initiation of empiric Nystatin swish/swallow. Eager to be discharged. 12 system ROS performed and negative except where stated. Objective - Vital Signs/Intake and Output Vital Signs (last 24 hours): Temp Pulse Resp BP Pulse Ox 98.6 F 88 18 128/86 94 L 06/09/16 07:10 06/09/16 07:30 06/09/16 07:10 06/09/16 07:10 06/09/16 07:10 - Medications Medications: Current Medications Benzocaine (Orajel) 0 MM TID [facility] Last Admin: 06/09/16 09:13 Dose: 1 applic Diltiazem HCl (Cardizem) 90 mg PO Q8 [facility] Last Admin: 06/09/16 05:41 Dose: 90 mg Efavirenz/Emtricitabine/Tenofovir (Atripla 600 Mg-200 Mg-300 Mg) 1 tab PO DAILY [facility] Last Admin: 06/09/16 09:15 Dose: 1 tab Famotidine (Pepcid) 20 mg PO BID [facility] Last Admin: 06/09/16 09:23 Dose: 20 mg Fluconazole (Diflucan) 100 mg PO DAILY [facility] Last Admin: 06/07/16 09:56 Dose: 100 mg Fludrocortisone Acetate (Florinef) 0.1 mg PO BID [facility] Last Admin: 06/09/16 09:14 Dose: 0.1 mg Azithromycin 500 mg/ Sodium (Chloride) 250 mls @ 167 mls/hr IVPB Q24H [facility] Last Admin: 06/08/16 17:15 Dose: 167 mls/hr Ceftriaxone Sodium 2 gm/ (Sodium Chloride) 100 mls @ 100 mls/hr IVPB Q24H [facility] Last Admin: 06/08/16 19:35 Dose: 100 mls/hr Trimethoprim/Sulfamethoxazole (160 mg/ Dextrose) 250 mls @ 250 mls/hr IVPB Q6H [facility] Last Admin: 06/09/16 08:00 Dose: 250 mls/hr Insulin Aspart (Novolog) 6 unit SC AC [facility] Last Admin: 06/09/16 08:00 Dose: 6 unit Insulin Aspart (Novolog) 0 unit SC ACHS [facility] PRN Reason: Protocol Last Admin: 06/09/16 07:30 Dose: Not Given Insulin Glargine (Lantus) 20 unit SC HS [facility] Last Admin: 06/08/16 22:30 Dose: 20 units Metformin HCl (Glucophage) 1,000 mg PO BIDCC [facility] Last Admin: 06/09/16 08:00 Dose: 1,000 mg Montelukast Sodium (Singulair) 10 mg PO HS [facility] Last Admin: 06/08/16 21:48 Dose: 10 mg Nystatin (Nystatin Oral Susp) 5 ml PO QID [facility] Last Admin: 06/08/16 21:48 Dose: 5 ml Prednisone (Prednisone Tab) 20 mg PO DAILY [facility] Last Admin: 06/09/16 09:23 Dose: 20 mg Promethazine HCl/Codeine (Phenergan/Codeine Oral Syrup) 5 ml PO Q4 PRN PRN Reason: Cough Last Admin: 06/06/16 12:51 Dose: 5 ml Saliva Substitute (First Magic Mouthwash) 2 ml PO Q6H [facility] Last Admin: 06/09/16 09:11 Dose: 2 ml Sitagliptin Phosphate (Januvia) 100 mg PO DAILY [facility] Last Admin: 06/09/16 09:23 Dose: 100 mg Trimethoprim/Sulfamethoxazole (Bactrim Ds Tab) 1 tab PO Q6H [facility] Last Admin: 06/07/16 14:23 Dose: 1 tab - Labs Labs: 06/09/16 06:42 06/09/16 06:42 PT 11.3 SECONDS (9.7-12.2) 06/07/16 21:10 INR 1.0 06/07/16 21:10 APTT 30 SECONDS (21-34) 06/07/16 21:10 - Constitutional Appears: Non-toxic, No Acute Distress - Eye Exam Eye Exam: EOMI, PERRL - ENT Exam ENT Exam: Mucous Membranes Moist - Respiratory Exam Respiratory Exam: Clear to Ausculation Bilateral, Rales. absent: Rhonchi, Wheezes - Cardiovascular Exam Cardiovascular Exam: RRR, +S1, +S2 - GI/Abdominal Exam GI & Abdominal Exam: Soft, Normal Bowel Sounds. absent: Distended, Firm, Guarding, Rigid, Organomegaly - Extremities Exam Extremities Exam: Normal Inspection. absent: Pedal Edema - Neurological Exam Neurological Exam: Alert, Awake, Oriented x3 - Psychiatric Exam Psychiatric exam: Normal Affect, Normal Mood - Skin Skin Exam: Dry, Warm Assessment and Plan - Assessment and Plan (Free Text) Assessment: Patient is a 46yo male with PMHx significant for asthma, diabetes (a1c 13.5) who presented to the hospital with complaint of worsening shortness of breath. Our service has been consulted for odynophagia. -Newly diagnosed HIV, now on HAART -Odynophagia, improved -B/L Pneumonia -Poorly controlled diabetes mellitus, A1c 13.5 -Immunocompromised state Plan: -Patient cleared for EGD by pulmonology, Dr Gan -Remains tachycardic, PO2 improved on ABG noted -Continue HAART and IV ABX as ordered, ID following -Recommend tight glycemic control -Orajel 7.5% apply to MM TIDPRN for apthous ulcer pain -Low microbial diet recommended given immunocompromised state -PCP/MAC ppx given low CD4 count -NPO past MN for EGD in AM <Dima Davis - Last Filed: 06/09/16 15:06> Objective - Vital Signs/Intake and Output Vital Signs (last 24 hours): Temp Pulse Resp BP Pulse Ox 98.6 F 88 18 128/86 94 L 06/09/16 07:10 06/09/16 07:30 06/09/16 07:10 06/09/16 07:10 06/09/16 07:10 - Medications Medications: Current Medications Benzocaine (Orajel) 0 MM TID [facility] Last Admin: 06/09/16 13:00 Dose: 1 applic Diltiazem HCl (Cardizem) 90 mg PO Q8 [facility] Last Admin: 06/09/16 13:07 Dose: 90 mg Efavirenz/Emtricitabine/Tenofovir (Atripla 600 Mg-200 Mg-300 Mg) 1 tab PO DAILY [facility] Last Admin: 06/09/16 09:15 Dose: 1 tab Famotidine (Pepcid) 20 mg PO BID [facility] Last Admin: 06/09/16 09:23 Dose: 20 mg Fluconazole (Diflucan) 100 mg PO DAILY [facility] Last Admin: 06/07/16 09:56 Dose: 100 mg Fludrocortisone Acetate (Florinef) 0.1 mg PO BID [facility] Last Admin: 06/09/16 09:14 Dose: 0.1 mg Azithromycin 500 mg/ Sodium (Chloride) 250 mls @ 167 mls/hr IVPB Q24H [facility] Last Admin: 06/08/16 17:15 Dose: 167 mls/hr Ceftriaxone Sodium 2 gm/ (Sodium Chloride) 100 mls @ 100 mls/hr IVPB Q24H [facility] Last Admin: 06/08/16 19:35 Dose: 100 mls/hr Trimethoprim/Sulfamethoxazole (160 mg/ Dextrose) 250 mls @ 250 mls/hr IVPB Q6H [facility] Last Admin: 06/09/16 14:20 Dose: 250 mls/hr Insulin Aspart (Novolog) 6 unit SC AC [facility] Last Admin: 06/09/16 12:37 Dose: 6 unit Insulin Aspart (Novolog) 0 unit SC ACHS [facility] PRN Reason: Protocol Last Admin: 06/09/16 12:38 Dose: 2 unit Insulin Glargine (Lantus) 20 unit SC [facility] Last Admin: 06/08/16 22:30 Dose: 20 units Metformin HCl (Glucophage) 1,000 mg PO BIDCC [facility] Last Admin: 06/09/16 08:00 Dose: 1,000 mg Montelukast Sodium (Singulair) 10 mg PO [facility] Last Admin: 06/08/16 21:48 Dose: 10 mg Nystatin (Nystatin Oral Susp) 5 ml PO QID [facility] Last Admin: 06/09/16 13:05 Dose: 5 ml Prednisone (Prednisone Tab) 20 mg PO DAILY [facility] Last Admin: 06/09/16 09:23 Dose: 20 mg Promethazine HCl/Codeine (Phenergan/Codeine Oral Syrup) 5 ml PO Q4 PRN PRN Reason: Cough Last Admin: 06/06/16 12:51 Dose: 5 ml Saliva Substitute (First Magic Mouthwash) 2 ml PO Q6H [facility] Last Admin: 06/09/16 09:11 Dose: 2 ml Sitagliptin Phosphate (Januvia) 100 mg PO DAILY [facility] Last Admin: 06/09/16 09:23 Dose: 100 mg Trimethoprim/Sulfamethoxazole (Bactrim Ds Tab) 1 tab PO Q6H [facility] Last Admin: 06/07/16 14:23 Dose: 1 tab - Labs Labs: 06/09/16 06:42 06/09/16 06:42 PT 11.3 SECONDS (9.7-12.2) 06/07/16 21:10 INR 1.0 06/07/16 21:10 APTT 30 SECONDS (21-34) 06/07/16 21:10 Attending/Attestation - Attestation I have personally seen and examined this patient.: Yes I have fully participated in the care of the patient.: Yes I have reviewed all pertinent clinical information, including history, physical exam and plan: Yes Notes (Text): Patient seen and examined with Gi fellow. Agree with his note as documented above with the following additions/exceptions. This is a 46 year old male with h/o asthma, DM who is admitted with shortness of breath, newly diagnosed HIV/ AIDS started on ARV therapy. He complains of new onset odynophagia. He is tolerating PO. His dyspnea is overall improved. Appreciate pulmonary input, cleared for EGD for further evaluation of odynophagia. Continue current therapy including nystatin swish/swallow. Keep NPO p MN for EGD tomorrow. 06/09/16 15:04
--- NOTE | 2016-06-09 11:32 | CP.PCM.PN ---
Subjective - Date & Time of Evaluation Date of Evaluation: 06/09/16 Time of Evaluation: 10:35 - Subjective Subjective: Pt seen and examined sitting in chair. Pt states that cough is much improved. Pt denies SOB, chest pain, palpitations, fevers or chills. Pt describes that cough is brought on by stress. Objective - Vital Signs/Intake and Output Vital Signs (last 24 hours): Temp Pulse Resp BP Pulse Ox 98.6 F 88 18 128/86 94 L 06/09/16 07:10 06/09/16 07:30 06/09/16 07:10 06/09/16 07:10 06/09/16 07:10 - Medications Medications: Current Medications Benzocaine (Orajel) 0 MM TID [facility] Last Admin: 06/09/16 09:13 Dose: 1 applic Diltiazem HCl (Cardizem) 90 mg PO Q8 [facility] Last Admin: 06/09/16 05:41 Dose: 90 mg Efavirenz/Emtricitabine/Tenofovir (Atripla 600 Mg-200 Mg-300 Mg) 1 tab PO DAILY [facility] Last Admin: 06/09/16 09:15 Dose: 1 tab Famotidine (Pepcid) 20 mg PO BID [facility] Last Admin: 06/09/16 09:23 Dose: 20 mg Fluconazole (Diflucan) 100 mg PO DAILY [facility] Last Admin: 06/07/16 09:56 Dose: 100 mg Fludrocortisone Acetate (Florinef) 0.1 mg PO BID [facility] Last Admin: 06/09/16 09:14 Dose: 0.1 mg Azithromycin 500 mg/ Sodium (Chloride) 250 mls @ 167 mls/hr IVPB Q24H [facility] Last Admin: 06/08/16 17:15 Dose: 167 mls/hr Ceftriaxone Sodium 2 gm/ (Sodium Chloride) 100 mls @ 100 mls/hr IVPB Q24H [facility] Last Admin: 06/08/16 19:35 Dose: 100 mls/hr Trimethoprim/Sulfamethoxazole (160 mg/ Dextrose) 250 mls @ 250 mls/hr IVPB Q6H [facility] Last Admin: 06/09/16 08:00 Dose: 250 mls/hr Insulin Aspart (Novolog) 6 unit SC AC [facility] Last Admin: 06/09/16 08:00 Dose: 6 unit Insulin Aspart (Novolog) 0 unit SC ACHS [facility] PRN Reason: Protocol Last Admin: 06/09/16 07:30 Dose: Not Given Insulin Glargine (Lantus) 20 unit SC [facility] Last Admin: 06/08/16 22:30 Dose: 20 units Metformin HCl (Glucophage) 1,000 mg PO BIDCC [facility] Last Admin: 06/09/16 08:00 Dose: 1,000 mg Montelukast Sodium (Singulair) 10 mg PO [facility] Last Admin: 06/08/16 21:48 Dose: 10 mg Nystatin (Nystatin Oral Susp) 5 ml PO QID [facility] Last Admin: 06/08/16 21:48 Dose: 5 ml Prednisone (Prednisone Tab) 20 mg PO DAILY [facility] Last Admin: 06/09/16 09:23 Dose: 20 mg Promethazine HCl/Codeine (Phenergan/Codeine Oral Syrup) 5 ml PO Q4 PRN PRN Reason: Cough Last Admin: 06/06/16 12:51 Dose: 5 ml Saliva Substitute (First Magic Mouthwash) 2 ml PO Q6H [facility] Last Admin: 06/09/16 09:11 Dose: 2 ml Sitagliptin Phosphate (Januvia) 100 mg PO DAILY [facility] Last Admin: 06/09/16 09:23 Dose: 100 mg Trimethoprim/Sulfamethoxazole (Bactrim Ds Tab) 1 tab PO Q6H [facility] Last Admin: 06/07/16 14:23 Dose: 1 tab - Labs Labs: 06/09/16 06:42 06/09/16 06:42 PT 11.3 SECONDS (9.7-12.2) 06/07/16 21:10 INR 1.0 06/07/16 21:10 APTT 30 SECONDS (21-34) 06/07/16 21:10 - Constitutional Appears: Well, No Acute Distress - Head Exam Head Exam: ATRAUMATIC, NORMOCEPHALIC - Respiratory Exam Respiratory Exam: Clear to Ausculation Bilateral, NORMAL BREATHING PATTERN. absent: Rales, Rhonchi, Wheezes, Respiratory Distress - Cardiovascular Exam Cardiovascular Exam: +S1, +S2. absent: Murmur - Neurological Exam Neurological Exam: Alert, Awake, Oriented x3 - Psychiatric Exam Psychiatric exam: Anxious, Normal Affect, Normal Mood - Skin Skin Exam: Dry, Intact, Normal Color, Warm Assessment and Plan (1) Pneumonia Assessment & Plan: 05-30-[address]: R: Increased prominence of interstitial with mosaic pattern suggestive of pulmonary edema, middle and lower lobe consolidation/atelectasis, 6mm pulmonary nodule; L: Increased prominence of interstitial with mosaic pattern suggestive of pulmonary edema, L lobe consolidations Recommend follow-up screening to look for nodule growth 06-02-16 ECHO: EF between 65-70%, normal ventricular function, grade 1 abnormal relaxation pattern 06-02-16 Positive HIV test 06-04-16 CXR: mild crowded broncovascular markings, mild bibasilar atelectasis, course interstitial markings less well seen when compared to CT, questionable tiny left sided effusion 06-07-16 CXR ill defined consolidate airspace opacities at both lung bases R>L, trace L plural effusion, and venous congestion 06-07-16 VQ scan low probability of pulmonary embolism ABG 06-09-16 CO2-25 O2 -110 HCO3-21.9 pH-7.47 Mycoplasma and Legionella serology and labs negative Hepatitis and Cryptococcus negative IgE labs normal result of 10 Continue prednisone Continue phenergan/codeine Continue Singlair Continue Rocephin and Zithromax Continue HIV management, Continue Atripla 600/200/300mg 1 tab PO Daily and Bactrim IV; PCP unlikely based on clinical exam Recommend follow up for continued HIV management Absolute CD4 count <20 low to moderate risk for surgery, optimized for EGD from a pulmonary standpoint Continue to monitor for SOB, fevers, and productive cough Status: Acute (2) Asthma exacerbation Status: Chronic (3) Nodule of right lung Status: Acute (4) HIV (human immunodeficiency virus infection) Status: Acute
--- NOTE | 2016-06-09 11:40 | CARD ---
APPROVED REPORT EKG Measurement Heart [id number] ID [id number] <Conclusion> Sinus tachycardia Voltage criteria for left ventricular hypertrophy Nonspecific T wave abnormality Abnormal ECG
--- NOTE | 2016-06-09 14:46 | CP.PCM.PN ---
Subjective - Date & Time of Evaluation Date of Evaluation: 06/09/16 Time of Evaluation: 10:00 - Subjective Subjective: Dr. Knight service: Patient seen and examined in room. He is reporting no pain or diffaculty Objective - Vital Signs/Intake and Output Vital Signs (last 24 hours): Temp Pulse Resp BP Pulse Ox 98.6 F 88 18 128/86 94 L 06/09/16 07:10 06/09/16 07:30 06/09/16 07:10 06/09/16 07:10 06/09/16 07:10 - Medications Medications: Current Medications Benzocaine (Orajel) 0 MM TID [facility] Last Admin: 06/09/16 13:00 Dose: 1 applic Diltiazem HCl (Cardizem) 90 mg PO Q8 [facility] Last Admin: 06/09/16 13:07 Dose: 90 mg Efavirenz/Emtricitabine/Tenofovir (Atripla 600 Mg-200 Mg-300 Mg) 1 tab PO DAILY [facility] Last Admin: 06/09/16 09:15 Dose: 1 tab Famotidine (Pepcid) 20 mg PO BID [facility] Last Admin: 06/09/16 09:23 Dose: 20 mg Fluconazole (Diflucan) 100 mg PO DAILY [facility] Last Admin: 06/07/16 09:56 Dose: 100 mg Fludrocortisone Acetate (Florinef) 0.1 mg PO BID [facility] Last Admin: 06/09/16 09:14 Dose: 0.1 mg Azithromycin 500 mg/ Sodium (Chloride) 250 mls @ 167 mls/hr IVPB Q24H [facility] Last Admin: 06/08/16 17:15 Dose: 167 mls/hr Ceftriaxone Sodium 2 gm/ (Sodium Chloride) 100 mls @ 100 mls/hr IVPB Q24H [facility] Last Admin: 06/08/16 19:35 Dose: 100 mls/hr Trimethoprim/Sulfamethoxazole (160 mg/ Dextrose) 250 mls @ 250 mls/hr IVPB Q6H [facility] Last Admin: 06/09/16 14:20 Dose: 250 mls/hr Insulin Aspart (Novolog) 6 unit SC AC [facility] Last Admin: 06/09/16 12:37 Dose: 6 unit Insulin Aspart (Novolog) 0 unit SC ACHS [facility] PRN Reason: Protocol Last Admin: 06/09/16 12:38 Dose: 2 unit Insulin Glargine (Lantus) 20 unit SC HS [facility] Last Admin: 06/08/16 22:30 Dose: 20 units Metformin HCl (Glucophage) 1,000 mg PO BIDCC [facility] Last Admin: 06/09/16 08:00 Dose: 1,000 mg Montelukast Sodium (Singulair) 10 mg PO HS [facility] Last Admin: 06/08/16 21:48 Dose: 10 mg Nystatin (Nystatin Oral Susp) 5 ml PO QID [facility] Last Admin: 06/09/16 13:05 Dose: 5 ml Prednisone (Prednisone Tab) 20 mg PO DAILY [facility] Last Admin: 06/09/16 09:23 Dose: 20 mg Promethazine HCl/Codeine (Phenergan/Codeine Oral Syrup) 5 ml PO Q4 PRN PRN Reason: Cough Last Admin: 06/06/16 12:51 Dose: 5 ml Saliva Substitute (First Magic Mouthwash) 2 ml PO Q6H [facility] Last Admin: 06/09/16 09:11 Dose: 2 ml Sitagliptin Phosphate (Januvia) 100 mg PO DAILY [facility] Last Admin: 06/09/16 09:23 Dose: 100 mg Trimethoprim/Sulfamethoxazole (Bactrim Ds Tab) 1 tab PO Q6H [facility] Last Admin: 06/07/16 14:23 Dose: 1 tab - Labs Labs: 06/09/16 06:42 06/09/16 06:42 PT 11.3 SECONDS (9.7-12.2) 06/07/16 21:10 INR 1.0 06/07/16 21:10 APTT 30 SECONDS (21-34) 06/07/16 21:10
--- NOTE | 2016-06-09 15:17 | PN ---
DATE: 06/09/2016 ROOM: 660 This is a 46-year-old male with recent uncontrolled type 2 insulin-requiring diabetes, now being foll owed closely for metabolic management. He was initially started on IV steroid therapy because of acu te asthmatic bronchitis and severe bronchospasm and is now with supervening marked hyperglycemic acce lerations as noted thereof. His glucose levels have since then improved with the switching over from IV steroids to oral steroid therapy as noted. His latest glucose levels have ranged from 143-167 mg /dL. The latest chemistry showed a BUN of 14, sodium 131, potassium 4.2, chloride 102, CO2 of 21, gl ucose 142, and creatinine 0.9. So, at this time, we will continue the same basal and bolus insulin regimen to allow for dose equilib ration and keep him on the Lantus given as 20 units subQ at bedtime daily with NovoLog given as 6 uni ts subQ t.i.d. before meals as given. We will titrate incrementally as indicated to optimize metabol ic control. We will also keep him on the metformin given as 1000 mg b.i.d. as ordered. We will titr ate incrementally as indicated to optimize metabolic control. He also has been recently diagnosed to be HIV positive as noted thereof and is being followed closely by infectious disease. We will obtai n serial chemistries and supplement accordingly as needed. We will follow. Joanna Linares MD cc: [id number] TT: 06/09/2016 15:17:04 Confirmation # [id number] Dictation # [id number]
[2016-06-09] MEDS: Azithromycin 500 MG in Sodium Chloride 0.9% 250 ML IVPB SCH (16:45)
--- NOTE | 2016-06-09 17:40 | CP.PCM.PN ---
Subjective - Date & Time of Evaluation Date of Evaluation: 06/09/16 Time of Evaluation: 10:00 - Subjective Subjective: cough less iv rx in progress Objective - Vital Signs/Intake and Output Vital Signs (last 24 hours): Temp Pulse Resp BP Pulse Ox 98.4 F 117 H 20 125/81 96 06/09/16 16:47 06/09/16 16:47 06/09/16 16:47 06/09/16 16:47 06/09/16 16:47 - Medications Medications: Current Medications Benzocaine (Orajel) 0 MM TID [facility] Last Admin: 06/09/16 13:00 Dose: 1 applic Diltiazem HCl (Cardizem) 90 mg PO Q8 [facility] Last Admin: 06/09/16 13:07 Dose: 90 mg Efavirenz/Emtricitabine/Tenofovir (Atripla 600 Mg-200 Mg-300 Mg) 1 tab PO DAILY [facility] Last Admin: 06/09/16 09:15 Dose: 1 tab Famotidine (Pepcid) 20 mg PO BID [facility] Last Admin: 06/09/16 09:23 Dose: 20 mg Fluconazole (Diflucan) 100 mg PO DAILY [facility] Last Admin: 06/07/16 09:56 Dose: 100 mg Fludrocortisone Acetate (Florinef) 0.1 mg PO BID [facility] Last Admin: 06/09/16 09:14 Dose: 0.1 mg Azithromycin 500 mg/ Sodium (Chloride) 250 mls @ 167 mls/hr IVPB Q24H [facility] Last Admin: 06/09/16 16:45 Dose: 167 mls/hr Ceftriaxone Sodium 2 gm/ (Sodium Chloride) 100 mls @ 100 mls/hr IVPB Q24H [facility] Last Admin: 06/08/16 19:35 Dose: 100 mls/hr Trimethoprim/Sulfamethoxazole (160 mg/ Dextrose) 250 mls @ 250 mls/hr IVPB Q6H [facility] Last Admin: 06/09/16 14:20 Dose: 250 mls/hr Insulin Aspart (Novolog) 6 unit SC AC [facility] Last Admin: 06/09/16 16:49 Dose: 6 unit Insulin Aspart (Novolog) 0 unit SC ACHS [facility] PRN Reason: Protocol Last Admin: 06/09/16 16:50 Dose: 6 unit Insulin Glargine (Lantus) 20 unit SC HS [facility] Last Admin: 06/08/16 22:30 Dose: 20 units Metformin HCl (Glucophage) 1,000 mg PO BIDCC [facility] Last Admin: 06/09/16 16:48 Dose: 1,000 mg Montelukast Sodium (Singulair) 10 mg PO HS [facility] Last Admin: 06/08/16 21:48 Dose: 10 mg Nystatin (Nystatin Oral Susp) 5 ml PO QID [facility] Last Admin: 06/09/16 13:05 Dose: 5 ml Prednisone (Prednisone Tab) 20 mg PO DAILY [facility] Last Admin: 06/09/16 09:23 Dose: 20 mg Promethazine HCl/Codeine (Phenergan/Codeine Oral Syrup) 5 ml PO Q4 PRN PRN Reason: Cough Last Admin: 06/06/16 12:51 Dose: 5 ml Saliva Substitute (First Magic Mouthwash) 2 ml PO Q6H [facility] Last Admin: 06/09/16 09:11 Dose: 2 ml Sitagliptin Phosphate (Januvia) 100 mg PO DAILY [facility] Last Admin: 06/09/16 09:23 Dose: 100 mg Trimethoprim/Sulfamethoxazole (Bactrim Ds Tab) 1 tab PO Q6H [facility] Last Admin: 06/07/16 14:23 Dose: 1 tab - Labs Labs: 06/09/16 06:42 06/09/16 06:42 PT 11.3 SECONDS (9.7-12.2) 06/07/16 21:10 INR 1.0 06/07/16 21:10 APTT 30 SECONDS (21-34) 06/07/16 21:10 - Constitutional Appears: Non-toxic, Chronically Ill - Head Exam Head Exam: NORMOCEPHALIC - Eye Exam Eye Exam: PERRL. absent: Scleral icterus - ENT Exam ENT Exam: Mucous Membranes Dry - Neck Exam Neck Exam: absent: Thyromegaly - Respiratory Exam Respiratory Exam: Decreased Breath Sounds - Cardiovascular Exam Cardiovascular Exam: REGULAR RHYTHM, +S1, +S2 - GI/Abdominal Exam GI & Abdominal Exam: Distended, Soft - Rectal Exam Rectal Exam: Deferred - Exam Exam: NORMAL INSPECTION Assessment and Plan (1) Nodule of right lung Status: Acute (2) Pneumonia Status: Acute (3) Uncontrolled diabetes mellitus Status: Acute (4) Cough due to bronchospasm Status: Acute (5) Asthma exacerbation Status: Chronic
[2016-06-09] MEDS: Promethazine/Cod 6.25mg-10mg/5ml Syr UD PO PRN (17:50)
--- NOTE | 2016-06-09 18:51 | CP.PCM.PN ---
Subjective - Date & Time of Evaluation Date of Evaluation: 06/09/16 Time of Evaluation: 11:20 - Subjective Subjective: cough is improved pt. denies fever, nausea, vomiting pt. denies dyspnea pt. denies pain on swallowing Objective - Vital Signs/Intake and Output Vital Signs (last 24 hours): Temp Pulse Resp BP Pulse Ox 98.4 F 117 H 20 125/81 96 06/09/16 16:47 06/09/16 16:47 06/09/16 16:47 06/09/16 16:47 06/09/16 16:47 - Medications Medications: Current Medications Benzocaine (Orajel) 0 MM TID [facility] Last Admin: 06/09/16 17:53 Dose: Not Given Diltiazem HCl (Cardizem) 90 mg PO Q8 [facility] Last Admin: 06/09/16 13:07 Dose: 90 mg Efavirenz/Emtricitabine/Tenofovir (Atripla 600 Mg-200 Mg-300 Mg) 1 tab PO DAILY [facility] Last Admin: 06/09/16 09:15 Dose: 1 tab Famotidine (Pepcid) 20 mg PO BID [facility] Last Admin: 06/09/16 17:51 Dose: 20 mg Fluconazole (Diflucan) 100 mg PO DAILY [facility] Last Admin: 06/07/16 09:56 Dose: 100 mg Fludrocortisone Acetate (Florinef) 0.1 mg PO BID [facility] Last Admin: 06/09/16 17:51 Dose: 0.1 mg Azithromycin 500 mg/ Sodium (Chloride) 250 mls @ 167 mls/hr IVPB Q24H [facility] Last Admin: 06/09/16 16:45 Dose: 167 mls/hr Ceftriaxone Sodium 2 gm/ (Sodium Chloride) 100 mls @ 100 mls/hr IVPB Q24H [facility] Last Admin: 06/08/16 19:35 Dose: 100 mls/hr Trimethoprim/Sulfamethoxazole (160 mg/ Dextrose) 250 mls @ 250 mls/hr IVPB Q6H [facility] Last Admin: 06/09/16 14:20 Dose: 250 mls/hr Insulin Aspart (Novolog) 6 unit SC AC [facility] Last Admin: 06/09/16 16:49 Dose: 6 unit Insulin Aspart (Novolog) 0 unit SC ACHS [facility] PRN Reason: Protocol Last Admin: 06/09/16 16:50 Dose: 6 unit Insulin Glargine (Lantus) 20 unit SC [facility] Last Admin: 06/08/16 22:30 Dose: 20 units Metformin HCl (Glucophage) 1,000 mg PO BIDCC [facility] Last Admin: 06/09/16 16:48 Dose: 1,000 mg Montelukast Sodium (Singulair) 10 mg PO [facility] Last Admin: 06/08/16 21:48 Dose: 10 mg Nystatin (Nystatin Oral Susp) 5 ml PO QID [facility] Last Admin: 06/09/16 13:05 Dose: 5 ml Prednisone (Prednisone Tab) 20 mg PO DAILY [facility] Last Admin: 06/09/16 09:23 Dose: 20 mg Promethazine HCl/Codeine (Phenergan/Codeine Oral Syrup) 5 ml PO Q4 PRN PRN Reason: Cough Last Admin: 06/09/16 17:50 Dose: 5 ml Saliva Substitute (First Magic Mouthwash) 2 ml PO Q6H [facility] Last Admin: 06/09/16 16:15 Dose: 2 ml Sitagliptin Phosphate (Januvia) 100 mg PO DAILY [facility] Last Admin: 06/09/16 09:23 Dose: 100 mg Trimethoprim/Sulfamethoxazole (Bactrim Ds Tab) 1 tab PO Q6H [facility] Last Admin: 06/07/16 14:23 Dose: 1 tab - Labs Labs: 06/09/16 06:42 06/09/16 06:42 PT 11.3 SECONDS (9.7-12.2) 06/07/16 21:10 INR 1.0 06/07/16 21:10 APTT 30 SECONDS (21-34) 06/07/16 21:10 - Constitutional Appears: Well - Head Exam Head Exam: ATRAUMATIC, NORMAL INSPECTION, NORMOCEPHALIC - Eye Exam Eye Exam: EOMI, Normal appearance, PERRL Pupil Exam: NORMAL ACCOMODATION, PERRL - ENT Exam ENT Exam: Mucous Membranes Moist, Normal Exam - Neck Exam Neck Exam: Full ROM, Normal Inspection. absent: Lymphadenopathy - Respiratory Exam Respiratory Exam: Decreased Breath Sounds - Cardiovascular Exam Cardiovascular Exam: REGULAR RHYTHM, +S1, +S2 - GI/Abdominal Exam GI & Abdominal Exam: Soft, Diminished Bowel Sounds - Rectal Exam Rectal Exam: Deferred Assessment and Plan (1) Asthma exacerbation Status: Chronic (2) Cough due to bronchospasm Status: Acute (3) Pneumonia Status: Acute (4) Prophylactic measure Status: Acute (5) Nodule of right lung Status: Acute (6) Uncontrolled diabetes mellitus Status: Acute (7) HIV (human immunodeficiency virus infection) Status: Acute - Assessment and Plan (Free Text) Plan: Dr. matty Guardado continue meds as ordered f/u labs
[2016-06-09] MEDS: cefTRIAXone 2 GM in Sodium Chloride 0.9% 100 ML IVPB SCH (19:28)
[2016-06-09] MEDS: (Lantus) Insulin Glargine, Recombinant SC SCH (21:18)
[2016-06-10] MEDS: Mag&Al/Simet/Diphen/Lido 237 ML KIT PO SCH (02:23)
[2016-06-10] MEDS: Sulfamethoxazole/Trimethoprim 160 MG in Dextrose 5% In Water 250 ML IVPB SCH ×2 (02:24→08:00)
[2016-06-10 08:45] LABS: BASO # 0.1 K/uL (0.0-0.2); BASO % 1.3 % (0.0-2.0); EOS # 0.2 K/uL (0.0-0.7); EOS % 2.8 % (0.0-4.0); HEMATOCRIT 42.3 % (35.0-51.0); LYMPH # 0.8 K/uL (1.0-4.3); MEAN CELL VOLUME 83.3 fL (80.0-94.0); MEAN CORPUSCULAR HEMOGLOBIN 27.2 pg (27.0-31.0); MEAN CORPUSCULAR HGB CONC 32.7 g/dL (33.0-37.0); MEAN PLATELET VOLUME 8.2 fL (7.2-11.7); MONO # 0.5 K/uL (0.0-0.8); MONO % 7.5 % (0.0-10.0); RED CELL DISTRIBUTION WIDTH 13.8 % (11.5-14.5); WHITE BLOOD COUNT 6.2 K/uL (4.8-10.8)
[2016-06-10] MEDS ORDERED: Lactated Ringer's 500 ML IV ONE (08:52)
[2016-06-10 08:53] LABS: CHLORIDE 99 mmol/L (98-107); POTASSIUM 4.8 mmol/L (3.6-5.2); SODIUM 132 mmol/L (132-148)
[2016-06-10 08:55] LABS: ALKALINE PHOSPHATASE 71 U/L (38-126); AST/SGOT 38 U/L (17-59); BILIRUBIN,TOTAL 0.4 mg/dL (0.2-1.3); CARBON DIOXIDE 22 mmol/L (22-30); GFR AFRICAN-AMERICAN > 60; TOTAL PROTEIN 7.1 g/dL (6.3-8.3)
[2016-06-10 08:56] LABS: ALT/SGPT 32 U/L (21-72); BLOOD UREA NITROGEN 20 mg/dL (9-20); CALCIUM 8.9 mg/dl (8.6-10.4); GLUCOSE,RANDOM 108 mg/dL (75-110); MAGNESIUM 1.8 mg/dL (1.6-2.3); PHOSPHOROUS 3.1 mg/dL (2.5-4.5)
[2016-06-10] MEDS ORDERED: Propofol 10 mg/ml Inj (20 ML) ONE (08:58)
[2016-06-10 09:19] VITALS: TEMP 98.4
[2016-06-10 09:29] VITALS: O2SAT 98
[2016-06-10 09:48] VITALS: BP 120/72; PULSE 90; RESP 17
[2016-06-10] MEDS ORDERED: Pantoprazole 40 mg EC Tab PO SCH (10:00)
[2016-06-10] MEDS ORDERED: Enoxaparin 40 mg Syringe SC SCH (10:00)
--- NOTE | 2016-06-10 10:13 | CP.PCM.PN ---
<Ki So - Last Filed: 06/10/16 10:09> Subjective - Date & Time of Evaluation Date of Evaluation: 06/10/16 Time of Evaluation: 10:09 - Subjective Subjective: Cardiology Progress Note Dr. Green Patient seen and examined at the bedside. No acute distress. No acute events overnight. Nursing staff reports no issues. The patient is sitting comfortably in bedside chair. The patient is not tachycardic this morning. The patient denies all cardiopulmonary complaints: chest pain, palpitations, orthopnea, PND. 12 point review of systems was preformed and the patient denied all complaints at this time. The patient is for EGD today, and has been NPO past midnight. Objective - Vital Signs/Intake and Output Vital Signs (last 24 hours): Temp Pulse Resp BP Pulse Ox 98.4 F 90 17 120/72 98 06/10/16 09:41 06/10/16 09:41 06/10/16 09:41 06/10/16 09:41 06/10/16 09:41 Intake and Output: 06/10/16 06/10/16 06:59 18:59 Intake Total 1250 Output Total 900 Balance 350 - Medications Medications: Current Medications Benzocaine (Orajel) 0 MM TID [facility] Last Admin: 06/09/16 17:53 Dose: Not Given Diltiazem HCl (Cardizem) 90 mg PO Q8 [facility] Last Admin: 06/10/16 05:23 Dose: 90 mg Efavirenz/Emtricitabine/Tenofovir (Atripla 600 Mg-200 Mg-300 Mg) 1 tab PO DAILY [facility] Last Admin: 06/09/16 09:15 Dose: 1 tab Enoxaparin Sodium (Lovenox) 40 mg SC DAILY [facility] Fluconazole (Diflucan) 100 mg PO DAILY [facility] Last Admin: 06/07/16 09:56 Dose: 100 mg Fludrocortisone Acetate (Florinef) 0.1 mg PO BID [facility] Last Admin: 06/09/16 17:51 Dose: 0.1 mg Azithromycin 500 mg/ Sodium (Chloride) 250 mls @ 167 mls/hr IVPB Q24H [facility] Last Admin: 06/09/16 16:45 Dose: 167 mls/hr Ceftriaxone Sodium 2 gm/ (Sodium Chloride) 100 mls @ 100 mls/hr IVPB Q24H [facility] Last Admin: 06/09/16 19:28 Dose: 100 mls/hr Trimethoprim/Sulfamethoxazole (160 mg/ Dextrose) 250 mls @ 250 mls/hr IVPB Q6H [facility] Last Admin: 06/10/16 02:24 Dose: 250 mls/hr Insulin Aspart (Novolog) 6 unit SC AC [facility] Last Admin: 06/09/16 16:49 Dose: 6 unit Insulin Aspart (Novolog) 0 unit SC ACHS [facility] PRN Reason: Protocol Last Admin: 06/09/16 22:37 Dose: Not Given Insulin Glargine (Lantus) 20 unit SC HS [facility] Last Admin: 06/09/16 21:18 Dose: 20 units Metformin HCl (Glucophage) 1,000 mg PO BIDCC [facility] Last Admin: 06/09/16 16:48 Dose: 1,000 mg Montelukast Sodium (Singulair) 10 mg PO HS [facility] Last Admin: 06/09/16 21:12 Dose: 10 mg Nystatin (Nystatin Oral Susp) 5 ml PO QID [facility] Last Admin: 06/09/16 21:13 Dose: 5 ml Pantoprazole Sodium (Protonix Ec Tab) 40 mg PO BID [facility] Prednisone (Prednisone Tab) 20 mg PO DAILY [facility] Last Admin: 06/09/16 09:23 Dose: 20 mg Promethazine HCl/Codeine (Phenergan/Codeine Oral Syrup) 5 ml PO Q4 PRN PRN Reason: Cough Last Admin: 06/09/16 17:50 Dose: 5 ml Saliva Substitute (First Magic Mouthwash) 2 ml PO Q6H [facility] Last Admin: 06/10/16 02:23 Dose: 2 ml Sitagliptin Phosphate (Januvia) 100 mg PO DAILY [facility] Last Admin: 06/09/16 09:23 Dose: 100 mg Trimethoprim/Sulfamethoxazole (Bactrim Ds Tab) 1 tab PO Q6H [facility] Last Admin: 06/07/16 14:23 Dose: 1 tab - Labs Labs: 06/10/16 08:33 06/10/16 08:33 PT 11.3 SECONDS (9.7-12.2) 06/07/16 21:10 INR 1.0 06/07/16 21:10 APTT 30 SECONDS (21-34) 06/07/16 21:10 - Additional Findings Additional findings: - Constitutional Appears: Chronically Ill - Head Exam Head Exam: ATRAUMATIC, NORMAL INSPECTION, NORMOCEPHALIC - Eye Exam Eye Exam: EOMI, Normal appearance - Neck Exam Neck Exam: Full ROM, Normal Inspection. absent: Lymphadenopathy - Respiratory Exam Respiratory Exam: Clear to Ausculation Bilateral, NORMAL BREATHING PATTERN. absent: Rhonchi, Wheezes - Cardiovascular Exam Cardiovascular Exam: RRR, REGULAR RHYTHM, +S1, +S2. absent: Diastolic murmur, Murmur - GI/Abdominal Exam GI & Abdominal Exam: Soft, Normal Bowel Sounds. absent: Firm, Guarding, Rigid, Tenderness - Extremities Exam Extremities Exam: Full ROM, Normal Capillary Refill, Normal Inspection. absent : Joint Swelling, Pedal Edema - Back Exam Back Exam: NORMAL INSPECTION. absent: CVA tenderness (L), CVA tenderness (R) - Neurological Exam Neurological Exam: Alert, Awake, CN II-XII Intact, Oriented x3 - Skin Skin Exam: Dry, Intact, Normal Color, Warm Assessment and Plan (1) Orthostatic hypotension Assessment & Plan: Florinef 0.1mg PO BID PO hydration encouraged Tilt table Test- Positive for vasovagal pre-syncopal symptoms Orthostatics 06/09: negative Lyin/87 Sittin/90 Standin/95 06/08/16 EKG- Sinus tachycardia, early repolarization, physiologic axis, normal intervals, no ST changes. T wave abnormality II, III, AVF 05/31/16 Echo- LV EF 65-70%, grade I abnormal relaxation pattern 05/30/16 EKG- Sinus tachycardia, early repolarization, physiologic axis, normal intervals, no ST/T wave changes Continue Diltiazem 90mg po q8 [address] Dr[address] Norma So PGY1 Status: c (2) Vasovagal syncope Status: c <Samara Green - Last Filed: 07/09/16 10:32> Objective - Vital Signs/Intake and Output Vital Signs (last 24 hours): Temp Pulse Resp BP Pulse Ox 98.4 F 90 17 120/72 98 06/10/16 09:41 06/10/16 09:41 06/10/16 09:41 06/10/16 09:41 06/10/16 09:41 - Labs Labs: 06/10/16 08:33 06/10/16 08:33 PT 11.3 SECONDS (9.7-12.2) 06/07/16 21:10 INR 1.0 06/07/16 21:10 APTT 30 SECONDS (21-34) 06/07/16 21:10 Attending/Attestation - Attestation I have personally seen and examined this patient.: Yes I have fully participated in the care of the patient.: Yes I have reviewed all pertinent clinical information, including history, physical exam and plan: Yes Notes (Text): 07/09/16 10:32 Patient for egd today
[2016-06-10] MEDS: Benzocaine Gel 7.5% MM SCH (10:38)
[2016-06-10] MEDS: Efavirenz/Emtricitabine/Teno 1 TAB PO SCH (10:39)
[2016-06-10] MEDS: Nystatin 100,000 Units/ml Oral Susp 5 ml UD PO SCH (10:39)
--- NOTE | 2016-06-10 10:45 | CP.PCM.PN ---
Subjective - Date & Time of Evaluation Date of Evaluation: 06/10/16 Time of Evaluation: 10:00 - Subjective Subjective: Dr. Acevedo service Patient is seen in room. He says he feels much better. He is not light headed or short breath without the nasal canula. Objective - Vital Signs/Intake and Output Vital Signs (last 24 hours): Temp Pulse Resp BP Pulse Ox 98.4 F 90 17 120/72 98 06/10/16 09:41 06/10/16 09:41 06/10/16 09:41 06/10/16 09:41 06/10/16 09:41 Intake and Output: 06/10/16 06/10/16 06:59 18:59 Intake Total 1250 Output Total 900 Balance 350 - Medications Medications: Current Medications Benzocaine (Orajel) 0 MM TID [facility] Last Admin: 06/10/16 10:38 Dose: 1 applic Diltiazem HCl (Cardizem) 90 mg PO Q8 [facility] Last Admin: 06/10/16 05:23 Dose: 90 mg Efavirenz/Emtricitabine/Tenofovir (Atripla 600 Mg-200 Mg-300 Mg) 1 tab PO DAILY [facility] Last Admin: 06/10/16 10:39 Dose: 1 tab Enoxaparin Sodium (Lovenox) 40 mg SC DAILY [facility] Last Admin: 06/10/16 10:34 Dose: 40 mg Fluconazole (Diflucan) 100 mg PO DAILY [facility] Last Admin: 06/07/16 09:56 Dose: 100 mg Fludrocortisone Acetate (Florinef) 0.1 mg PO BID [facility] Last Admin: 06/10/16 10:38 Dose: 0.1 mg Azithromycin 500 mg/ Sodium (Chloride) 250 mls @ 167 mls/hr IVPB Q24H [facility] Last Admin: 06/09/16 16:45 Dose: 167 mls/hr Ceftriaxone Sodium 2 gm/ (Sodium Chloride) 100 mls @ 100 mls/hr IVPB Q24H [facility] Last Admin: 06/09/16 19:28 Dose: 100 mls/hr Trimethoprim/Sulfamethoxazole (160 mg/ Dextrose) 250 mls @ 250 mls/hr IVPB Q6H [facility] Last Admin: 06/10/16 08:00 Dose: 250 mls/hr Insulin Aspart (Novolog) 6 unit SC AC [facility] Last Admin: 06/09/16 16:49 Dose: 6 unit Insulin Aspart (Novolog) 0 unit SC [facility] PRN Reason: Protocol Last Admin: 06/09/16 22:37 Dose: Not Given Insulin Glargine (Lantus) [address] [facility] Last Admin: 06/09/16 21:18 Dose: 20 units [facility] Last Admin: 06/10/16 10:35 Dose: 1,000 mg Montelukast Sodium (Singulair) [address] [facility] Last Admin: 06/09/16 21:12 Dose: 10 mg Nystatin (Nystatin Oral Susp) 5 ml PO QID [facility] Last Admin: 06/10/16 10:39 Dose: 5 ml Pantoprazole Sodium (Protonix Ec Tab) 40 mg PO BID [facility] Last Admin: 06/10/16 10:37 Dose: 40 mg Prednisone (Prednisone Tab) 20 mg PO DAILY [facility] Last Admin: 06/10/16 10:36 Dose: 20 mg Promethazine HCl/Codeine (Phenergan/Codeine Oral Syrup) 5 ml PO Q4 PRN PRN Reason: Cough Last Admin: 06/09/16 17:50 Dose: 5 ml Saliva Substitute (First Magic Mouthwash) 2 ml PO Q6H [facility] Last Admin: 06/10/16 02:23 Dose: 2 ml Sitagliptin Phosphate (Januvia) 100 mg PO DAILY [facility] Last Admin: 06/10/16 10:38 Dose: 100 mg Trimethoprim/Sulfamethoxazole (Bactrim Ds Tab) 1 tab PO Q6H [facility] Last Admin: 06/07/16 14:23 Dose: 1 tab - Labs Labs: 06/10/16 08:33 06/10/16 08:33 PT 11.3 SECONDS (9.7-12.2) 06/07/16 21:10 INR 1.0 06/07/16 21:10 APTT 30 SECONDS (21-34) 06/07/16 21:10 - Constitutional Appears: Non-toxic, No Acute Distress - Head Exam Head Exam: NORMAL INSPECTION - Eye Exam Eye Exam: Normal appearance - ENT Exam ENT Exam: Normal Exam - Respiratory Exam Respiratory Exam: Clear to Ausculation Bilateral. absent: Rales, Rhonchi - Cardiovascular Exam Cardiovascular Exam: REGULAR RHYTHM, RRR - Extremities Exam Extremities Exam: Normal Inspection. absent: Pedal Edema - Psychiatric Exam Psychiatric exam: Normal Affect, Normal Mood - Skin Skin Exam: Normal Color, Warm. absent: Pallor Assessment and Plan - Assessment and Plan (Free Text) Assessment: Patient discharged home with PO medication, he needs to follow up with Dr. Pena, Dr. Gan, Dr. Knight and Dr. Green. He will also need to follow up with Dr. Page for biopsy results from the EGD today. On Atripla, Bactrim, Zithromax, and Diflucan.
--- NOTE | 2016-06-10 11:22 | CP.PCM.PN ---
Subjective - Date & Time of Evaluation Date of Evaluation: 06/10/16 Time of Evaluation: 10:15 - Subjective Subjective: Pt seen and examined at bedside. Pt had just returned from EGD with biopsy and is feeling good. Pt denies lightheadedness, SOB with and without walking, chest pain, palpitations, fevers or chills, leg discomfort, and throat irritation. Difficulty swallowing has improved, appetite has returned and pt said he was hungry (had been NPO for EGD), cough is only occasional and improved. Bedside vitals: pulse ox 94%, Bp 128/75, Pulse 94 Pt walked: pulse ox 94% or above during walk, no SOB or palpitations Objective - Vital Signs/Intake and Output Vital Signs (last 24 hours): Temp Pulse Resp BP Pulse Ox 98.4 F 90 17 120/72 98 06/10/16 09:41 06/10/16 09:41 06/10/16 09:41 06/10/16 09:41 06/10/16 09:41 Intake and Output: 06/10/16 06/10/16 06:59 18:59 Intake Total 1250 Output Total 900 Balance 350 - Medications Medications: Current Medications Benzocaine (Orajel) 0 MM TID [facility] Last Admin: 06/10/16 10:38 Dose: 1 applic Diltiazem HCl (Cardizem) 90 mg PO Q8 [facility] Last Admin: 06/10/16 05:23 Dose: 90 mg Efavirenz/Emtricitabine/Tenofovir (Atripla 600 Mg-200 Mg-300 Mg) 1 tab PO DAILY [facility] Last Admin: 06/10/16 10:39 Dose: 1 tab Enoxaparin Sodium (Lovenox) 40 mg SC DAILY [facility] Last Admin: 06/10/16 10:34 Dose: 40 mg Fluconazole (Diflucan) 100 mg PO DAILY [facility] Last Admin: 06/07/16 09:56 Dose: 100 mg Fludrocortisone Acetate (Florinef) 0.1 mg PO BID [facility] Last Admin: 06/10/16 10:38 Dose: 0.1 mg Azithromycin 500 mg/ Sodium (Chloride) 250 mls @ 167 mls/hr IVPB Q24H [facility] Last Admin: 06/09/16 16:45 Dose: 167 mls/hr Ceftriaxone Sodium 2 gm/ (Sodium Chloride) 100 mls @ 100 mls/hr IVPB Q24H [facility] Last Admin: 06/09/16 19:28 Dose: 100 mls/hr Trimethoprim/Sulfamethoxazole (160 mg/ Dextrose) 250 mls @ 250 mls/hr IVPB Q6H [facility] Last Admin: 06/10/16 08:00 Dose: 250 mls/hr Insulin Aspart (Novolog) 6 unit SC AC [facility] Last Admin: 06/09/16 16:49 Dose: 6 unit Insulin Aspart (Novolog) 0 unit SC ACHS [facility] PRN Reason: Protocol Last Admin: 06/09/16 22:37 Dose: Not Given Insulin Glargine (Lantus) 20 unit SC HS [facility] Last Admin: 06/09/16 21:18 Dose: 20 units Metformin HCl (Glucophage) 1,000 mg PO BIDCC [facility] Last Admin: 06/10/16 10:35 Dose: 1,000 mg Montelukast Sodium (Singulair) 10 mg PO [facility] Last Admin: 06/09/16 21:12 Dose: 10 mg Nystatin (Nystatin Oral Susp) 5 ml PO QID [facility] Last Admin: 06/10/16 10:39 Dose: 5 ml Pantoprazole Sodium (Protonix Ec Tab) 40 mg PO BID [facility] Last Admin: 06/10/16 10:37 Dose: 40 mg Prednisone (Prednisone Tab) 20 mg PO DAILY [facility] Last Admin: 06/10/16 10:36 Dose: 20 mg Promethazine HCl/Codeine (Phenergan/Codeine Oral Syrup) 5 ml PO Q4 PRN PRN Reason: Cough Last Admin: 06/09/16 17:50 Dose: 5 ml Saliva Substitute (First Magic Mouthwash) 2 ml PO Q6H [facility] Last Admin: 06/10/16 02:23 Dose: 2 ml Sitagliptin Phosphate (Januvia) 100 mg PO DAILY [facility] Last Admin: 06/10/16 10:38 Dose: 100 mg Trimethoprim/Sulfamethoxazole (Bactrim Ds Tab) 1 tab PO Q6H [facility] Last Admin: 06/07/16 14:23 Dose: 1 tab - Labs Labs: 06/10/16 08:33 06/10/16 08:33 PT 11.3 SECONDS (9.7-12.2) 06/07/16 21:10 INR 1.0 06/07/16 21:10 APTT 30 SECONDS (21-34) 06/07/16 21:10 - Constitutional Appears: Well, No Acute Distress - Head Exam Head Exam: ATRAUMATIC, NORMOCEPHALIC - ENT Exam ENT Exam: Mucous Membranes Moist, Normal Exam (some white film on tong) - Respiratory Exam Respiratory Exam: Rhonchi (LLL), NORMAL BREATHING PATTERN. absent: Decreased Breath Sounds, Clear to Ausculation Bilateral, Prolonged Expiratory Phase, Rales , Wheezes, Respiratory Distress - Cardiovascular Exam Cardiovascular Exam: +S1, +S2. absent: Murmur - Neurological Exam Neurological Exam: Alert, Awake, Oriented x3 - Psychiatric Exam Psychiatric exam: Normal Affect, Normal Mood - Skin Skin Exam: Dry, Intact, Normal Color, Warm Assessment and Plan (1) Pneumonia Assessment & Plan: EGD 06-10-16 significant for esophagitus LA grade C, gastritus with biopsy for H pylori, 2cm hiatal hernia Pt optimized for discharge from a pulmonary standpoint with PO antibiotics including HIV treatment; follow-up outpatient with Dr. Gan. Prior Hospital Course: 05-30-[address]: R: Increased prominence of interstitial with mosaic pattern suggestive of pulmonary edema, middle and lower lobe consolidation/atelectasis, 6mm pulmonary nodule; L: Increased prominence of interstitial with mosaic pattern suggestive of pulmonary edema, L lobe consolidations Recommend follow-up screening to look for nodule growth 06-02-16 ECHO: EF between 65-70%, normal ventricular function, grade 1 abnormal relaxation pattern 06-02-16 Positive HIV test 06-04-16 CXR: mild crowded broncovascular markings, mild bibasilar atelectasis, course interstitial markings less well seen when compared to CT, questionable tiny left sided effusion 06-07-16 CXR ill defined consolidate airspace opacities at both lung bases R>L, trace L plural effusion, and venous congestion 06-07-16 VQ scan low probability of pulmonary embolism ABG 06-09-16 CO2-25 O2 -110 HCO3-21.9 pH-7.47 Mycoplasma and Legionella serology and labs negative Hepatitis and Cryptococcus negative IgE labs normal result of 10 Absolute CD4 count <20 Status: Acute (2) Asthma exacerbation Status: Chronic (3) Nodule of right lung Status: Acute (4) HIV (human immunodeficiency virus infection) Status: Acute
--- NOTE | 2016-06-10 15:28 | PN ---
DATE: 06/10/2016 LOCATION: Room 660. SUBJECTIVE: This is a 46-year-old male with recent uncontrolled type 2 insulin-requiring diabetes, p resenting here with asthmatic exacerbation and started on IV steroid therapy with supervening hypergl ycemic accelerations as noted thereof. He has since then been switched over to oral steroids with im proved glycemic profile over the last few days as noted. His latest chemistry showed a BUN of 20, so dium 132, potassium 4.8, chloride 99, CO2 of 22, glucose 108, and creatinine 1.0. At this time, we w ill continue the same basal and bolus insulin regimen as he is actually stabilized with glucose level s today ranging from 128-139 mg/dL. We will keep him on the Lantus given as 20 units subQ at bedtime daily with NovoLog given as 6 units subQ t.i.d. before meals as ordered. We will titrate incrementa lly as indicated to optimize metabolic control. We will follow. Joanna Linares MD cc: [id number] TT: 06/10/2016 15:27:27 Confirmation # [id number] Dictation # [id number] [place]
--- NOTE | 2016-06-10 22:08 | CP.PCM.PN ---
Subjective - Date & Time of Evaluation Date of Evaluation: 06/10/16 Time of Evaluation: 17:00 - Subjective Subjective: pt. clinically stable pt. denies cough, pain wit swallowing sittting in chair comfortabally Objective - Vital Signs/Intake and Output Vital Signs (last 24 hours): Temp Pulse Resp BP Pulse Ox 98.4 F 90 17 120/72 98 06/10/16 09:41 06/10/16 09:41 06/10/16 09:41 06/10/16 09:41 06/10/16 09:41 - Labs Labs: 06/10/16 08:33 06/10/16 08:33 PT 11.3 SECONDS (9.7-12.2) 06/07/16 21:10 INR 1.0 06/07/16 21:10 APTT 30 SECONDS (21-34) 06/07/16 21:10 - Constitutional Appears: Well - Head Exam Head Exam: ATRAUMATIC, NORMAL INSPECTION, NORMOCEPHALIC - Eye Exam Eye Exam: EOMI, Normal appearance, PERRL Pupil Exam: NORMAL ACCOMODATION, PERRL - ENT Exam ENT Exam: Mucous Membranes Moist, Normal Exam - Neck Exam Neck Exam: Full ROM, Normal Inspection. absent: Lymphadenopathy - Respiratory Exam Respiratory Exam: Decreased Breath Sounds - Cardiovascular Exam Cardiovascular Exam: REGULAR RHYTHM, +S1, +S2 - GI/Abdominal Exam GI & Abdominal Exam: Soft, Diminished Bowel Sounds - Rectal Exam Rectal Exam: Deferred Assessment and Plan (1) Asthma exacerbation Status: Chronic (2) Cough due to bronchospasm Status: Acute (3) Pneumonia Status: Acute (4) Prophylactic measure Status: Acute (5) Nodule of right lung Status: Acute (6) Uncontrolled diabetes mellitus Status: Acute (7) HIV (human immunodeficiency virus infection) Status: Acute - Assessment and Plan (Free Text) Plan: Patient discharged home with PO medication he needs to f/u with me,Dr. Pena, Dr. Gan, and Dr. Green. He will also need to f/u with Dr. Page for biopsy results from the EGD today. On Atripla, Bactrim, Zithromax, and Diflucan.
[2016-06-18 02:36] LABS: HIV-1 GENOTYPE DETECTED
--- NOTE | 2016-07-09 13:40 | OP ---
PROCEDURE DATE: 06/08/2016 This is a 46-year-old male with a history of HIV, syncope, rapid ventricular rate. Presents for tilt table testing. The patient started head-up tilt after appropriate IV hydration. Within 2-3 minutes , heart rate went from 92 to 130s to 140s. The patient was asymptomatic. He continued to be tachyca rdic about the first 5 minutes of the test. We stopped the tilt table test after remaining tachycard ic and after 20 minutes of head-up tilt and he was brought down and the heart rate did go back to the 90s again. The patient was diagnosed with postural orthostatic tachycardia syndrome, also known as POTS syndrome, and we will treat him appropriately. Samara Green MD cc: [id number] TT: 07/09/2016 11:35:02 en
== END 2016-06-10 14:45 | disposition home or self-care (01) | DRG 975 ==
LOC: C.ER 11:37 → EEVIPCON 15:09 → C.9E 15:09 → C.6T 20:26
PROVIDERS: ADMIT Internal Medicine Nephrology; ATTEND Internal Medicine Nephrology
PROC: 4A023FZ Measurement of Cardiac Rhythm, Percutaneous Approach (ICD-10-PCS; principal; 2016-06-08)
PROC: 4A033B1 Measurement of Arterial Pressure, Peripheral, Percutaneous Approach (ICD-10-PCS; 2016-06-08)
PROC: 0DB88ZX Excision of Small Intestine, Via Natural or Artificial Opening Endoscopic, Diagnostic (ICD-10-PCS; 2016-06-10)
DX: B20 Human immunodeficiency virus [HIV] disease (principal); J81.1 Chronic pulmonary edema; B37.0 Candidal stomatitis; B59 Pneumocystosis; J44.1 Chronic obstructive pulmonary disease with (acute) exacerbation; J45.901 Unspecified asthma with (acute) exacerbation; E11.65 Type 2 diabetes mellitus with hyperglycemia; I11.9 Hypertensive heart disease without heart failure; R13.10 Dysphagia, unspecified; R91.1 Solitary pulmonary nodule; E78.5 Hyperlipidemia, unspecified; Z79.4 Long term (current) use of insulin; R00.0 Tachycardia, unspecified; K12.0 Recurrent oral aphthae; R55 Syncope and collapse; R09.02 Hypoxemia; K20.8 Other esophagitis; K44.9 Diaphragmatic hernia without obstruction or gangrene; K29.70 Gastritis, unspecified, without bleeding